=== PATIENT | female | born 1955 | race Caucasian/White ===

== ENCOUNTER 2017-03-10 13:57 | Inpatient (IN) ==
[~2017-03-10 13:57] MED LIST: *HR* Atropine Sulfate 1 MG/10 ML SYRINGE IV ONE; *HR* Dextrose 50 % in Water (Syg) 50 ML SYRINGE IVC ONE
--- NOTE | 2017-03-10 14:38 | Emergency Department Note ---
Disposition Clinical Impression: Hyperkalemia, JOSE ROBERTO (acute kidney injury), Bradycardia, Nausea and vomiting, Anemia, Metabolic acidosis Disposition: Admitted As Inpatient Condition: Undetermined General Adult HPI - General Chief complaint: ED Nausea/Vomiting/Diarrhea Stated complaint: n/v x 1 week Time Seen by Provider: 03/10/17 14:35 Source: patient, family Limitations: no limitations - History of Present Illness Pain Scale: 5 - Related Data Home Medications Medication Instructions Recorded Confirmed Aspirin [Adult Low Dose Aspirin EC] 81 mg PO DAILY 08/18/15 03/10/17 Gabapentin [Neurontin] 300 mg PO HS 08/18/15 03/10/17 Insulin LISPRO [Humalog] 14 unit SQ BID 08/18/15 03/10/17 Pravastatin Sodium [Pravachol] 40 mg PO HS 08/18/15 03/10/17 Buspirone HCl [Buspar] 5 mg PO BID 11/16/15 03/10/17 Linagliptin/Metformin HCl 1 tab PO BID 05/03/16 03/10/17 [Jentadueto Xr 2.5 mg-1,000 mg] Furosemide [Lasix] 20 mg PO QPM 09/26/16 03/10/17 Furosemide [Lasix] 40 mg PO QAM 09/26/16 03/10/17 Insulin Glargine,Hum.rec.anlog 14 units SQ QAM 03/10/17 03/10/17 [Toujeo Solostar] OxyCODONE/APAP 5/325 [Percocet 1 tab PO BID PRN 03/10/17 03/10/17 5/325 MG] Previous Rx's Medication Instructions Recorded Carvedilol [Coreg] 6.25 mg PO BIDWM #60 tablet 05/11/16 amLODIPine [Norvasc] 5 mg PO DAILY #30 tablet 05/11/16 Allergies Allergy/AdvReac Type Severity Reaction Status Date / Time No Known Allergies Allergy Verified 08/18/15 08:38 Past Medical History - Past Medical History Medical history: Reports: arthritis, CVA, diabetes, glaucoma, hyperlipidemia, hypertension, renal disease Surgical history: Reports: cataract, other Psychiatric history: Reports: no psych history - Social History Smoking Status: Unknown if ever smoked Smokeless Tobacco Status: No Alcohol use: Reports: none Drug use: Reports: none Physical Exam - General Limitations: no limitations General appearance: alert Course Vital Signs Temperature 97.8 F 03/10/17 14:15 Pulse Rate 62 03/10/17 14:15 Respiratory Rate 18 03/10/17 14:15 Blood Pressure 94/46 03/10/17 14:15 O2 Sat by Pulse Oximetry 98 03/10/17 14:15 Temperature 96.7 F L 03/10/17 20:48 Pulse Rate 69 03/10/17 20:48 Respiratory Rate 10 03/10/17 20:48 Blood Pressure 102/39 03/10/17 20:48 O2 Sat by Pulse Oximetry 97 03/10/17 20:48 Oxygen Delivery Oxygen Delivery Nasal Cannula Medical Decision Making - Lab Data Result diagrams: 03/10/17 15:48 03/10/17 20:19 Lab Results 03/10/17 03/10/17 03/10/17 Range/Units 15:48 15:48 16:56 WBC 15.1 H D (4.3-11.1) K/mcL RBC 3.48 L (3.82-4.97) M/mcL Hgb 8.2 L (11.5-15.4) g/dL Hct 29.1 L (35.3-44.9) % MCV 83.6 (83.0-100.0) fL MCH 23.6 L (28.0-33.3) pg MCHC 28.2 L (31.6-35.5) g/dL RDW 15.6 H (11.5-14.5) % Plt Count 315 (140-400) K/mcL MPV 8.6 L (9.4-12.4) fL Immature Gran % 0.7 (0-4) % Seg Neutrophils % 90.6 % Lymphocytes % 5.7 % Monocytes % 2.8 % Eosinophils % 0.1 % Basophils % 0.1 % Neutrophils # 13.7 H (1.6-8.9) K/mcL Lymphocytes # 0.9 (0.6-4.6) K/mcL Monocytes # 0.4 (0.0-1.3) K/mcL Eosinophils # 0.0 (0.0-0.6) K/mcL Basophils # 0.0 (0.0-0.2) K/mcL Platelet Estimate Normal (Normal) Hypochromasia Present A (Not Present) Sodium 133 L (136-145) mEq/L Potassium 8.5 H* 7.3 H* D (3.5-4.5) mEq/L Chloride 96 L (98-109) mEq/L Carbon Dioxide 10 L* (19-29) mEq/L BUN 106 H (7-20) mg/dL Creatinine 7.35 H (0.57-1.11) mg/dL Est GFR ( Amer) 7 L (> 60) Est GFR (Non-Af Amer) 6 L (> 60) BUN/Creatinine Ratio 14 (6-26) Glucose 120 H (70-99) mg/dL Calculated Osmolality 311 H (280-300) Calcium 9.5 (8.6-10.8) mg/dL Total Bilirubin 0.4 (0.2-1.2) mg/dL AST 8 (5-34) Units/L ALT 8 (0-55) Units/L Alkaline Phosphatase 135 H (38-126) Units/L Serum Total Protein 8.8 H (6.0-8.3) g/dL Albumin 2.6 L (3.5-5.0) g/dL Globulin 6.2 H (2.4-3.5) g/dL Albumin/Globulin Ratio 0.4 L (1.1-2.2) Specimen Rejected 03/10/17 03/10/17 Range/Units 18:16 18:53 WBC (4.3-11.1) K/mcL RBC (3.82-4.97) M/mcL Hgb (11.5-15.4) g/dL Hct (35.3-44.9) % MCV (83.0-100.0) fL MCH (28.0-33.3) pg MCHC (31.6-35.5) g/dL RDW (11.5-14.5) % Plt Count (140-400) K/mcL MPV (9.4-12.4) fL Immature Gran % (0-4) % Seg Neutrophils % % Lymphocytes % % Monocytes % % Eosinophils % % Basophils % % Neutrophils # (1.6-8.9) K/mcL Lymphocytes # (0.6-4.6) K/mcL Monocytes # (0.0-1.3) K/mcL Eosinophils # (0.0-0.6) K/mcL Basophils # (0.0-0.2) K/mcL Platelet Estimate (Normal) Hypochromasia (Not Present) Sodium (136-145) mEq/L Potassium 7.9 H* (3.5-4.5) mEq/L Chloride (98-109) mEq/L Carbon Dioxide (19-29) mEq/L BUN (7-20) mg/dL Creatinine (0.57-1.11) mg/dL Est GFR ( Amer) (> 60) Est GFR (Non-Af Amer) (> 60) BUN/Creatinine Ratio (6-26) Glucose (70-99) mg/dL Calculated Osmolality (280-300) Calcium (8.6-10.8) mg/dL Total Bilirubin (0.2-1.2) mg/dL AST (5-34) Units/L ALT (0-55) Units/L Alkaline Phosphatase (38-126) Units/L Serum Total Protein (6.0-8.3) g/dL Albumin (3.5-5.0) g/dL Globulin (2.4-3.5) g/dL Albumin/Globulin Ratio (1.1-2.2) Specimen Rejected Hemolyzed Critical Care Time Critical Care Time: Yes Total Critical Care Time: 75 Attestation: Severe hyperkalemia requiring IV calcium chloride, sodium bicarbonate, insulin. Attestation Statement - Attestation Attestation: I examined this patient and my medical decision-making was reviewed with the Resident Physician. I agree with the documented findings, disposition and treatment plan as described except to the extent set forth below. Status post time provided in conjunction with the resident physician Dr. Ventura Patient has experienced illness for the past one week. Worse over the past several days. Nausea and vomiting with the inability to tolerate oral intake. Upper abdominal pain. Increasing weakness. She required staff assistance to transfer from the wheelchair to the examination bed. 16:15: i Was made aware by the nurse that the patient became bradycardic. She was reassessed at bedside. She is alert and normotensive. Long pauses identified on rhythm strip. Repeat ECG showed bradycardic rhythm. At this point we received information from the lab that she was severely hyperkalemic. I did place a right-sided external jugular line. Patient was given albuterol, calcium chloride, insulin, glucose, sodium bicarbonate. Labs reviewed by me indicating acute kidney injury and hyperkalemia. 19:21: Continued assessment indicates persistently elevated potassium levels. We have had several telephone discussions with the on-call forging roll operator. Patient was given additional rounds of medical management.
[2017-03-10] MEDS ORDERED: 0.9 % Sodium Chloride 500 ML IVC ONE (14:51)
[2017-03-10] MEDS ORDERED: Ondansetron 4 MG/2 ML VIAL IVP ONE (14:51)
--- NOTE | 2017-03-10 15:05 | Emergency Department Note ---
Disposition Clinical Impression: Hyperkalemia, JOSE ROBERTO (acute kidney injury), Bradycardia, Metabolic acidosis Nausea and vomiting Qualifiers: Vomiting type: unspecified Vomiting Intractability: non-intractable Qualified Code(s): R11.2 - Nausea with vomiting, unspecified Anemia Qualifiers: Anemia type: unspecified type Qualified Code(s): D64.9 - Anemia, unspecified Disposition: Admitted As Inpatient Condition: Undetermined Referrals: Elza Jesus MD [Primary Care Provider] - Forms: ED Satisfaction Letter Time of Disposition: 19:36 Nausea/Vomiting/Diarrhea HPI - General Chief complaint: ED Nausea/Vomiting/Diarrhea Stated complaint: n/v x 1 week Time Seen by Provider: 03/10/17 14:35 Source: patient, family Mode of arrival: wheelchair Limitations: no limitations Nursing Notes Reviewed: Yes Vital Signs Reviewed: Yes - History of Present Illness HPI Narrative: 61-year-old female with history of diabetes, hypertension, and tubal ligation arrives [facility] emergency department complaining of one week of nausea and vomiting as well as decreased urine output and abdominal pain. The patient is unable to pinpoint exactly where the abdominal pain is located but states it is generalized. The patient states the vomiting and abdominal pain started roughly the same time. The patient denies any fevers or chills. The patient does admit to chronic constipation but states that she had a bowel movement yesterday that was normal. Patient denies any other complaints. She is resting comfortably in the room with the exception of retching due to vomiting. Pt Subjective Complaint: nausea, vomiting, abdominal pain Onset (ago): week(s) (1) Description of emesis: watery Associated Abdominal Pain: Yes If pain, Location of pain: diffuse Severity: moderate Severity scale (1-10): 5 Quality: cramping Consistency: constant Improves with: nothing Worsens with: nonthing Associated symptoms: Reports: nausea/vomiting - Related Data Home Medications Medication Instructions Recorded Confirmed Aspirin [Adult Low Dose Aspirin EC] 81 mg PO DAILY 08/18/15 03/10/17 Gabapentin [Neurontin] 300 mg PO HS 08/18/15 03/10/17 Insulin LISPRO [Humalog] 14 unit SQ BID 08/18/15 03/10/17 Pravastatin Sodium [Pravachol] 40 mg PO HS 08/18/15 03/10/17 Buspirone HCl [Buspar] 5 mg PO BID 11/16/15 03/10/17 Linagliptin/Metformin HCl 1 tab PO BID 05/03/16 03/10/17 [Jentadueto Xr 2.5 mg-1,000 mg] Furosemide [Lasix] 20 mg PO QPM 09/26/16 03/10/17 Furosemide [Lasix] 40 mg PO QAM 09/26/16 03/10/17 Insulin Glargine,Hum.rec.anlog 14 units SQ QAM 03/10/17 03/10/17 [Toujeo Solostar] OxyCODONE/APAP 5/325 [Percocet 1 tab PO BID PRN 03/10/17 03/10/17 5/325 MG] Previous Rx's Medication Instructions Recorded Carvedilol [Coreg] 6.25 mg PO BIDWM #60 tablet 05/11/16 amLODIPine [Norvasc] 5 mg PO DAILY #30 tablet 05/11/16 Allergies Allergy/AdvReac Type Severity Reaction Status Date / Time No Known Allergies Allergy Verified 08/18/15 08:38 All systems ED: reviewed and negative except as stated. Constitutional: Reports: weakness. Denies: fever, chills, weight change Cardiovascular: Denies: chest pain, palpitations, dyspnea on exertion Respiratory: Denies: cough, dyspnea, wheezes Gastrointestinal: Reports: abdominal pain, nausea, vomiting, constipation. Denies: diarrhea Genitourinary: Denies: urgency, dysuria, frequency Musculoskeletal: Denies: back pain, neck pain Neurological: Denies: headache Past Medical History - Past Medical History Attestation: Yes The following information was validated with the patient. Source: patient Medical history: Reports: arthritis, CVA, diabetes, glaucoma, hyperlipidemia, hypertension, renal disease Surgical history: Reports: cataract, other Psychiatric history: Reports: no psych history - Social History Smoking Status: Unknown if ever smoked Smokeless Tobacco Status: No Alcohol use: Reports: none Drug use: Reports: none Physical Exam - General Limitations: no limitations General appearance: alert, in no apparent distress - Head Head exam: atraumatic, normocephalic, normal inspection - Eye Eye exam: Present: normal appearance, PERRL, EOMI - ENT ENT exam: normal exam, normal oropharynx, mucous membranes moist - Neck Neck exam: Present: normal inspection, full ROM, trachea midline - Chest Chest inspection: Present: normal inspection, symmetric chest wall rise - Respiratory Respiratory exam: Present: normal lung sounds bilaterally - Cardiovascular Cardiovascular exam: Present: regular rate, normal rhythm, normal heart sounds - Abdominal Exam Abdominal exam: Present: soft, tenderness (diffuse). Absent: distention, guarding, rebound, rigidity, Queen's sign, Rovsing's sign Abdominal tenderness: Present: diffuse, moderate - Extremities Exam Extremities exam: Present: normal inspection, full ROM, pedal edema (1+). Absent: tenderness Course - Reevaluation(s) Reevaluation #1: Nurse notified myself of the cardia. The patient was evaluated and noted to be bradycardic. She was administered atropine immediately after being placed on pads. The patient was immediately notified that there was a potassium of critically high note at 8.5. The patient had calcium chloride administered. Multiple IVs were started at that time. The patient was started with IV fluids. The patient also received 10 mg of albuterol nebulizer as well as 10 units of insulin and 2 A of D50. The patient's heart rate continued to increase to the mid 50s and 60s. We will recheck the patient's potassium and monitor the patient at this time. Time: 16:31 Reevaluation #2: After speaking with the hospitalist, Dr. Reynolds he expressed concern for indication for dialysis. He recommended conversation with Dr. De La Vega once again. After talking with Dr. De La Vega she feels as though the patient's hyperkalemia will begin to correct rapidly. We will perform a reassessment of the patient's potassium roughly 1 hour after the last straw and reevaluate for further care. Time: 17:37 Reevaluation #3: Repeat potassium revealed a potassium of 7.9. We began the patient on another dose of insulin as well as albuterol. We begin the patient Kayexalate again. We spoke to Dr. De La Vega in nephrology who agreed that the patient would likely need dialysis at this time. She requested stat admission to ICU for further care and dialysis. He spoke to the hospitalist preparation room manager, Dr. Ambrocio who agreed to accept the patient to the ICU. We will admit the patient to the ICU at this time. The patient remains alert and oriented and answering questions appropriately. Her heart rate remains in the 60s to 70s. Time: 19:34 Vital Signs Temperature 97.8 F 03/10/17 14:15 Pulse Rate 62 03/10/17 14:15 Respiratory Rate 18 03/10/17 14:15 Blood Pressure 94/46 03/10/17 14:15 O2 Sat by Pulse Oximetry 98 03/10/17 14:15 Temperature 97.8 F 03/10/17 14:15 Pulse Rate 66 03/10/17 19:32 Respiratory Rate 12 03/10/17 19:32 Blood Pressure 103/69 03/10/17 19:32 O2 Sat by Pulse Oximetry 100 03/10/17 19:32 Oxygen Delivery Oxygen Delivery Room Air Nausea/Vomiting/Diarrhea - Lab Data Result diagrams: 03/10/17 15:48 03/10/17 18:53 Lab Results 03/10/17 03/10/17 03/10/17 Range/Units 15:48 15:48 16:56 WBC 15.1 H D (4.3-11.1) K/mcL RBC 3.48 L (3.82-4.97) M/mcL Hgb 8.2 L (11.5-15.4) g/dL Hct 29.1 L (35.3-44.9) % MCV 83.6 (83.0-100.0) fL MCH 23.6 L (28.0-33.3) pg MCHC 28.2 L (31.6-35.5) g/dL RDW 15.6 H (11.5-14.5) % Plt Count 315 (140-400) K/mcL MPV 8.6 L (9.4-12.4) fL Immature Gran % 0.7 (0-4) % Seg Neutrophils % 90.6 % Lymphocytes % 5.7 % Monocytes % 2.8 % Eosinophils % 0.1 % Basophils % 0.1 % Neutrophils # 13.7 H (1.6-8.9) K/mcL Lymphocytes # 0.9 (0.6-4.6) K/mcL Monocytes # 0.4 (0.0-1.3) K/mcL Eosinophils # 0.0 (0.0-0.6) K/mcL Basophils # 0.0 (0.0-0.2) K/mcL Platelet Estimate Normal (Normal) Hypochromasia Present A (Not Present) Sodium 133 L (136-145) mEq/L Potassium 8.5 H* 7.3 H* D (3.5-4.5) mEq/L Chloride 96 L (98-109) mEq/L Carbon Dioxide 10 L* (19-29) mEq/L BUN 106 H (7-20) mg/dL Creatinine 7.35 H (0.57-1.11) mg/dL Est GFR ( Amer) 7 L (> 60) Est GFR (Non-Af Amer) 6 L (> 60) BUN/Creatinine Ratio 14 (6-26) Glucose 120 H (70-99) mg/dL Calculated Osmolality 311 H (280-300) Calcium 9.5 (8.6-10.8) mg/dL Total Bilirubin 0.4 (0.2-1.2) mg/dL AST 8 (5-34) Units/L ALT 8 (0-55) Units/L Alkaline Phosphatase 135 H (38-126) Units/L Serum Total Protein 8.8 H (6.0-8.3) g/dL Albumin 2.6 L (3.5-5.0) g/dL Globulin 6.2 H (2.4-3.5) g/dL Albumin/Globulin Ratio 0.4 L (1.1-2.2) Specimen Rejected 03/10/17 03/10/17 Range/Units 18:16 18:53 WBC (4.3-11.1) K/mcL RBC (3.82-4.97) M/mcL Hgb (11.5-15.4) g/dL Hct (35.3-44.9) % MCV (83.0-100.0) fL MCH (28.0-33.3) pg MCHC (31.6-35.5) g/dL RDW (11.5-14.5) % Plt Count (140-400) K/mcL MPV (9.4-12.4) fL Immature Gran % (0-4) % Seg Neutrophils % % Lymphocytes % % Monocytes % % Eosinophils % % Basophils % % Neutrophils # (1.6-8.9) K/mcL Lymphocytes # (0.6-4.6) K/mcL Monocytes # (0.0-1.3) K/mcL Eosinophils # (0.0-0.6) K/mcL Basophils # (0.0-0.2) K/mcL Platelet Estimate (Normal) Hypochromasia (Not Present) Sodium (136-145) mEq/L Potassium 7.9 H* (3.5-4.5) mEq/L Chloride (98-109) mEq/L Carbon Dioxide (19-29) mEq/L BUN (7-20) mg/dL Creatinine (0.57-1.11) mg/dL Est GFR ( Amer) (> 60) Est GFR (Non-Af Amer) (> 60) BUN/Creatinine Ratio (6-26) Glucose (70-99) mg/dL Calculated Osmolality (280-300) Calcium (8.6-10.8) mg/dL Total Bilirubin (0.2-1.2) mg/dL AST (5-34) Units/L ALT (0-55) Units/L Alkaline Phosphatase (38-126) Units/L Serum Total Protein (6.0-8.3) g/dL Albumin (3.5-5.0) g/dL Globulin (2.4-3.5) g/dL Albumin/Globulin Ratio (1.1-2.2) Specimen Rejected Hemolyzed
[2017-03-10 16:07] LABS: Basophils % 0.1 %; Eosinophils % 0.1 %; Hematocrit 29.1 % (35.3-44.9); Hemoglobin 8.2 g/dL (11.5-15.4); Immature Granulocytes % 0.7 % (0-4); Lymphocytes # 0.9 K/mcL (0.6-4.6); Lymphocytes % 5.7 %; Mean Corpuscular HGB Conc 28.2 g/dL (31.6-35.5); Mean Corpuscular Hemoglobin 23.6 pg (28.0-33.3); Mean Corpuscular Volume 83.6 fL (83.0-100.0); Mean Platelet Volume 8.6 fL (9.4-12.4); Monocytes # 0.4 K/mcL (0.0-1.3); Monocytes % 2.8 %; Neutrophils # 13.7 K/mcL (1.6-8.9); Platelet Count 315 K/mcL (140-400); Red Blood Count 3.48 M/mcL (3.82-4.97); Red Cell Distribution Width 15.6 % (11.5-14.5); Segmented Neutrophils % 90.6 %
[2017-03-10 16:08] LABS: Albumin 2.6 g/dL (3.5-5.0); Albumin/Globulin Ratio 0.4 (1.1-2.2); Bilirubin,Total 0.4 mg/dL (0.2-1.2); Calcium 9.5 mg/dL (8.6-10.8); Globulin 6.2 g/dL (2.4-3.5); Total Protein 8.8 g/dL (6.0-8.3)
[2017-03-10] MEDS ORDERED: Ipratropium/Albuterol Neb 3 ML IH ONE (16:15)
[2017-03-10] MEDS ORDERED: Calcium Chloride 1,000 MG in 0.9 % Sodium Chloride 100 ML IVPB ONE (16:15)
[2017-03-10] MEDS ORDERED: Insulin Human Regular 10 UNIT in 0.9 % Sodium Chloride 10 ML IV ONE ×2 (16:15→19:17)
[2017-03-10] MEDS ORDERED: *HR* Dextrose 50 % in Water (Syg) 50 ML SYRINGE IVP ONE ×2 (16:15→19:17)
[2017-03-10] MEDS ORDERED: Sodium Bicarbonate 50 MEQ/50 ML VIAL IVP ONE (16:16)
[2017-03-10] MEDS ORDERED: Albuterol 2.5 MG/3 ML NEBULIZER ONE (16:17)
[2017-03-10] MEDS ORDERED: *HR* Dextrose 50 % in Water (Syg) 50 ML SYRINGE ONE (16:17)
[2017-03-10 16:18] LABS: Potassium 8.5 mEq/L (3.5-4.5)
[2017-03-10] MEDS ORDERED: Albuterol 2.5 MG/3 ML NEBULIZER IH ONE ×3 (16:38→19:17)
[2017-03-10] MEDS ORDERED: 0.9 % Sodium Chloride 1,000 ML IVC ONE ×3 (16:39→17:16)
[2017-03-10] MEDS ORDERED: Sodium Bicarbonate 150 MEQ in D5% in Water 1,000 ML IVC SCH ×2 (16:45)
[2017-03-10 16:53] LABS: Hypochromasia Present (Not Present); Platelet Estimate Normal (Normal)
[2017-03-10] MEDS ORDERED: Acetaminophen 325 MG TABLET PO PRN (19:41)
[2017-03-10] MEDS ORDERED: *HR* Morphine 2 MG/ML SYRINGE IVP PRN (19:41)
[2017-03-10] MEDS ORDERED: Naloxone 0.4 MG/ML INJ IVP PRN (19:41)
[2017-03-10] MEDS ORDERED: *HR* HYDROcodone/Acet 5/325 mg TABLET PO PRN (19:41)
[2017-03-10] MEDS ORDERED: 0.9 % Sodium Chloride 1,000 ML IVC SCH ×2 (19:45→21:45)
[2017-03-10 20:36] LABS: Calcium 9.8 mg/dL (8.6-10.8); Magnesium 1.7 mg/dL (1.6-2.6)
[2017-03-10 20:40] LABS: Potassium 7.1 mEq/L (3.5-4.5)
[2017-03-10 20:41] LABS: Potassium 7.1 mEq/L (3.5-4.5)
[2017-03-10] MEDS ORDERED: *HR* Midazolam HCl 5 MG/5 ML VIAL IVP ONE ×2 (21:10→22:02)
--- NOTE | 2017-03-10 21:38 | Internal Med History&Physical ---
Date of Encounter: 03/10/17 Time of Encounter: 21:00 Assessment and Plan (1) Acute renal failure Current visit: No Status: Acute Admit the pt into ICU Her JOSE ROBERTO with CKD-3 seems to be due to dehydration / hypovolemia and medication induced - Metformin / Linagliptin and Li De La Vega already seen her, planning on emergency HD now in ICU at bed side Will cont BiCarb gtt + IV fluids Mcneill + Straict I & O on tele check serial troponin will send for UA..If UA looks abnormal will start her on empirical abx Cefepime since she had Pseudomonas UTI in the past Cont trending on her Cr and Electrolytes Talked to pt and her daughter at bed side and explained to them about current care Pt requested for DNR CC code status only Spent 60 mins on this pt's critical care Qualifiers: Acute renal failure type: unspecified Qualified Code(s): N17.9 - Acute kidney failure, unspecified (2) Hyperkalemia Current visit: No Status: Resolved Acute refractory hyperkalemia Had one episode of bradycardia in the ER..now HR stable in 60's K + started improving slowly Cont Haco3 gtt + NS, Kayexalate also getting HD now (3) Lactic acidosis Current visit: Yes Status: Acute Due to severe renal metabolic acidosis.. also possible due to Metformin too cont IV hydration will trend on her lactic acid (4) Metabolic acidosis Current visit: Yes Status: Acute (5) Acute delirium Current visit: Yes Status: Acute due to metabolic encephalopathy with severe JOSE ROBERTO + Hyperuricemia improving (6) Acute metabolic encephalopathy Current visit: Yes Status: Acute (7) HTN (hypertension) Current visit: No Status: Chronic hold coreg and resume other home med Norvasc hold ACEI too Qualifiers: Hypertension type: essential hypertension Qualified Code(s): I10 - Essential (primary) hypertension (8) CKD (chronic kidney disease) stage 3, GFR 30-59 ml/min Current visit: Yes Status: Acute avoid nephrotoxic meds (9) DM2 (diabetes mellitus, type 2) Current visit: Yes Status: Acute on ISS Q6hr Qualifiers: Chronic kidney disease stage: stage 3 (moderate) Qualified Code(s): E11.22 - Type 2 diabetes mellitus with diabetic chronic kidney disease; N18.3 - Chronic kidney disease, stage 3 (moderate); N18.3 - Chronic kidney disease, stage 3 (moderate) (10) DVT prophylaxis Current visit: Yes Status: Acute on SQ Heparin Internal Medicine - H&P: HPI Chief complaint: JOSE ROBERTO and Hyperkalemia Admitted From: Emergency Dept Plans for Post Hospital Care: Home History of present illness: Ms. Mejia is a 61 year old female with history of diabetes, hypertension, HLD, CKD-3 pt presented to [facility] emergency department complaining of one week of nausea and vomiting as well as decreased urine output and abdominal pain. She had further work up done in the ER her K + 8.5 and Cr: 7.35. Pt was given IV Insulin, NaHCo3, Calcium gluconate, Albuterol neb and Kayexalate. However her K + still remained elevtaed at 7.9. She also happened to have a brief episode of bradycardia which resolved with Atropine x 1 dose. Now her HR in 60's. When I examined her in the ICU around 8.30 PM she is alert, awake and Oriented x 3. Pt denied any CP / SOB. However does c/po generalized weakens and severe lethargic. Past Med Surg Social Fam HX - Past Medical History Medical history: arthritis, CVA, diabetes, glaucoma, hyperlipidemia, hypertension, renal disease Psychiatric history: no psych history - Past Surgical History Surgical History: cataract, other - Social History Smoking Status: Unknown if ever smoked Smokeless Tobacco Status: No Alcohol use: none Drug use: none - Family History Mother Adopted: No Family Member Ethnicity: Unknown Living Status: Still Living Hx Family Cardiac Disorders: No Hx Family Respiratory Disorders: Yes (COPD) Hx Family Cancer: Yes Hx Family GI Disorders: No Hx Family Endocrine Disorder: No Hx Family Neuromuscular Disorders: No Hx Family Neurologic Disorders: No Hx Family HEENT Disorders: No Hx Family Autoimmune Disorders: No Father Family Member Ethnicity: Unknown Living Status: Hx Family Cardiac Disorders: No Hx Family Respiratory Disorders: No Hx Family Cancer: No Hx Family GI Disorders: No Hx Family Endocrine Disorder: No Hx Family Neuromuscular Disorders: No Hx Family Neurologic Disorders: No Hx Family HEENT Disorders: No Hx Family Autoimmune Disorders: No Internal Medicine - H&P: Meds Aspirin [Adult Low Dose Aspirin EC] 81 mg PO DAILY 08/18/15 [History] Gabapentin [Neurontin] 300 mg PO HS 08/18/15 [History] Insulin LISPRO [Humalog] 14 unit SQ BID 08/18/15 [History] Pravastatin Sodium [Pravachol] 40 mg PO HS 08/18/15 [History] Buspirone HCl [Buspar] 5 mg PO BID 11/16/15 [History] Linagliptin/Metformin HCl [Jentadueto Xr 2.5 mg-1,000 mg] 1 tab PO BID 05/03/16 [History] Carvedilol [Coreg] 6.25 mg PO BIDWM #60 tablet 05/11/16 [Rx] amLODIPine [Norvasc] 5 mg PO DAILY #30 tablet 05/11/16 [Rx] Furosemide [Lasix] 20 mg PO QPM 09/26/16 [History] Furosemide [Lasix] 40 mg PO QAM 09/26/16 [History] Insulin Glargine,Hum.rec.anlog [Chayushane Solostar] 14 units SQ QAM 03/10/17 [ History] OxyCODONE/APAP 5/325 [Percocet 5/325 MG] 1 tab PO BID PRN 03/10/17 [History] 3 Allergy/AdvReac Type Severity Reaction Status Date / Time No Known Allergies Allergy Verified 08/18/15 08:38 All Systems PM: A 10-system review of systems was performed and is negative for pertinent findings except as documented above in the HPI. Review of systems: All the systems are reviewed everything is benign except the systems and symptoms I mentioned in the history of present illness - Constitutional Vitals: Temp Pulse Resp BP Pulse Ox 96.7 F L 69 10 102/39 97 03/10/17 20:48 03/10/17 20:48 03/10/17 20:48 03/10/17 20:48 03/10/17 20:48 General appearance: Present: A&O X 3, no acute distress, answers questions appropriately Exam: very lethargic and weak - Head Head exam: Present: atraumatic, normal inspection - Neck Neck exam general surgery: Present: normal inspection, supple. Absent: lymphadenopathy - Respiratory Respiratory exam: Present: decreased breath sounds, wheezes (mild). Absent: rales, respiratory distress, rhonchi - Cardiovascular Cardiovascular exam: Present: RRR, +S1, +S2. Absent: systolic murmur - Extremities Exam Extremities exam: Present: pedal edema (trace). Absent: calf tenderness, tenderness - Back Exam Back exam: Absent: CVA tenderness (L), CVA tenderness (R) - Neurological Exam Neurological exam: Present: alert, oriented X3, no focal deficits - Psychiatric Psychiatric exam: Present: depressed - Skin Skin exam: Present: dry, intact. Absent: rash Internal Med - H&P Results - Labs CBC & Chem 7: 03/10/17 15:48 03/10/17 20:19 Labs: BMP 03/10/17 03/10/17 20:19 20:19 Sodium 133 L Potassium 7.1 H* 7.1 H* Chloride 99 Carbon Dioxide 9 L* BUN 101 H Creatinine 7.01 H Glucose 236 H Calcium 9.8 Cardiac Enzymes 03/10/17 Range/Units 20:19 Troponin I 0.00 (0-0.03) ng/mL
[2017-03-10] MEDS ORDERED: *HR* Dextrose 50 % in Water (Syg) 50 ML SYRINGE IVP PRN (21:58)
[2017-03-10] MEDS ORDERED: D5% in Water 1,000 ML IVC PRN (21:58)
[2017-03-10] MEDS ORDERED: Dextrose Gel 15 GM PO PRN ×2 (21:58)
--- NOTE | 2017-03-10 22:01 | Nephrology Consult Note ---
Date of Encounter: 03/11/17 Time of Encounter: 22:00 Assessment and Plan (1) Hyperkalemia Current Visit: Yes Status: Acute Severe hyperkalemia in the setting of JOSE ROBERTO not amenable to medical treatment with resultant bradycardia potentially life threatening Will initiate HOSPITAL SCIENTIST emergently with patient's consent, CVVH choosen due to hemodynamic instability over intermittent HD for clerance purposes with no UF Serial hourly potassium checks advised Awaiting BMs after a total of 120g of kayexalate given (2) JOSE ROBERTO (acute kidney injury) Current Visit: Yes Status: Acute Elevated SCr in the setting of hypotension with one week of decreased po intake , nausea and vomiting along with diuretics with resultant severe hyperkalemia and metabolic acidosis with bradycardia as well. likley etiology appears to be profound hypovolemia/shock rule out sepsis Agree with obtaining UA and possibly urine sodium, creatinine ane eosinophils when there is enough urine CT abd/pelvis results reviewed with no hydronephrosis noted Will check LDH given lymphadenopathy noted on CT, uric acid level as well as CPK Agree with aggressive volume repletion with NS concurrent with bicarb gtt Will proceed with [facility]OSP[facility] SCIENTIST ([facility]) once HD access established as patient agreeable to this plan Case discussed at length first with the ED team and then with the hospitalist and critical care nurse Prognosis guarded Critical care time spent over 45mins excluding time spent establishing HD catheter access (3) Bradycardia Current Visit: Yes Status: Acute Likely due to severe hyperkalemia in the setting of beta-caprice use (coreg) as well. Should hopefully not be at issue once potassium drops (4) Metabolic acidosis Current Visit: Yes Status: Acute Likely due to JOSE ROBERTO and lactic acidosis due to metformin and presumed sepsis Continue bicarb gtt for now till CVVH adequately established (5) CKD (chronic kidney disease) stage 3, GFR 30-59 ml/min Current Visit: Yes Status: Acute Baseline GFR 20-30s this year so far (6) Anemia Current Visit: No Status: Chronic Likely chronic given history but will likely worsen with volume repletion, will monitor closely for transfusion needs Qualifiers: Qualified Code(s): D50.9 - Iron deficiency anemia, unspecified History of Present Illness - Reason for Consult Consult date: 03/10/17 Acute Kidney Injury, hyperkalemia Requesting physician: Darion Mendenhall - History of Present Illness 61 yo female with PMH of DM, HTN, stage 3 CKD with anemia of chronic disease and chronic leg wounds admitted from the ER to the ICU this evening compalining of generalized fatigue and diffuse abdominal pain after over a weeks worth of nausea and vomiting with decreased po intake and UOP. Her SCr was noted drastically elevated from 1.8, GFR 29 in november to 7.35, GFR 6 with potassium of 8.5 and bicarb of 9. She received 60g kayexalate in the ER along with insulin/ D50 as well as calcium chloride and albuterol as well s 3 liters of NS. Potassium initially improved to 7.3 but went back up to to 7.9. bradycardia also experienced with HR down to 30s improving with atropine. Pt seen and examined in the ICU complaining of fatigue. Daughter present at bedside confirming DNR-CC status but patient also clearly wishes for dialytic intervention as offered by me.No fevers/chills. No NSAIDs use but was on diuretics throughout the week. No potassium supplements. BP readings noted from 80s to 100s systolic. Past Med Surg Social Fam HX - Past Medical History Medical history: arthritis, CVA, diabetes, glaucoma, hyperlipidemia, hypertension, renal disease Psychiatric history: no psych history - Past Surgical History Surgical History: cataract, other - Social History Smoking Status: Unknown if ever smoked Smokeless Tobacco Status: No Alcohol use: none Drug use: none - Family History Mother Adopted: No Family Member Ethnicity: Unknown Living Status: Still Living Hx Family Cardiac Disorders: No Hx Family Respiratory Disorders: Yes (COPD) Hx Family Cancer: Yes Hx Family GI Disorders: No Hx Family Endocrine Disorder: No Hx Family Neuromuscular Disorders: No Hx Family Neurologic Disorders: No Hx Family HEENT Disorders: No Hx Family Autoimmune Disorders: No Father Family Member Ethnicity: Unknown Living Status: Hx Family Cardiac Disorders: No Hx Family Respiratory Disorders: No Hx Family Cancer: No Hx Family GI Disorders: No Hx Family Endocrine Disorder: No Hx Family Neuromuscular Disorders: No Hx Family Neurologic Disorders: No Hx Family HEENT Disorders: No Hx Family Autoimmune Disorders: No Medications and Allergies Aspirin [Adult Low Dose Aspirin EC] 81 mg PO DAILY 08/18/15 [History] Gabapentin [Neurontin] 300 mg PO HS 08/18/15 [History] Insulin LISPRO [Humalog] 14 unit SQ BID 08/18/15 [History] Pravastatin Sodium [Pravachol] 40 mg PO HS 08/18/15 [History] Buspirone HCl [Buspar] 5 mg PO BID 11/16/15 [History] Linagliptin/Metformin HCl [Jentadueto Xr 2.5 mg-1,000 mg] 1 tab PO BID 05/03/16 [History] Carvedilol [Coreg] 6.25 mg PO BIDWM #60 tablet 05/11/16 [Rx] amLODIPine [Norvasc] 5 mg PO DAILY #30 tablet 05/11/16 [Rx] Furosemide [Lasix] 20 mg PO QPM 09/26/16 [History] Furosemide [Lasix] 40 mg PO QAM 09/26/16 [History] Insulin Glargine,Hum.rec.anlog [José Miguel Manuel] 14 units SQ QAM 03/10/17 [ History] OxyCODONE/APAP 5/325 [Percocet 5/325 MG] 1 tab PO BID PRN 03/10/17 [History] 3 Allergy/AdvReac Type Severity Reaction Status Date / Time No Known Allergies Allergy Verified 08/18/15 08:38 Review of Systems All Systems: reviewed and no additional remarkable complaints except as stated ( 10 systems reviewed with pertinent noted on HPI) Exam - Vital Signs Vital signs: Initial Vital Signs Temp Pulse Resp BP Pulse Ox 97.8 F 62 18 94/46 98 03/10/17 14:15 03/10/17 14:15 03/10/17 14:15 03/10/17 14:15 03/10/17 14:15 Vital Signs - Last 8 Hours Temp Pulse Pulse Pulse Pulse Pulse Pulse 03/10/17 21:18 70 66 66 65 64 03/10/17 20:48 96.7 F L 69 03/10/17 20:15 71 03/10/17 19:53 Pulse Pulse Resp Resp Resp Resp Resp 03/10/17 21:18 64 63 14 14 14 14 03/10/17 20:48 10 03/10/17 20:15 03/10/17 19:53 17 Resp Resp Resp BP BP BP BP 03/10/17 21:18 14 14 14 114/46 81/44 95/42 03/10/17 20:48 102/39 03/10/17 20:15 03/10/17 19:53 105/55 BP BP BP BP Pulse Ox 03/10/17 21:18 98/46 92/48 86/46 94/48 03/10/17 20:48 97 03/10/17 20:15 03/10/17 19:53 Intake and Output 03/10/17 03/10/17 03/10/17 07:59 15:59 23:59 Intake Total 0 / 3630.2 Balance 0 / 3630.2 Intake: Oral 0 / 0 - General Appearance General appearance: fatigue EENT: ATNC, mucous membranes dry Neck: no JVD, supple Respiratory: clear (ant bilat) Cardiology: edema (trace to +1 LE bilat with open wounds/scabs noted), normal S1 , normal S2 Gastrointestinal: no tenderness, no guarding, obese Integumentary: warm and dry Neurologic: alert and oriented x3 Musculoskeletal: no deformities Psychiatric: mood/affect appropriate, cooperative Results - Lab Results 03/11/17 03:05 03/11/17 11:55 Most recent lab results Calcium 9.8 mg/dL (8.6-10.8) 03/10/17 20:19 Magnesium 1.7 mg/dL (1.6-2.6) 03/10/17 20:19 Consult Discharge Plan - Plan Referrals: Elza Jesus MD [Primary Care Provider] -
--- NOTE | 2017-03-10 22:02 | Nephrology Procedure Note ---
Date of procedure: 03/10/17 Pre-op diagnosis: JOSE ROBERTO Post-op diagnosis: same Procedure Performed: femoral dialysis catheter Procedure: Pt prepped and draped in sterile fashion. Right femoral vein and artery visualized via US and vein subsequently cannulated without great difficulty with great blood flash and pull. Guidewire introduced with needle removed once in place. Dilated vein with 10 and 12 guage dilators respectively. Femoral catheter inserted over guidewire successfully and sutured in. All ports with great return and flushed successfully. Ready for use. Anesthesia: local Surgeon: Andres Torres Estimated blood loss (cc): 5 IV fluids (cc): 0 Pathology: none sent Condition: critical Disposition: ICU
[2017-03-10] MEDS ORDERED: Calcium Gluconate 1,000 MG in D5% in Water 100 ML IVPB PRN (22:03)
[2017-03-10] MEDS ORDERED: Calcium Gluconate 2,000 MG in D5% in Water 100 ML IVPB PRN (22:03)
[2017-03-10 23:08] LABS: ABG Base Excess -20 mEq/L (-2 to 3); ABG HCO3 8 mEq/L (21-27); ABG Oxygen Saturation 99 % (95-98); ABG PCO2 26 mmHg (35-45); ABG PO2 173 mmHg (85-104); ABG TCO2 9 mEq/L (20-26)
[2017-03-10 23:26] LABS: INR 1.2; Prothrombin Time 13.4 Seconds (9.4-12.1)
[2017-03-10 23:28] LABS: Activated Partial Thrombo Time 24.8 Seconds (26.0-36.0)
[2017-03-10 23:33] LABS: Hemoglobin A1C 6.8 %
[2017-03-10] MEDS: 0.9 % Sodium Chloride 1,000 ML PRIME SCH (23:34)
[2017-03-10] MEDS: PrismaSATE BGK 4/2.5 5,000 ML CRRT SCH ×2 (23:39)
[2017-03-10] MEDS: Calcium Chloride 4,000 MG in 0.9 % Sodium Chloride 1,000 ML CRRT SCH (23:44)
[2017-03-11] MEDS ORDERED: *HR* Heparin 5,000 UNIT/ML VIAL IVP ONE (00:58)
[2017-03-11] MEDS: *HR* Heparin 5,000 UNIT/ML VIAL IV PRN ×2 (00:58→03:36)
[2017-03-11] MEDS ORDERED: *HR* Heparin 5,000 UNIT/ML VIAL IVP PRN ×2 (00:58)
[2017-03-11] MEDS: Heparin 25,000 UNIT/500 ML D5W 25,000 UNIT/500 ML MLS IVC SCH ×2 (01:25→19:47)
[2017-03-11 03:14] LABS: Basophils % 0.1 %; Hematocrit 24.4 % (35.3-44.9); Hemoglobin 6.8 g/dL (11.5-15.4); Immature Granulocytes % 1.2 % (0-4); Lymphocytes # 0.9 K/mcL (0.6-4.6); Mean Corpuscular HGB Conc 27.9 g/dL (31.6-35.5); Mean Corpuscular Hemoglobin 23.9 pg (28.0-33.3); Mean Corpuscular Volume 85.6 fL (83.0-100.0); Mean Platelet Volume 8.5 fL (9.4-12.4); Monocytes % 5.5 %; Neutrophils # 15.7 K/mcL (1.6-8.9); Platelet Count 269 K/mcL (140-400); Red Blood Count 2.85 M/mcL (3.82-4.97); Red Cell Distribution Width 15.9 % (11.5-14.5); Segmented Neutrophils % 88.2 %
[2017-03-11] MEDS: 0.9 % Sodium Chloride 1,000 ML PRIME SCH (03:22)
[2017-03-11 03:30] LABS: Bilirubin,Total 0.4 mg/dL (0.2-1.2); Calcium 9.1 mg/dL (8.6-10.8)
[2017-03-11 03:31] LABS: Albumin 2.1 g/dL (3.5-5.0); Albumin/Globulin Ratio 0.4 (1.1-2.2); Bilirubin,Direct 0.2 mg/dL (0.0-0.5); Bilirubin,Indirect 0.2 mg/dL (0.0-1.2); Globulin 4.8 g/dL (2.4-3.5); Total Protein 6.9 g/dL (6.0-8.3)
[2017-03-11 03:34] LABS: Potassium 7.7 mEq/L (3.5-4.5)
[2017-03-11 03:41] LABS: Hypochromasia Present (Not Present); Platelet Estimate Normal (Normal)
[2017-03-11 03:42] LABS: Magnesium 1.8 mg/dL (1.6-2.6)
[2017-03-11] MEDS: Sodium Bicarbonate 150 MEQ in D5% in Water 1,000 ML IVC SCH ×2 (03:56→14:51)
[2017-03-11 04:13] LABS: ABG Base Excess -20 mEq/L (-2 to 3); ABG HCO3 9 mEq/L (21-27); ABG Oxygen Saturation 84 % (95-98); ABG PCO2 39 mmHg (35-45); ABG PO2 72 mmHg (85-104); ABG TCO2 11 mEq/L (20-26)
[2017-03-11] MEDS ORDERED: Phenylephrine 10 MG in D5% in Water 250 ML IVC SCH (04:15)
[2017-03-11] MEDS: *HR* Alteplase (Cathflo) 2 MG VIAL IVP PRN ×3 (04:22→04:27)
--- NOTE | 2017-03-11 05:22 | Event Note ---
Date of Encounter: 03/11/17 Time of Encounter: 04:30 Dr. De La Vega put a Rt Femoral HD cath last night, apparently it stopped working and she was able to have 10mins of filtration only. Nurse did talk to Dr. De La Vega who started her on Heparin gtt, still we were not able run Rasheeda. I repeated her ABG and BMP, Pt's acidosis seems to be worsening and her K is still elevated at 7.9. I called Dr. De La Vega who recommend to try to get another HD cath access. I called hotel receptionist surgeon, who is coming in t put Subclavian HD cath access now. Her HR still in high 30's and 40's. After giving 2 amps of NaHCo3 push now she is more alert, awake and oriented to placed and person. Rasheeda also started working since 5.00 AM. Her BP is slightly on lower side so started her on Phenyephrine gtt. Unable to get UA sample. COncerned for severe sepsis. So sent for blood cx and started her on broad spec abx Zosyn 2.25gm BID. Talked to the pt's and daughter at bed side, and explained to them about current critical situation and high mortality.
[2017-03-11] MEDS: Piperacillin/Tazobactam 3.375 GM in D5% in Water (Mini-Bag+) 100 ML IVPB SCH ×2 (05:53→17:14)
[2017-03-11] MEDS: Famotidine 20 MG/2 ML VIAL IVP SCH ×2 (05:54→18:22)
[2017-03-11] MEDS ORDERED: *HR* Heparin 5,000 UNIT/ML VIAL SQ SCH (06:00)
--- NOTE | 2017-03-11 06:36 | Cardiology Consult Note ---
Date of Encounter: 03/11/17 Time of Encounter: 06:45 Assessment and Plan (1) Bradycardia Current Visit: Yes Status: Acute 2/2 Hyperkalemia/Acidosis. Switch from phenylephrine to dopamine. Continue dialysis to correct acidosis/hyperkalemia (2) JOSE ROBERTO (acute kidney injury) Current Visit: Yes Status: Acute Nephrology consulted and pt on dialysis (3) Hyperkalemia Current Visit: Yes Status: Acute Improving on dialysis Discussion w patient/family: The assessment and plan as outlined above was discussed with the patient and/or family members who expressed understanding and agreement. All questions were answered. Thank you for involving us in the care of your patient. Please call with any questions. History of Present Illness Consult date: 03/11/17 Chief complaint: Bradycardia/shock History of present illness: Ms. Mejia is a 61 year old female with no previous cardiac history presents with nausea/vomiting/abdominal pain x 1week and found to be severely acidotic/ hyperkalemic with bradycardia. Consulted for bradycardia. She was initially placed on phenylephrine without improvement in her bradycardia and it remained in the 40s overnight. She denies chest/jaw/arm discomfort or syncope. Past Med Surg Social Fam HX - Past Medical History Medical history: arthritis, CVA, diabetes, glaucoma, hyperlipidemia, hypertension, renal disease Psychiatric history: no psych history - Past Surgical History Surgical History: cataract, other - Social History Smoking Status: Unknown if ever smoked Smokeless Tobacco Status: No Alcohol use: none Drug use: none - Family History Mother Adopted: No Family Member Ethnicity: Unknown Living Status: Still Living Hx Family Cardiac Disorders: No Hx Family Respiratory Disorders: Yes (COPD) Hx Family Cancer: Yes Hx Family GI Disorders: No Hx Family Endocrine Disorder: No Hx Family Neuromuscular Disorders: No Hx Family Neurologic Disorders: No Hx Family HEENT Disorders: No Hx Family Autoimmune Disorders: No Father Family Member Ethnicity: Unknown Living Status: Hx Family Cardiac Disorders: No Hx Family Respiratory Disorders: No Hx Family Cancer: No Hx Family GI Disorders: No Hx Family Endocrine Disorder: No Hx Family Neuromuscular Disorders: No Hx Family Neurologic Disorders: No Hx Family HEENT Disorders: No Hx Family Autoimmune Disorders: No Medications and Allergies Aspirin [Adult Low Dose Aspirin EC] 81 mg PO DAILY 08/18/15 [History] Gabapentin [Neurontin] 300 mg PO HS 08/18/15 [History] Insulin LISPRO [Humalog] 14 unit SQ BID 08/18/15 [History] Pravastatin Sodium [Pravachol] 40 mg PO HS 08/18/15 [History] Buspirone HCl [Buspar] 5 mg PO BID 11/16/15 [History] Linagliptin/Metformin HCl [Jentadueto Xr 2.5 mg-1,000 mg] 1 tab PO BID 05/03/16 [History] Carvedilol [Coreg] 6.25 mg PO BIDWM #60 tablet 05/11/16 [Rx] amLODIPine [Norvasc] 5 mg PO DAILY #30 tablet 05/11/16 [Rx] Furosemide [Lasix] 20 mg PO QPM 09/26/16 [History] Furosemide [Lasix] 40 mg PO QAM 09/26/16 [History] Insulin Glargine,Hum.rec.anlog [Toujeo Solostar] 14 units SQ QAM 03/10/17 [ History] OxyCODONE/APAP 5/325 [Percocet 5/325 MG] 1 tab PO BID PRN 03/10/17 [History] 3 Allergy/AdvReac Type Severity Reaction Status Date / Time No Known Allergies Allergy Verified 08/18/15 08:38 All Systems Review: A 10-system review of systems was performed and is negative for pertinent findings except as documented above in the HPI. - Constitutional Constitutional: fatigue, no chills, no fever(s) - EENT Eyes: no loss of vision, no pain Nose, mouth and throat: no bleeding gums, no epistaxis - Cardiovascular Cardiovascular: no chest pain at rest, no chest pain with exertion - Respiratory Respiratory: no hemoptysis, no wheezing - Gastrointestinal Gastrointestinal: no hematemesis, no hematochezia - Genitourinary Genitourinary: no dysuria, no hematuria - Musculoskeletal Musculoskeletal: muscle weakness, no arthralgias - Neurological Neurological: no loss of vision, no syncope - Psychiatric Psychiatric: no anxiety, no depression - Hematological/Lymphatic Hematologic/Lymphatic: no easy bleeding, no easy bruising Physical Examination Vital Signs, Last 4 Hours Pulse Resp BP Pulse Ox 03/11/17 05:00 40 12 109/41 95 03/11/17 03:00 38 14 108/38 94 General: Conversant, Other (chronically ill appearing) HEENT: Atraumatic Neck: No JVD Cardiac: Reg Rate and Rhythm Lungs: Normal Breath Sounds Neuro: No focal deficits noted, Other (lethargic) Abdomen: Soft, Non-Tender Skin: No rashes noted on visualized skin Musculoskeletal: No Chest Wall Tenderness Extremities: Other (edematous BL) Results 03/11/17 03:05 03/11/17 11:55 Lab Results 03/10/17 03/10/17 03/10/17 20:19 20:19 20:19 WBC Hgb Hct Plt Count INR APTT Sodium 133 L Potassium 7.1 H* 7.1 H* Chloride 99 Carbon Dioxide 9 L* BUN 101 H Creatinine 7.01 H Glucose 236 H Calcium 9.8 Magnesium 1.7 Total Bilirubin AST ALT Alkaline Phosphatase Troponin I 0.00 03/10/17 03/11/17 03/11/17 22:50 03:05 03:05 WBC 17.8 H Hgb 6.8 L Hct 24.4 L Plt Count 269 INR 1.2 APTT 24.8 L Sodium Potassium Chloride Carbon Dioxide BUN Creatinine Glucose Calcium Magnesium Total Bilirubin AST ALT Alkaline Phosphatase Troponin I 0.01 03/11/17 03:05 WBC Hgb Hct Plt Count INR APTT Sodium 137 Potassium 7.7 H* Chloride 101 Carbon Dioxide 9 L* BUN 105 H Creatinine 7.00 H Glucose 211 H Calcium 9.1 Magnesium 1.8 Total Bilirubin 0.4 AST 7 ALT 8 Alkaline Phosphatase 116 Troponin I - EKG Interpretation EKG results cardiology: personally reviewed (sinus bradycardia) Consult Discharge Plan - Plan Referrals: Elza Jesus MD [Primary Care Provider] -
[2017-03-11 06:55] LABS: Calcium 8.4 mg/dL (8.6-10.8); Magnesium 1.6 mg/dL (1.6-2.6)
[2017-03-11 06:59] LABS: Potassium 7.3 mEq/L (3.5-4.5)
--- NOTE | 2017-03-11 07:21 | Pulmonology Consult Note ---
<Pritesh De Oliveira - Last Filed: 03/11/17 09:23> Date of Encounter: 03/11/17 Time of Encounter: 07:17 Assessment and Plan (1) Acute worsening of stage 4 chronic kidney disease Current Visit: Yes Status: Acute Likely secondary to lactic acidosis possibly due to medication side effects - Metformin Cannot rule out viral gastroenteritis causing profoundly dehydrated/pre-renal etiology Nephrology consulted, appreciate management of Rasheeda Continuing with Bicarb drip; Heparin ggt per nephrology as previous HD catheter was clotted off Trend Cr, closely monitor electrolytes, I/O's, avoiding nephrotoxic agents (2) Hyperkalemia Current Visit: Yes Status: Acute Latest potassium checked this morning after initiating Rasheeda was 7.3, down from 7.7 3 hours prior Continue Rasheeda and Bicarb drip per nephrology recommendations Rechecking potassium every hour and then BMP every 6 hours after potassium < 7 (3) Severe sepsis Current Visit: Yes Status: Acute Unclear source, but likely intra-abdominal in setting of recent nausea/vomiting Blood and urine cultures pending; CT and CXR were unremarkable for acute process She was started on Zosyn, which we will continue; Dopamine ggt to support BP Given her history of MRSA, will give one day of Vancomycin and may continue depending on culture results (4) High anion gap metabolic acidosis Current Visit: Yes Status: Acute Secondary to lactic acidosis from dehydration/medication side effect Currently on bicarb drip and Rasheeda as above; consider stopping bicarb if pH > 7.2 Will closely monitor kidney function, electrolytes Trending ABGs today (5) Lactic acidosis Current Visit: Yes Status: Acute Possibly secondary to medications vs. dehydration Continue to check lactic acid levels today and continue supportive measures as above with fluids and Rasheeda (6) Bradycardia Current Visit: Yes Status: Acute Was bradycardic last night and received Phenylephrine, which has been changed to Dopamine HR currently in 80s; will continue Dopamine drip for now (7) Anemia Current Visit: No Status: Chronic She likely has anemia of chronic disease which her Hb is worsened by hemodilution this morning Will order type and screen and order 2 units of pRBCs as Hb 6.8 Rechecking Hb and PT/INR later today Qualifiers: Anemia type: iron deficiency Iron deficiency anemia type: unspecified iron deficiency Qualified Code(s): D50.9 - Iron deficiency anemia, unspecified (8) Insulin dependent diabetes mellitus Current Visit: Yes Status: Chronic Continue mediums dose SSI q6hr A1c checked yesterday was 6.8% (9) HTN (hypertension) Current Visit: No Status: Chronic Holding home hypertensives in setting of borderline hypotension Closely monitoring vitals while in intensive care Qualifiers: Hypertension type: essential hypertension Qualified Code(s): I10 - Essential (primary) hypertension (10) DVT prophylaxis Current Visit: Yes Status: Acute Heparin ggt per nephrology in setting of clotting issues during HD History of Present Illness Consult date: 03/11/17 Requesting physician: Frida Perales Reason for consult: other (acute on chronic kidney failure, hyperkalemia) Chief complaint: nausea, vomiting History of present illness: Patient is a 61 F who presented to the ED with 1 week history of nausea, vomiting, and decreased urine output. Daughter Danika is at bedside and is able to assist with history. She has never had anything like this happen before and states that her diet and medications have not recently changed. Her labs in the ED were remarkable for potassium of 8.5, creatinine of 7.35, and lactic acid of 13.3. She was also bradycardic and borderline hypotensive so she was started on Rasheeda and Dopamine drip and in the ICU. Patient's daughter states that her mother's health has steadily declined over the past year as she is immobile after a stroke. She still lives alone and has a nurse come by twice a week. Patient currently is not complaining of any pain, shortness of breath, fevers, but does feel chills and generalized weakness. Past Med Surg Social Fam HX - Past Medical History Medical history: arthritis, CVA, diabetes, glaucoma, hyperlipidemia, hypertension, renal disease Psychiatric history: no psych history - Past Surgical History Surgical History: cataract, other - Social History Smoking Status: Unknown if ever smoked Smokeless Tobacco Status: No Alcohol use: none Drug use: none - Family History Mother Adopted: No Family Member Ethnicity: Unknown Living Status: Still Living Hx Family Cardiac Disorders: No Hx Family Respiratory Disorders: Yes (COPD) Hx Family Cancer: Yes Hx Family GI Disorders: No Hx Family Endocrine Disorder: No Hx Family Neuromuscular Disorders: No Hx Family Neurologic Disorders: No Hx Family HEENT Disorders: No Hx Family Autoimmune Disorders: No Father Family Member Ethnicity: Unknown Living Status: Hx Family Cardiac Disorders: No Hx Family Respiratory Disorders: No Hx Family Cancer: No Hx Family GI Disorders: No Hx Family Endocrine Disorder: No Hx Family Neuromuscular Disorders: No Hx Family Neurologic Disorders: No Hx Family HEENT Disorders: No Hx Family Autoimmune Disorders: No Medications and Allergies Aspirin [Adult Low Dose Aspirin EC] 81 mg PO DAILY 08/18/15 [History] Gabapentin [Neurontin] 300 mg PO HS 08/18/15 [History] Insulin LISPRO [Humalog] 14 unit SQ BID 08/18/15 [History] Pravastatin Sodium [Pravachol] 40 mg PO HS 08/18/15 [History] Buspirone HCl [Buspar] 5 mg PO BID 11/16/15 [History] Linagliptin/Metformin HCl [Jentadueto Xr 2.5 mg-1,000 mg] 1 tab PO BID 05/03/16 [History] Carvedilol [Coreg] 6.25 mg PO BIDWM #60 tablet 05/11/16 [Rx] amLODIPine [Norvasc] 5 mg PO DAILY #30 tablet 05/11/16 [Rx] Furosemide [Lasix] 20 mg PO QPM 09/26/16 [History] Furosemide [Lasix] 40 mg PO QAM 09/26/16 [History] Insulin Glargine,Hum.rec.anlog [Toujeo Solostar] 14 units SQ QAM 03/10/17 [ History] OxyCODONE/APAP 5/325 [Percocet 5/325 MG] 1 tab PO BID PRN 03/10/17 [History] 3 Allergy/AdvReac Type Severity Reaction Status Date / Time No Known Allergies Allergy Verified 08/18/15 08:38 All Systems: A 10-system review of systems was performed and is negative for pertinent findings except as documented above in the HPI. - Constitutional Constitutional: chills, weakness, no fever(s), no headache(s) - Cardiovascular Cardiovascular: edema, leg edema, slow heart rate, no chest pain, no diaphoresis , no dyspnea, no lightheadedness - Respiratory Respiratory: no cough, no dyspnea, no pain with cough - Gastrointestinal Gastrointestinal: abdominal pain, nausea, vomiting, no diarrhea, no hematemesis , no hematochezia - Genitourinary Genitourinary: difficulty urinating - Neurological Neurological: abnormal gait, confusion, no focal weakness Physical Examination Vital Signs: Vital Signs, Last 4 Hours Pulse Resp BP Pulse Ox 03/11/17 05:00 40 12 109/41 95 General appearance: no acute distress, alert (oriented x3) Eyes: nonicteric ENT: oropharynx moist Neck: supple Effort: normal Inspection: normal Auscultation: bilateral: clear Percussion: bilateral: not dull Tactile fremitus: bilateral: normal Cardiovascular: regular rate and rhythm, murmur noted (3/6 systolic) Gastrointestinal: normoactive bowel sounds, non-distended Integumentary: normal Extremities: no cyanosis, no clubbing, edema (3+ bilaterally below knees) Musculoskeletal: no deformities, ROM normal normal mental status, non-focal exam mood appropriate, affect normal Results - Laboratory Findings CBC and BMP: 03/11/17 03:05 03/11/17 06:30 ABG ABG pH 7.00 pH Units (7.32-7.45) L* 03/11/17 04:03 ABG pCO2 39 mmHg (35-45) 03/11/17 04:03 ABG pO2 72 mmHg (85-104) L D 03/11/17 04:03 ABG O2 Saturation 84 % (95-98) L 03/11/17 04:03 PT/INR, D-dimer PT 13.4 Seconds (9.4-12.1) H 03/10/17 22:50 Abnormal lab findings: Abnormal lab results WBC 17.8 K/mcL (4.3-11.1) H 03/11/17 03:05 RBC 2.85 M/mcL (3.82-4.97) L 03/11/17 03:05 Hgb 6.8 g/dL (11.5-15.4) L 03/11/17 03:05 Hct 24.4 % (35.3-44.9) L 03/11/17 03:05 MCH 23.9 pg (28.0-33.3) L 03/11/17 03:05 MCHC 27.9 g/dL (31.6-35.5) L 03/11/17 03:05 RDW 15.9 % (11.5-14.5) H 03/11/17 03:05 MPV 8.5 fL (9.4-12.4) L 03/11/17 03:05 Neutrophils # 15.7 K/mcL (1.6-8.9) H 03/11/17 03:05 Hypochromasia Present (Not Present) A 03/11/17 03:05 PT 13.4 Seconds (9.4-12.1) H 03/10/17 22:50 APTT 24.8 Seconds (26.0-36.0) L 03/10/17 22:50 ABG pH 7.00 pH Units (7.32-7.45) L* 03/11/17 04:03 ABG pO2 72 mmHg (85-104) L D 03/11/17 04:03 ABG HCO3 9 mEq/L (21-27) L 03/11/17 04:03 ABG Total CO2 11 mEq/L (20-26) L 03/11/17 04:03 ABG O2 Saturation 84 % (95-98) L 03/11/17 04:03 ABG Base Excess -20 mEq/L (-2 to 3) L 03/11/17 04:03 Potassium 7.3 mEq/L (3.5-4.5) H* 03/11/17 06:30 Carbon Dioxide 13 mEq/L (19-29) L 03/11/17 06:30 BUN 95 mg/dL (7-20) H 03/11/17 06:30 Creatinine 6.19 mg/dL (0.57-1.11) H 03/11/17 06:30 Est GFR ( Amer) 8 (> 60) L 03/11/17 06:30 Est GFR (Non-Af Amer) 7 (> 60) L 03/11/17 06:30 Glucose 232 mg/dL (70-99) H 03/11/17 06:30 POC Glucose 218 (58-89) H 03/10/17 20:24 Hemoglobin A1c 6.8 % (-5.6) H 03/10/17 15:48 Calculated Osmolality 323 (280-300) H 03/11/17 06:30 Lactic Acid 12.9 mmol/L (0.5-2.2) H* 03/11/17 03:05 Uric Acid 14.0 mg/dL (2.6-6.0) H 03/10/17 20:19 Calcium 8.4 mg/dL (8.6-10.8) L 03/11/17 06:30 Phosphorus 10.0 mg/dL (2.3-4.7) H 03/11/17 03:05 Albumin 2.1 g/dL (3.5-5.0) L 03/11/17 03:05 Globulin 4.8 g/dL (2.4-3.5) H 03/11/17 03:05 Albumin/Globulin Ratio 0.4 (1.1-2.2) L 03/11/17 03:05 - Clinical Findings Intake & Output: Intake & Output 03/10/17 03/10/17 03/11/17 15:59 23:59 07:59 Intake Total 150 / 3780.2 1329 / 1329 Output Total 0 / 0 Balance 150 / 3780.2 1329 / 1329 Weight 118 kg Consult Discharge Plan - Plan Referrals: Elza Jesus MD [Primary Care Provider] - <Panda Preciado W - Last Filed: 03/11/17 09:50> Date of Encounter: 03/11/17 All Systems: A 10-system review of systems was performed and is negative for pertinent findings except as documented above in the HPI. Physical Examination Vital Signs: Vital Signs, Last 4 Hours Pulse Resp BP Pulse Ox 03/11/17 09:00 65 14 101/52 99 03/11/17 08:26 100 03/11/17 08:23 78 03/11/17 08:00 78 16 120/44 100 03/11/17 07:00 84 14 115/80 99 03/11/17 06:00 38 12 115/48 95 Results - Laboratory Findings CBC and BMP: 03/11/17 03:05 03/11/17 08:55 ABG ABG pH 7.00 pH Units (7.32-7.45) L* 03/11/17 04:03 ABG pCO2 39 mmHg (35-45) 03/11/17 04:03 ABG pO2 72 mmHg (85-104) L D 03/11/17 04:03 ABG O2 Saturation 84 % (95-98) L 03/11/17 04:03 PT/INR, D-dimer PT 13.4 Seconds (9.4-12.1) H 03/10/17 22:50 Abnormal lab findings: Abnormal lab results WBC 17.8 K/mcL (4.3-11.1) H 03/11/17 03:05 RBC 2.85 M/mcL (3.82-4.97) L 03/11/17 03:05 Hgb 6.8 g/dL (11.5-15.4) L 03/11/17 03:05 Hct 24.4 % (35.3-44.9) L 03/11/17 03:05 MCH 23.9 pg (28.0-33.3) L 03/11/17 03:05 MCHC 27.9 g/dL (31.6-35.5) L 03/11/17 03:05 RDW 15.9 % (11.5-14.5) H 03/11/17 03:05 MPV 8.5 fL (9.4-12.4) L 03/11/17 03:05 Neutrophils # 15.7 K/mcL (1.6-8.9) H 03/11/17 03:05 Hypochromasia Present (Not Present) A 03/11/17 03:05 PT 13.4 Seconds (9.4-12.1) H 03/10/17 22:50 APTT > 360.0 Seconds (26.0-36.0) H* D 03/11/17 08:05 Heparin Anti-Xa, Unfract 2.08 IU/mL (0.30-0.70) H* 03/11/17 08:05 ABG pH 7.00 pH Units (7.32-7.45) L* 03/11/17 04:03 ABG pO2 72 mmHg (85-104) L D 03/11/17 04:03 ABG HCO3 9 mEq/L (21-27) L 03/11/17 04:03 ABG Total CO2 11 mEq/L (20-26) L 03/11/17 04:03 ABG O2 Saturation 84 % (95-98) L 03/11/17 04:03 ABG Base Excess -20 mEq/L (-2 to 3) L 03/11/17 04:03 Potassium 7.0 mEq/L (3.5-4.5) H* 03/11/17 08:55 Carbon Dioxide 13 mEq/L (19-29) L 03/11/17 06:30 BUN 95 mg/dL (7-20) H 03/11/17 06:30 Creatinine 6.19 mg/dL (0.57-1.11) H 03/11/17 06:30 Est GFR ( Amer) 8 (> 60) L 03/11/17 06:30 Est GFR (Non-Af Amer) 7 (> 60) L 03/11/17 06:30 Glucose 232 mg/dL (70-99) H 03/11/17 06:30 POC Glucose 218 (58-89) H 03/10/17 20:24 Hemoglobin A1c 6.8 % (-5.6) H 03/10/17 15:48 Calculated Osmolality 323 (280-300) H 03/11/17 06:30 Lactic Acid 14.0 mmol/L (0.5-2.2) H* 03/11/17 08:55 Uric Acid 14.0 mg/dL (2.6-6.0) H 03/10/17 20:19 Calcium 8.4 mg/dL (8.6-10.8) L 03/11/17 06:30 Ionized Calcium 1.06 mmol/L (1.15-1.35) L 03/11/17 08:05 Phosphorus 10.0 mg/dL (2.3-4.7) H 03/11/17 03:05 Albumin 2.1 g/dL (3.5-5.0) L 03/11/17 03:05 Globulin 4.8 g/dL (2.4-3.5) H 03/11/17 03:05 Albumin/Globulin Ratio 0.4 (1.1-2.2) L 03/11/17 03:05 Urine Clarity Cloudy (Clear) A 03/11/17 08:55 Urine Protein >=300 mg/dL (Neg-Trace) H 03/11/17 08:55 Urine Glucose (UA) 100 mg/dL (Normal) H 03/11/17 08:55 Urine Ketones Trace mg/dL (Negative) H 03/11/17 08:55 Urine Blood Large (Negative) H 03/11/17 08:55 Ur Leukocyte Esterase Moderate (Negative) H 03/11/17 08:55 Urine Microscopic RBC TNTC per hpf (0-3) H 03/11/17 08:55 Urine Microscopic WBC TNTC per hpf (0-3) H 03/11/17 08:55 Ur Squamous Epith Cells Many per lpf (None-Few) H 03/11/17 08:55 Urine Bacteria Many per hpf (None-Few) H 03/11/17 08:55 Ur Culture Indicated? YES (NO) A 03/11/17 08:55 - Clinical Findings Intake & Output: Intake & Output 03/10/17 03/11/17 03/11/17 23:59 07:59 15:59 Intake Total 150 / 3780.2 1461 / 1461 404 / 404 Output Total 85 / 85 313 / 313 Balance 150 / 3780.2 1376 / 1376 91 / 91 Weight 118 kg - Attending Attestation I examined this patient and my medical decision-making was reviewed with the Resident Physician. I agree with the documented findings, disposition and treatment plan as described except to the extent set forth below. We independently had [id number] contact with the patient I spent 35min of Critical Care time with this patient. It involved decision making of high complexity to assess, manipulate, and support vital organ system failure and/or to prevent further life threatening deterioration of the patient' s condition. The time involved in the performance of separately reportable procedures was not counted toward critical care time. Patient seen and examined at bedside Labs, radiology, chart personally reviewed. Management was reviewed during multidisciplinary critical care rounds. Neuropsych: Awake and alert somnolent at times but no focal neurological deficit continue to monitor Pulm: Acceptable oxygenation on nasal cannula evidence of pneumonia on chest x- ray continue to monitor Cards: Bradycardia which is a manifestation of acidosis and hyperkalemia which is responding to dopamine infusion. MAP >60 a this time. Cardiology has been consulted. Troponin within normal limits ECG without evidence of STEMI. FEN-GI: Nothing by mouth for now. Excessive nausea and vomiting possibly related to gastroenteritis or as a manifestation of medication toxicity ( metformin) CT abdomen and pelvis without acute process check lipase. Continue antiemetic as needed Renal: Anuric Acute on chronic kidney failure which is secondary to hypovolemia and possible sepsis. This is been complicated by profound metabolic acidosis which is a combination of renal failure and lactic acidosis secondary to metformin toxicity and possible sepsis. Severe life-threatening hyperkalemia which has failed volume reason expansion and conservative measures requiring continuous renal replacement. We are monitoring her potassium every hour we have given Kayexalate and calcium was also been given intravenously. She is maintained on a bicarbonate infusion which we will continue to try to titrate based upon pH with goal greater than 7.2 for discontinuation. Nephrology is following closely with his case and we will continue to coordinate care. ID: Severe sepsis possible intra-abdominal source although CT imaging without clear etiology this may also be a reflection of a urinary tract infection regardless we have not obtained brought cultures for microbiological data including blood and urine. She has been given broad-spectrum antibiotics with planned to de-escalate over the next 48 hours based upon cultures we have also covered her for at least 24 hours for the possibility of MRSA infection although this is deemed less likely but she has been infected with this historically. Heme/Onc: Chronic anemia with acute drop overnight I suspect this is more reflection of hemodilution as opposed to acute anemia as the patient has no overt signs of bleeding. Given that hemoglobin has dropped under 7.0 plan for transfusion at this time. No evidence of coagulopathy platelet stable fibrinogen within normal limits. We will continue to monitor this very closely as she is requiring heparin infusion because of frequent clotting of the dialysis circuit currently risk of bleeding is deemed lower than benefit of correction of hyperkalemia and acidosis by a renal replacement Endo: Glucose Monitored Integ/MSK: Skin Care per routine ICU Nursing Protocol to prevent ulcers. Lines: All lines examined without evidence of infection Dispo: Patient will require ICU level monitoring for high probability of further clinical deterioration and/or fatal arrhythmias CODE: I discussed with the patient and her family at bedside is clear that her CODE STATUS is DNR A/DNI that want to pursue aggressive measures open to the point of need for mechanical ventilation or cardiac arrest.
[2017-03-11] MEDS ORDERED: Insulin LISPRO 300 UNITS/3 ML VIAL SQ SCH (07:30)
[2017-03-11] MEDS ORDERED: Magnesium Sulfate 2 GM in D5% in Water 100 ML IVPB ONE (07:55)
[2017-03-11] MEDS ORDERED: Vancomycin 1,750 MG in D5% in Water 250 ML IVPB SCH (08:00)
[2017-03-11 08:54] LABS: Activated Partial Thrombo Time > 360.0 Seconds (26.0-36.0)
[2017-03-11] MEDS ORDERED: amLODIPine 5 MG TABLET PO SCH (09:00)
[2017-03-11] MEDS ORDERED: Vancomycin 1,750 MG in D5% in Water 500 ML IVPB ONE (09:00)
[2017-03-11] MEDS ORDERED: Vancomycin 1 EACH in EMPTY BAG 1 EACH IVPB SCH (09:00)
[2017-03-11 09:06] LABS: Heparin anti-factor XA UFH 2.08 IU/mL (0.30-0.70)
[2017-03-11 09:19] LABS: Bilirubin,Urine Negative (Negative); Blood,Urine Large (Negative); Clarity,Urine Cloudy (Clear); Glucose,Urine (UA) 100 mg/dL (Normal); Ketones,Urine Trace mg/dL (Negative); Leukocyte Esterase,Urine Moderate (Negative); Nitrite,Urine Negative (Negative); PH,Urine 5.5 pH Units (5.0-8.0); Protein,Urine >=300 mg/dL (Neg-Trace); Specific Gravity,Urine 1.022 (1.010-1.025); Urobilinogen,Urine Normal (Normal)
[2017-03-11 09:22] LABS: Squamous Epithelial Cell,Urine Many per lpf (None-Few); WBC,Urine TNTC per hpf (0-3)
[2017-03-11 09:24] LABS: Color,Urine Brown (Yellow)
[2017-03-11 09:26] LABS: Bacteria,Urine Many per hpf (None-Few); Hyaline Casts,Urine Few per lpf (None-Few); RBC,Urine TNTC per hpf (0-3)
[2017-03-11] MEDS ORDERED: 0.9 % Sodium Chloride 1,000 ML IVC SCH (09:30)
[2017-03-11] MEDS ORDERED: 0.9 % Sodium Chloride 500 ML IVC ONE (09:30)
[2017-03-11] MEDS: Aspirin Enteric Coated 81 MG Tablet PO SCH (10:55)
[2017-03-11] MEDS: PrismaSATE BGK 4/2.5 5,000 ML CRRT SCH ×3 (11:00→23:32)
--- NOTE | 2017-03-11 11:36 | Nephrology Progress Note ---
Date of Encounter: 03/11/17 Time of Encounter: 11:30 - Assessment and Plan (1) Hyperkalemia Current Visit: Yes Status: Acute Severe hyperkalemia in the setting of JOSE ROBERTO, slowly improving now with CVVH, will continue Will also continue bicarb gtt for now. s/p kayexalate total of 120mg with 3 BMs Continue serial potassium checks (2) JOSE ROBERTO (acute kidney injury) Current Visit: Yes Status: Acute Scr slightly improved on CVVH, will continue at an increased blood flow rate of 400cc/hr if BP tolerated. BP readings around 90s with MAP of 60s acceptable UOP remains anuric with only 15cc documented overnight. s/p bolus 500cc NS this am in addition to continued bicarb gtt at 100cc/hr with additional 50cc/hr NS resumed. Will hold NS when pRBCs transfused Await UA results CPK and LDH WNL but elevated uric acid level consistent with profound volume depletion Avoid nephrotoxins if possible, vanco by levels Critical care time spent >35 mins Case discussed with critical care team (3) Bradycardia Current Visit: Yes Status: Acute Per cardio but suspects due to hyperkalemia which hopefully should improve with improvement Continue dopamine gtt (4) CKD (chronic kidney disease) stage 3, GFR 30-59 ml/min Current Visit: Yes Status: Acute Baseline GFR typically 20s-30s this year (5) Metabolic acidosis Current Visit: Yes Status: Acute Metabolic aciodsis due to JOSE ROBERTO and lactic acidosis from shock +/- metformin Continue bicarn gtt for now as we progress with CVVH Subjective Interval history: pt seen and examined reportsing fatigue after lengthy overnight issues. She has had 3 watery small BMs per nurse since yesterday. Lots of issues with running yuri overnight due to catheter positioning now resolved with yuri successfully running for the past 3 hours. Critical care and cardio recs noted and appreciated. Now on dopamine gtt and is scheduled for transfusion pRBCs. Objective - Vital Signs Vital signs: Vital Signs Temp Pulse Pulse Pulse Pulse Pulse Pulse 03/11/17 10:00 64 03/11/17 09:00 65 03/11/17 08:26 03/11/17 08:23 78 03/11/17 08:00 78 03/11/17 07:00 84 03/11/17 06:00 38 03/11/17 05:00 40 03/11/17 03:00 38 03/11/17 02:00 41 03/11/17 01:00 34 03/11/17 00:15 37 03/11/17 00:00 38 03/10/17 23:00 33 03/10/17 22:00 62 03/10/17 21:18 70 66 66 65 64 03/10/17 20:48 96.7 F L 69 03/10/17 20:15 71 03/10/17 19:53 Pulse Pulse Resp Resp Resp Resp Resp 03/11/17 10:00 16 03/11/17 09:00 14 03/11/17 08:26 03/11/17 08:23 03/11/17 08:00 16 03/11/17 07:00 14 03/11/17 06:00 12 03/11/17 05:00 12 03/11/17 03:00 14 03/11/17 02:00 14 03/11/17 01:00 14 03/11/17 00:15 03/11/17 00:00 16 03/10/17 23:00 12 03/10/17 22:00 14 03/10/17 21:18 64 63 14 14 14 14 03/10/17 20:48 12 03/10/17 20:15 03/10/17 19:53 17 Resp Resp Resp BP BP BP BP 03/11/17 10:00 114/48 03/11/17 09:00 101/52 03/11/17 08:26 03/11/17 08:23 03/11/17 08:00 120/44 03/11/17 07:00 115/80 03/11/17 06:00 115/48 03/11/17 05:00 109/41 03/11/17 03:00 108/38 03/11/17 02:00 92/34 03/11/17 01:00 95/42 03/11/17 00:15 03/11/17 00:00 82/35 03/10/17 23:00 90/39 03/10/17 22:00 90/45 03/10/17 21:18 14 14 14 114/46 81/44 95/42 03/10/17 20:48 102/39 03/10/17 20:15 03/10/17 19:53 105/55 BP BP BP BP Pulse Ox 03/11/17 10:00 99 03/11/17 09:00 99 03/11/17 08:26 100 03/11/17 08:23 03/11/17 08:00 100 03/11/17 07:00 99 03/11/17 06:00 95 03/11/17 05:00 95 03/11/17 03:00 94 03/11/17 02:00 96 03/11/17 01:00 94 03/11/17 00:15 03/11/17 00:00 95 03/10/17 23:00 94 03/10/17 22:00 100 03/10/17 21:18 98/46 92/48 86/46 94/48 03/10/17 20:48 97 03/10/17 20:15 03/10/17 19:53 Intake and Output 03/10/17 03/11/17 03/11/17 23:59 07:59 15:59 Intake Total 150 / 3780.2 1461 / 1461 1161 / 1161 Output Total 85 / 85 499 / 499 Balance 150 / 3780.2 1376 / 1376 662 / 662 Intake: IV Fluids 150 / 150 1461 / 1461 1161 / 1161 Calcium Chloride 4,000 MG In 0. 157 / 157 9 % Sodium Chloride 1,000 ML @ 40 mls/hr CRRT CONT [facility] Rx#: [id number] 0.9 % Sodium Chloride 1,000 ML 827 / 827 @ 100 mls/hr IVC .Q10H [facility] Rx#: [id number] 0.9 % Sodium Chloride 500 ML @ 500 / 500 1875 mls/hr IVC .Q16M ONE Rx#: [id number] DOPamine Premix 400mg/250mL 400 12 / 12 102 / 102 mg In 250 ml @ 10 MCG/KG/MIN 44.25 mls/hr IVC .Q5H39M [facility] Rx #:[id number] Heparin 25,000 UNIT/500 ML D5W 142 / 142 62 / 62 25,000 unit In 500 ml @ 14 UNIT /KG/HR 33.04 mls/hr IVC .Q15H8M [facility] Rx#:[id number] Phenylephrine 10 MG In Dextrose 0 / 0 5% 250 ML @ As Directed IVC CONT [facility] Rx#:[id number] Sodium Bicarbonate 150 MEQ In 150 / 150 309 / 309 294 / 294 Dextrose 5% 1,000 ML @ 75 mls/ hr IVC .[id number] [facility] Rx#: [id number] Magnesium Sulfate 2 GM In 104 / 104 Dextrose 5% 100 ML @ 100 mls/hr IVPB ONCE ONE Rx#:[id number] Zosyn 3.375 GM In Dextrose 5% ( 86 / 86 Minibag+) 100 ML 100 ML @ 25 mls/hr IVPB Q12H [facility] Rx#: [id number] Vancocin 1,750 MG In Dextrose 5 13 / 13 % 500 ML @ 333.333 mls/hr IVPB ONCE ONE Rx#:[id number] Oral 0 / 0 0 / 0 0 / 0 Free Water 0 / 0 Output: Yuri 85 / 85 484 / 484 Straight Cath 0 / 0 Catheter 0 / 0 15 Other: Stool Size Small Moderate Stool Consistency loose soft liquid Stool Color Brown Brown Yellow # Bowel Movements 1 Weight 118 kg Patient Weight 03/11/17 23:59 Weight 118 kg - General Appearance General appearance: Present: fatigue (critically ill) EENT: Present: ATNC, mucous membranes dry Neck: Present: no JVD, supple Additional Comments: good areation ant bilat Cardiology: Present: edema (trace to +1 LE edema bilat with several open wounds noted), normal S1, normal S2 Dialysis Vascular Access: Venous Catheter (femoral) Gastrointestinal: Present: no tenderness, no guarding, obese Integumentary: Present: warm and dry Neurologic: Present: no focal deficit Musculoskeletal: Present: no deformities Psychiatric: Present: mood/affect appropriate, cooperative - Lab 03/11/17 03:05 03/11/17 08:55 Most recent lab results ABG pH 7.00 pH Units (7.32-7.45) L* 03/11/17 04:03 ABG pCO2 39 mmHg (35-45) 03/11/17 04:03 ABG pO2 72 mmHg (85-104) L D 03/11/17 04:03 ABG HCO3 9 mEq/L (21-27) L 03/11/17 04:03 ABG O2 Saturation 84 % (95-98) L 03/11/17 04:03 Calcium 8.4 mg/dL (8.6-10.8) L 03/11/17 06:30 Phosphorus 10.0 mg/dL (2.3-4.7) H 03/11/17 03:05 Magnesium 1.6 mg/dL (1.6-2.6) 03/11/17 06:30 Consult Discharge Plan - Plan Referrals: Elza Jesus MD [Primary Care Provider] -
[2017-03-11 12:01] LABS: ABG Base Excess -17 mEq/L (-2 to 3); ABG HCO3 11 mEq/L (21-27); ABG Oxygen Saturation 85 % (95-98); ABG PCO2 30 mmHg (35-45); ABG PH 7.16 pH Units (7.32-7.45); ABG PO2 62 mmHg (85-104); ABG TCO2 12 mEq/L (20-26)
[2017-03-11 12:08] LABS: INR 1.3; Prothrombin Time 14.5 Seconds (9.4-12.1)
[2017-03-11 12:18] LABS: Calcium 8.7 mg/dL (8.6-10.8)
[2017-03-11 12:20] LABS: Potassium 6.5 mEq/L (3.5-4.5)
[2017-03-11] MEDS: Insulin LISPRO 300 UNITS/3 ML VIAL SQ SCH ×2 (13:19→18:28)
[2017-03-11 13:43] LABS: Activated Partial Thrombo Time 184.6 Seconds (26.0-36.0)
[2017-03-11 13:47] LABS: Heparin anti-factor XA UFH 0.82 IU/mL (0.30-0.70)
[2017-03-11 16:40] LABS: ABG Base Excess -13 mEq/L (-2 to 3); ABG HCO3 14 mEq/L (21-27); ABG Oxygen Saturation 96 % (95-98); ABG PCO2 33 mmHg (35-45); ABG PH 7.23 pH Units (7.32-7.45); ABG PO2 95 mmHg (85-104); ABG TCO2 15 mEq/L (20-26)
[2017-03-11] MEDS: 0.9 % Sodium Chloride 1,000 ML IV SCH ×2 (17:09→21:25)
[2017-03-11] MEDS ORDERED: 0.9 % Sodium Chloride 250 ML ONE (17:27)
[2017-03-11 18:17] LABS: Calcium 8.3 mg/dL (8.6-10.8); Potassium 5.6 mEq/L (3.5-4.5)
[2017-03-11] MEDS: Calcium Chloride 4,000 MG in 0.9 % Sodium Chloride 1,000 ML CRRT SCH (23:11)
[2017-03-11 23:25] LABS: Hematocrit 27.7 % (35.3-44.9)
[2017-03-11 23:26] LABS: Hemoglobin 8.6 g/dL (11.5-15.4)
[2017-03-11 23:39] LABS: Potassium 5.1 mEq/L (3.5-4.5)
[2017-03-12] MEDS: Heparin 25,000 UNIT/500 ML D5W 25,000 UNIT/500 ML MLS IVC SCH (02:06)
[2017-03-12] MEDS: 0.9 % Sodium Chloride 1,000 ML IV SCH (04:17)
[2017-03-12] MEDS: Piperacillin/Tazobactam 3.375 GM in D5% in Water (Mini-Bag+) 100 ML IVPB SCH ×2 (04:17→17:26)
[2017-03-12] MEDS: Famotidine 20 MG/2 ML VIAL IVP SCH ×2 (04:18→17:26)
[2017-03-12 04:33] LABS: ABG Base Excess -4 mEq/L (-2 to 3); ABG HCO3 22 mEq/L (21-27); ABG Oxygen Saturation 94 % (95-98); ABG PCO2 39 mmHg (35-45); ABG PH 7.35 pH Units (7.32-7.45); ABG PO2 76 mmHg (85-104); ABG TCO2 23 mEq/L (20-26)
[2017-03-12 04:34] LABS: Basophils % 0.1 %; Eosinophils % 0.1 %; Hematocrit 26.2 % (35.3-44.9); Hemoglobin 8.2 g/dL (11.5-15.4); Immature Granulocytes % 0.4 % (0-4); Lymphocytes # 0.3 K/mcL (0.6-4.6); Lymphocytes % 2.4 %; Mean Corpuscular HGB Conc 31.3 g/dL (31.6-35.5); Mean Corpuscular Hemoglobin 24.8 pg (28.0-33.3); Mean Platelet Volume 7.8 fL (9.4-12.4); Monocytes # 0.5 K/mcL (0.0-1.3); Monocytes % 4.2 %; Neutrophils # 11.2 K/mcL (1.6-8.9); Platelet Count 209 K/mcL (140-400); Red Blood Count 3.31 M/mcL (3.82-4.97); Red Cell Distribution Width 15.8 % (11.5-14.5); Segmented Neutrophils % 92.8 %
[2017-03-12 04:51] LABS: Calcium 7.6 mg/dL (8.6-10.8); Magnesium 1.7 mg/dL (1.6-2.6); Potassium 4.3 mEq/L (3.5-4.5)
[2017-03-12 04:52] LABS: Phosphorous 4.6 mg/dL (2.3-4.7)
[2017-03-12 05:00] LABS: Mean Corpuscular Volume 79.2 fL (83.0-100.0)
[2017-03-12 05:14] LABS: Ionized Calcium 0.99 mmol/L (1.15-1.35)
[2017-03-12] MEDS: Insulin LISPRO 300 UNITS/3 ML VIAL SQ SCH ×4 (05:24→17:40)
[2017-03-12] MEDS: PrismaSATE BGK 4/2.5 5,000 ML CRRT SCH ×3 (05:50→05:53)
[2017-03-12 05:55] LABS: Activated Partial Thrombo Time 111.4 Seconds (26.0-36.0)
[2017-03-12 06:31] LABS: Heparin anti-factor XA UFH 0.32 IU/mL (0.30-0.70)
--- NOTE | 2017-03-12 07:26 | Pulmonology Progress Note ---
<Jose Ibanez - Last Filed: 03/12/17 07:54> Date of Encounter: 03/12/17 Time of Encounter: 07:17 Assessment and Plan (1) Acute worsening of stage 4 chronic kidney disease Current Visit: Yes Status: Acute Likely secondary to lactic acidosis possibly due to medication side effects - Metformin Cannot rule out viral gastroenteritis causing profoundly dehydrated/pre-renal etiology Nephrology consulted, appreciate management of Radha Trend Cr, closely monitor electrolytes, I/O's, avoiding nephrotoxic agents Renal funciton improving, UOP improved today, lactic acid improved. Mg 1.7. continue RADHA 400cc/hour if BP tolerating per nephrology (2) Hyperkalemia Current Visit: Yes Status: Acute Resolved. Latest potassium checked this morning is 4.3 Continue Radha per nephrology (3) Severe sepsis Current Visit: Yes Status: Acute Unclear source, but likely intra-abdominal in setting of recent nausea/vomiting Blood and urine cultures pending; CT and CXR were unremarkable for acute process She was started on Zosyn, which we will continue;Dopamine stopped this morning at 1:00 Given her history of MRSA, will give one day of Vancomycin and may continue depending on culture results (4) High anion gap metabolic acidosis Current Visit: Yes Status: Acute Secondary to lactic acidosis from dehydration/medication side effect Currently Radha as above Will closely monitor kidney function, electrolytes ABG today pH 7.35. (5) Lactic acidosis Current Visit: Yes Status: Acute (6) Bradycardia Current Visit: Yes Status: Acute Resolved. HR currently in 70's. No pressors. (7) Anemia Current Visit: No Status: Chronic She likely has anemia of chronic disease which her Hb is worsened by hemodilution this morning Will order type and screen and order 2 units of pRBCs as Hb 6.8 Rechecking Hb and PT/INR later today Qualifiers: Anemia type: iron deficiency Iron deficiency anemia type: unspecified iron deficiency Qualified Code(s): D50.9 - Iron deficiency anemia, unspecified (8) Insulin dependent diabetes mellitus Current Visit: Yes Status: Chronic Continue mediums dose SSI q6hr A1c checked yesterday was 6.8% (9) HTN (hypertension) Current Visit: No Status: Chronic Holding home hypertensives in setting of borderline hypotension Closely monitoring vitals while in intensive care Qualifiers: Hypertension type: essential hypertension Qualified Code(s): I10 - Essential (primary) hypertension (10) DVT prophylaxis Current Visit: Yes Status: Acute Heparin ggt per nephrology in setting of clotting issues during HD Subjective Principal diagnosis: Acute worsening or chronic kidney disease Interval history: 61F MHx of HTN, DM, and stroke that has left her immobile with residual left- sided weakness presented from the ED yesterday with 1 week of N/V, and decreased UOP. Patient was found to be bradycardic and borderline hypotensive and started on RADHA and dopamine drip in the ICU. Patient K+ was 8.5, Cr 7.35. and LA 13.3. Patient pressors were stopped this morning at 1:00. The family has requested that she no longer receive pressors. Patient BP is stable at 117/61 and HR 77. Patient UOP has also improved, yesterday UOP was 296, today it is 495mL. Objective PUL Vital signs: Last Vital Signs Temp 97.4 F L 03/12/17 03:00 Pulse 77 03/12/17 06:00 Resp 16 03/12/17 06:00 BP 100/56 03/12/17 06:00 Pulse Ox 91 03/12/17 06:00 General appearance: no acute distress, alert Eyes: nonicteric ENT: oropharynx moist Neck: supple, no lymphadenopathy Effort: normal Auscultation: bilateral: clear Cardiovascular: regular rate and rhythm Gastrointestinal: normoactive bowel sounds Integumentary: normal Extremities: no cyanosis, edema (3+ bilateral pitting edema) normal mental status mood appropriate, affect normal Results - Laboratory Findings CBC and BMP: 03/12/17 04:25 03/12/17 04:25 ABG ABG pH 7.35 pH Units (7.32-7.45) 03/12/17 04:30 ABG pCO2 39 mmHg (35-45) 03/12/17 04:30 ABG pO2 76 mmHg (85-104) L 03/12/17 04:30 ABG O2 Saturation 94 % (95-98) L 03/12/17 04:30 PT/INR, D-dimer PT 14.5 Seconds (9.4-12.1) H 03/11/17 11:55 Abnormal lab findings: Abnormal lab results WBC 12.1 K/mcL (4.3-11.1) H 03/12/17 04:25 RBC 3.31 M/mcL (3.82-4.97) L 03/12/17 04:25 Hgb 8.2 g/dL (11.5-15.4) L 03/12/17 04:25 Hct 26.2 % (35.3-44.9) L 03/12/17 04:25 MCV 79.2 fL (83.0-100.0) L D 03/12/17 04:25 MCH 24.8 pg (28.0-33.3) L 03/12/17 04:25 MCHC 31.3 g/dL (31.6-35.5) L 03/12/17 04:25 RDW 15.8 % (11.5-14.5) H 03/12/17 04:25 MPV 7.8 fL (9.4-12.4) L 03/12/17 04:25 Neutrophils # 11.2 K/mcL (1.6-8.9) H 03/12/17 04:25 Lymphocytes # 0.3 K/mcL (0.6-4.6) L 03/12/17 04:25 Hypochromasia Present (Not Present) A 03/11/17 03:05 PT 14.5 Seconds (9.4-12.1) H 03/11/17 11:55 APTT 111.4 Seconds (26.0-36.0) H* 03/12/17 05:30 ABG pO2 76 mmHg (85-104) L 03/12/17 04:30 ABG O2 Saturation 94 % (95-98) L 03/12/17 04:30 ABG Base Excess -4 mEq/L (-2 to 3) L 03/12/17 04:30 BUN 67 mg/dL (7-20) H 03/12/17 04:25 Creatinine 3.97 mg/dL (0.57-1.11) H 03/12/17 04:25 Est GFR ( Amer) 14 (> 60) L 03/12/17 04:25 Est GFR (Non-Af Amer) 12 (> 60) L 03/12/17 04:25 Glucose 108 mg/dL (70-99) H 03/12/17 04:25 POC Glucose 127 (58-89) H 03/11/17 18:27 Hemoglobin A1c 6.8 % (-5.6) H 03/10/17 15:48 Calculated Osmolality 306 (280-300) H 03/12/17 04:25 Lactic Acid 4.1 mmol/L (0.5-2.2) H* 03/12/17 05:30 Uric Acid 14.0 mg/dL (2.6-6.0) H 03/10/17 20:19 Calcium 7.6 mg/dL (8.6-10.8) L 03/12/17 04:25 Ionized Calcium 0.99 mmol/L (1.15-1.35) L 03/12/17 04:25 Albumin 2.1 g/dL (3.5-5.0) L 03/11/17 03:05 Globulin 4.8 g/dL (2.4-3.5) H 03/11/17 03:05 Albumin/Globulin Ratio 0.4 (1.1-2.2) L 03/11/17 03:05 Urine Clarity Cloudy (Clear) A 03/11/17 08:55 Urine Protein >=300 mg/dL (Neg-Trace) H 03/11/17 08:55 Urine Glucose (UA) 100 mg/dL (Normal) H 03/11/17 08:55 Urine Ketones Trace mg/dL (Negative) H 03/11/17 08:55 Urine Blood Large (Negative) H 03/11/17 08:55 Ur Leukocyte Esterase Moderate (Negative) H 03/11/17 08:55 Urine Microscopic RBC TNTC per hpf (0-3) H 03/11/17 08:55 Urine Microscopic WBC TNTC per hpf (0-3) H 03/11/17 08:55 Ur Squamous Epith Cells Many per lpf (None-Few) H 03/11/17 08:55 Urine Bacteria Many per hpf (None-Few) H 03/11/17 08:55 Ur Culture Indicated? YES (NO) A 03/11/17 08:55 - Clinical Findings Intake & Output: Intake & Output 03/11/17 03/11/17 03/12/17 15:59 23:59 07:59 Intake Total 2517 / 2517 2541 / 2541 1091 / 1091 Output Total 1241 / 1241 1880 / 1880 1090 / 1090 Balance 1276 / 1276 661 / 661 Weight 116 kg Consult Discharge Plan - Plan Referrals: Elza Jesus MD [Primary Care Provider] - <MyrnanelyPanda zhao W - Last Filed: 03/12/17 09:47> Date of Encounter: 03/12/17 Objective PUL Vital signs: Last Vital Signs Temp 98.1 F 03/12/17 08:00 Pulse 78 03/12/17 08:00 Resp 16 03/12/17 08:00 BP 124/52 03/12/17 08:00 Pulse Ox 93 03/12/17 08:00 Results - Laboratory Findings CBC and BMP: 03/12/17 04:25 03/12/17 04:25 ABG ABG pH 7.35 pH Units (7.32-7.45) 03/12/17 04:30 ABG pCO2 39 mmHg (35-45) 03/12/17 04:30 ABG pO2 76 mmHg (85-104) L 03/12/17 04:30 ABG O2 Saturation 94 % (95-98) L 03/12/17 04:30 PT/INR, D-dimer PT 14.5 Seconds (9.4-12.1) H 03/11/17 11:55 Abnormal lab findings: Abnormal lab results WBC 12.1 K/mcL (4.3-11.1) H 03/12/17 04:25 RBC 3.31 M/mcL (3.82-4.97) L 03/12/17 04:25 Hgb 8.2 g/dL (11.5-15.4) L 03/12/17 04:25 Hct 26.2 % (35.3-44.9) L 03/12/17 04:25 MCV 79.2 fL (83.0-100.0) L D 03/12/17 04:25 MCH 24.8 pg (28.0-33.3) L 03/12/17 04:25 MCHC 31.3 g/dL (31.6-35.5) L 03/12/17 04:25 RDW 15.8 % (11.5-14.5) H 03/12/17 04:25 MPV 7.8 fL (9.4-12.4) L 03/12/17 04:25 Neutrophils # 11.2 K/mcL (1.6-8.9) H 03/12/17 04:25 Lymphocytes # 0.3 K/mcL (0.6-4.6) L 03/12/17 04:25 Hypochromasia Present (Not Present) A 03/11/17 03:05 PT 14.5 Seconds (9.4-12.1) H 03/11/17 11:55 APTT 111.4 Seconds (26.0-36.0) H* 03/12/17 05:30 ABG pO2 76 mmHg (85-104) L 03/12/17 04:30 ABG O2 Saturation 94 % (95-98) L 03/12/17 04:30 ABG Base Excess -4 mEq/L (-2 to 3) L 03/12/17 04:30 BUN 67 mg/dL (7-20) H 03/12/17 04:25 Creatinine 3.97 mg/dL (0.57-1.11) H 03/12/17 04:25 Est GFR ( Amer) 14 (> 60) L 03/12/17 04:25 Est GFR (Non-Af Amer) 12 (> 60) L 03/12/17 04:25 Glucose 108 mg/dL (70-99) H 03/12/17 04:25 POC Glucose 127 (58-89) H 03/11/17 18:27 Hemoglobin A1c 6.8 % (-5.6) H 03/10/17 15:48 Calculated Osmolality 306 (280-300) H 03/12/17 04:25 Lactic Acid 4.1 mmol/L (0.5-2.2) H* 03/12/17 05:30 Uric Acid 14.0 mg/dL (2.6-6.0) H 03/10/17 20:19 Calcium 7.6 mg/dL (8.6-10.8) L 03/12/17 04:25 Ionized Calcium 0.99 mmol/L (1.15-1.35) L 03/12/17 04:25 Albumin 2.1 g/dL (3.5-5.0) L 03/11/17 03:05 Globulin 4.8 g/dL (2.4-3.5) H 03/11/17 03:05 Albumin/Globulin Ratio 0.4 (1.1-2.2) L 03/11/17 03:05 Urine Clarity Cloudy (Clear) A 03/11/17 08:55 Urine Protein >=300 mg/dL (Neg-Trace) H 03/11/17 08:55 Urine Glucose (UA) 100 mg/dL (Normal) H 03/11/17 08:55 Urine Ketones Trace mg/dL (Negative) H 03/11/17 08:55 Urine Blood Large (Negative) H 03/11/17 08:55 Ur Leukocyte Esterase Moderate (Negative) H 03/11/17 08:55 Urine Microscopic RBC TNTC per hpf (0-3) H 03/11/17 08:55 Urine Microscopic WBC TNTC per hpf (0-3) H 03/11/17 08:55 Ur Squamous Epith Cells Many per lpf (None-Few) H 03/11/17 08:55 Urine Bacteria Many per hpf (None-Few) H 03/11/17 08:55 Ur Culture Indicated? YES (NO) A 03/11/17 08:55 - Clinical Findings Intake & Output: Intake & Output 03/11/17 03/12/17 03/12/17 23:59 07:59 15:59 Intake Total 2541 / 2541 1091 / 1091 113 / 113 Output Total 1880 / 1880 1090 / 1090 43 / 43 Balance 661 / 661 70 / 70 Weight 116 kg - Attending Attestation I examined this patient and my medical decision-making was reviewed with the Resident Physician. I agree with the documented findings, disposition and treatment plan as described except to the extent set forth below. We independently had [id number] contact with the patient Patient seen and examined at bedside Labs, radiology, chart personally reviewed. Management was reviewed during multidisciplinary critical care rounds. Neuropsych: More awake and alert today no focal neurologic deficit Pulm: Except for oxygenation on a couple of liters of nasal cannula Cards: Bradycardia has resolved she is off vasopressor with MAP consistently greater than 60 FEN-GI: Possible viral gastroenteritis much less nausea today advance diet to clears as tolerated Renal: Acute on chronic kidney failure likely secondary to hypovolemia precipitating severe metabolic acidosis including lactic acidosis possibly from metformin ingestion requiring emergent renal replacement she remains on Radha potassium is now within the normal range her metabolic acidosis has resolved and lactate is near normal levels. Okay to stop continuous renal replacement today as UOP continues to improve (>75cc/hour). Nephrology following ID: Concern for severe sepsis hawk cultures pending she is on antimicrobials with planned to de-escalate next 24 hours Heme/Onc: Acute on chronic anemia status post 2 units packed red blood cell transfusion yesterday stop heparin drip which was present for renal replacement no evidence of overt bleeding Endo: Glucose Monitored Integ/MSK: Skin Care per routine ICU Nursing Protocol to prevent ulcers. Lines: All lines examined without evidence of infection Dispo: CODE: DNAR/DNI patient and family have also requested that if patient were to need additional vasopressors that they would not be added in the future. Overall steady clinical decline over the last 6 months and overall prognosis is poor although it appears that she will survive this event we are going to consult palliative care for ongoing goals of care discussion.
[2017-03-12] MEDS ORDERED: Aminoglycoside Consult 1 EACH MC ONE (07:44)
[2017-03-12] MEDS ORDERED: *HR* Heparin 5,000 UNIT/ML VIAL ONE (10:31)
[2017-03-12] MEDS: Aspirin Enteric Coated 81 MG Tablet PO SCH (10:42)
--- NOTE | 2017-03-12 11:25 | Nephrology Progress Note ---
Date of Encounter: 03/12/17 Time of Encounter: 11:30 - Assessment and Plan (1) Hyperkalemia Current Visit: Yes Status: Acute Potassium now normalized at 4.3 after over 24hrs of yuri Renal diet advised (2) JOSE ROBERTO (acute kidney injury) Current Visit: Yes Status: Acute SCr improved with CVVH now discontinued and likely should continue to improve off CVVH. Will reassess need for intermittent HD in the am. UOP improving. Encouraged po fluid now that IVF has been discontinued Avoid nephrotoxins if possible, vanco by levels Critical care time spent >35 mins Case discussed with critical care team (3) Bradycardia Current Visit: Yes Status: Acute Resolved (4) Metabolic acidosis Current Visit: Yes Status: Acute Resolved (5) CKD (chronic kidney disease) stage 3, GFR 30-59 ml/min Current Visit: Yes Status: Acute Baseline GFR typically 20s-30s this year (6) Anemia Current Visit: No Status: Chronic Hgb stable in the 8.0s after transfusion pRBCs yesterday, will monitor Qualifiers: Anemia type: iron deficiency Iron deficiency anemia type: unspecified iron deficiency Qualified Code(s): D50.9 - Iron deficiency anemia, unspecified Subjective Principal diagnosis: Acute worsening or chronic kidney disease Interval history: Pt seen and examined with family at bedside with complaint of fatigue. No appetite. Heparin gtt stopped earleir after discussions with critical care team. Yuri now discontinued after set clotted off. She is also off dopamine gtt and IVF at this time. Now making UOP approx. 75cc/hr per nurse. Objective - Vital Signs Vital signs: Vital Signs Temp Pulse Resp BP Pulse Ox 03/12/17 11:11 74 03/12/17 11:00 74 18 114/54 95 03/12/17 10:00 75 18 103/50 95 03/12/17 09:00 79 16 106/60 94 03/12/17 08:00 98.1 F 78 16 124/52 93 03/12/17 07:46 79 03/12/17 07:00 79 16 117/61 95 03/12/17 06:00 77 16 100/56 91 03/12/17 05:00 79 16 113/49 92 03/12/17 04:00 80 16 109/78 91 03/12/17 03:00 97.4 F L 77 18 90/54 92 03/12/17 02:00 81 18 96/52 93 03/12/17 01:00 82 16 119/48 94 03/12/17 00:00 97.8 F 81 16 129/59 95 03/11/17 23:00 81 16 94/60 93 03/11/17 22:00 80 16 79/45 96 03/11/17 21:10 98.0 F 80 16 119/46 96 03/11/17 21:00 78 16 104/50 95 03/11/17 20:00 78 16 104/44 95 03/11/17 19:36 97.4 F L 80 18 112/68 95 03/11/17 19:30 80 03/11/17 17:00 74 20 118/55 98 03/11/17 16:00 72 18 104/45 98 03/11/17 15:00 97.9 F 70 20 102/66 98 03/11/17 14:58 66 03/11/17 14:00 70 18 99/47 98 03/11/17 13:00 67 18 104/42 99 03/11/17 12:00 97.8 F 66 16 104/54 98 03/11/17 11:31 66 Intake and Output 03/11/17 03/12/17 03/12/17 23:59 07:59 15:59 Intake Total 2541 / 2541 1091 / 1091 332 / 332 Output Total 1880 / 1880 1090 / 1090 301 / 301 Balance 661 / 661 Intake: IV Fluids 1891 / 1891 1091 / 1091 282 / 282 PrismaSATE BGK 4/2.5 5,000 ML @ 0 / 0 2 / 2 1000 mls/hr CRRT CONT [facility] Rx#: [id number] 0.9 % Sodium Chloride 1,000 ML 1237 / 1237 813 / 813 225 / 225 @ 150 mls/hr IV .Q6H40M [facility]OCK[facility] Rx# :[id number] 0.9 % Sodium Chloride 1,000 ML 58 / 58 @ 50 mls/hr IVC .Q20H [facility]OCK[facility] Rx#: [id number] DOPamine Premix 400mg/250mL 400 160 / 160 25 / 25 mg In 250 ml @ 10 MCG/KG/MIN 44.25 mls/hr IVC .Q5H39M [facility]OCK[facility] Rx #:[id number] Heparin 25,000 UNIT/500 ML D5W 218 / 218 188 / 188 20 / 20 25,000 unit In 500 ml @ 14 UNIT /KG/HR 33.04 mls/hr IVC .Q15H8M [facility]OCK[facility] Rx#:[id number] Sodium Bicarbonate 150 MEQ In 118 / 118 Dextrose 5% 1,000 ML @ 75 mls/ hr IVC .[id number] [facility]OCK[facility] Rx#: [id number] Zosyn 3.375 GM In Dextrose 5% ( 100 / 100 63 / 63 37 / 37 Minibag+) 100 ML 100 ML @ 25 mls/hr IVPB Q12H [facility]OCK[facility] Rx#: [id number] Oral 0 / 0 0 / 0 50 / 50 Blood Product 650 / 650 Rbcs Leuko Poor As-1 Unit 300 / 300 [id number] Rbcs Leuko Poor As-1 Unit 350 / 350 [id number] Output: Yuri 1634 / 1634 565 / 565 131 / 131 Rectal Tube 0 / 0 Catheter 246 / 246 525 / 525 170 / 170 Other: Stool Size Moderate Stool Consistency liquid soft Stool Color Brown # Bowel Movements 0 0 Weight 116 kg Patient Weight 03/12/17 23:59 Weight 116 kg - General Appearance General appearance: Present: fatigue (NAD) EENT: Present: ATNC, mucous membranes dry Neck: Present: no JVD, supple Respiratory: Present: clear (ant bilat) Cardiology: Present: edema (+1 LE bilat), normal S1, normal S2 Dialysis Vascular Access: Venous Catheter (femoral temp HD catheter) Gastrointestinal: Present: tenderness (mild diffuse), no guarding Integumentary: Present: warm and dry Neurologic: Present: no focal deficit Musculoskeletal: Present: no deformities Psychiatric: Present: depressed, cooperative - Lab 03/12/17 04:25 03/12/17 04:25 Most recent lab results ABG pH 7.35 pH Units (7.32-7.45) 03/12/17 04:30 ABG pCO2 39 mmHg (35-45) 03/12/17 04:30 ABG pO2 76 mmHg (85-104) L 03/12/17 04:30 ABG HCO3 22 mEq/L (21-27) 03/12/17 04:30 ABG O2 Saturation 94 % (95-98) L 03/12/17 04:30 Calcium 7.6 mg/dL (8.6-10.8) L 03/12/17 04:25 Phosphorus 4.6 mg/dL (2.3-4.7) D 03/12/17 04:25 Magnesium 1.7 mg/dL (1.6-2.6) 03/12/17 04:25 Consult Discharge Plan - Plan Referrals: Elza Jesus MD [Primary Care Provider] -
[2017-03-12] MEDS: *HR* Heparin 5,000 UNIT/ML VIAL IV PRN (11:38)
[2017-03-13] MEDS: Insulin LISPRO 300 UNITS/3 ML VIAL SQ SCH ×4 (00:52→17:38)
[2017-03-13] MEDS: Famotidine 20 MG/2 ML VIAL IVP SCH ×2 (05:24→17:19)
[2017-03-13] MEDS: Piperacillin/Tazobactam 3.375 GM in D5% in Water (Mini-Bag+) 100 ML IVPB SCH ×2 (05:24→17:17)
--- NOTE | 2017-03-13 08:00 | Pulmonology Progress Note ---
<AlvinoPritesh - Last Filed: 03/13/17 10:51> Date of Encounter: 03/13/17 Time of Encounter: 07:59 Assessment and Plan (1) Acute worsening of stage 4 chronic kidney disease Current Visit: Yes Status: Acute Cr continues to improve while off Rasheeda and she has better UOP Nephrology consulted, appreciate recommendations Continue to avoid nephrotoxic agents and monitor I/O's Plan to transfer her to step down unit later today She does not want emt intermediate dialysis; Palliative consulted to assist with goals of care Transfer to any tele bed today, Dr. Alvarez admitting hospitalist was given sign out (2) Severe sepsis Current Visit: Yes Status: Acute Blood pressures stable since off Dopamine drip Urine cultures did grow GBS, final sensitivities pending Blood cultures remain negative Continue on Zosyn, day 3/7 (3) UTI (urinary tract infection) Current Visit: No Status: Acute Urine cultures positive for GBS; possibly contaminant Continue on 7 day course of Zosyn as above Qualifiers: Urinary tract infection type: site unspecified Hematuria presence: with hematuria Qualified Code(s): N39.0 - Urinary tract infection, site not specified; R31.9 - Hematuria, unspecified (4) Hyperkalemia Current Visit: Yes Status: Resolved Potassium last checked yesterday WNL Will continue to trend and treat as necessary (5) Anemia Current Visit: No Status: Chronic Suspect secondary to chronic diseases; no signs of active bleeding She did receive 2 units pRBCs on 03/11 and Hb has been stable since transfusion Qualifiers: Anemia type: iron deficiency Iron deficiency anemia type: unspecified iron deficiency Qualified Code(s): D50.9 - Iron deficiency anemia, unspecified (6) Failure to thrive Current Visit: Yes Status: Chronic She has been having poor appetite and has steadily declined since CVA over past year according to her daughter Will obtain swallow evaluation by speech prior to starting her diet Consult to PT/OT/SS Qualifiers: Qualified Code(s): R62.7 - Adult failure to thrive (7) Insulin dependent diabetes mellitus Current Visit: Yes Status: Chronic Sugars have been controlled < 200 while on medium dose SSI q6hr (8) HTN (hypertension) Current Visit: No Status: Chronic Blood pressures well controlled since off Dopamine drip Will continue to hold her home Norvasc and Coreg for now Qualifiers: Hypertension type: essential hypertension Qualified Code(s): I10 - Essential (primary) hypertension (9) DVT prophylaxis Current Visit: Yes Status: Acute Subjective Principal diagnosis: Acute worsening or chronic kidney disease Interval history: Pt seen and examined this morning. Was asleep upon entering room but easily woke up with voice. She is confused this morning and does not answer questions fully, but does not complain of any shortness of breath or pain anywhere. Objective PUL Vital signs: Last Vital Signs Temp 98.0 F 03/13/17 07:21 Pulse 88 03/13/17 06:00 Resp 18 03/13/17 06:00 BP 133/52 03/13/17 06:00 Pulse Ox 92 03/12/17 18:00 General appearance: no acute distress, other (a/o x 0) Eyes: nonicteric ENT: oropharynx moist Neck: supple Effort: normal Auscultation: bilateral: diminished breath sounds Percussion: bilateral: not dull Tactile fremitus: bilateral: normal Cardiovascular: regular rate and rhythm, murmur noted Gastrointestinal: normoactive bowel sounds, non-distended Integumentary: cellulitis (chronic right leg wound) Extremities: no cyanosis, no clubbing, edema (2+) Musculoskeletal: no deformities, ROM normal non-focal exam, other (confused) mood appropriate, affect normal Results - Laboratory Findings CBC and BMP: 03/13/17 09:20 03/13/17 09:20 ABG ABG pH 7.35 pH Units (7.32-7.45) 03/12/17 04:30 ABG pCO2 39 mmHg (35-45) 03/12/17 04:30 ABG pO2 76 mmHg (85-104) L 03/12/17 04:30 ABG O2 Saturation 94 % (95-98) L 03/12/17 04:30 PT/INR, D-dimer PT 14.5 Seconds (9.4-12.1) H 03/11/17 11:55 Abnormal lab findings: Abnormal lab results WBC 12.1 K/mcL (4.3-11.1) H 03/12/17 04:25 RBC 3.31 M/mcL (3.82-4.97) L 03/12/17 04:25 Hgb 8.2 g/dL (11.5-15.4) L 03/12/17 04:25 Hct 26.2 % (35.3-44.9) L 03/12/17 04:25 MCV 79.2 fL (83.0-100.0) L D 03/12/17 04:25 MCH 24.8 pg (28.0-33.3) L 03/12/17 04:25 MCHC 31.3 g/dL (31.6-35.5) L 03/12/17 04:25 RDW 15.8 % (11.5-14.5) H 03/12/17 04:25 MPV 7.8 fL (9.4-12.4) L 03/12/17 04:25 Neutrophils # 11.2 K/mcL (1.6-8.9) H 03/12/17 04:25 Lymphocytes # 0.3 K/mcL (0.6-4.6) L 03/12/17 04:25 Hypochromasia Present (Not Present) A 03/11/17 03:05 PT 14.5 Seconds (9.4-12.1) H 03/11/17 11:55 APTT 111.4 Seconds (26.0-36.0) H* 03/12/17 05:30 ABG pO2 76 mmHg (85-104) L 03/12/17 04:30 ABG O2 Saturation 94 % (95-98) L 03/12/17 04:30 ABG Base Excess -4 mEq/L (-2 to 3) L 03/12/17 04:30 BUN 67 mg/dL (7-20) H 03/12/17 04:25 Creatinine 3.97 mg/dL (0.57-1.11) H 03/12/17 04:25 Est GFR ( Amer) 14 (> 60) L 03/12/17 04:25 Est GFR (Non-Af Amer) 12 (> 60) L 03/12/17 04:25 Glucose 108 mg/dL (70-99) H 03/12/17 04:25 POC Glucose 160 (58-89) H 03/12/17 23:45 Hemoglobin A1c 6.8 % (-5.6) H 03/10/17 15:48 Calculated Osmolality 306 (280-300) H 03/12/17 04:25 Lactic Acid 4.1 mmol/L (0.5-2.2) H* 03/12/17 05:30 Uric Acid 14.0 mg/dL (2.6-6.0) H 03/10/17 20:19 Calcium 7.6 mg/dL (8.6-10.8) L 03/12/17 04:25 Ionized Calcium 0.99 mmol/L (1.15-1.35) L 03/12/17 04:25 Albumin 2.1 g/dL (3.5-5.0) L 03/11/17 03:05 Globulin 4.8 g/dL (2.4-3.5) H 03/11/17 03:05 Albumin/Globulin Ratio 0.4 (1.1-2.2) L 03/11/17 03:05 Urine Clarity Cloudy (Clear) A 03/11/17 08:55 Urine Protein >=300 mg/dL (Neg-Trace) H 03/11/17 08:55 Urine Glucose (UA) 100 mg/dL (Normal) H 03/11/17 08:55 Urine Ketones Trace mg/dL (Negative) H 03/11/17 08:55 Urine Blood Large (Negative) H 03/11/17 08:55 Ur Leukocyte Esterase Moderate (Negative) H 03/11/17 08:55 Urine Microscopic RBC TNTC per hpf (0-3) H 03/11/17 08:55 Urine Microscopic WBC TNTC per hpf (0-3) H 03/11/17 08:55 Ur Squamous Epith Cells Many per lpf (None-Few) H 03/11/17 08:55 Urine Bacteria Many per hpf (None-Few) H 03/11/17 08:55 Ur Culture Indicated? YES (NO) A 03/11/17 08:55 - Microbiology Findings Microbiology Findings: Microbiology, Last 48 Hours 03/11/17 08:55 Urine Culture - Final Urine,Clean Catch Strep agalactiae - (Group B) 03/11/17 09:57 Blood Culture - Preliminary Peripheral Venipuncture No growth. 03/11/17 09:40 Blood Culture - Preliminary Peripheral Venipuncture No growth. - Clinical Findings Intake & Output: Intake & Output 03/12/17 03/12/17 03/13/17 15:59 23:59 07:59 Intake Total 332 / 332 100 / 100 Output Total 526 / 526 200 / 200 700 / 700 Balance -194 / -194 -100 / -100 -700 / -700 Weight 118.3 kg Consult Discharge Plan - Plan Referrals: Elza Jesus MD [Primary Care Provider] - <Rojas Lorenzo - Last Filed: 03/13/17 21:58> Date of Encounter: 03/13/17 Objective PUL Vital signs: Last Vital Signs Temp 97.0 F L 03/13/17 15:57 Pulse 88 03/13/17 12:00 Resp 18 03/13/17 12:00 BP 100/76 03/13/17 12:00 Pulse Ox 95 03/13/17 12:00 Results - Laboratory Findings CBC and BMP: 03/13/17 09:20 03/13/17 09:20 ABG ABG pH 7.35 pH Units (7.32-7.45) 03/12/17 04:30 ABG pCO2 39 mmHg (35-45) 03/12/17 04:30 ABG pO2 76 mmHg (85-104) L 03/12/17 04:30 ABG O2 Saturation 94 % (95-98) L 03/12/17 04:30 PT/INR, D-dimer PT 14.5 Seconds (9.4-12.1) H 03/11/17 11:55 Abnormal lab findings: Abnormal lab results RBC 3.19 M/mcL (3.82-4.97) L 03/13/17 09:20 Hgb 7.9 g/dL (11.5-15.4) L 03/13/17 09:20 Hct 25.2 % (35.3-44.9) L 03/13/17 09:20 MCV 79.0 fL (83.0-100.0) L 03/13/17 09:20 MCH 24.8 pg (28.0-33.3) L 03/13/17 09:20 MCHC 31.3 g/dL (31.6-35.5) L 03/13/17 09:20 RDW 16.0 % (11.5-14.5) H 03/13/17 09:20 MPV 8.0 fL (9.4-12.4) L 03/13/17 09:20 Neutrophils # 9.3 K/mcL (1.6-8.9) H 03/13/17 09:20 Lymphocytes # 0.5 K/mcL (0.6-4.6) L 03/13/17 09:20 Hypochromasia Present (Not Present) A 03/11/17 03:05 PT 14.5 Seconds (9.4-12.1) H 03/11/17 11:55 ABG pO2 76 mmHg (85-104) L 03/12/17 04:30 ABG O2 Saturation 94 % (95-98) L 03/12/17 04:30 ABG Base Excess -4 mEq/L (-2 to 3) L 03/12/17 04:30 Potassium 3.2 mEq/L (3.5-4.5) L D 03/13/17 09:20 BUN 62 mg/dL (7-20) H 03/13/17 09:20 Creatinine 3.77 mg/dL (0.57-1.11) H 03/13/17 09:20 Est GFR ( Amer) 15 (> 60) L 03/13/17 09:20 Est GFR (Non-Af Amer) 12 (> 60) L 03/13/17 09:20 Glucose 142 mg/dL (70-99) H 03/13/17 09:20 POC Glucose 160 (58-89) H 03/12/17 23:45 Hemoglobin A1c 6.8 % (-5.6) H 03/10/17 15:48 Calculated Osmolality 310 (280-300) H 03/13/17 09:20 Lactic Acid 4.1 mmol/L (0.5-2.2) H* 03/12/17 05:30 Uric Acid 14.0 mg/dL (2.6-6.0) H 03/10/17 20:19 Calcium 7.9 mg/dL (8.6-10.8) L 03/13/17 09:20 Ionized Calcium 1.06 mmol/L (1.15-1.35) L 03/13/17 09:33 Albumin 2.1 g/dL (3.5-5.0) L 03/11/17 03:05 Globulin 4.8 g/dL (2.4-3.5) H 03/11/17 03:05 Albumin/Globulin Ratio 0.4 (1.1-2.2) L 03/11/17 03:05 Urine Clarity Cloudy (Clear) A 03/11/17 08:55 Urine Protein >=300 mg/dL (Neg-Trace) H 03/11/17 08:55 Urine Glucose (UA) 100 mg/dL (Normal) H 03/11/17 08:55 Urine Ketones Trace mg/dL (Negative) H 03/11/17 08:55 Urine Blood Large (Negative) H 03/11/17 08:55 Ur Leukocyte Esterase Moderate (Negative) H 03/11/17 08:55 Urine Microscopic RBC TNTC per hpf (0-3) H 03/11/17 08:55 Urine Microscopic WBC TNTC per hpf (0-3) H 03/11/17 08:55 Ur Squamous Epith Cells Many per lpf (None-Few) H 03/11/17 08:55 Urine Bacteria Many per hpf (None-Few) H 03/11/17 08:55 Ur Culture Indicated? YES (NO) A 03/11/17 08:55 - Microbiology Findings Microbiology Findings: Microbiology, Last 48 Hours 03/11/17 08:55 Urine Culture - Final Urine,Clean Catch Strep agalactiae - (Group B) 03/11/17 09:57 Blood Culture - Preliminary Peripheral Venipuncture No growth. 03/11/17 09:40 Blood Culture - Preliminary Peripheral Venipuncture No growth. - Clinical Findings Intake & Output: Intake & Output 03/13/17 03/13/17 03/13/17 07:59 15:59 23:59 Intake Total 300 / 300 Output Total 700 / 700 700 / 700 Balance -700 / -700 -400 / -400 Weight 118.3 kg - Attending Attestation I examined this patient and my medical decision-making was reviewed with the Resident Physician. I agree with the documented findings, disposition and treatment plan as described except to the extent set forth below. Patient seen and examined. Labs, radiology, chart personally reviewed. 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 Patient CODE STATUS changed to a DNI and at this time she is maintaining acceptable oxygenation. Cardiovascular: stable GI: Nutrition per dietary and GI prophylaxis per routine.: Speech service have seen patients. Heme: DVT prophylaxis per routine ID: Continue antibiotics and plan to de-escalation Renal; urine out put and renal funtion reviewed Endorcine: blood glucose is monitored Lines: all lines checked and no evidence of infections. dialysis catheter will be deferred to nephrology when to be removed. Skin: skin care to prevent pressure ulcers per nursing routine care overall prognosis is poor
[2017-03-13] MEDS ORDERED: Magnesium Sulfate 1 GM in D5% in Water 100 ML IVPB ONE ×2 (08:25→10:53)
[2017-03-13] MEDS ORDERED: Aspirin 81 MG TAB.CHEW PO SCH (09:30)
[2017-03-13 09:35] LABS: Basophils % 0.1 %; Eosinophils # 0.1 K/mcL (0.0-0.6); Eosinophils % 0.7 %; Hematocrit 25.2 % (35.3-44.9); Hemoglobin 7.9 g/dL (11.5-15.4); Immature Granulocytes % 0.5 % (0-4); Lymphocytes # 0.5 K/mcL (0.6-4.6); Lymphocytes % 4.6 %; Mean Corpuscular HGB Conc 31.3 g/dL (31.6-35.5); Mean Corpuscular Hemoglobin 24.8 pg (28.0-33.3); Monocytes # 0.6 K/mcL (0.0-1.3); Monocytes % 5.6 %; Neutrophils # 9.3 K/mcL (1.6-8.9); Platelet Count 179 K/mcL (140-400); Red Blood Count 3.19 M/mcL (3.82-4.97); Segmented Neutrophils % 88.5 %
[2017-03-13 09:48] LABS: Calcium 7.9 mg/dL (8.6-10.8); Magnesium 1.8 mg/dL (1.6-2.6); Phosphorous 3.5 mg/dL (2.3-4.7)
[2017-03-13 09:49] LABS: Potassium 3.2 mEq/L (3.5-4.5)
[2017-03-13] MEDS ORDERED: Potassium Chloride Elixir 20 MEQ/15 ML UDC PO ONE (09:59)
--- NOTE | 2017-03-13 10:23 | Nephrology Progress Note ---
Date of Encounter: 03/13/17 Time of Encounter: 10:15 - Assessment and Plan (1) JOSE ROBERTO (acute kidney injury) Current Visit: Yes Status: Acute Urine output increasing. CVVHD stopped yesterday. Monitor for improvement. Patient may need dialysis tomorrow. (2) CKD (chronic kidney disease) stage 3, GFR 30-59 ml/min Current Visit: Yes Status: Acute Baseline Stage 3b/Stage 4. (3) DM2 (diabetes mellitus, type 2) Current Visit: Yes Status: Acute Per primary team. Qualifiers: Chronic kidney disease stage: stage 3 (moderate) Qualified Code(s): E11.22 - Type 2 diabetes mellitus with diabetic chronic kidney disease; N18.3 - Chronic kidney disease, stage 3 (moderate); N18.3 - Chronic kidney disease, stage 3 (moderate); Z79.4 - long term care social worker (current) use of insulin; Z79.4 - FPC (current) use of insulin; Z79.4 - FPC (current) use of insulin; Z79.4 - FPC (current) use of insulin (4) Metabolic acidosis Current Visit: Yes Status: Acute Resolved. Monitor. (5) Anemia Current Visit: Yes Status: Chronic Per primary team. Hemoglobin stable. Qualifiers: Anemia type: unspecified type Qualified Code(s): D64.9 - Anemia, unspecified Subjective Principal diagnosis: Acute worsening or chronic kidney disease Interval history: Patient seen. She has no complaint. She denies pain. Objective - Vital Signs Vital signs: Vital Signs Temp Pulse Resp BP Pulse Ox 03/13/17 09:00 86 20 128/59 03/13/17 08:00 85 20 133/58 03/13/17 07:21 98.0 F 03/13/17 06:00 88 18 133/52 03/13/17 05:00 82 18 129/56 03/13/17 04:49 98.9 F 03/13/17 03:00 87 16 139/54 03/13/17 02:00 86 16 124/61 03/13/17 01:00 85 16 120/63 03/13/17 00:12 98.8 F 03/12/17 23:00 82 16 128/56 03/12/17 22:00 83 16 131/56 03/12/17 21:00 79 16 124/56 03/12/17 20:00 81 16 126/52 03/12/17 19:44 98.3 F 03/12/17 19:00 81 16 122/68 03/12/17 18:00 80 16 115/58 92 03/12/17 17:00 79 16 111/70 94 03/12/17 16:00 75 16 110/53 96 03/12/17 15:26 71 03/12/17 15:00 74 16 112/58 94 03/12/17 14:00 77 16 109/51 94 03/12/17 13:00 74 16 95/52 95 03/12/17 12:00 71 16 105/58 94 03/12/17 11:11 74 03/12/17 11:00 74 18 114/54 95 Intake and Output 03/12/17 03/13/17 03/13/17 23:59 07:59 15:59 Intake Total 100 / 100 Output Total 200 / 200 700 / 700 Balance -100 / -100 -700 / -700 Intake: IV Fluids 100 / 100 0.9 % Sodium Chloride 1,000 ML 0 / 0 @ 150 mls/hr IV .Q6H40M ROCKY Rx# :[id number] Heparin 25,000 UNIT/500 ML D5W 0 / 0 25,000 unit In 500 ml @ 14 UNIT /KG/HR 33.04 mls/hr IVC .Q15H8M ROCKY Rx#:[id number] Zosyn 3.375 GM In Dextrose 5% ( 100 / 100 Minibag+) 100 ML 100 ML @ 25 mls/hr IVPB Q12H ROCKY Rx#: [id number] Output: Catheter 200 / 200 700 / 700 Other: Weight 118.3 kg Blood Glucose* 106 Patient Weight 03/13/17 23:59 Weight 118.3 kg - General Appearance General appearance: Present: well-developed, well-nourished, chronically ill EENT: Present: ATNC Neck: Present: supple Respiratory: Present: course breath sounds Cardiology: Present: edema, regular rate, regular rhythm Dialysis Vascular Access: Venous Catheter Gastrointestinal: Present: no tenderness Integumentary: Present: warm and dry Additional Comments: Alert Psychiatric: Present: mood/affect appropriate - Lab 03/13/17 09:20 03/13/17 09:20 Most recent lab results ABG pH 7.35 pH Units (7.32-7.45) 03/12/17 04:30 ABG pCO2 39 mmHg (35-45) 03/12/17 04:30 ABG pO2 76 mmHg (85-104) L 03/12/17 04:30 ABG HCO3 22 mEq/L (21-27) 03/12/17 04:30 ABG O2 Saturation 94 % (95-98) L 03/12/17 04:30 Calcium 7.9 mg/dL (8.6-10.8) L 03/13/17 09:20 Phosphorus 3.5 mg/dL (2.3-4.7) 03/13/17 09:20 Magnesium 1.8 mg/dL (1.6-2.6) 03/13/17 09:20 - VTE Documentation of Mechanical Device: Intermittent pneumatic compression device Consult Discharge Plan - Plan Referrals: Elza Jesus MD [Primary Care Provider] -
[2017-03-13] MEDS ORDERED: Calcium Gluconate 1,000 MG in D5% in Water 100 ML IVPB ONE ×2 (10:34→10:53)
[2017-03-13] MEDS ORDERED: Dextrose Gel 15 GM PO PRN ×2 (10:53)
[2017-03-13] MEDS ORDERED: Acetaminophen 325 MG TABLET PO PRN (10:53)
[2017-03-13] MEDS ORDERED: *HR* Alteplase (Cathflo) 2 MG VIAL IVP PRN (10:53)
[2017-03-13] MEDS ORDERED: Naloxone 0.4 MG/ML INJ IVP PRN (10:53)
[2017-03-13] MEDS ORDERED: *HR* Dextrose 50 % in Water (Syg) 50 ML SYRINGE IVP PRN (10:53)
[2017-03-13] MEDS ORDERED: *HR* Morphine 2 MG/ML SYRINGE IVP PRN (10:53)
[2017-03-13] MEDS ORDERED: D5% in Water 1,000 ML IVC PRN (10:53)
--- NOTE | 2017-03-13 11:07 | Palliative - Consult Note ---
Date of Encounter: 03/13/17 Time of Encounter: 08:30 - Assessment and Plan (1) Nausea and vomiting Current Visit: Yes Status: Acute Assessment and plan: This has resolved, patient is starting to eat. Qualifiers: Vomiting type: unspecified Vomiting Intractability: non-intractable Qualified Code(s): R11.2 - Nausea with vomiting, unspecified (2) Goals of care, counseling/discussion Current Visit: Yes Status: Acute Assessment and plan: Family and patient wish to have some treatment, however they do not wish to have aggressive beyond comfort. Therefore CODE STATUS is appropriate DNR CCA DNI. They do wish to have some treatment. Patient is okay with short term dialysis but is not okay with long-term dialysis. Allergies following this we will continue to follow the overall goal is to return home where his family to stay with her. (3) Metabolic acidosis Current Visit: Yes Status: Acute Assessment and plan: This has resolved (4) CKD (chronic kidney disease) stage 3, GFR 30-59 ml/min Current Visit: Yes Status: Acute Assessment and plan: Nephrology is following, patient is okay with short-term dialysis but not okay with long-term dialysis. He will continue to follow. (5) Acute metabolic encephalopathy Current Visit: Yes Status: Acute Assessment and plan: Overall this is waxing and waning, however does appear to be slowly improving. The patient is being treated currently for urinary tract infection as well as the metabolic anomaly that this is self around the renal failure. J to follow. Palliative-CN HPI - Data of Consult Patient: new to practice Requesting Physician: Frida Perales MD Primary Care Provider: Elza Jesus, - Consult Narrative Palliative Care/Comfort Measures: Palliative care History of present illness: Ms. Mejia is a 61 year old female No family is available therefore all history is obtained from the medical record. Patient is able to give only limited information. She has a history of diabetes, hypertension and kidney disease presenting with 1 week's worth of nausea and vomiting as well as decreased urine output and abdominal pain. Was found to be in renal failure with hyperkalemia also lactic acidosis and acute delirium. Instead time the patient has improving renal umbers, cardia has resolved acid has come down and actually now is low enough that she is going to need this small amount of replacement. Lanes about some achy chest discomfort she describes as an ache says it is worse when she takes a deep breath or tries to move around better with meds. She has no other complaints of at this time. Patient is not oriented. Palliative care is consul regarding goals of care. CODE STATUS is or even established be DNR a DNI. Please see the assessment and plan. CC: Frida Perales MD n/v renal failure Past Med Surg Social Fam HX - Past Medical History Medical history: arthritis, CVA, diabetes, glaucoma, hyperlipidemia, hypertension, renal disease Psychiatric history: no psych history - Past Surgical History Surgical History: cataract, other - Social History Smoking Status: Unknown if ever smoked Smokeless Tobacco Status: No Alcohol use: none Drug use: none - Family History Mother Adopted: No Family Member Ethnicity: Unknown Living Status: Still Living Hx Family Cardiac Disorders: No Hx Family Respiratory Disorders: Yes (COPD) Hx Family Cancer: Yes Hx Family GI Disorders: No Hx Family Endocrine Disorder: No Hx Family Neuromuscular Disorders: No Hx Family Neurologic Disorders: No Hx Family HEENT Disorders: No Hx Family Autoimmune Disorders: No Father Family Member Ethnicity: Unknown Living Status: Hx Family Cardiac Disorders: No Hx Family Respiratory Disorders: No Hx Family Cancer: No Hx Family GI Disorders: No Hx Family Endocrine Disorder: No Hx Family Neuromuscular Disorders: No Hx Family Neurologic Disorders: No Hx Family HEENT Disorders: No Hx Family Autoimmune Disorders: No Medications and Allergies Aspirin [Adult Low Dose Aspirin EC] 81 mg PO DAILY 08/18/15 [History] Gabapentin [Neurontin] 300 mg PO HS 08/18/15 [History] Insulin LISPRO [Humalog] 14 unit SQ BID 08/18/15 [History] Pravastatin Sodium [Pravachol] 40 mg PO HS 08/18/15 [History] Buspirone HCl [Buspar] 5 mg PO BID 11/16/15 [History] Linagliptin/Metformin HCl [Jentadueto Xr 2.5 mg-1,000 mg] 1 tab PO BID 05/03/16 [History] Carvedilol [Coreg] 6.25 mg PO BIDWM #60 tablet 05/11/16 [Rx] amLODIPine [Norvasc] 5 mg PO DAILY #30 tablet 05/11/16 [Rx] Furosemide [Lasix] 20 mg PO QPM 09/26/16 [History] Furosemide [Lasix] 40 mg PO QAM 09/26/16 [History] Insulin Glargine,Hum.rec.anlog [[place] Solostar] 14 units SQ QAM 03/10/17 [ History] OxyCODONE/APAP 5/325 [Percocet 5/325 MG] 1 tab PO BID PRN 03/10/17 [History] 3 Allergy/AdvReac Type Severity Reaction Status Date / Time No Known Allergies Allergy Verified 08/18/15 08:38 ROS unobtainable: due to mental status Palliative Care-Exam - Constitutional Vitals: Temp Pulse Resp BP Pulse Ox 98.0 F 86 20 128/59 92 03/13/17 07:21 03/13/17 09:00 03/13/17 09:00 03/13/17 09:00 03/12/17 18:00 General appearance: Present: no acute distress - Head Head Exam: Present: atraumatic, normal inspection - Eye Eye exam: Present: EOMI, normal appearance - ENT ENT exam: Present: mucous membranes moist - Respiratory Respiratory exam: Present: decreased breath sounds - Cardiovascular Cardiovascular exam: Present: RRR - GI/Abdominal Exam GI/Abdominal exam: Present: normal bowel sounds, soft. Absent: tenderness - Catheter Type: Urethral (Mcneill) - Extremities Exam Extremities exam: Present: pedal edema. Absent: normal inspection (Multiple healing ulcers), tenderness - Neurological Exam Neurological exam: Present: altered (Awakens easily, but is not oriented). Absent: alert, oriented X3 - Psychiatric Psychiatric exam: Absent: agitated, anxious - Skin Skin exam: Present: dry, warm Internal Medicine - CN: Reslt - Labs CBC & Chem 7: 03/13/17 09:20 03/13/17 09:20 Labs: Short CBC 03/13/17 Range/Units 09:20 WBC 10.4 (4.3-11.1) K/mcL Hgb 7.9 L (11.5-15.4) g/dL Hct 25.2 L (35.3-44.9) % Plt Count 179 (140-400) K/mcL Neutrophils # 9.3 H (1.6-8.9) K/mcL BMP 03/13/17 09:20 Sodium 140 Potassium 3.2 L D Chloride 102 Carbon Dioxide 26 BUN 62 H Creatinine 3.77 H Glucose 142 H Calcium 7.9 L - ABG Interpretation ABG results: ABG ABG pH 7.35 pH Units (7.32-7.45) 03/12/17 04:30 ABG pCO2 39 mmHg (35-45) 03/12/17 04:30 ABG pO2 76 mmHg (85-104) L 03/12/17 04:30 ABG O2 Saturation 94 % (95-98) L 03/12/17 04:30 PT/INR, D-dimer PT 14.5 Seconds (9.4-12.1) H 03/11/17 11:55 Consult Discharge Plan - Plan Referrals: Elza Jesus MD [Primary Care Provider] - Palliative Quality Palliative Quality: Screen for Code Status: Yes, Screen for Goals of Care: Yes, Screen for Pain: Yes, If Pain Regimen Started, Initiate Bowel Regimen: Yes, Screen for Nausea/Vomitting: Yes Code Status: 03/10/17 19:41 Resuscitation Status: Active [RES] Routine Comment: Resuscitation Status: Full Code 03/10/17 21:32 CODE [Resuscitation Status: Active] [RES] Routine Comment: Resuscitation Status: DNR-Comfort Care CODE [Resuscitation Status: Active] [RES] Routine Comment: Resuscitation Status: [id number]
[2017-03-13] MEDS: *HR* Heparin 5,000 UNIT/ML VIAL SQ SCH (17:19)
[2017-03-13] MEDS ORDERED: *HR* Heparin 5,000 UNIT/ML VIAL SQ SCH (18:00)
[2017-03-14] MEDS: Insulin LISPRO 300 UNITS/3 ML VIAL SQ SCH ×5 (00:29→21:22)
[2017-03-14 04:29] LABS: Calcium 8.5 mg/dL (8.6-10.8); Potassium 3.3 mEq/L (3.5-4.5)
[2017-03-14] MEDS: Piperacillin/Tazobactam 3.375 GM in D5% in Water (Mini-Bag+) 100 ML IVPB SCH (05:44)
[2017-03-14] MEDS: *HR* Heparin 5,000 UNIT/ML VIAL SQ SCH ×2 (05:44→16:46)
[2017-03-14] MEDS: Famotidine 20 MG/2 ML VIAL IVP SCH (05:44)
[2017-03-14 05:53] LABS: Basophils % 0.2 %; Eosinophils # 0.1 K/mcL (0.0-0.6); Eosinophils % 0.8 %; Hemoglobin 7.7 g/dL (11.5-15.4); Immature Granulocytes % 0.9 % (0-4); Lymphocytes # 0.5 K/mcL (0.6-4.6); Lymphocytes % 4.6 %; Mean Corpuscular HGB Conc 32.1 g/dL (31.6-35.5); Mean Corpuscular Hemoglobin 25.7 pg (28.0-33.3); Mean Platelet Volume 8.2 fL (9.4-12.4); Monocytes # 0.5 K/mcL (0.0-1.3); Monocytes % 4.6 %; Neutrophils # 8.9 K/mcL (1.6-8.9); Platelet Count 165 K/mcL (140-400); Red Cell Distribution Width 16.1 % (11.5-14.5); Segmented Neutrophils % 88.9 %
[2017-03-14] MEDS: Aspirin 81 MG TAB.CHEW PO SCH (09:00)
[2017-03-14] MEDS: *HR* HYDROcodone/Acet 5/325 mg TABLET PO PRN (09:49)
--- NOTE | 2017-03-14 10:09 | Nephrology Progress Note ---
Date of Encounter: 03/14/17 Time of Encounter: 10:07 - Assessment and Plan (1) JOSE ROBERTO (acute kidney injury) Current Visit: Yes Status: Acute Kidney function improving. Scr 3.21 and GFR 15 Continue renal diet No need for HD today; at this point do not anticipate needing further dialysis at this time. To help manage edema consider starting diuretics Good UPO 1400ml yesterday; 1100ml in huerta bag already today (2) CKD (chronic kidney disease) stage 3, GFR 30-59 ml/min Current Visit: Yes Status: Acute Baseline stage 3b/4 Avoid nephrotoxins if possible (3) DM2 (diabetes mellitus, type 2) Current Visit: Yes Status: Acute per primary team Qualifiers: Diabetes mellitus complication status: with kidney complications Diabetes mellitus complication detail: with chronic kidney disease Chronic kidney disease stage: stage 3 (moderate) Qualified Code(s): E11.22 - Type 2 diabetes mellitus with diabetic chronic kidney disease; N18.3 - Chronic kidney disease, stage 3 (moderate); N18.3 - Chronic kidney disease, stage 3 (moderate) (4) Anemia Current Visit: Yes Status: Chronic Hgb down to 7.7 Goal 10-11 Transfusion per parameters per primary team Qualifiers: Anemia type: unspecified type Qualified Code(s): D64.9 - Anemia, unspecified Subjective Principal diagnosis: Acute worsening or chronic kidney disease Interval history: Patient seen and examined. Doesn't respond to my questions just repeats 'Hello' . Objective - Vital Signs Vital signs: Vital Signs Temp Pulse Resp BP Pulse Ox 03/14/17 07:03 98.0 F 82 18 136/70 97 03/14/17 03:24 98.5 F 86 19 143/79 98 03/14/17 00:18 98.3 F 90 19 154/80 99 03/13/17 20:29 98.4 F 86 20 144/74 93 03/13/17 16:00 91 18 150/98 98 03/13/17 15:57 97.0 F L 03/13/17 12:00 97.1 F L 88 18 100/76 95 03/13/17 11:24 97.1 F L Intake and Output 03/13/17 03/14/17 03/14/17 23:59 07:59 15:59 Intake Total 100 / 100 0 / 0 Output Total 1650 / 1650 Balance 100 / 100 -1650 / -1650 0 / 0 Intake: IV Fluids 100 / 100 Zosyn 3.375 GM In Dextrose 5% ( 100 / 100 Minibag+) 100 ML 100 ML @ 25 mls/hr IVPB Q12H [facility] Rx#: [id number] Oral 0 / 0 Output: Catheter 1649 Other: Meal Breakfast Percent of Meal Consumed 0% Weight 117.934 kg Blood Glucose* 215 183 - General Appearance General appearance: Present: well-developed, well-nourished, obese EENT: Present: ATNC, mucous membranes moist, hearing intact, vision intact Neck: Present: supple Respiratory: Present: clear Cardiology: Present: edema, normal S1 Dialysis Vascular Access: Venous Catheter Gastrointestinal: Present: no tenderness, no guarding, obese Integumentary: Present: warm and dry Neurologic: Present: confused (Not sure what her mental status is baseline) Psychiatric: Present: mood/affect appropriate, cooperative - Lab 03/14/17 05:40 03/14/17 04:01 Most recent lab results ABG pH 7.35 pH Units (7.32-7.45) 03/12/17 04:30 ABG pCO2 39 mmHg (35-45) 03/12/17 04:30 ABG pO2 76 mmHg (85-104) L 03/12/17 04:30 ABG HCO3 22 mEq/L (21-27) 03/12/17 04:30 ABG O2 Saturation 94 % (95-98) L 03/12/17 04:30 Calcium 8.5 mg/dL (8.6-10.8) L 03/14/17 04:01 Phosphorus 3.5 mg/dL (2.3-4.7) 03/13/17 09:20 Magnesium 1.8 mg/dL (1.6-2.6) 03/13/17 09:20 - VTE Documentation of Mechanical Device: Intermittent pneumatic compression device Consult Discharge Plan - Plan Referrals: Elza Jesus MD [Primary Care Provider] - 03/22/17 2:00 pm (web request 03/21/2017)
--- NOTE | 2017-03-14 11:10 | Palliative Progress Note ---
Date of Encounter: 03/14/17 Time of Encounter: 11:00 - Assessment and plan (1) Goals of care, counseling/discussion Current Visit: Yes Status: Acute Assessment and plan: Patient still with encephalopathy, she is alert but still with difficulty expanding on details. Patient is currently to who is not actively engaged in seeing her regularly. Goals is to draft POA papers once patient can clearly articulate who she would like to appoint. Patient is DNRCC - A, DNI. (2) Hyperkalemia Current Visit: No Status: Acute Assessment and plan: Resolved with dialysis. Nephrology recommends diuretics be started and dialysis on hold today. (3) Acute metabolic encephalopathy Current Visit: Yes Status: Acute Assessment and plan: Improving. Patient alert, still unable to clearly articulate desires. Will monitor. (4) Acute worsening of stage 4 chronic kidney disease Current Visit: Yes Status: Acute - Time Spent With Patient Total time spent is greater than 50% in coordination of care (as documented) at patient's floor/unit and/or counseling patient: 25 - 35 minutes - Subjective Interval history: Patient in bed, pleasant, answers yes and no questions but doesn't expand on her answers. Denies complaints and participated in swallow evaluation without issue this AM. Chart reviewed. - Constitutional Vitals: Abnormal lab results RBC 3.00 M/mcL (3.82-4.97) L 03/14/17 05:40 Hgb 7.7 g/dL (11.5-15.4) L 03/14/17 05:40 Hct 24.0 % (35.3-44.9) L 03/14/17 05:40 MCV 80.0 fL (83.0-100.0) L 03/14/17 05:40 MCH 25.7 pg (28.0-33.3) L 03/14/17 05:40 RDW 16.1 % (11.5-14.5) H 03/14/17 05:40 MPV 8.2 fL (9.4-12.4) L 03/14/17 05:40 Lymphocytes # 0.5 K/mcL (0.6-4.6) L 03/14/17 05:40 Hypochromasia Present (Not Present) A 03/11/17 03:05 PT 14.5 Seconds (9.4-12.1) H 03/11/17 11:55 ABG pO2 76 mmHg (85-104) L 03/12/17 04:30 ABG O2 Saturation 94 % (95-98) L 03/12/17 04:30 ABG Base Excess -4 mEq/L (-2 to 3) L 03/12/17 04:30 Potassium 3.3 mEq/L (3.5-4.5) L 03/14/17 04:01 BUN 52 mg/dL (7-20) H 03/14/17 04:01 Creatinine 3.21 mg/dL (0.57-1.11) H 03/14/17 04:01 Est GFR ( Amer) 18 (> 60) L 03/14/17 04:01 Est GFR (Non-Af Amer) 15 (> 60) L 03/14/17 04:01 Glucose 165 mg/dL (70-99) H 03/14/17 04:01 POC Glucose 216 (58-89) H 03/14/17 00:23 Hemoglobin A1c 6.8 % (-5.6) H 03/10/17 15:48 Calculated Osmolality 308 (280-300) H 03/14/17 04:01 Uric Acid 14.0 mg/dL (2.6-6.0) H 03/10/17 20:19 Calcium 8.5 mg/dL (8.6-10.8) L 03/14/17 04:01 Ionized Calcium 1.06 mmol/L (1.15-1.35) L 03/13/17 09:33 Albumin 2.1 g/dL (3.5-5.0) L 03/11/17 03:05 Globulin 4.8 g/dL (2.4-3.5) H 03/11/17 03:05 Albumin/Globulin Ratio 0.4 (1.1-2.2) L 03/11/17 03:05 Urine Clarity Cloudy (Clear) A 03/11/17 08:55 Urine Protein >=300 mg/dL (Neg-Trace) H 03/11/17 08:55 Urine Glucose (UA) 100 mg/dL (Normal) H 03/11/17 08:55 Urine Ketones Trace mg/dL (Negative) H 03/11/17 08:55 Urine Blood Large (Negative) H 03/11/17 08:55 Ur Leukocyte Esterase Moderate (Negative) H 03/11/17 08:55 Urine Microscopic RBC TNTC per hpf (0-3) H 03/11/17 08:55 Urine Microscopic WBC TNTC per hpf (0-3) H 03/11/17 08:55 Ur Squamous Epith Cells Many per lpf (None-Few) H 03/11/17 08:55 Urine Bacteria Many per hpf (None-Few) H 03/11/17 08:55 Ur Culture Indicated? YES (NO) A 03/11/17 08:55 - Head Head exam: Present: atraumatic, normal inspection, normocephalic - Eye Eye exam: Present: PERRL Pupils: Present: PERRL - ENT ENT exam: Present: mucous membranes moist - Neck Neck exam: Present: normal inspection - Respiratory Respiratory exam: Present: CTAB - Cardiovascular Cardiovascular exam: Present: RRR, +S1, +S2 - GI/Abdominal GI/Abdominal exam: Present: normal bowel sounds, soft - Extremities Exam Extremities exam: Present: pedal edema - Neurological Exam Neurological exam: Present: alert, altered (unable to expand on open ended questions.) - Psychiatric Psychiatric exam: Present: normal affect, normal mood - Skin Skin exam: Present: pallor, warm Palliative Quality Palliative Quality: Screen for Code Status: Yes, Screen for Goals of Care: Yes, Screen for Pain: Yes, If Pain Regimen Started, Initiate Bowel Regimen: Yes, Screen for Nausea/Vomitting: Yes Code Status: 03/10/17 19:41 Resuscitation Status: Active [RES] Routine Comment: Resuscitation Status: Full Code 03/10/17 21:32 CODE [Resuscitation Status: Active] [RES] Routine Comment: Resuscitation Status: DNR-Comfort Care CODE [Resuscitation Status: Active] [RES] Routine Comment: Resuscitation Status: [id number] - Labs CBC & Chem 7: 03/14/17 05:40 03/14/17 04:01 Labs: Laboratory Results - last 24 hr 03/13/17 03/13/17 03/13/17 05:25 11:03 17:31 WBC RBC Hgb Hct MCV MCH MCHC RDW Plt Count MPV Immature Gran % Seg Neutrophils % Lymphocytes % Monocytes % Eosinophils % Basophils % Neutrophils # Lymphocytes # Monocytes # Eosinophils # Basophils # Sodium Potassium Chloride Carbon Dioxide BUN Creatinine Est GFR ( Amer) Est GFR (Non-Af Amer) BUN/Creatinine Ratio Glucose POC Glucose 106 H 166 H 215 H Calculated Osmolality Lactic Acid Calcium 03/14/17 03/14/17 03/14/17 00:23 04:01 05:40 WBC 10.1 RBC 3.00 L Hgb 7.7 L Hct 24.0 L MCV 80.0 L MCH 25.7 L MCHC 32.1 RDW 16.1 H Plt Count 165 MPV 8.2 L Immature Gran % 0.9 Seg Neutrophils % 88.9 Lymphocytes % 4.6 Monocytes % 4.6 Eosinophils % 0.8 Basophils % 0.2 Neutrophils # 8.9 Lymphocytes # 0.5 L Monocytes # 0.5 Eosinophils # 0.1 Basophils # 0.0 Sodium 140 Potassium 3.3 L Chloride 104 Carbon Dioxide 23 BUN 52 H Creatinine 3.21 H Est GFR ( Amer) 18 L Est GFR (Non-Af Amer) 15 L BUN/Creatinine Ratio 16 Glucose 165 H POC Glucose 216 H Calculated Osmolality 308 H Lactic Acid Calcium 8.5 L 03/14/17 05:40 WBC RBC Hgb Hct MCV MCH MCHC RDW Plt Count MPV Immature Gran % Seg Neutrophils % Lymphocytes % Monocytes % Eosinophils % Basophils % Neutrophils # Lymphocytes # Monocytes # Eosinophils # Basophils # Sodium Potassium Chloride Carbon Dioxide BUN Creatinine Est GFR ( Amer) Est GFR (Non-Af Amer) BUN/Creatinine Ratio Glucose POC Glucose Calculated Osmolality Lactic Acid 0.6 Calcium - ABG Interpretation ABG results: ABG ABG pH 7.35 pH Units (7.32-7.45) 03/12/17 04:30 ABG pCO2 39 mmHg (35-45) 03/12/17 04:30 ABG pO2 76 mmHg (85-104) L 03/12/17 04:30 ABG O2 Saturation 94 % (95-98) L 03/12/17 04:30 PT/INR, D-dimer PT 14.5 Seconds (9.4-12.1) H 03/11/17 11:55 Consult Discharge Plan - Plan Referrals: Elza Jesus MD [Primary Care Provider] - 03/22/17 2:00 pm (web request 03/21/2017)
[2017-03-14] MEDS: Penicillin G Potassium 2,000,000 UNIT in D5% in Water 100 ML IVPB SCH ×2 (16:15→21:22)
[2017-03-14] MEDS: Famotidine 20 MG TABLET PO SCH (16:15)
--- NOTE | 2017-03-14 16:29 | Electrocardiograph Report ---
[address] [place], [place] [address] Test Date: 2017-03-10 Pat Name: Valorie Mejia Department: 103 Room: 2A37 Gender: F Nib Finisher: : 1955 Requested By: Nic Lechuga Order Number: [id number] Reading MD: Marixa Pena Measurements Intervals [place] Rate: 22 P: DE: 0 QRS: -6 QRSD: 102 T: 15 QT: 538 QTc: 305 Interpretive Statements ATRIAL FIBRILLATION WITH SLOW VENTRICULAR RESPONSE Electronically Signed On 03-14-2017 16:27:45 EDT by Marixa Pena
--- NOTE | 2017-03-14 16:32 | Electrocardiograph Report ---
[address] [place], [place] [address] Test Date: 2017-03-10 Pat Name: Valorie Mejia Department: 109 Room: 2A Gender: F Operations Analyst: UDAY : 1955 Requested By: Nic Lechuga Order Number: [id number] Reading MD: Marixa Pena Measurements Intervals [place] Rate: 32 P: [place]: 0 QRS: 2 QRSD: 116 T: 19 QT: 533 QTc: 410 Interpretive Statements Junctional escape rhythm LOW QRS VOLTAGE IN PRECORDIAL LEADS MODERATE INTRAVENTRICULAR CONDUCTION DELAY Electronically Signed On 03-14-2017 16:30:47 EDT by Marixa Pena
--- NOTE | 2017-03-14 18:48 | Internal Med Progress Note ---
Date of Encounter: 03/14/17 Time of Encounter: 14:45 - Assessment and plan (1) Encephalopathy Current Visit: Yes Status: Acute Assessment and plan: Much improved with treatment of renal failure and metabolic acidosis. However, daughter notes she is still very confused. Nursing reported that this morning patient was oriented to time. On my exam she is not. Patient is waxing and waning, suggestive this is continuation of acute delirium. Patient may have had an underlying dementia. May need Neurology consult if symptoms not resolved. No focal neuro defecits on my exam. (2) Hyperkalemia Current Visit: No Status: Acute Assessment and plan: Mangement per Nephrology. (3) Bradycardia Current Visit: Yes Status: Acute Assessment and plan: Resolved. (4) Metabolic acidosis Current Visit: Yes Status: Acute (5) DM2 (diabetes mellitus, type 2) Current Visit: Yes Status: Acute Qualifiers: Diabetes mellitus complication status: with kidney complications Diabetes mellitus complication detail: with chronic kidney disease Chronic kidney disease stage: stage 3 (moderate) Qualified Code(s): E11.22 - Type 2 diabetes mellitus with diabetic chronic kidney disease; N18.3 - Chronic kidney disease, stage 3 (moderate); N18.3 - Chronic kidney disease, stage 3 (moderate) (6) Acute delirium Current Visit: Yes Status: Acute (7) Anemia Current Visit: No Status: Chronic Assessment and plan: Goal 10-11 as she due to renal disease. Currently Hgb 7.7. Recheck H&H in AM. May need transfused. Qualifiers: Anemia type: iron deficiency Iron deficiency anemia type: unspecified iron deficiency Qualified Code(s): D50.9 - Iron deficiency anemia, unspecified (8) HTN (hypertension) Current Visit: No Status: Chronic Assessment and plan: Has remained normotensive. Qualifiers: Hypertension type: essential hypertension Qualified Code(s): I10 - Essential (primary) hypertension (9) UTI (urinary tract infection) Current Visit: No Status: Acute Assessment and plan: Continue Zosyn. Should complete course on Mar 17. Qualifiers: Urinary tract infection type: site unspecified Hematuria presence: with hematuria Qualified Code(s): N39.0 - Urinary tract infection, site not specified; R31.9 - Hematuria, unspecified (10) Diastolic heart failure Current Visit: No Status: Suspected Qualifiers: Heart failure chronicity: acute on chronic Qualified Code(s): I50.33 - Acute on chronic diastolic (congestive) heart failure - Subjective Interval history: Patient has no complaints. No acute events overnight and in AM were reported. Daughter present at bedside, states her mother is still not at her baseline. - Constitutional Vitals: Temp Pulse Resp BP Pulse Ox 98.2 F 80 17 148/79 92 03/14/17 15:55 03/14/17 15:55 03/14/17 15:55 03/14/17 15:55 03/14/17 15:55 General appearance: Present: A&O X 2, no acute distress, answers questions appropriately Exam: Oriented to person and place. - Respiratory Respiratory exam: Present: CTAB. Absent: accessory muscle use, rales, rhonchi, wheezes - Cardiovascular Cardiovascular exam: Present: RRR, +S1, +S2. Absent: diastolic murmur, gallop, rubs, systolic murmur - Extremities Exam Extremities exam: Present: warm, radial pulses palpable and symmetrical. Absent : calf tenderness, cyanotic, pedal edema Internal Medicine: Result - Labs CBC & Chem 7: 03/14/17 05:40 03/14/17 04:01 Labs: Short CBC 03/14/17 Range/Units 05:40 WBC 10.1 (4.3-11.1) K/mcL Hgb 7.7 L (11.5-15.4) g/dL Hct 24.0 L (35.3-44.9) % Plt Count 165 (140-400) K/mcL Neutrophils # 8.9 (1.6-8.9) K/mcL BMP 03/14/17 04:01 Sodium 140 Potassium 3.3 L Chloride 104 Carbon Dioxide 23 BUN 52 H Creatinine 3.21 H Glucose 165 H Calcium 8.5 L - ABG Interpretation ABG results: ABG ABG pH 7.35 pH Units (7.32-7.45) 03/12/17 04:30 ABG pCO2 39 mmHg (35-45) 03/12/17 04:30 ABG pO2 76 mmHg (85-104) L 03/12/17 04:30 ABG O2 Saturation 94 % (95-98) L 03/12/17 04:30 PT/INR, D-dimer PT 14.5 Seconds (9.4-12.1) H 03/11/17 11:55 - VTE Documentation of Mechanical Device: Intermittent pneumatic compression device Consult Discharge Plan - Plan Referrals: Elza Jesus MD [Primary Care Provider] - 03/22/17 2:00 pm (web request 03/21/2017)
[2017-03-15] MEDS: Insulin LISPRO 300 UNITS/3 ML VIAL SQ SCH ×5 (01:09→21:14)
[2017-03-15 06:03] LABS: Basophils % 0.2 %; Eosinophils # 0.1 K/mcL (0.0-0.6); Eosinophils % 1.4 %; Hematocrit 24.7 % (35.3-44.9); Hemoglobin 7.9 g/dL (11.5-15.4); Immature Granulocytes % 3.9 % (0-4); Lymphocytes # 0.6 K/mcL (0.6-4.6); Lymphocytes % 6.8 %; Mean Corpuscular Hemoglobin 25.8 pg (28.0-33.3); Mean Corpuscular Volume 80.7 fL (83.0-100.0); Mean Platelet Volume 8.7 fL (9.4-12.4); Monocytes # 0.7 K/mcL (0.0-1.3); Monocytes % 7.1 %; Neutrophils # 7.3 K/mcL (1.6-8.9); Red Blood Count 3.06 M/mcL (3.82-4.97); Segmented Neutrophils % 80.6 %
[2017-03-15 06:13] LABS: Calcium 8.4 mg/dL (8.6-10.8); Potassium 2.9 mEq/L (3.5-4.5)
[2017-03-15 06:42] LABS: Platelet Count 199 K/mcL (140-400)
[2017-03-15] MEDS: Penicillin G Potassium 2,000,000 UNIT in D5% in Water 100 ML IVPB SCH ×6 (06:44→21:14)
[2017-03-15] MEDS: Famotidine 20 MG TABLET PO SCH ×2 (06:46→14:55)
[2017-03-15] MEDS: *HR* Heparin 5,000 UNIT/ML VIAL SQ SCH ×2 (06:46→17:06)
[2017-03-15] MEDS: Aspirin 81 MG TAB.CHEW PO SCH (08:17)
[2017-03-15] MEDS: *HR* HYDROcodone/Acet 5/325 mg TABLET PO PRN ×2 (08:19→21:26)
--- NOTE | 2017-03-15 09:04 | Palliative Progress Note ---
Date of Encounter: 03/15/17 Time of Encounter: 07:20 - Assessment and plan (1) Nausea and vomiting Current Visit: Yes Status: Acute Assessment and plan: Appears to have resolved Qualifiers: Vomiting type: unspecified Vomiting Intractability: non-intractable Qualified Code(s): R11.2 - Nausea with vomiting, unspecified (2) Goals of care, counseling/discussion Current Visit: Yes Status: Acute Assessment and plan: CODE STATUS already established a DNR CCA DNI. Goals of care patient would like to return home where she does have family to take care of her. Be an ongoing discussion. She also wishes to have her daughter Danika Nielson can be contacted at [phone] (this is a different phone number that is in the medical record, the number in the medical record is wrong") as her medical spokesperson and we will see about getting her medical power of bush and vine farmer fruit crops done today. (3) Metabolic acidosis Current Visit: Yes Status: Acute Assessment and plan: This has resolved (4) CKD (chronic kidney disease) stage 3, GFR 30-59 ml/min Current Visit: Yes Status: Acute Assessment and plan: Kidney functions improving urine output is improving. Being followed by nephrology. (5) Acute metabolic encephalopathy Current Visit: Yes Status: Acute Assessment and plan: This seems to be clearing rapidly. Today I believe that the patient is awake and lucid has been waxing and waning to some degree. I believe that this time she would be able to fill out a medical power of bush and vine farmer fruit crops and I have discussed this with social work. We will try to get that done today. (6) Constipation by delayed colonic transit Current Visit: Yes Status: Acute Assessment and plan: The patient feels like she needs to have a bowel movement at least a little bit will go ahead and add in a bowel regimen. She is getting some opioid for back pain continue to watch. - Time Spent With Patient Total time spent is greater than 50% in coordination of care (as documented) at patient's floor/unit and/or counseling patient: - Subjective Interval history: Overall, feeling better this morning. Is complaining about some back pain. Patient has just asked for some pain medication be given she also noted that her left IV seem to be leaking a little bit. He did make it clear to me that she wishes for her daughter Danika Naga her spokesperson. This is despite the fact that she is still legally . CV assessment and plan. - Constitutional Vitals: Abnormal lab results RBC 3.06 M/mcL (3.82-4.97) L 03/15/17 05:16 Hgb 7.9 g/dL (11.5-15.4) L 03/15/17 05:16 Hct 24.7 % (35.3-44.9) L 03/15/17 05:16 MCV 80.7 fL (83.0-100.0) L 03/15/17 05:16 MCH 25.8 pg (28.0-33.3) L 03/15/17 05:16 RDW 16.0 % (11.5-14.5) H 03/15/17 05:16 MPV 8.7 fL (9.4-12.4) L 03/15/17 05:16 Hypochromasia Present (Not Present) A 03/11/17 03:05 PT 14.5 Seconds (9.4-12.1) H 03/11/17 11:55 ABG pO2 76 mmHg (85-104) L 03/12/17 04:30 ABG O2 Saturation 94 % (95-98) L 03/12/17 04:30 ABG Base Excess -4 mEq/L (-2 to 3) L 03/12/17 04:30 Potassium 2.9 mEq/L (3.5-4.5) L 03/15/17 05:16 BUN 38 mg/dL (7-20) H D 03/15/17 05:16 Creatinine 2.24 mg/dL (0.57-1.11) H 03/15/17 05:16 Est GFR ( Amer) 27 (> 60) L 03/15/17 05:16 Est GFR (Non-Af Amer) 22 (> 60) L 03/15/17 05:16 Glucose 256 mg/dL (70-99) H 03/15/17 05:16 POC Glucose 183 (58-89) H 03/14/17 06:57 Hemoglobin A1c 6.8 % (-5.6) H 03/10/17 15:48 Calculated Osmolality 302 (280-300) H 03/15/17 05:16 Uric Acid 14.0 mg/dL (2.6-6.0) H 03/10/17 20:19 Calcium 8.4 mg/dL (8.6-10.8) L 03/15/17 05:16 Ionized Calcium 1.06 mmol/L (1.15-1.35) L 03/13/17 09:33 Albumin 2.1 g/dL (3.5-5.0) L 03/11/17 03:05 Globulin 4.8 g/dL (2.4-3.5) H 03/11/17 03:05 Albumin/Globulin Ratio 0.4 (1.1-2.2) L 03/11/17 03:05 Urine Clarity Cloudy (Clear) A 03/11/17 08:55 Urine Protein >=300 mg/dL (Neg-Trace) H 03/11/17 08:55 Urine Glucose (UA) 100 mg/dL (Normal) H 03/11/17 08:55 Urine Ketones Trace mg/dL (Negative) H 03/11/17 08:55 Urine Blood Large (Negative) H 03/11/17 08:55 Ur Leukocyte Esterase Moderate (Negative) H 03/11/17 08:55 Urine Microscopic RBC TNTC per hpf (0-3) H 03/11/17 08:55 Urine Microscopic WBC TNTC per hpf (0-3) H 03/11/17 08:55 Ur Squamous Epith Cells Many per lpf (None-Few) H 03/11/17 08:55 Urine Bacteria Many per hpf (None-Few) H 03/11/17 08:55 Ur Culture Indicated? YES (NO) A 03/11/17 08:55 General appearance: Present: no acute distress - Head Head exam: Present: atraumatic, normal inspection - Eye Eye exam: Present: normal appearance - ENT ENT exam: Present: mucous membranes moist - Respiratory Respiratory exam: Present: decreased breath sounds - Cardiovascular Cardiovascular exam: Present: RRR - GI/Abdominal GI/Abdominal exam: Present: normal bowel sounds, soft. Absent: tenderness - Extremities Exam Extremities exam: Present: pedal edema (Small amount). Absent: tenderness - Neurological Exam Neurological exam: Present: alert, oriented X3 (Initially not oriented to time, however was easily redirected for this, retainer to the at least the end of the examination. I believe her to be alert and oriented and able to make decisions. ) - Psychiatric Psychiatric exam: Present: normal affect, normal mood. Absent: agitated, anxious - Skin Skin exam: Present: dry, warm Palliative Quality Palliative Quality: Screen for Code Status: Yes, Screen for Goals of Care: Yes, Screen for Pain: Yes, If Pain Regimen Started, Initiate Bowel Regimen: Yes, Screen for Nausea/Vomitting: Yes Code Status: 03/10/17 19:41 Resuscitation Status: Active [RES] Routine Comment: Resuscitation Status: Full Code 03/10/17 21:32 CODE [Resuscitation Status: Active] [RES] Routine Comment: Resuscitation Status: DNR-Comfort Care CODE [Resuscitation Status: Active] [RES] Routine Comment: Resuscitation Status: [id number] - Labs CBC & Chem 7: 03/15/17 05:16 03/15/17 05:16 Labs: Laboratory Results - last 24 hr 03/14/17 03/15/17 03/15/17 06:57 05:16 05:16 WBC 9.1 RBC 3.06 L Hgb 7.9 L Hct 24.7 L MCV 80.7 L MCH 25.8 L MCHC 32.0 RDW 16.0 H Plt Count 199 MPV 8.7 L Immature Gran % 3.9 Seg Neutrophils % 80.6 Lymphocytes % 6.8 Monocytes % 7.1 Eosinophils % 1.4 Basophils % 0.2 Neutrophils # 7.3 Lymphocytes # 0.6 Monocytes # 0.7 Eosinophils # 0.1 Basophils # 0.0 Sodium 137 Potassium 2.9 L Chloride 100 Carbon Dioxide 28 BUN 38 H D Creatinine 2.24 H Est GFR ( Amer) 27 L Est GFR (Non-Af Amer) 22 L BUN/Creatinine Ratio 17 Glucose 256 H POC Glucose 183 H Calculated Osmolality 302 H Calcium 8.4 L - ABG Interpretation ABG results: ABG ABG pH 7.35 pH Units (7.32-7.45) 03/12/17 04:30 ABG pCO2 39 mmHg (35-45) 03/12/17 04:30 ABG pO2 76 mmHg (85-104) L 03/12/17 04:30 ABG O2 Saturation 94 % (95-98) L 03/12/17 04:30 PT/INR, D-dimer PT 14.5 Seconds (9.4-12.1) H 03/11/17 11:55 Consult Discharge Plan - Plan Referrals: Elza Jesus MD [Primary Care Provider] - 03/22/17 2:00 pm (web request 03/21/2017)
[2017-03-15] MEDS: Sennosides/Docusate Sodium TABLET PO SCH ×2 (09:50→21:14)
--- NOTE | 2017-03-15 11:14 | Nephrology Progress Note ---
Date of Encounter: 03/15/17 Time of Encounter: 11:10 - Assessment and Plan (1) JOSE ROBERTO (acute kidney injury) Current Visit: Yes Status: Acute Non oliguric JOSE ROBERTO that is improving. With her edema she may benefit from gentle diuresis. Will start her home dose of furosemide. (2) CKD (chronic kidney disease) stage 3, GFR 30-59 ml/min Current Visit: Yes Status: Acute Baseline Stage 3b/Stage 4. (3) DM2 (diabetes mellitus, type 2) Current Visit: Yes Status: Acute Per primary team. Qualifiers: Diabetes mellitus complication status: with kidney complications Diabetes mellitus complication detail: with chronic kidney disease Chronic kidney disease stage: stage 3 (moderate) Qualified Code(s): E11.22 - Type 2 diabetes mellitus with diabetic chronic kidney disease; N18.3 - Chronic kidney disease, stage 3 (moderate); N18.3 - Chronic kidney disease, stage 3 (moderate) (4) Metabolic acidosis Current Visit: Yes Status: Acute Resolved. Monitor. (5) Anemia Current Visit: Yes Status: Chronic Per primary team. Hemoglobin stable. Qualifiers: Anemia type: unspecified type Qualified Code(s): D64.9 - Anemia, unspecified Subjective Principal diagnosis: Acute worsening or chronic kidney disease Interval history: Patient seen. She has no complaint. She denies pain. Objective - Vital Signs Vital signs: Vital Signs Temp Pulse Resp BP Pulse Ox 03/15/17 07:25 97.6 F 72 18 156/75 96 03/15/17 04:19 97.5 F L 73 18 145/75 94 03/15/17 00:19 97.5 F L 78 18 149/75 92 03/14/17 21:07 98 F 79 17 144/77 94 03/14/17 15:55 98.2 F 80 17 148/79 92 03/14/17 11:16 98.5 F 85 18 146/75 95 Intake and Output 03/14/17 03/15/17 03/15/17 23:59 07:59 15:59 Intake Total 200 / 200 220 / 220 Output Total 900 / 900 850 / 850 Balance -700 / -700 -850 / -850 220 / 220 Intake: IV Fluids 200 / 200 Pfizerpen 2,000,000 UNIT In 200 / 200 Dextrose 5% 100 ML @ 100 mls/hr IVPB Q4HR [facility] Rx#:[id number] Oral 220 / 220 Output: Urine 900 / 900 400 / 400 Catheter 450 / 450 Other: Meal Breakfast Percent of Meal Consumed 50% Weight 118.3 kg Blood Glucose* 286 Patient Weight 03/15/17 23:59 Weight 118.3 kg - General Appearance General appearance: Present: well-developed, well-nourished EENT: Present: ATNC Neck: Present: supple Additional Comments: Respirations are unlabored. Cardiology: Present: edema (improving. ) Psychiatric: Present: mood/affect appropriate - Lab 03/15/17 05:16 03/15/17 05:16 Most recent lab results ABG pH 7.35 pH Units (7.32-7.45) 03/12/17 04:30 ABG pCO2 39 mmHg (35-45) 03/12/17 04:30 ABG pO2 76 mmHg (85-104) L 03/12/17 04:30 ABG HCO3 22 mEq/L (21-27) 03/12/17 04:30 ABG O2 Saturation 94 % (95-98) L 03/12/17 04:30 Calcium 8.4 mg/dL (8.6-10.8) L 03/15/17 05:16 Phosphorus 3.5 mg/dL (2.3-4.7) 03/13/17 09:20 Magnesium 1.8 mg/dL (1.6-2.6) 03/13/17 09:20 - VTE Documentation of Mechanical Device: Intermittent pneumatic compression device Consult Discharge Plan - Plan Referrals: Elza Jesus MD [Primary Care Provider] - 03/22/17 2:00 pm (web request 03/21/2017)
[2017-03-15] MEDS: Furosemide 40 MG TABLET PO SCH (11:56)
--- NOTE | 2017-03-15 18:04 | Internal Med Progress Note ---
Date of Encounter: 03/15/17 Time of Encounter: 14:00 - Assessment and plan (1) Encephalopathy Current Visit: Yes Status: Resolved Assessment and plan: Resolved. Possible dicharge to [facility] tomorrow. (2) Hyperkalemia Current Visit: No Status: Resolved (3) Bradycardia Current Visit: Yes Status: Resolved (4) Metabolic acidosis Current Visit: Yes Status: Resolved (5) DM2 (diabetes mellitus, type 2) Current Visit: Yes Status: Chronic Qualifiers: Diabetes mellitus complication status: with kidney complications Diabetes mellitus complication detail: with chronic kidney disease Diabetes mellitus half-way insulin use: unspecified half-way insulin use status Chronic kidney disease stage: stage 3 (moderate) Qualified Code(s): E11.22 - Type 2 diabetes mellitus with diabetic chronic kidney disease; N18.3 - Chronic kidney disease, stage 3 (moderate); N18.3 - Chronic kidney disease, stage 3 (moderate) (6) Acute delirium Current Visit: Yes Status: Resolved Assessment and plan: Resolved. (7) Anemia Current Visit: No Status: Chronic Assessment and plan: Goal 10-11 as she due to renal disease. Qualifiers: Anemia type: iron deficiency Iron deficiency anemia type: unspecified iron deficiency Qualified Code(s): D50.9 - Iron deficiency anemia, unspecified (8) HTN (hypertension) Current Visit: No Status: Chronic Qualifiers: Hypertension type: essential hypertension Qualified Code(s): I10 - Essential (primary) hypertension (9) UTI (urinary tract infection) Current Visit: No Status: Acute Qualifiers: Urinary tract infection type: site unspecified Hematuria presence: with hematuria Qualified Code(s): N39.0 - Urinary tract infection, site not specified; R31.9 - Hematuria, unspecified (10) Diastolic heart failure Current Visit: No Status: Suspected Qualifiers: Heart failure chronicity: acute on chronic Qualified Code(s): I50.33 - Acute on chronic diastolic (congestive) heart failure (11) Non-healing ulcer of lower extremity Current Visit: No Status: Chronic Assessment and plan: stage 2 pressure ulcers to right great toe and left heel, present on admission . Qualifiers: Laterality: right Non-pressure ulcer stage: with fat layer exposed Qualified Code(s): L97.912 - Non-pressure chronic ulcer of unspecified part of right lower leg with fat layer exposed - Subjective Interval history: Patient has no complaints. No acute events overnight and in AM were reported. She is able to recall of all events since yesterday afternoon. She is answering questions appropriately. Denies fevers/chills, N/V, diarrhea. Admits to constipation. - Constitutional Vitals: Temp Pulse Resp BP Pulse Ox 98.5 F 71 17 157/74 93 03/15/17 16:21 03/15/17 16:21 03/15/17 16:21 03/15/17 16:21 03/15/17 16:21 General appearance: Present: A&O X 2, no acute distress, answers questions appropriately - Respiratory Respiratory exam: Present: CTAB. Absent: accessory muscle use, rales, rhonchi, wheezes - Cardiovascular Cardiovascular exam: Present: RRR, +S1, +S2. Absent: diastolic murmur, gallop, rubs, systolic murmur - Neurological Exam Neurological exam: Present: CN II-XII intact, oriented X3, no focal deficits. Absent: pronater drift, facial droop, speech deficit - Skin Skin exam: Present: dry, intact Internal Medicine: Result - Labs CBC & Chem 7: 03/15/17 05:16 03/15/17 05:16 Labs: Short CBC 03/15/17 Range/Units 05:16 WBC 9.1 (4.3-11.1) K/mcL Hgb 7.9 L (11.5-15.4) g/dL Hct 24.7 L (35.3-44.9) % Plt Count 199 (140-400) K/mcL Neutrophils # 7.3 (1.6-8.9) K/mcL BMP 03/15/17 05:16 Sodium 137 Potassium 2.9 L Chloride 100 Carbon Dioxide 28 BUN 38 H D Creatinine 2.24 H Glucose 256 H Calcium 8.4 L - ABG Interpretation ABG results: ABG ABG pH 7.35 pH Units (7.32-7.45) 03/12/17 04:30 ABG pCO2 39 mmHg (35-45) 03/12/17 04:30 ABG pO2 76 mmHg (85-104) L 03/12/17 04:30 ABG O2 Saturation 94 % (95-98) L 03/12/17 04:30 PT/INR, D-dimer PT 14.5 Seconds (9.4-12.1) H 03/11/17 11:55 - VTE Documentation of Mechanical Device: Intermittent pneumatic compression device Consult Discharge Plan - Plan Referrals: Elza Jesus MD [Primary Care Provider] - 03/22/17 2:00 pm (web request 03/21/2017)
[2017-03-16] MEDS: Penicillin G Potassium 2,000,000 UNIT in D5% in Water 100 ML IVPB SCH ×6 (00:35→21:12)
[2017-03-16] MEDS: *HR* HYDROcodone/Acet 5/325 mg TABLET PO PRN ×2 (04:14→15:49)
[2017-03-16 06:55] LABS: Hematocrit 26.7 % (35.3-44.9); Hemoglobin 8.2 g/dL (11.5-15.4); Mean Corpuscular HGB Conc 30.7 g/dL (31.6-35.5); Mean Corpuscular Hemoglobin 24.8 pg (28.0-33.3); Mean Corpuscular Volume 80.9 fL (83.0-100.0); Mean Platelet Volume 8.6 fL (9.4-12.4); Platelet Count 191 K/mcL (140-400); Red Cell Distribution Width 15.9 % (11.5-14.5)
--- NOTE | 2017-03-16 07:01 | Event Note ---
Date of Encounter: 03/16/17 Time of Encounter: 07:00 pt may be d/c'd today mpoa is done code status is established. Palliative will follow at a distance
[2017-03-16] MEDS: *HR* Heparin 5,000 UNIT/ML VIAL SQ SCH ×2 (07:06→17:07)
[2017-03-16] MEDS: Famotidine 20 MG TABLET PO SCH ×2 (07:06→15:47)
[2017-03-16 07:08] LABS: Calcium 8.3 mg/dL (8.6-10.8); Potassium 3.6 mEq/L (3.5-4.5)
[2017-03-16] MEDS: Aspirin 81 MG TAB.CHEW PO SCH (08:23)
[2017-03-16] MEDS: Furosemide 40 MG TABLET PO SCH (08:23)
[2017-03-16] MEDS: Insulin LISPRO 300 UNITS/3 ML VIAL SQ SCH ×4 (08:23→21:17)
[2017-03-16] MEDS: Sennosides/Docusate Sodium TABLET PO SCH ×3 (08:23→22:58)
[2017-03-16] MEDS ORDERED: Ondansetron ODT 4 MG TAB.RAPDIS SL PRN (08:38)
[2017-03-16] MEDS ORDERED: Insulin DETEMIR 100 UNIT/ML X5UNITS SQ SCH (09:00)
--- NOTE | 2017-03-16 09:46 | Nephrology Progress Note ---
Date of Encounter: 03/16/17 Time of Encounter: 09:05 - Assessment and Plan (1) JOSE ROBERTO (acute kidney injury) Current Visit: Yes Status: Acute Kidney function improving very well. Scr 1.62 and GFR 32-back at baseline Continue Lasix 40mg p.o. 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: unspecified intermediate school teacher insulin use status Chronic kidney disease stage: stage 3 (moderate) Qualified Code(s): E11.22 - Type 2 diabetes mellitus with diabetic chronic kidney disease; N18.3 - Chronic kidney disease, stage 3 (moderate); N18.3 - Chronic kidney disease, stage 3 (moderate) (4) Anemia Current Visit: Yes Status: Chronic Hgb stable 8.2 Goal 10-11 Transfusion per parameters per primary team Qualifiers: Anemia type: unspecified type Qualified Code(s): D64.9 - Anemia, unspecified Subjective Principal diagnosis: Acute worsening or chronic kidney disease Interval history: Patient seen and examined. Patient sleeping soundly. Objective - Vital Signs Vital signs: Vital Signs Temp Pulse Resp BP Pulse Ox 03/16/17 08:00 98.2 F 70 17 175/73 95 03/16/17 03:38 97.3 F L 76 21 153/64 93 03/15/17 23:22 97.6 F 73 16 173/78 94 03/15/17 19:08 98.8 F 84 19 169/86 93 03/15/17 16:21 98.5 F 71 17 157/74 93 03/15/17 11:32 97.2 F L 74 18 148/70 97 Intake and Output 03/15/17 03/16/17 03/16/17 23:59 07:59 15:59 Intake Total 200 / 200 200 / 200 Output Total 3000 / 3000 350 / 350 Balance -2800 / -2800 -150 / -150 Intake: IV Fluids 200 / 200 200 / 200 Pfizerpen 2,000,000 UNIT In 200 / 200 200 / 200 Dextrose 5% 100 ML @ 100 mls/hr IVPB Q4HR [facility] Rx#:[id number] Output: Urine 1800 / 1800 Catheter 1200 / 1200 350 / 350 Other: Weight 116 kg Blood Glucose* 256 256 Patient Weight 03/16/17 23:59 Weight 116 kg - General Appearance General appearance: Present: chronically ill, frail EENT: Present: ATNC Neck: Present: supple Cardiology: Present: edema, regular rate, regular rhythm Gastrointestinal: Present: no guarding Integumentary: Present: warm and dry - Lab 03/16/17 06:13 03/16/17 06:13 Most recent lab results ABG pH 7.35 pH Units (7.32-7.45) 03/12/17 04:30 ABG pCO2 39 mmHg (35-45) 03/12/17 04:30 ABG pO2 76 mmHg (85-104) L 03/12/17 04:30 ABG HCO3 22 mEq/L (21-27) 03/12/17 04:30 ABG O2 Saturation 94 % (95-98) L 03/12/17 04:30 Calcium 8.3 mg/dL (8.6-10.8) L 03/16/17 06:13 Phosphorus 3.5 mg/dL (2.3-4.7) 03/13/17 09:20 Magnesium 1.8 mg/dL (1.6-2.6) 03/13/17 09:20 - VTE Documentation of Mechanical Device: Intermittent pneumatic compression device Consult Discharge Plan - Plan Referrals: Elza Jesus MD [Primary Care Provider] - 03/22/17 2:00 pm (web request 03/21/2017)
[2017-03-16 09:58] LABS: Eosinophils # 0.3 K/mcL (0.0-0.6); Lymphocytes # 0.8 K/mcL (0.6-4.6); Monocytes # 0.2 K/mcL (0.0-1.3); Neutrophils # 6.9 K/mcL (1.6-8.9); Platelet Estimate Normal (Normal)
[2017-03-16 09:59] LABS: Large Platelets Present (Not Present)
--- NOTE | 2017-03-16 18:36 | Internal Med Progress Note ---
Date of Encounter: 03/16/17 Time of Encounter: 10:00 - Assessment and plan (1) Decreased appetite Current Visit: Yes Status: Acute Assessment and plan: Anticipate if nausea improves without issue, she could be discharged in AM. (2) Nausea and vomiting Current Visit: Yes Status: Acute Qualifiers: Vomiting type: unspecified Vomiting Intractability: non-intractable Qualified Code(s): R11.2 - Nausea with vomiting, unspecified (3) Encephalopathy Current Visit: Yes Status: Resolved (4) Hyperkalemia Current Visit: No Status: Resolved (5) Bradycardia Current Visit: Yes Status: Resolved (6) Metabolic acidosis Current Visit: Yes Status: Resolved (7) DM2 (diabetes mellitus, type 2) Current Visit: Yes Status: Chronic Qualifiers: Diabetes mellitus complication status: with kidney complications Diabetes mellitus complication detail: with chronic kidney disease Diabetes mellitus oysterman insulin use: unspecified oysterman insulin use status Chronic kidney disease stage: stage 3 (moderate) Qualified Code(s): E11.22 - Type 2 diabetes mellitus with diabetic chronic kidney disease; N18.3 - Chronic kidney disease, stage 3 (moderate); N18.3 - Chronic kidney disease, stage 3 (moderate) (8) Acute delirium Current Visit: Yes Status: Resolved (9) Anemia Current Visit: No Status: Chronic Qualifiers: Anemia type: iron deficiency Iron deficiency anemia type: unspecified iron deficiency Qualified Code(s): D50.9 - Iron deficiency anemia, unspecified (10) HTN (hypertension) Current Visit: No Status: Chronic Qualifiers: Hypertension type: essential hypertension Qualified Code(s): I10 - Essential (primary) hypertension (11) UTI (urinary tract infection) Current Visit: No Status: Acute Qualifiers: Urinary tract infection type: site unspecified Hematuria presence: with hematuria Qualified Code(s): N39.0 - Urinary tract infection, site not specified; R31.9 - Hematuria, unspecified (12) Diastolic heart failure Current Visit: No Status: Suspected Qualifiers: Heart failure chronicity: acute on chronic Qualified Code(s): I50.33 - Acute on chronic diastolic (congestive) heart failure (13) Non-healing ulcer of lower extremity Current Visit: No Status: Chronic Qualifiers: Laterality: right Non-pressure ulcer stage: with fat layer exposed Qualified Code(s): L97.912 - Non-pressure chronic ulcer of unspecified part of right lower leg with fat layer exposed - Subjective Interval history: Patient woke up with nausea. She was unable to tolerate breakfast this AM. She was given Zofran which helped symptoms somewhat. She denies fevers/chills, vomiting, though she did have an emesis bag nearby in hand. She does not complain of any abdominal pain, constipation/diarrhea. - Constitutional Vitals: Temp Pulse Resp BP Pulse Ox 97.9 F 65 17 159/78 100 03/16/17 15:54 03/16/17 15:54 03/16/17 15:54 03/16/17 15:54 03/16/17 15:54 General appearance: Present: A&O X 2, no acute distress, answers questions appropriately Exam: Gen: mildly distressed from nausea CVS: RRR Lungs: CTAB Abd: Soft, NT/ND, +BS all quadrants Ext: no edema left great toe with chronic ulcer. Internal Medicine: Result - Labs CBC & Chem 7: 03/16/17 06:13 03/16/17 06:13 Labs: Short CBC 03/16/17 Range/Units 06:13 WBC 8.2 (4.3-11.1) K/mcL Hgb 8.2 L (11.5-15.4) g/dL Hct 26.7 L (35.3-44.9) % Plt Count 191 (140-400) K/mcL Neutrophils # 6.9 (1.6-8.9) K/mcL BMP 03/16/17 06:13 Sodium 137 Potassium 3.6 Chloride 99 Carbon Dioxide 29 BUN 28 H D Creatinine 1.62 H Glucose 269 H Calcium 8.3 L - ABG Interpretation ABG results: ABG ABG pH 7.35 pH Units (7.32-7.45) 03/12/17 04:30 ABG pCO2 39 mmHg (35-45) 03/12/17 04:30 ABG pO2 76 mmHg (85-104) L 03/12/17 04:30 ABG O2 Saturation 94 % (95-98) L 03/12/17 04:30 PT/INR, D-dimer PT 14.5 Seconds (9.4-12.1) H 03/11/17 11:55 - VTE Documentation of Mechanical Device: Intermittent pneumatic compression device Consult Discharge Plan - Plan Referrals: Elza Jesus MD [Primary Care Provider] - 03/22/17 2:00 pm (web request 03/21/2017)
[2017-03-17] MEDS: Penicillin G Potassium 2,000,000 UNIT in D5% in Water 100 ML IVPB SCH ×3 (00:52→10:24)
[2017-03-17] MEDS: *HR* HYDROcodone/Acet 5/325 mg TABLET PO PRN ×3 (04:06→17:08)
[2017-03-17 04:46] LABS: Basophils # 0.1 K/mcL (0.0-0.2); Basophils % 0.7 %; Eosinophils # 0.3 K/mcL (0.0-0.6); Eosinophils % 3.3 %; Hematocrit 27.6 % (35.3-44.9); Hemoglobin 8.6 g/dL (11.5-15.4); Lymphocytes # 0.9 K/mcL (0.6-4.6); Lymphocytes % 10.6 %; Mean Corpuscular HGB Conc 31.2 g/dL (31.6-35.5); Mean Corpuscular Hemoglobin 25.6 pg (28.0-33.3); Mean Corpuscular Volume 82.1 fL (83.0-100.0); Mean Platelet Volume 8.3 fL (9.4-12.4); Monocytes # 0.7 K/mcL (0.0-1.3); Monocytes % 7.9 %; Neutrophils # 6.1 K/mcL (1.6-8.9); Platelet Count 185 K/mcL (140-400); Red Blood Count 3.36 M/mcL (3.82-4.97); Red Cell Distribution Width 15.8 % (11.5-14.5); Segmented Neutrophils % 70.5 %
[2017-03-17 05:04] LABS: Calcium 8.2 mg/dL (8.6-10.8)
[2017-03-17 05:33] LABS: Platelet Estimate Normal (Normal); Toxic Granulation Present (Not Present)
[2017-03-17] MEDS: *HR* Heparin 5,000 UNIT/ML VIAL SQ SCH ×2 (06:16→17:08)
[2017-03-17] MEDS ORDERED: amLODIPine 5 MG TABLET PO SCH (09:00)
[2017-03-17] MEDS ORDERED: Insulin DETEMIR 100 UNIT/ML X5UNITS SQ SCH (09:00)
[2017-03-17] MEDS: Sennosides/Docusate Sodium TABLET PO SCH (09:09)
[2017-03-17] MEDS: Furosemide 40 MG TABLET PO SCH (09:09)
[2017-03-17] MEDS: Insulin LISPRO 300 UNITS/3 ML VIAL SQ SCH ×3 (09:09→17:07)
[2017-03-17] MEDS: Aspirin 81 MG TAB.CHEW PO SCH (09:09)
[2017-03-17] MEDS: Famotidine 20 MG TABLET PO SCH ×2 (09:09→17:07)
--- NOTE | 2017-03-17 11:56 | Nephrology Progress Note ---
Date of Encounter: 03/17/17 Time of Encounter: 11:51 - Assessment and Plan (1) JOSE ROBERTO (acute kidney injury) Current Visit: Yes Status: Acute Non oliguric JOSE ROBERTO that is improving. Discontinued nontunneled dialysis line 03/16/2017. Avoid nephrotoxins (2) CKD (chronic kidney disease) stage 3, GFR 30-59 ml/min Current Visit: Yes Status: Acute Baseline Stage 3b/Stage 4. (3) DM2 (diabetes mellitus, type 2) Current Visit: Yes Status: Chronic Per primary team. 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 Monitor. (5) Anemia Current Visit: Yes Status: Chronic Per primary team. Transfuse as needed. Qualifiers: Anemia type: unspecified type Qualified Code(s): D64.9 - Anemia, unspecified Subjective Principal diagnosis: Acute worsening or chronic kidney disease Interval history: Patient seen. She has no complaint. She denies pain. She is working with PT. Objective - Vital Signs Vital signs: Vital Signs Temp Pulse Resp BP Pulse Ox 03/17/17 11:29 97.4 F L 78 18 153/81 95 03/17/17 07:06 98.2 F 76 18 158/71 91 03/17/17 04:15 98.4 F 73 16 156/82 93 03/16/17 23:21 98.6 F 71 16 174/83 95 03/16/17 19:41 98.1 F 70 16 156/81 94 03/16/17 15:54 97.9 F 65 17 159/78 100 03/16/17 12:09 97.6 F 67 17 159/71 96 Intake and Output 03/16/17 03/17/17 03/17/17 23:59 07:59 15:59 Intake Total 200 / 200 300 / 300 240 / 240 Output Total 1900 / 1900 450 / 450 Balance -1700 / -1700 -150 / -150 240 / 240 Intake: IV Fluids 200 / 200 100 / 100 Pfizerpen 2,000,000 UNIT In 200 / 200 100 / 100 Dextrose 5% 100 ML @ 100 mls/hr IVPB Q4HR [facility] Rx#:[id number] Oral 200 / 200 240 / 240 Output: Catheter 1900 / 1900 450 / 450 Other: Meal Breakfast Percent of Meal Consumed 50% Weight 115.2 kg Blood Glucose* 163 214 314 Patient Weight 03/17/17 23:59 Weight 115.2 kg - General Appearance General appearance: Present: well-developed, well-nourished EENT: Present: ATNC Additional Comments: Respirations are unlabored. Cardiology: Present: regular rate Gastrointestinal: Present: obese Additional Comments: Alert. - Lab 03/17/17 04:27 03/17/17 04:27 Most recent lab results ABG pH 7.35 pH Units (7.32-7.45) 03/12/17 04:30 ABG pCO2 39 mmHg (35-45) 03/12/17 04:30 ABG pO2 76 mmHg (85-104) L 03/12/17 04:30 ABG HCO3 22 mEq/L (21-27) 03/12/17 04:30 ABG O2 Saturation 94 % (95-98) L 03/12/17 04:30 Calcium 8.2 mg/dL (8.6-10.8) L 03/17/17 04:27 Phosphorus 3.5 mg/dL (2.3-4.7) 03/13/17 09:20 Magnesium 1.8 mg/dL (1.6-2.6) 03/13/17 09:20 - VTE Documentation of Mechanical Device: Intermittent pneumatic compression device Consult Discharge Plan - Plan Referrals: Elza Jesus MD [Primary Care Provider] - 03/22/17 2:00 pm (web request 03/21/2017)
[2017-03-17] MEDS ORDERED: Leptospermum Honey Paste 44 ML TUBE TP SCH (12:45)
--- NOTE | 2017-03-17 14:29 | Discharge Summary ---
Date of Encounter: 03/17/17 Time of Encounter: 14:27 - Discharge Diagnosis (1) Encephalopathy Priority: Primary Status: Resolved (2) Decreased appetite Priority: Secondary Status: Resolved (3) Nausea and vomiting Priority: Secondary Status: Resolved Qualifiers: Vomiting type: unspecified Vomiting Intractability: non-intractable Qualified Code(s): R11.2 - Nausea with vomiting, unspecified (4) Hyperkalemia Priority: Secondary Status: Resolved (5) Bradycardia Priority: Secondary Status: Resolved (6) Metabolic acidosis Priority: Secondary Status: Resolved (7) DM2 (diabetes mellitus, type 2) Priority: Secondary Status: Chronic Qualifiers: Diabetes mellitus complication status: with kidney complications Diabetes mellitus complication detail: with chronic kidney disease Diabetes mellitus care home insulin use: unspecified machine long goods helper insulin use status Chronic kidney disease stage: stage 3 (moderate) Qualified Code(s): E11.22 - Type 2 diabetes mellitus with diabetic chronic kidney disease; N18.3 - Chronic kidney disease, stage 3 (moderate); N18.3 - Chronic kidney disease, stage 3 (moderate) (8) Acute delirium Priority: Secondary Status: Resolved (9) Anemia Priority: Secondary Status: Chronic Qualifiers: Anemia type: iron deficiency Iron deficiency anemia type: unspecified iron deficiency Qualified Code(s): D50.9 - Iron deficiency anemia, unspecified (10) HTN (hypertension) Priority: Secondary Status: Chronic Qualifiers: Hypertension type: essential hypertension Qualified Code(s): I10 - Essential (primary) hypertension (11) UTI (urinary tract infection) Priority: Secondary Status: Acute Qualifiers: Urinary tract infection type: site unspecified Hematuria presence: with hematuria Qualified Code(s): N39.0 - Urinary tract infection, site not specified; R31.9 - Hematuria, unspecified (12) Diastolic heart failure Priority: Secondary Status: Suspected Qualifiers: Heart failure chronicity: acute on chronic Qualified Code(s): I50.33 - Acute on chronic diastolic (congestive) heart failure (13) Non-healing ulcer of lower extremity Priority: Secondary Status: Chronic Qualifiers: Laterality: right Non-pressure ulcer stage: with fat layer exposed Qualified Code(s): L97.912 - Non-pressure chronic ulcer of unspecified part of right lower leg with fat layer exposed - Discharge Medications Prescriptions: Penicillin VK 500 mg PO QID #28 tablet Home Medications: Aspirin [Adult Low Dose Aspirin EC] 81 mg PO DAILY 08/18/15 [History] Gabapentin [Neurontin] 300 mg PO HS 08/18/15 [History] Insulin LISPRO [Humalog] 14 unit SQ BID 08/18/15 [History] Pravastatin Sodium [Pravachol] 40 mg PO HS 08/18/15 [History] Buspirone HCl [Buspar] 5 mg PO BID 11/16/15 [History] Linagliptin/Metformin HCl [Jentadueto Xr 2.5 mg-1,000 mg] 1 tab PO BID 05/03/16 [History] Carvedilol [Coreg] 6.25 mg PO BIDWM #60 tablet 05/11/16 [Rx] amLODIPine [Norvasc] 5 mg PO DAILY #30 tablet 05/11/16 [Rx] Insulin Glargine,Hum.rec.anlog [Toujeo Solostar] 14 units SQ QAM 03/10/17 [ History] OxyCODONE/APAP 5/325 [Percocet 5/325 MG] 1 tab PO BID PRN 03/10/17 [History] Furosemide [Lasix] 40 mg PO DAILY tablet 03/17/17 [Rx] Penicillin VK 500 mg PO QID #28 tablet 03/17/17 [Rx] Allergies/Adverse Reactions: 3 Allergy/AdvReac Type Severity Reaction Status Date / Time No Known Allergies Allergy Verified 08/18/15 08:38 Date of admission: 03/10/17 19:35 Primary care physician: Elza Jesus, Consults: 03/11/17 06:30 Consult to Cardiology [CONS] Routine Comment: Consulting Provider: Cardiology Dulce Reason for Consult: Severe bradycardia Call Completed: Yes 03/11/17 06:33 Consult to Critical Care [CONS] Stat Consulting Provider: [facility] [place] Reason for Consult: JOSE ROBERTO, Severe Hyperkalemia, Sepsis, Severe metabolic acidosis Call Completed: Yes 03/12/17 10:29 Consult to Palliative Care [CONS] Routine Comment: Consulting Provider: Palliative Care Dulce Reason for Consult: Discuss goals of care Call Completed: No 03/13/17 07:03 Consult to Speech Therapy [CONS] Routine Comment: Evaluate, develop and implement POC Reason for Consult: needs swallow evaluation Call Completed: No 03/13/17 07:57 Consult to Occupational Therapy [CONS] Routine Comment: Evaluate, develop and implement POC Reason for Consult: progressive weakness, s/p CVA, may need home health/rehab Consult to Physical Therapy [CONS] Routine Comment: Evaluate, develop and implement POC Reason for Consult: progressive weakness, s/p CVA, may need home health/rehab Consult to Clerical Warehouseman [CONS] Routine Reason for SW Consult: progressive weakness, s/p CVA, may need home health/ rehab 03/16/17 18:34 Consult to Wound Care [CONS] Routine Reason for Consult: Chronic wounds, patient known to Call Completed: No Discharging clinician: Sadie Lechuga - Patient Status Disposition: Home Health Service Condition: Fair Functional capacity at discharge: uses cane/walker Overall status at discharge: patient is progressing back to baseline - Discharge Instructions Instructions: Diabetes Mellitus Type 2 in Adults (DC) Follow Up With: Elza Jesus MD [Primary Care Provider] - 03/22/17 2:00 pm (web request 03/21/2017) - Diet and Activity Activity: increase activity as tolerated Diet: diabetic diet Interval History: Ms. Mejia is a 61 year old female with history of diabetes, hypertension, HLD, CKD-3 pt presented to [facility] emergency department complaining of one week of nausea and vomiting as well as decreased urine output and abdominal pain. Patient's daughter states that her mother's health has steadily declined over the past year as she is immobile after a stroke. She still lives alone and has a nurse come by twice a week.She had further work up done in the ER her K + 8.5 and Cr: 7.35, with a metabolic acidosis with lactic acid of 13. Pt was given IV Insulin, NaHCo3, Calcium gluconate, Albuterol neb and Kayexalate. However her K + still remained elevtaed at 7.9. She also had persistent bradycardia despite atropine. She was transferred to the ICU and was alert, awake and Oriented x 3, but she still complained of weakness and lethargy. 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 Kayexalate given but patient did have delay before having a bowel movement. She still had episodes of hypotension despite IV fluid hydration. There was concern for sepsis and she had blood cultures obtained followed by emperic antibiotic therapy with Zosyn. Peristently bradycardic as well despite being on phenylephrine drip. Cardiology was consulted and switched to a dopamine drip. She was also started on Rasheeda. Blood cultures returned negative but urine cultures were positive for Group B Streptococcus. She was continued on Zosyn while she was admitted. Patient no longer needed dialysis and her renal function returned to baseline. Her mental status returned to baseline as well. PT evaluated patient qualified for ECF. Upon discharge she completed UTI therapy with Pen VK for 7 days. The patient and her family were agreeable to be discharged to ECF. - Time Spent with Patient Total time spent providing and/or coordinating discharge services: - Constitutional Vitals: Temp Pulse Resp BP Pulse Ox 97.4 F L 78 18 153/81 95 03/17/17 11:29 03/17/17 11:29 03/17/17 11:29 03/17/17 11:29 03/17/17 11:29 General appearance: Present: A&O X 2, no acute distress, answers questions appropriately Exam: Gen: mildly distressed from nausea CVS: RRR Lungs: CTAB Abd: Soft, NT/ND, +BS all quadrants Ext: no edema left great toe with chronic ulcer. - VTE Documentation of Mechanical Device: Intermittent pneumatic compression device
--- NOTE | 2017-03-17 15:10 | Physician Discharge Referral ---
Home Health/Hosp Referral Info Transfer to: Home Health Provider in Charge Post Discharge: PCP - Diagnosis (1) Encephalopathy Priority: Primary Status: Resolved (2) Decreased appetite Priority: Secondary Status: Resolved (3) Nausea and vomiting Priority: Secondary Status: Resolved (4) Hyperkalemia Status: Resolved (5) Bradycardia Priority: Secondary Status: Resolved (6) Metabolic acidosis Priority: Secondary Status: Resolved (7) DM2 (diabetes mellitus, type 2) Priority: Secondary Status: Chronic (8) Acute delirium Priority: Secondary Status: Resolved (9) Anemia Priority: Secondary Status: Chronic (10) HTN (hypertension) Priority: Secondary Status: Chronic (11) UTI (urinary tract infection) Priority: Secondary Status: Acute (12) Diastolic heart failure Priority: Secondary Status: Suspected (13) Non-healing ulcer of lower extremity Priority: Secondary Status: Chronic - Respiratory Orders Oxygen / L per min (2) Smoking Cessation: Smoking cessation has been advised. For more information, call the [employer] Quit Line at 5-887-KQRV-NOW. - Diet/Nutrition Diet/Nutrition Orders: No Concentrated Sweets Diet/Nutrition: List: diabetic - Activity Activity Orders: Chair - Services Needed Following services are medically necessary services: Nursing, Physical Therapy - Transfer Medications Prescriptions: Penicillin VK 500 mg PO QID #28 tablet Home Medications: Aspirin [Adult Low Dose Aspirin EC] 81 mg PO DAILY 08/18/15 [History] Gabapentin [Neurontin] 300 mg PO HS 08/18/15 [History] Insulin LISPRO [Humalog] 14 unit SQ BID 08/18/15 [History] Pravastatin Sodium [Pravachol] 40 mg PO HS 08/18/15 [History] Buspirone HCl [Buspar] 5 mg PO BID 11/16/15 [History] Linagliptin/Metformin HCl [Jentadueto Xr 2.5 mg-1,000 mg] 1 tab PO BID 05/03/16 [History] Carvedilol [Coreg] 6.25 mg PO BIDWM #60 tablet 05/11/16 [Rx] amLODIPine [Norvasc] 5 mg PO DAILY #30 tablet 05/11/16 [Rx] Insulin Glargine,Hum.rec.anlog [José Miguel Manuel] 14 units SQ QAM 03/10/17 [ History] OxyCODONE/APAP 5/325 [Percocet 5/325 MG] 1 tab PO BID PRN 03/10/17 [History] Furosemide [Lasix] 40 mg PO DAILY tablet 03/17/17 [Rx] Penicillin VK 500 mg PO QID #28 tablet 03/17/17 [Rx] Allergies/Adverse Reactions: 3 Allergy/AdvReac Type Severity Reaction Status Date / Time No Known Allergies Allergy Verified 08/18/15 08:38 Certification: Further, I certify that my clinical findings support that this patient is homebound (i.e. absences from home require considerable and taxing effort and are for medical reasons or taoist services or infrequently or short duration when for other reasons) because: Homebound Reason: Patient requires assistance of a person or device to safely leave home, Leaving home requires considerable and taxing effort due to condition Attestation: My signature below is to certify that this patient is under my care and that I, or nurse practitioner, or a physician's podiatric assistant working with me, has a face-to -face encounter with this patient.
[2017-03-17 15:33] VITALS: BP 150/80
== END 2017-03-17 20:26 | disposition home health service (06) | DRG 720 ==
LOC: EMEROO 13:57 → SUATTDRO 19:35 → ICNU 19:35 → 2ANU 03-13 19:50
PROVIDERS: ADMIT Hospitalist; ATTEND Student in an Organized Health Care Education/Training Program

== ENCOUNTER 2017-03-29 13:12 | Inpatient (IN) ==
--- NOTE | 2017-03-29 13:25 | Emergency Department Note ---
Disposition Clinical Impression: Osteomyelitis Qualifiers: Osteomyelitis type: unspecified type Osteomyelitis location: foot Laterality: left Qualified Code(s): M86.9 - Osteomyelitis, unspecified Disposition: Admitted As Inpatient Condition: Fair Forms: ED Satisfaction Letter Time of Disposition: 14:38 Recheck wound or abnormal lab - General Chief Complaint: ED Recheck/Abnormal Lab/Rx Stated Complaint: Abnormal labs Time Seen by Provider: 03/29/17 13:14 Source: patient, EMS Mode of arrival: ambulatory Limitations: no limitations Nursing Notes Reviewed: Yes Vital Signs Reviewed: Yes - History of Present Illness HPI Narrative: 61-year-old female who comes in with a ulcer on her left foot heel was seen yesterday [facility] had lab work done was called and told to come in due to abnormal lab work. When I look at her lab work she is anemic with a hemoglobin of 8.8 but that is actually the best she's had in the last month. She does have some renal insufficiency that appears to be improved. The only thing I see that she doesn't have a number of repeat labs on is a sedimentation rate greater than 130 Pt Subjective Complaint: abnormal lab(s) Initial Visit (ago): day(s) Initial Visit For: other (L ulcer) Symptoms Since Prior Visit: no new symptoms Context: called for abnormal lab result Associated symptoms: none - Related Data Home Medications Medication Instructions Recorded Confirmed Aspirin [Adult Low Dose Aspirin EC] 81 mg PO DAILY 08/18/15 03/10/17 Gabapentin [Neurontin] 300 mg PO HS 08/18/15 03/10/17 Insulin LISPRO [Humalog] 14 unit SQ BID 08/18/15 03/10/17 Pravastatin Sodium [Pravachol] 40 mg PO HS 08/18/15 03/10/17 Buspirone HCl [Buspar] 5 mg PO BID 11/16/15 03/10/17 Linagliptin/Metformin HCl 1 tab PO BID 05/03/16 03/10/17 [Jentadueto Xr 2.5 mg-1,000 mg] Insulin Glargine,Hum.rec.anlog 14 units SQ QAM 03/10/17 03/10/17 [Toujeo Solostar] OxyCODONE/APAP 5/325 [Percocet 1 tab PO BID PRN 03/10/17 03/10/17 5/325 MG] Previous Rx's Medication Instructions Recorded Carvedilol [Coreg] 6.25 mg PO BIDWM #60 tablet 05/11/16 amLODIPine [Norvasc] 5 mg PO DAILY #30 tablet 05/11/16 Furosemide [Lasix] 40 mg PO DAILY tablet 03/17/17 Penicillin VK 500 mg PO QID #28 tablet 03/17/17 Allergies Allergy/AdvReac Type Severity Reaction Status Date / Time No Known Allergies Allergy Verified 08/18/15 08:38 All systems ED: reviewed and negative except as stated. Constitutional: Denies: fever, chills, weakness, weight change Eyes: Denies: eye pain, eye discharge, vision change ENT ED: Denies: ear pain, throat pain, dental pain, hearing loss, epistaxis, congestion, dysphagia Cardiovascular: Denies: chest pain, palpitations, dyspnea on exertion, edema, syncope Respiratory: Denies: cough, dyspnea, wheezes, hemoptysis, stridor Gastrointestinal: Denies: abdominal pain, nausea, vomiting, diarrhea, constipation, hematemesis, melena, hematochezia Genitourinary: Denies: dysuria, frequency, hematuria, discharge Musculoskeletal: Reports: arthralgia. Denies: back pain, neck pain, myalgia Integumentary: Denies: rash, abrasion, lesions Neurological: Denies: headache, weakness, numbness, paresthesias, confusion, abnormal gait, vertigo Psychiatric: Denies: anxiety, depression, suicidal thoughts, homicidal thoughts , auditory hallucinations, visual hallucinations Endocrine: Denies: fatigue Hematological/Lymphatic: Denies: easy bleeding, easy bruising Allergic/Immunologic: Denies: facial swelling, urticaria Past Medical History - Past Medical History Medical history: Reports: arthritis, CVA, diabetes, glaucoma, hyperlipidemia, hypertension, renal disease Surgical history: Reports: cataract, other Psychiatric history: Reports: no psych history - Social History Smoking Status: Never smoker Smokeless Tobacco Status: No Alcohol use: Reports: none Drug use: Reports: none Physical Exam - General Limitations: no limitations General appearance: alert, in no apparent distress - Head Head exam: atraumatic, normocephalic, normal inspection - Eye Eye exam: Present: normal appearance, PERRL, EOMI - ENT ENT exam: normal exam, normal oropharynx, mucous membranes moist - Neck Neck exam: Present: normal inspection, full ROM, trachea midline - Chest Chest inspection: Present: normal inspection, symmetric chest wall rise - Respiratory Respiratory exam: Present: normal lung sounds bilaterally - Cardiovascular Cardiovascular exam: Present: regular rate, normal rhythm, normal heart sounds - Expanded Lower Extremity Exam Foot/toe exam: Present: other (Ulceration left heel) - Back Exam Back exam: Present: normal inspection, full ROM. Absent: tenderness - Neurological Exam Neurological exam: Present: alert, oriented X3 - Psychiatric Psychiatric exam: Present: normal affect, normal mood - Skin Skin exam: Present: warm, dry, intact, normal color Course - Reevaluation(s) Reevaluation #1: 61-year-old with an ulceration on her left heel has gotten progressively worse all podiatry they did an x-ray and lab work which was suspicious for osteomyelitis. The patient for IV antibiotics and further evaluation. Time: 14:37 - Consultations Consultation #1: Discussed with nurse practitioner Anibal who states that she saw the patient yesterday x-ray shows some todd-ostitis with an elevated sedimentation rate of 1:30 concern for osteomyelitis. Time: 13:29 Consultation #2: Discussed with , admit. Time: 14:37 Vital Signs Temperature 98.2 F 03/29/17 13:15 Pulse Rate 84 03/29/17 13:15 Respiratory Rate 18 03/29/17 13:15 Blood Pressure 130/53 03/29/17 13:15 O2 Sat by Pulse Oximetry 95 03/29/17 13:15 Temperature 98.2 F 03/29/17 13:15 Pulse Rate 82 03/29/17 13:57 Respiratory Rate 20 03/29/17 13:57 Blood Pressure 124/61 03/29/17 13:57 O2 Sat by Pulse Oximetry 98 03/29/17 13:57 Oxygen Delivery Oxygen Delivery Room Air
[2017-03-29] MEDS ORDERED: Vancomycin 1,000 MG in D5% in Water 250 ML IVPB ONE (13:32)
--- NOTE | 2017-03-29 17:53 | Internal Med History&Physical ---
Date of Encounter: 03/29/17 Time of Encounter: 17:00 Assessment and Plan (1) Decubitus ulcer of left heel, stage 3 Current visit: No Status: Chronic Patient with decubitus ulcer of left heel will continue IV vancomycin and Zosyn for potential pseudomonas/MRSA coverage will consult podiatry (2) Diastolic heart failure Current visit: No Status: Suspected Stable; continue home Lasix Qualifiers: Heart failure chronicity: chronic Qualified Code(s): I50.32 - Chronic diastolic (congestive) heart failure (3) DM2 (diabetes mellitus, type 2) Current visit: No Status: Chronic We will continue home medication Qualifiers: Diabetes mellitus complication status: with kidney complications Diabetes mellitus complication detail: with chronic kidney disease Diabetes mellitus assisted insulin use: unspecified assisted insulin use status Chronic kidney disease stage: stage 3 (moderate) Qualified Code(s): E11.22 - Type 2 diabetes mellitus with diabetic chronic kidney disease; N18.3 - Chronic kidney disease, stage 3 (moderate); N18.3 - Chronic kidney disease, stage 3 (moderate) (4) CKD (chronic kidney disease) stage 3, GFR 30-59 ml/min Current visit: No Status: Chronic Will order labs to assess renal function (5) HTN (hypertension) Current visit: No Status: Chronic Continue home medications Qualifiers: Hypertension type: essential hypertension Qualified Code(s): I10 - Essential (primary) hypertension (6) Hyperlipidemia Current visit: No Status: Chronic Continue home medication Qualifiers: Hyperlipidemia type: unspecified Qualified Code(s): E78.5 - Hyperlipidemia , unspecified (7) DVT prophylaxis Current visit: Yes Status: Acute Subcutaneous heparin Internal Medicine - H&P: HPI Chief complaint: Left heel pain Admitted From: Home Plans for Post Hospital Care: Transfer [facility] Facility History of present illness: Patient is a 61-year-old female with past medical history significant for CHF, hypertension, diabetes and hyperlipidemia who presents to the ER on 03/29/17 with left foot pain. She reports of having a chronic left heel ulcer for approximately 2 years after becoming immobile from a CVA on 07/2015 which has left her bedbound. Patients left heel ulcer has been managed by wound care team. Patient was recently referred to a fabric coating supervisor who evaluated the patient on 03/28/17. X-rays of left heel were taken and there were concerns for osteomyelitis so patient was instructed today to go to the hospital for admission. Past Med Surg Social Fam HX - Past Medical History Medical history: arthritis, CVA, diabetes, glaucoma, hyperlipidemia, hypertension, renal disease Psychiatric history: no psych history - Past Surgical History Surgical History: cataract, other - Social History Smoking Status: Never smoker Smokeless Tobacco Status: No Alcohol use: none Drug use: none - Family History Mother Adopted: No Family Member Ethnicity: Unknown Living Status: Still Living Hx Family Cardiac Disorders: No Hx Family Respiratory Disorders: Yes (COPD) Hx Family Cancer: Yes Hx Family GI Disorders: No Hx Family Endocrine Disorder: No Hx Family Neuromuscular Disorders: No Hx Family Neurologic Disorders: No Hx Family HEENT Disorders: No Hx Family Autoimmune Disorders: No Father Age: 60 Family Member Ethnicity: Non- Living Status: Hx Family Cardiac Disorders: Yes (Maternal grandmother - heart failure) Hx Family Respiratory Disorders: Yes (Mother - COPD) Hx Family Cancer: Yes (Aunt & mother) Hx Family GI Disorders: Yes (Diverticulitis) Hx Family Genitourinary Disorders: No Hx Family Endocrine Disorder: Yes Hx Family Musculoskeletal Disorders: No Hx Family Neuromuscular Disorders: No Hx Family Neurologic Disorders: Yes (father - aneurysm) Hx Family HEENT Disorders: No Hx Family Autoimmune Disorders: No Hx Family Reproductive Disorders: No Hx Family Psychosocial Disorders: No Internal Medicine - H&P: Meds Aspirin [Adult Low Dose Aspirin EC] 81 mg PO DAILY 08/18/15 [History] Gabapentin [Neurontin] 300 mg PO HS 08/18/15 [History] Insulin LISPRO [Humalog] 14 unit SQ BID 08/18/15 [History] Pravastatin Sodium [Pravachol] 40 mg PO HS 08/18/15 [History] Buspirone HCl [Buspar] 5 mg PO BID 11/16/15 [History] Linagliptin/Metformin HCl [Jentadueto Xr 2.5 mg-1,000 mg] 1 tab PO BID 05/03/16 [History] Carvedilol [Coreg] 6.25 mg PO BIDWM #60 tablet 05/11/16 [Rx] amLODIPine [Norvasc] 5 mg PO DAILY #30 tablet 05/11/16 [Rx] Insulin Glargine,Hum.rec.anlog [José Miguel Manuel] 14 units SQ QAM 03/10/17 [ History] OxyCODONE/APAP 5/325 [Percocet 5/325 MG] 1 tab PO BID PRN 03/10/17 [History] Furosemide [Lasix] 40 mg PO DAILY tablet 03/17/17 [Rx] Penicillin VK 500 mg PO QID #28 tablet 03/17/17 [Rx] 3 Allergy/AdvReac Type Severity Reaction Status Date / Time No Known Allergies Allergy Verified 08/18/15 08:38 All Systems PM: A 10-system review of systems was performed and is negative for pertinent findings except as documented above in the HPI. - Constitutional Vitals: Temp Pulse Resp BP Pulse Ox 98.4 F 83 17 125/57 96 03/29/17 15:57 03/29/17 15:57 03/29/17 15:57 03/29/17 15:57 03/29/17 15:57 General appearance: Present: A&O X 3 - Respiratory Respiratory exam: Present: CTAB. Absent: accessory muscle use, rales, rhonchi, wheezes - Cardiovascular Cardiovascular exam: Present: RRR, +S1, +S2. Absent: diastolic murmur, gallop, rubs, systolic murmur - GI/Abdominal GI/Abdominal exam: Present: normal bowel sounds, soft, no peritoneal signs. Absent: distended, tenderness - Extremities Exam Extremities exam: Present: warm - Neurological Exam Neurological exam: Present: CN II-XII intact, oriented X3, no focal deficits. Absent: pronater drift, facial droop, speech deficit - Psychiatric Psychiatric exam: Present: normal mood - Skin Skin exam: Present: erythema (Patient with multiple erosions on gluteal and inner thigh region which are painful to touch patient also with left heel ulcer)
[2017-03-29] MEDS ORDERED: Vancomycin 1,750 MG in D5% in Water 250 ML IVPB SCH (19:00)
[2017-03-29] MEDS ORDERED: Vancomycin 750 MG in D5% in Water 250 ML IVPB ONE (19:15)
[2017-03-29] MEDS: *HR* OxyCODONE/APAP 5/325 TABLET PO PRN (21:00)
[2017-03-29 22:07] LABS: Calcium 8.1 mg/dL (8.6-10.8); Potassium 4.3 mEq/L (3.5-4.5)
[2017-03-29 22:32] LABS: Basophils % 0.4 %; Eosinophils # 0.2 K/mcL (0.0-0.6); Eosinophils % 2.8 %; Hematocrit 26.1 % (35.3-44.9); Hemoglobin 8.1 g/dL (11.5-15.4); Immature Granulocytes % 0.6 % (0-4); Lymphocytes # 0.9 K/mcL (0.6-4.6); Lymphocytes % 10.8 %; Mean Corpuscular Hemoglobin 24.8 pg (28.0-33.3); Mean Corpuscular Volume 80.1 fL (83.0-100.0); Mean Platelet Volume 8.7 fL (9.4-12.4); Monocytes # 0.6 K/mcL (0.0-1.3); Monocytes % 7.8 %; Neutrophils # 6.4 K/mcL (1.6-8.9); Platelet Count 240 K/mcL (140-400); Red Blood Count 3.26 M/mcL (3.82-4.97); Red Cell Distribution Width 15.9 % (11.5-14.5); Segmented Neutrophils % 77.6 %
[2017-03-30] MEDS: Piperacillin/Tazobactam 3.375 GM in D5% in Water (Mini-Bag+) 100 ML IVPB SCH ×3 (00:50→17:53)
[2017-03-30] MEDS: *HR* OxyCODONE/APAP 5/325 TABLET PO PRN ×2 (08:40→17:53)
[2017-03-30 10:36] LABS: Basophils % 0.7 %; Eosinophils # 0.2 K/mcL (0.0-0.6); Eosinophils % 3.7 %; Hematocrit 26.6 % (35.3-44.9); Hemoglobin 7.9 g/dL (11.5-15.4); Lymphocytes # 0.5 K/mcL (0.6-4.6); Lymphocytes % 8.3 %; Mean Corpuscular HGB Conc 29.7 g/dL (31.6-35.5); Mean Corpuscular Hemoglobin 24.5 pg (28.0-33.3); Mean Corpuscular Volume 82.4 fL (83.0-100.0); Mean Platelet Volume 8.4 fL (9.4-12.4); Monocytes # 0.5 K/mcL (0.0-1.3); Monocytes % 7.8 %; Neutrophils # 4.8 K/mcL (1.6-8.9); Platelet Count 250 K/mcL (140-400); Red Blood Count 3.23 M/mcL (3.82-4.97); Red Cell Distribution Width 15.9 % (11.5-14.5); Segmented Neutrophils % 78.5 %
[2017-03-30 10:50] LABS: Potassium 4.5 mEq/L (3.5-4.5)
[2017-03-30] MEDS ORDERED: Dextrose Gel 15 GM PO PRN ×2 (13:14)
[2017-03-30] MEDS ORDERED: *HR* Dextrose 50 % in Water (Syg) 50 ML SYRINGE IVP PRN (13:14)
[2017-03-30] MEDS ORDERED: D5% in Water 1,000 ML IVC PRN (13:14)
[2017-03-30] MEDS ORDERED: Vancomycin 1,750 MG in D5% in Water 500 ML IVPB SCH (15:00)
--- NOTE | 2017-03-30 15:25 | General Surgery Consult Note ---
<Marixa Gonzales - Last Filed: 03/30/17 15:41> Date of Encounter: 03/30/17 Time of Encounter: 15:15 Assessment and Plan (1) Decubitus ulcer of left heel, stage 3 Current Visit: No Status: Chronic MRI of LLE to evaluate further for osteomyelitis- ordered per hospitalist Wound care daily- cleanse wound with soap and water and pat dry, apply calcium alginate to wound bed, apply 4 x 4 gauze, wrapped with Kerlex and tape to secure daily Supportive care Pressure relief measures to LLE- currently with miller boot in place Empiric antibiotic therapy- Vancomycin and Zosyn per the hospitalist service Glucose control Surgery will continue to follow and make recommendations (2) CKD (chronic kidney disease) stage 3, GFR 30-59 ml/min Current Visit: No Status: Chronic Stable Management per medicine service Recommend avoiding nephrotoxic medications (3) HTN (hypertension) Current Visit: No Status: Chronic Currently normotensive Management per medicine service Qualifiers: Hypertension type: essential hypertension Qualified Code(s): I10 - Essential (primary) hypertension (4) Hyperlipidemia Current Visit: No Status: Chronic Qualifiers: Hyperlipidemia type: unspecified Qualified Code(s): E78.5 - Hyperlipidemia , unspecified (5) Insulin dependent diabetes mellitus Current Visit: No Status: Chronic Currently hyperglycemic Continue sliding scale insulin Management per medicine service (6) Morbid obesity with BMI of 40.0-44.9, adult Current Visit: Yes Status: Chronic History of Present Illness Consult date: 03/30/17 Reason for consult: wound care Requesting physician: Panfilo Bloom History of present illness: Post is a 61-year-old female who has been seen and followed in the wound care clinic for a left heel ulcer. Dr. Olivarez has taken care of her in wound care. She was discharged from wound care in December 2016 when her wound was completely healed. The wound was healed with the use of a total contact cast. She has had recurrence of her left heel wound and was recently seen by podiatry on March 282016. X-rays were complete and were concerning for osteomyelitis. The patient presented to the hospital for further workup and management for her left heel ulcer and left heel pain. She has had difficulty with pressure ulcers after experiencing a CVA in July 2015 which has left her bedridden. We have been asked to see and evaluate the patient for recommendations. Past Med Surg Social Fam HX - Past Medical History Source: old records reviewed Medical history: arthritis (osteoarthritis), COPD, CVA (07/2015), diabetes (Type 2), glaucoma, hyperlipidemia, hypertension, pulmonary embolus, renal disease, other (chronic venous insufficiency, Hx of MRSA) Psychiatric history: anxiety - Past Surgical History Surgical History: cataract, other (Tonsillectomy, tubal ligation) - Social History Smoking Status: Never smoker Smokeless Tobacco Status: No Alcohol use: none Drug use: none Activity Level: Bed bound - Family History Mother Adopted: No Family Member Ethnicity: Unknown Living Status: Still Living Hx Family Cardiac Disorders: No Hx Family Respiratory Disorders: Yes (COPD) Hx Family Cancer: Yes Hx Family GI Disorders: No Hx Family Endocrine Disorder: No Hx Family Neuromuscular Disorders: No Hx Family Neurologic Disorders: No Hx Family HEENT Disorders: No Hx Family Autoimmune Disorders: No Father Age: 60 Family Member Ethnicity: Non- Living Status: Hx Family Cardiac Disorders: Yes (Maternal grandmother - heart failure) Hx Family Respiratory Disorders: Yes (Mother - COPD) Hx Family Cancer: Yes (Aunt & mother) Hx Family GI Disorders: Yes (Diverticulitis) Hx Family Genitourinary Disorders: No Hx Family Endocrine Disorder: Yes Hx Family Musculoskeletal Disorders: No Hx Family Neuromuscular Disorders: No Hx Family Neurologic Disorders: Yes (father - aneurysm) Hx Family HEENT Disorders: No Hx Family Autoimmune Disorders: No Hx Family Reproductive Disorders: No Hx Family Psychosocial Disorders: No Medications and Allergies Aspirin [Adult Low Dose Aspirin EC] 81 mg PO DAILY 08/18/15 [History] Gabapentin [Neurontin] 300 mg PO HS 08/18/15 [History] Insulin LISPRO [Humalog] 14 unit SQ BID 08/18/15 [History] Pravastatin Sodium [Pravachol] 40 mg PO HS 08/18/15 [History] Buspirone HCl [Buspar] 5 mg PO BID 11/16/15 [History] Linagliptin/Metformin HCl [Jentadueto Xr 2.5 mg-1,000 mg] 1 tab PO BID 05/03/16 [History] Carvedilol [Coreg] 6.25 mg PO BIDWM #60 tablet 05/11/16 [Rx] amLODIPine [Norvasc] 5 mg PO DAILY #30 tablet 12/07/16 [Rx] Insulin Glargine,Hum.rec.anlog [José Miguel Manuel] 14 units SQ QAM 03/10/17 [ History] OxyCODONE/APAP 5/325 [Percocet 5/325 MG] 1 tab PO BID PRN 03/10/17 [History] Collagenase Oint [Santyl] 1 appl TP DAILY 03/29/17 [History] Furosemide [Lasix] 20 mg PO QPM 03/29/17 [History] Furosemide [Lasix] 40 mg PO QAM 03/29/17 [History] Sulfamethoxazole/Trimeth DS [Bactrim DS] 1 each PO DAILY 03/29/17 [History] 3 Allergy/AdvReac Type Severity Reaction Status Date / Time No Known Allergies Allergy Verified 08/18/15 08:38 Review of Systems All systems PM: reviewed and no additional remarkable complaints except as stated (in the HPI) All systems PM: A 10-system review of systems was performed and is negative for pertinent findings except as documented above in the HPI. General Surgery Exam Initial Vital Signs Temp Pulse Resp BP Pulse Ox 98.2 F 84 18 130/53 95 03/29/17 13:15 03/29/17 13:15 03/29/17 13:15 03/29/17 13:15 03/29/17 13:15 - General physical appearance well developed, well nourished, no distress, no pain, chronically ill, obese - Eyes normal ocular movement - ENT normal mucosa, atraumatic, normocephalic - Neck trachea midline - Respiratory normal respiratory effort, clear to auscultation - Cardiovascular Cardiovascular exam: Present: RRR - Abdomen Abdomen general surgery: Present: bowel sounds present, soft, non tender - Integumentary Integumentary general surgery: Present: warm and dry, other (left heel with Stage 3 pressure ulcer, no surrounding erythema or induration, moderate amount of serousang. drainage noted, 50% of the wound covered by eschar) - Musculoskeletal Present: other (limited ROM due to previous CVA; patient bed bound) - Psychiatric Psychiatric general surgery: Present: A&Ox3 Exam Initial Vital Signs Temp Pulse Resp BP Pulse Ox 98.2 F 84 18 130/53 95 03/29/17 13:15 03/29/17 13:15 03/29/17 13:15 03/29/17 13:15 03/29/17 13:15 Results - Labs 03/30/17 10:15 03/30/17 10:15 Abnormal lab results RBC 3.23 M/mcL (3.82-4.97) L 03/30/17 10:15 Hgb 7.9 g/dL (11.5-15.4) L 03/30/17 10:15 Hct 26.6 % (35.3-44.9) L 03/30/17 10:15 MCV 82.4 fL (83.0-100.0) L 03/30/17 10:15 MCH 24.5 pg (28.0-33.3) L 03/30/17 10:15 MCHC 29.7 g/dL (31.6-35.5) L 03/30/17 10:15 RDW 15.9 % (11.5-14.5) H 03/30/17 10:15 MPV 8.4 fL (9.4-12.4) L 03/30/17 10:15 Lymphocytes # 0.5 K/mcL (0.6-4.6) L 03/30/17 10:15 Sodium 131 mEq/L (136-145) L 03/30/17 10:15 Chloride 94 mEq/L (98-109) L 03/30/17 10:15 BUN 27 mg/dL (7-20) H 03/30/17 10:15 Creatinine 1.51 mg/dL (0.57-1.11) H 03/30/17 10:15 Est GFR ( Amer) 43 (> 60) L 03/30/17 10:15 Est GFR (Non-Af Amer) 35 (> 60) L 03/30/17 10:15 Glucose 208 mg/dL (70-99) H 03/30/17 10:15 POC Glucose 233 (58-89) H 03/30/17 11:27 Calcium 8.0 mg/dL (8.6-10.8) L 03/30/17 10:15 All other labs normal. - Imaging Additional studies: XR/XR calcaneus 2V LT IMPRESSION: 1. Focal thinning along the posterior aspect of the calcaneus likely reflecting known ulcer. Although there are no discrete underlying erosive changes, there is associated periostitis which could reflect acute or chronic infectious process. If there remains high clinical suspicion for acute osteomyelitis consider further evaluation with MRI. 2. Diffuse osteopenia with no other acute osseous abnormality. Consult Discharge Plan - Plan Referrals: Elza Jesus MD [Primary Care Provider] - - Attending Attestation For this encounter, I have reviewed the [employer]AND [employer] or PA documentation, treatment plan, and medical decision making; and I have had face to face time with this patient. <Clemente Olivarez T - Last Filed: 04/01/17 11:35> Date of Encounter: 04/01/17 Review of Systems All systems PM: A 10-system review of systems was performed and is negative for pertinent findings except as documented above in the HPI. General Surgery Exam Initial Vital Signs Temp Pulse Resp BP Pulse Ox 98.2 F 84 18 130/53 95 03/29/17 13:15 03/29/17 13:15 03/29/17 13:15 03/29/17 13:15 03/29/17 13:15 Exam Initial Vital Signs Temp Pulse Resp BP Pulse Ox 98.2 F 84 18 130/53 95 03/29/17 13:15 03/29/17 13:15 03/29/17 13:15 03/29/17 13:15 03/29/17 13:15 Results - Labs 04/01/17 10:12 04/01/17 10:12 Abnormal lab results RBC 3.62 M/mcL (3.82-4.97) L 04/01/17 10:12 Hgb 8.9 g/dL (11.5-15.4) L 04/01/17 10:12 Hct 30.0 % (35.3-44.9) L 04/01/17 10:12 MCV 82.9 fL (83.0-100.0) L 04/01/17 10:12 MCH 24.6 pg (28.0-33.3) L 04/01/17 10:12 MCHC 29.7 g/dL (31.6-35.5) L 04/01/17 10:12 RDW 16.2 % (11.5-14.5) H 04/01/17 10:12 MPV 8.3 fL (9.4-12.4) L 04/01/17 10:12 Sodium 133 mEq/L (136-145) L 04/01/17 10:12 Potassium 5.0 mEq/L (3.5-4.5) H 04/01/17 10:12 Chloride 95 mEq/L (98-109) L 04/01/17 10:12 BUN 21 mg/dL (7-20) H 04/01/17 10:12 Creatinine 1.49 mg/dL (0.57-1.11) H 04/01/17 10:12 Est GFR ( Amer) 43 (> 60) L 04/01/17 10:12 Est GFR (Non-Af Amer) 36 (> 60) L 04/01/17 10:12 Glucose 383 mg/dL (70-99) H 04/01/17 10:12 POC Glucose 185 (58-89) H 03/31/17 20:33 Vancomycin Trough 32.4 mcg/mL (10-20) H* 03/31/17 14:26 Diabetes panel 04/01/17 Range/Units 10:12 Sodium 133 L (136-145) mEq/L Potassium 5.0 H (3.5-4.5) mEq/L Chloride 95 L (98-109) mEq/L Carbon Dioxide 29 (19-29) mEq/L BUN 21 H (7-20) mg/dL Creatinine 1.49 H (0.57-1.11) mg/dL Glucose 383 H (70-99) mg/dL Calcium 8.8 (8.6-10.8) mg/dL Calcium panel 04/01/17 Range/Units 10:12 Calcium 8.8 (8.6-10.8) mg/dL Pituitary panel 04/01/17 Range/Units 10:12 Sodium 133 L (136-145) mEq/L Potassium 5.0 H (3.5-4.5) mEq/L Chloride 95 L (98-109) mEq/L Carbon Dioxide 29 (19-29) mEq/L BUN 21 H (7-20) mg/dL Creatinine 1.49 H (0.57-1.11) mg/dL Glucose 383 H (70-99) mg/dL Calcium 8.8 (8.6-10.8) mg/dL Adrenal panel 04/01/17 Range/Units 10:12 Sodium 133 L (136-145) mEq/L Potassium 5.0 H (3.5-4.5) mEq/L Chloride 95 L (98-109) mEq/L Carbon Dioxide 29 (19-29) mEq/L BUN 21 H (7-20) mg/dL Creatinine 1.49 H (0.57-1.11) mg/dL Glucose 383 H (70-99) mg/dL Calcium 8.8 (8.6-10.8) mg/dL All other labs normal. - Attending Attestation The patient is seen and evaluated on morning rounds. The findings were discussed with the clinic nurse practitioner. I think that the patient would benefit from antibiotic therapy and outpatient wound management. Certainly if the osteomyelitis progresses amputation may be warranted. Clemente Olivarez MD FACS
--- NOTE | 2017-03-30 17:44 | Internal Med Progress Note ---
Date of Encounter: 03/30/17 Time of Encounter: 11:00 - Assessment and plan (1) Decubitus ulcer of left heel, stage 3 Current Visit: No Status: Chronic Assessment and plan: -MRI ordered to rule out osteomyelitis. -We will continue IV antibiotics with vancomycin/Zosyn. -Gen. surgery following an appreciate any additional recommendations. (2) DM2 (diabetes mellitus, type 2) Current Visit: No Status: Chronic Assessment and plan: -Continue to control blood glucose with sliding scale insulin. Qualifiers: Diabetes mellitus complication status: with kidney complications Diabetes mellitus complication detail: with chronic kidney disease Diabetes mellitus long term care phlebotomist insulin use: unspecified care home insulin use status Chronic kidney disease stage: stage 3 (moderate) Qualified Code(s): E11.22 - Type 2 diabetes mellitus with diabetic chronic kidney disease; N18.3 - Chronic kidney disease, stage 3 (moderate); N18.3 - Chronic kidney disease, stage 3 (moderate) (3) Diastolic heart failure Current Visit: No Status: Suspected Assessment and plan: -Stable as patient is euvolemic. Qualifiers: Heart failure chronicity: chronic Qualified Code(s): I50.32 - Chronic diastolic (congestive) heart failure (4) CKD (chronic kidney disease) stage 3, GFR 30-59 ml/min Current Visit: No Status: Chronic Assessment and plan: -Stable; continue to monitor creatinine (5) HTN (hypertension) Current Visit: No Status: Chronic Assessment and plan: -Controlled; continue home medications. Qualifiers: Hypertension type: essential hypertension Qualified Code(s): I10 - Essential (primary) hypertension (6) Hyperlipidemia Current Visit: No Status: Chronic Assessment and plan: -Continue statin. Qualifiers: Hyperlipidemia type: unspecified Qualified Code(s): E78.5 - Hyperlipidemia , unspecified (7) DVT prophylaxis Current Visit: Yes Status: Acute Assessment and plan: Heparin subcutaneous - Subjective Interval history: No acute events overnight and patient's left heel pain is controlled - Constitutional Vitals: Temp Pulse Resp BP Pulse Ox 98.8 F 81 16 126/75 97 03/30/17 16:50 03/30/17 16:50 03/30/17 16:50 03/30/17 16:50 03/30/17 16:50 General appearance: Present: A&O X 3 - Respiratory Respiratory exam: Present: CTAB. Absent: accessory muscle use, rales, rhonchi, wheezes - Cardiovascular Cardiovascular exam: Present: RRR, +S1, +S2. Absent: diastolic murmur, gallop, rubs, systolic murmur Internal Medicine: Result - Labs CBC & Chem 7: 03/30/17 10:15 03/30/17 10:15 - Impressions Impressions Foot MRI 03/30/17 14:03 IMPRESSION: 1. Large deep posterior heel soft tissue ulceration. Adjacent subcutaneous edema compatible with cellulitis. No drainable fluid collection or sinus tract. 2. Mild posterior calcaneal bone marrow edema with reticular decreased T1 signal and indistinctness of the overlying cortex compatible with erosive change. Findings are compatible with early osteomyelitis. 3. Partial-thickness tear of the far distal posterior Achilles tendon insertion. No tendon retraction. 4. Moderate diffuse fatty infiltration, atrophy, and edema of the plantar intrinsic musculature of the foot compatible with diabetic myopathy versus denervation versus less likely myositis. D/ / Omar Galvez MD / Omar Galvez MD Interpreting Provider: Omar Galvez MD Consult Discharge Plan - Plan Referrals: Elza Jesus MD [Primary Care Provider] -
[2017-03-30] MEDS: Insulin LISPRO 300 UNITS/3 ML VIAL SQ SCH ×2 (17:52→21:21)
[2017-03-30] MEDS: *HR* Heparin 5,000 UNIT/ML VIAL SQ SCH (18:04)
[2017-03-30] MEDS: Miconazole w/zinc oxide&karaya 92 APPL/92 GM TUBE TP SCH (22:06)
[2017-03-30] MEDS: Nystatin POWDER 30 GM BOTTLE TP SCH (22:06)
[2017-03-31] MEDS: *HR* OxyCODONE/APAP 5/325 TABLET PO PRN ×3 (00:25→12:56)
[2017-03-31] MEDS: Piperacillin/Tazobactam 3.375 GM in D5% in Water (Mini-Bag+) 100 ML IVPB SCH ×3 (00:26→17:15)
[2017-03-31] MEDS: *HR* Heparin 5,000 UNIT/ML VIAL SQ SCH ×2 (07:05→17:15)
[2017-03-31] MEDS: Nystatin POWDER 30 GM BOTTLE TP SCH ×2 (08:38→20:57)
[2017-03-31] MEDS: Miconazole w/zinc oxide&karaya 92 APPL/92 GM TUBE TP SCH ×2 (08:38→20:56)
[2017-03-31] MEDS: Insulin LISPRO 300 UNITS/3 ML VIAL SQ SCH ×4 (08:38→20:42)
[2017-03-31 10:30] LABS: Basophils % 0.7 %; Eosinophils # 0.3 K/mcL (0.0-0.6); Eosinophils % 5.2 %; Hematocrit 26.6 % (35.3-44.9); Hemoglobin 7.9 g/dL (11.5-15.4); Immature Granulocytes % 0.9 % (0-4); Lymphocytes # 0.6 K/mcL (0.6-4.6); Lymphocytes % 11.2 %; Mean Corpuscular HGB Conc 29.7 g/dL (31.6-35.5); Mean Corpuscular Hemoglobin 24.3 pg (28.0-33.3); Mean Corpuscular Volume 81.8 fL (83.0-100.0); Mean Platelet Volume 8.1 fL (9.4-12.4); Monocytes # 0.4 K/mcL (0.0-1.3); Monocytes % 8.2 %; Neutrophils # 3.9 K/mcL (1.6-8.9); Platelet Count 277 K/mcL (140-400); Red Blood Count 3.25 M/mcL (3.82-4.97); Red Cell Distribution Width 15.9 % (11.5-14.5); Segmented Neutrophils % 73.8 %
[2017-03-31 10:36] LABS: Calcium 8.4 mg/dL (8.6-10.8); Potassium 4.2 mEq/L (3.5-4.5)
--- NOTE | 2017-03-31 11:45 | General Surgery Progress Note ---
<Marixa Gonzales - Last Filed: 03/31/17 11:43> Date of Encounter: 03/31/17 Time of Encounter: 11:30 - Assessment and Plan (1) Decubitus ulcer of left heel, stage 3 Current Visit: No Status: Chronic MRI of LLE- Mild posterior calcaneal bone marrow edema with reticular decreased T1 signal and indistinctness of the overlying cortex compatible with erosive change. Findings are compatible with early osteomyelitis. Wound care daily- cleanse wound with soap and water and pat dry, apply calcium alginate to wound bed, apply 4 x 4 gauze, wrapped with Kerlex and tape to secure daily Cultures from 03/28- pseudomonas aeruginosa, staphylococcus aureus Supportive care Pressure relief measures to LLE- currently with miller boot in place IV antibiotic therapy- Vancomycin and Zosyn per the hospitalist service Glucose control Surgery will continue to follow along (2) CKD (chronic kidney disease) stage 3, GFR 30-59 ml/min Current Visit: No Status: Chronic Stable Cr 1.51>1.39 Management per medicine service Recommend avoiding nephrotoxic medications (3) HTN (hypertension) Current Visit: No Status: Chronic Currently normotensive Management per medicine service Qualifiers: Hypertension type: essential hypertension Qualified Code(s): I10 - Essential (primary) hypertension (4) Hyperlipidemia Current Visit: No Status: Chronic Qualifiers: Hyperlipidemia type: unspecified Qualified Code(s): E78.5 - Hyperlipidemia , unspecified (5) Insulin dependent diabetes mellitus Current Visit: No Status: Chronic Improved today Continue sliding scale insulin Management per medicine service (6) Morbid obesity with BMI of 40.0-44.9, adult Current Visit: Yes Status: Chronic Subjective Patient reports: no new complaints, still having pain, afebrile Objective Vital Signs - Last 8 Hours Temp Pulse Resp BP Pulse Ox 03/31/17 11:20 98.5 F 77 15 110/69 94 03/31/17 07:48 98.0 F 82 14 113/76 96 03/31/17 05:00 98.1 F 85 18 114/64 96 Intake and Output 03/30/17 03/31/17 03/31/17 23:59 07:59 15:59 Intake Total 720 / 720 100 / 100 0 / 0 Output Total 200 / 200 700 / 700 200 / 200 Balance 520 / 520 -600 / -600 -200 / -200 Intake: IV Fluids 600 / 600 100 / 100 Zosyn 3.375 GM In Dextrose 5% ( 100 / 100 100 / 100 Minibag+) 100 ML 100 ML @ 25 mls/hr IVPB Q8HR [facility] Rx#: [id number] Vancocin 1,750 MG In Dextrose 5 500 / 500 % 500 ML @ 333.34 mls/hr IVPB Q24H [facility] Rx#:[id number] Oral 120 / 120 0 / 0 0 / 0 Output: Catheter 200 / 200 700 / 700 200 / 200 Other: Meal Dinner Percent of Meal Consumed 0% Weight 111 kg Blood Glucose* 178 193 177 Patient Weight 03/31/17 23:59 Weight 111 kg - General physical appearance well developed, well nourished, chronically ill, obese - Eyes normal ocular movement - ENT normal mucosa, atraumatic, normocephalic - Neck Neck exam: trachea midline - Respiratory normal respiratory effort - Cardiovascular Cardiovascular exam: Present: RRR - Abdomen Abdomen: Present: soft, non tender - Genitourinary other (Mcneill catheter to straight drain with clear, yelow urine) - Integumentary other (Left heel wound with 50% granulation tissue, 50% eschar; small amount of serousang. drainage noted; no tunnelling or undermining noted) - Musculoskeletal other (bedbound) - Psychiatric oriented to time, oriented to person, oriented to place, speech is normal, memory intact - Labs 03/31/17 10:13 03/31/17 10:13 Diabetes panel 03/31/17 Range/Units 10:13 Sodium 134 L (136-145) mEq/L Potassium 4.2 (3.5-4.5) mEq/L Chloride 95 L (98-109) mEq/L Carbon Dioxide 30 H (19-29) mEq/L BUN 25 H (7-20) mg/dL Creatinine 1.39 H (0.57-1.11) mg/dL Glucose 151 H (70-99) mg/dL Calcium 8.4 L (8.6-10.8) mg/dL Calcium panel 03/31/17 Range/Units 10:13 Calcium 8.4 L (8.6-10.8) mg/dL Pituitary panel 03/31/17 Range/Units 10:13 Sodium 134 L (136-145) mEq/L Potassium 4.2 (3.5-4.5) mEq/L Chloride 95 L (98-109) mEq/L Carbon Dioxide 30 H (19-29) mEq/L BUN 25 H (7-20) mg/dL Creatinine 1.39 H (0.57-1.11) mg/dL Glucose 151 H (70-99) mg/dL Calcium 8.4 L (8.6-10.8) mg/dL Adrenal panel 03/31/17 Range/Units 10:13 Sodium 134 L (136-145) mEq/L Potassium 4.2 (3.5-4.5) mEq/L Chloride 95 L (98-109) mEq/L Carbon Dioxide 30 H (19-29) mEq/L BUN 25 H (7-20) mg/dL Creatinine 1.39 H (0.57-1.11) mg/dL Glucose 151 H (70-99) mg/dL Calcium 8.4 L (8.6-10.8) mg/dL - Imaging Additional Studies: Foot MRI 03/30/17 14:03 IMPRESSION: 1. Large deep posterior heel soft tissue ulceration. Adjacent subcutaneous edema compatible with cellulitis. No drainable fluid collection or sinus tract. 2. Mild posterior calcaneal bone marrow edema with reticular decreased T1 signal and indistinctness of the overlying cortex compatible with erosive change. Findings are compatible with early osteomyelitis. 3. Partial-thickness tear of the far distal posterior Achilles tendon insertion. No tendon retraction. 4. Moderate diffuse fatty infiltration, atrophy, and edema of the plantar intrinsic musculature of the foot compatible with diabetic myopathy versus denervation versus less likely myositis. D/ / Omar Galvez MD / Omar Galvez MD Interpreting Provider: Omar Galvez MD Consult Discharge Plan - Plan Referrals: Elza Jesus MD [Primary Care Provider] - - Attending Attestation For this encounter, I have reviewed the [employer] or PA documentation, treatment plan, and medical decision making; and I have had face to face time with this patient. <Clemente Olivarez - Last Filed: 04/01/17 11:37> Date of Encounter: 03/31/17 Objective Vital Signs - Last 8 Hours Temp Pulse Resp BP Pulse Ox 04/01/17 10:18 99.1 F 107 16 133/81 96 04/01/17 07:12 98.8 F 79 16 136/78 92 04/01/17 04:16 97.9 F 85 14 127/72 92 Intake and Output 03/31/17 04/01/17 04/01/17 23:59 07:59 15:59 Intake Total 240 / 240 200 / 200 360 / 360 Output Total 450 / 450 1300 / 1300 0 / 0 Balance -210 / -210 -1100 / -1100 360 / 360 Intake: IV Fluids 200 / 200 Zosyn 3.375 GM In Dextrose 5% ( 200 / 200 Minibag+) 100 ML 100 ML @ 25 mls/hr IVPB Q8HR [facility] Rx#: [id number] Oral 240 / 240 0 / 0 360 / 360 Output: Urine 950 / 950 Catheter 450 / 450 350 / 350 0 / 0 Other: Meal Dinner Breakfast Percent of Meal Consumed 20% 100% # Bowel Movements 0 0 Weight 111.3 kg Blood Glucose* 185 198 Patient Weight 04/01/17 23:59 Weight 111.3 kg - Labs 04/01/17 10:12 04/01/17 10:12 Diabetes panel 04/01/17 Range/Units 10:12 Sodium 133 L (136-145) mEq/L Potassium 5.0 H (3.5-4.5) mEq/L Chloride 95 L (98-109) mEq/L Carbon Dioxide 29 (19-29) mEq/L BUN 21 H (7-20) mg/dL Creatinine 1.49 H (0.57-1.11) mg/dL Glucose 383 H (70-99) mg/dL Calcium 8.8 (8.6-10.8) mg/dL Calcium panel 04/01/17 Range/Units 10:12 Calcium 8.8 (8.6-10.8) mg/dL Pituitary panel 04/01/17 Range/Units 10:12 Sodium 133 L (136-145) mEq/L Potassium 5.0 H (3.5-4.5) mEq/L Chloride 95 L (98-109) mEq/L Carbon Dioxide 29 (19-29) mEq/L BUN 21 H (7-20) mg/dL Creatinine 1.49 H (0.57-1.11) mg/dL Glucose 383 H (70-99) mg/dL Calcium 8.8 (8.6-10.8) mg/dL Adrenal panel 04/01/17 Range/Units 10:12 Sodium 133 L (136-145) mEq/L Potassium 5.0 H (3.5-4.5) mEq/L Chloride 95 L (98-109) mEq/L Carbon Dioxide 29 (19-29) mEq/L BUN 21 H (7-20) mg/dL Creatinine 1.49 H (0.57-1.11) mg/dL Glucose 383 H (70-99) mg/dL Calcium 8.8 (8.6-10.8) mg/dL - Attending Attestation The patient is seen and evaluated in the morning rounds. I agree with antibiotic therapy and outpatient wound management. If the osteomyelitis progresses amputation may be necessary. Clemente Olivarez MD FACS
--- NOTE | 2017-03-31 17:23 | Internal Med Progress Note ---
Date of Encounter: 03/31/17 Time of Encounter: 11:00 - Assessment and plan (1) Decubitus ulcer of left heel, stage 3 Current Visit: No Status: Chronic Assessment and plan: -MRI of left foot showed a large deep posterior heel soft tissue ulceration with adjacent subcutaneous edema compatible with cellulitis but no drainable fluid collection or sinus tract. Also noted was a mild posterior calcaneal bone marrow edema with particular decreased T1 signal of the overlying cortex compatible with erosive changes which is concerning for early osteomyelitis. -Cultures from 03/28- pseudomonas aeruginosa, staphylococcus aureus. -Will continue current management with IV echo mycin and IV Zosyn until sensitivities are known. -Gen. surgery following recommendations for daily wound care and to continue the above current medical management. (2) DM2 (diabetes mellitus, type 2) Current Visit: No Status: Chronic Assessment and plan: -Blood glucose levels controlled; will continue t sliding scale insulin. Qualifiers: Diabetes mellitus complication status: with kidney complications Diabetes mellitus complication detail: with chronic kidney disease Diabetes mellitus supervisor intermediates insulin use: unspecified supervisor intermediates insulin use status Chronic kidney disease stage: stage 3 (moderate) Qualified Code(s): E11.22 - Type 2 diabetes mellitus with diabetic chronic kidney disease; N18.3 - Chronic kidney disease, stage 3 (moderate); N18.3 - Chronic kidney disease, stage 3 (moderate) (3) Diastolic heart failure Current Visit: No Status: Suspected Assessment and plan: -Stable as patient is euvolemic. Qualifiers: Heart failure chronicity: chronic Qualified Code(s): I50.32 - Chronic diastolic (congestive) heart failure (4) CKD (chronic kidney disease) stage 3, GFR 30-59 ml/min Current Visit: No Status: Chronic Assessment and plan: -Stable; continue to monitor creatinine (5) HTN (hypertension) Current Visit: No Status: Chronic Assessment and plan: -Controlled; continue home medications. Qualifiers: Hypertension type: essential hypertension Qualified Code(s): I10 - Essential (primary) hypertension (6) Hyperlipidemia Current Visit: No Status: Chronic Assessment and plan: -Continue statin. Qualifiers: Hyperlipidemia type: unspecified Qualified Code(s): E78.5 - Hyperlipidemia , unspecified (7) DVT prophylaxis Current Visit: Yes Status: Acute Assessment and plan: Heparin subcutaneous - Subjective Interval history: No acute events overnight and patient's left heel pain is controlled - Constitutional Vitals: Temp Pulse Resp BP Pulse Ox 98.1 F 75 14 148/83 96 03/31/17 16:00 03/31/17 16:00 03/31/17 16:00 03/31/17 16:00 03/31/17 16:00 General appearance: Present: A&O X 3 - Respiratory Respiratory exam: Present: CTAB. Absent: accessory muscle use, rales, rhonchi, wheezes - Cardiovascular Cardiovascular exam: Present: RRR, +S1, +S2. Absent: diastolic murmur, gallop, rubs, systolic murmur Internal Medicine: Result - Labs CBC & Chem 7: 03/31/17 10:13 03/31/17 10:13 Labs: Short CBC 03/31/17 Range/Units 10:13 WBC 5.3 (4.3-11.1) K/mcL Hgb 7.9 L (11.5-15.4) g/dL Hct 26.6 L (35.3-44.9) % Plt Count 277 (140-400) K/mcL Neutrophils # 3.9 (1.6-8.9) K/mcL BMP 03/31/17 10:13 Sodium 134 L Potassium 4.2 Chloride 95 L Carbon Dioxide 30 H BUN 25 H Creatinine 1.39 H Glucose 151 H Calcium 8.4 L - Impressions Impressions Foot MRI 03/30/17 14:03 IMPRESSION: 1. Large deep posterior heel soft tissue ulceration. Adjacent subcutaneous edema compatible with cellulitis. No drainable fluid collection or sinus tract. 2. Mild posterior calcaneal bone marrow edema with reticular decreased T1 signal and indistinctness of the overlying cortex compatible with erosive change. Findings are compatible with early osteomyelitis. 3. Partial-thickness tear of the far distal posterior Achilles tendon insertion. No tendon retraction. 4. Moderate diffuse fatty infiltration, atrophy, and edema of the plantar intrinsic musculature of the foot compatible with diabetic myopathy versus denervation versus less likely myositis. D/ / Omar Galvez MD / Omar Galvez MD Interpreting Provider: Omar Galvez MD Consult Discharge Plan - Plan Referrals: Elza Jesus MD [Primary Care Provider] -
[2017-04-01] MEDS: Piperacillin/Tazobactam 3.375 GM in D5% in Water (Mini-Bag+) 100 ML IVPB SCH ×4 (01:23→23:49)
[2017-04-01] MEDS: *HR* Heparin 5,000 UNIT/ML VIAL SQ SCH ×2 (05:35→17:55)
[2017-04-01] MEDS: Nystatin POWDER 30 GM BOTTLE TP SCH ×2 (09:46→20:53)
[2017-04-01] MEDS: Miconazole w/zinc oxide&karaya 92 APPL/92 GM TUBE TP SCH ×2 (09:47→20:53)
[2017-04-01] MEDS: Insulin LISPRO 300 UNITS/3 ML VIAL SQ SCH ×4 (09:48→20:58)
[2017-04-01 10:24] LABS: Basophils # 0.1 K/mcL (0.0-0.2); Basophils % 0.7 %; Eosinophils # 0.3 K/mcL (0.0-0.6); Eosinophils % 4.4 %; Hemoglobin 8.9 g/dL (11.5-15.4); Immature Granulocytes % 1.4 % (0-4); Lymphocytes # 0.9 K/mcL (0.6-4.6); Lymphocytes % 11.9 %; Mean Corpuscular HGB Conc 29.7 g/dL (31.6-35.5); Mean Corpuscular Hemoglobin 24.6 pg (28.0-33.3); Mean Corpuscular Volume 82.9 fL (83.0-100.0); Mean Platelet Volume 8.3 fL (9.4-12.4); Monocytes # 0.5 K/mcL (0.0-1.3); Neutrophils # 5.5 K/mcL (1.6-8.9); Platelet Count 309 K/mcL (140-400); Red Blood Count 3.62 M/mcL (3.82-4.97); Red Cell Distribution Width 16.2 % (11.5-14.5); Segmented Neutrophils % 74.6 %
[2017-04-01 10:44] LABS: Calcium 8.8 mg/dL (8.6-10.8)
--- NOTE | 2017-04-01 12:47 | General Surgery Progress Note ---
<Tobi Plasencia - Last Filed: 04/01/17 13:13> Date of Encounter: 04/01/17 Time of Encounter: 09:50 - Assessment and Plan (1) Decubitus ulcer of left heel, stage 3 Current Visit: No Status: Chronic MRI of left foot showed a large deep posterior heel soft tissue ulceration with adjacent subcutaneous edema. These findings compatible with cellulitis, but no drainable fluid collection/sinus tract. Mild posterior calcaneal bone marrow edema with particular decreased T1 signal of overlying cortex; compatible with erosive changes, possible concern for early osteomyelitis. Could also be the result of nonweightbearing. -Daily wound care colon cleanse wound with soap and water and pat dry, apply calcium alginate to wound bed, apply 4 x 4 gauze, and wrapped with Kerlix and tape to secure. -Cultures from 03/28/17: Pseudomonas, staph aureus. -IV antibiotic therapy: Vancomycin 1750 daily and Zosyn 3.375 every 8 hours per hospitalist service. -Glucose control. -Surgery will continue to follow along. (2) CKD (chronic kidney disease) stage 3, GFR 30-59 ml/min Current Visit: No Status: Chronic Patient's creatinine is currently stable. -Creatinine this morning was 1.49. Management per medicine service. -Avoid nephrotoxic medications. (3) Insulin dependent diabetes mellitus Current Visit: No Status: Chronic Continue sliding scale insulin. -Patient's glucose this morning was 383. (4) Morbid obesity with BMI of 40.0-44.9, adult Current Visit: Yes Status: Chronic (5) DVT prophylaxis Current Visit: Yes Status: Acute Heparin 5000 subcutaneous every 12. Subjective Patient reports: no new complaints Narrative: Patient was seen and examined at bedside this morning. No new complaints, states that her pain is well controlled. No new changes in the appearance of her legs. No new discharge, redness, erythema, swelling present. Objective Vital Signs - Last 8 Hours Temp Pulse Resp BP Pulse Ox 04/01/17 10:18 99.1 F 107 16 133/81 96 04/01/17 07:12 98.8 F 79 16 136/78 92 Intake and Output 03/31/17 04/01/17 04/01/17 23:59 07:59 15:59 Intake Total 240 / 240 200 / 200 360 / 360 Output Total 450 / 450 1300 / 1300 0 / 0 Balance -210 / -210 -1100 / -1100 360 / 360 Intake: IV Fluids 200 / 200 Zosyn 3.375 GM In Dextrose 5% ( 200 / 200 Minibag+) 100 ML 100 ML @ 25 mls/hr IVPB Q8HR [facility] Rx#: [id number] Oral 240 / 240 0 / 0 360 / 360 Output: Urine 950 / 950 Catheter 450 / 450 350 / 350 0 / 0 Other: Meal Dinner Breakfast Percent of Meal Consumed 20% 100% # Bowel Movements 0 0 Weight 111.3 kg Blood Glucose* 185 198 319 Patient Weight 04/01/17 23:59 Weight 111.3 kg - Labs 04/01/17 10:12 04/01/17 10:12 Diabetes panel 04/01/17 Range/Units 10:12 Sodium 133 L (136-145) mEq/L Potassium 5.0 H (3.5-4.5) mEq/L Chloride 95 L (98-109) mEq/L Carbon Dioxide 29 (19-29) mEq/L BUN 21 H (7-20) mg/dL Creatinine 1.49 H (0.57-1.11) mg/dL Glucose 383 H (70-99) mg/dL Calcium 8.8 (8.6-10.8) mg/dL Calcium panel 04/01/17 Range/Units 10:12 Calcium 8.8 (8.6-10.8) mg/dL Pituitary panel 04/01/17 Range/Units 10:12 Sodium 133 L (136-145) mEq/L Potassium 5.0 H (3.5-4.5) mEq/L Chloride 95 L (98-109) mEq/L Carbon Dioxide 29 (19-29) mEq/L BUN 21 H (7-20) mg/dL Creatinine 1.49 H (0.57-1.11) mg/dL Glucose 383 H (70-99) mg/dL Calcium 8.8 (8.6-10.8) mg/dL Adrenal panel 04/01/17 Range/Units 10:12 Sodium 133 L (136-145) mEq/L Potassium 5.0 H (3.5-4.5) mEq/L Chloride 95 L (98-109) mEq/L Carbon Dioxide 29 (19-29) mEq/L BUN 21 H (7-20) mg/dL Creatinine 1.49 H (0.57-1.11) mg/dL Glucose 383 H (70-99) mg/dL Calcium 8.8 (8.6-10.8) mg/dL Consult Discharge Plan - Plan Referrals: Elza Jesus MD [Primary Care Provider] - <Clemente Olivarez - Last Filed: 04/02/17 10:10> Date of Encounter: 04/01/17 Objective Vital Signs - Last 8 Hours Temp Pulse Resp BP Pulse Ox 04/02/17 07:56 98.6 F 87 14 127/69 95 04/02/17 04:44 98.4 F 94 16 109/66 94 Intake and Output 04/01/17 04/02/17 04/02/17 23:59 07:59 15:59 Intake Total 460 / 460 460 / 460 Output Total 150 / 150 250 / 250 Balance 310 / 310 -250 / -250 460 / 460 Intake: IV Fluids 100 / 100 100 / 100 Zosyn 3.375 GM In Dextrose 5% ( 100 / 100 100 / 100 Minibag+) 100 ML 100 ML @ 25 mls/hr IVPB Q8HR [facility] Rx#: [id number] Oral 360 / 360 360 / 360 Output: Urine 0 / 0 Catheter 150 / 150 250 / 250 Other: Meal Lunch Breakfast Percent of Meal Consumed 100% 100% # Bowel Movements 0 Weight 106.169 kg Blood Glucose* 219 255 Patient Weight 04/02/17 23:59 Weight 106.169 kg - Labs 04/02/17 07:47 04/02/17 07:47 Diabetes panel 04/01/17 04/02/17 Range/Units 10:12 07:47 Sodium 133 L 134 L (136-145) mEq/L Potassium 5.0 H 4.5 (3.5-4.5) mEq/L Chloride 95 L 99 (98-109) mEq/L Carbon Dioxide 29 27 (19-29) mEq/L BUN 21 H 26 H (7-20) mg/dL Creatinine 1.49 H 1.51 H (0.57-1.11) mg/dL Glucose 383 H 263 H (70-99) mg/dL Calcium 8.8 8.5 L (8.6-10.8) mg/dL Calcium panel 04/01/17 04/02/17 Range/Units 10:12 07:47 Calcium 8.8 8.5 L (8.6-10.8) mg/dL Pituitary panel 04/01/17 04/02/17 Range/Units 10:12 07:47 Sodium 133 L 134 L (136-145) mEq/L Potassium 5.0 H 4.5 (3.5-4.5) mEq/L Chloride 95 L 99 (98-109) mEq/L Carbon Dioxide 29 27 (19-29) mEq/L BUN 21 H 26 H (7-20) mg/dL Creatinine 1.49 H 1.51 H (0.57-1.11) mg/dL Glucose 383 H 263 H (70-99) mg/dL Calcium 8.8 8.5 L (8.6-10.8) mg/dL Adrenal panel 04/01/17 04/02/17 Range/Units 10:12 07:47 Sodium 133 L 134 L (136-145) mEq/L Potassium 5.0 H 4.5 (3.5-4.5) mEq/L Chloride 95 L 99 (98-109) mEq/L Carbon Dioxide 29 27 (19-29) mEq/L BUN 21 H 26 H (7-20) mg/dL Creatinine 1.49 H 1.51 H (0.57-1.11) mg/dL Glucose 383 H 263 H (70-99) mg/dL Calcium 8.8 8.5 L (8.6-10.8) mg/dL - Attending Attestation I examined this patient and my medical decision-making was reviewed with the Resident Physician. I agree with the documented findings, disposition and treatment plan as described except to the extent set forth below. The patient is seen and evaluated with rest and on morning rounds. Overall, her condition is stable. I agree with broad-spectrum antibiotics directed at diabetic foot infection and possible osteomyelitis in conjunction with dressing changes. I will be glad to follow her as an outpatient in the wound clinic. Clemente Olivarez MD FACS
[2017-04-01] MEDS: *HR* OxyCODONE/APAP 5/325 TABLET PO PRN ×2 (16:05→20:52)
--- NOTE | 2017-04-01 19:25 | Internal Med Progress Note ---
Date of Encounter: 04/01/17 Time of Encounter: 11:00 - Assessment and plan (1) Decubitus ulcer of left heel, stage 3 Current Visit: No Status: Chronic Assessment and plan: -MRI of left foot showed a large deep posterior heel soft tissue ulceration with adjacent subcutaneous edema compatible with cellulitis but no drainable fluid collection or sinus tract. Also noted was a mild posterior calcaneal bone marrow edema with particular decreased T1 signal of the overlying cortex compatible with erosive changes which is concerning for early osteomyelitis. -Cultures from 03/28- pseudomonas aeruginosa, staphylococcus aureus. -Will continue current management with IV echo mycin and IV Zosyn until sensitivities are known. -Gen. surgery following recommendations for daily wound care and to continue the above current medical management. (2) DM2 (diabetes mellitus, type 2) Current Visit: No Status: Chronic Assessment and plan: -Blood glucose levels controlled; will continue sliding scale insulin. Qualifiers: Diabetes mellitus complication status: with kidney complications Diabetes mellitus complication detail: with chronic kidney disease Diabetes mellitus buttermaker insulin use: unspecified buttermaker insulin use status Chronic kidney disease stage: stage 3 (moderate) Qualified Code(s): E11.22 - Type 2 diabetes mellitus with diabetic chronic kidney disease; N18.3 - Chronic kidney disease, stage 3 (moderate); N18.3 - Chronic kidney disease, stage 3 (moderate) (3) Diastolic heart failure Current Visit: No Status: Suspected Assessment and plan: -Stable as patient is euvolemic. Qualifiers: Heart failure chronicity: chronic Qualified Code(s): I50.32 - Chronic diastolic (congestive) heart failure (4) CKD (chronic kidney disease) stage 3, GFR 30-59 ml/min Current Visit: No Status: Chronic Assessment and plan: -Stable; continue to monitor creatinine (5) HTN (hypertension) Current Visit: No Status: Chronic Assessment and plan: -Controlled; continue home medications. Qualifiers: Hypertension type: essential hypertension Qualified Code(s): I10 - Essential (primary) hypertension (6) Hyperlipidemia Current Visit: No Status: Chronic Assessment and plan: -Continue statin. Qualifiers: Hyperlipidemia type: unspecified Qualified Code(s): E78.5 - Hyperlipidemia , unspecified (7) DVT prophylaxis Current Visit: Yes Status: Acute Assessment and plan: Heparin subcutaneous - Subjective Interval history: No acute events overnight and patient's left heel pain is controlled - Constitutional Vitals: Temp Pulse Resp BP Pulse Ox 98.9 F 84 16 106/62 95 04/01/17 15:43 04/01/17 15:43 04/01/17 15:43 04/01/17 15:43 04/01/17 15:43 General appearance: Present: A&O X 3 - Respiratory Respiratory exam: Present: CTAB. Absent: accessory muscle use, rales, rhonchi, wheezes - Cardiovascular Cardiovascular exam: Present: RRR, +S1, +S2. Absent: diastolic murmur, gallop, rubs, systolic murmur Internal Medicine: Result - Labs CBC & Chem 7: 04/01/17 10:12 04/01/17 10:12 Labs: Short CBC 04/01/17 Range/Units 10:12 WBC 7.3 (4.3-11.1) K/mcL Hgb 8.9 L (11.5-15.4) g/dL Hct 30.0 L (35.3-44.9) % Plt Count 309 (140-400) K/mcL Neutrophils # 5.5 (1.6-8.9) K/mcL BMP 04/01/17 10:12 Sodium 133 L Potassium 5.0 H Chloride 95 L Carbon Dioxide 29 BUN 21 H Creatinine 1.49 H Glucose 383 H Calcium 8.8 Consult Discharge Plan - Plan Referrals: Elza Jesus MD [Primary Care Provider] -
[2017-04-02] MEDS: *HR* Heparin 5,000 UNIT/ML VIAL SQ SCH ×2 (06:04→18:29)
[2017-04-02 08:13] LABS: Hematocrit 24.8 % (35.3-44.9); Immature Platelets 0.8 % (1.1-6.1); Mean Corpuscular HGB Conc 29.8 g/dL (31.6-35.5); Mean Corpuscular Hemoglobin 24.9 pg (28.0-33.3); Mean Corpuscular Volume 83.5 fL (83.0-100.0); Mean Platelet Volume 7.9 fL (9.4-12.4); Red Blood Count 2.97 M/mcL (3.82-4.97); Red Cell Distribution Width 16.5 % (11.5-14.5)
[2017-04-02 08:21] LABS: Hemoglobin 7.4 g/dL (11.5-15.4)
[2017-04-02 08:42] LABS: Calcium 8.5 mg/dL (8.6-10.8); Potassium 4.5 mEq/L (3.5-4.5)
[2017-04-02] MEDS: Insulin LISPRO 300 UNITS/3 ML VIAL SQ SCH ×4 (09:19→21:23)
[2017-04-02] MEDS: Piperacillin/Tazobactam 3.375 GM in D5% in Water (Mini-Bag+) 100 ML IVPB SCH ×3 (09:21→23:55)
[2017-04-02] MEDS: Miconazole w/zinc oxide&karaya 92 APPL/92 GM TUBE TP SCH ×2 (09:27→23:54)
[2017-04-02] MEDS: Nystatin POWDER 30 GM BOTTLE TP SCH ×2 (09:27→23:54)
--- NOTE | 2017-04-02 10:22 | General Surgery Progress Note ---
<Tobi Plasencia - Last Filed: 04/02/17 10:42> Date of Encounter: 04/02/17 Time of Encounter: 09:30 - Assessment and Plan (1) Decubitus ulcer of left heel, stage 3 Current Visit: No Status: Chronic MRI of left foot showed a large deep posterior heel soft tissue ulceration with adjacent subcutaneous edema. These findings compatible with cellulitis, but no drainable fluid collection/sinus tract. Mild posterior calcaneal bone marrow edema with particular decreased T1 signal of overlying cortex; compatible with erosive changes, possible concern for early osteomyelitis. Could also be the result of nonweightbearing. -Daily wound care colon cleanse wound with soap and water and pat dry, apply calcium alginate to wound bed, apply 4 x 4 gauze, and wrapped with Kerlix and tape to secure. -Dressing changes. -Cultures from 03/28/17: Pseudomonas, staph aureus. -IV antibiotic therapy: Vancomycin 1750 daily and Zosyn 3.375 every 8 hours per hospitalist service. -Glucose control. -Surgery will continue to follow along. -Patient should follow up with wound care in the outpatient setting after discharge. (2) CKD (chronic kidney disease) stage 3, GFR 30-59 ml/min Current Visit: No Status: Chronic Patient's creatinine is currently stable. -Creatinine this morning was 1.51. Management per medicine service. -Avoid nephrotoxic medications. (3) Insulin dependent diabetes mellitus Current Visit: No Status: Chronic Continue sliding scale insulin. -Patient's glucose this morning was 263. (4) Morbid obesity with BMI of 40.0-44.9, adult Current Visit: Yes Status: Chronic (5) DVT prophylaxis Current Visit: Yes Status: Acute Heparin 5000 SQ every 12hr. Subjective Patient reports: no new complaints, still having pain, pain is less Narrative: Ms. Mejia was seen and examined at bedside this morning. SHe reports some tenderness in her leg, but states that her pain is well controlled and relatively unchanged from yesterday. Denies fever, chills, nausea, vomiting, or numbness/tingling. Objective Vital Signs - Last 8 Hours Temp Pulse Resp BP Pulse Ox 04/02/17 10:14 99.3 F 80 14 106/67 95 04/02/17 07:56 98.6 F 87 14 127/69 95 04/02/17 04:44 98.4 F 94 16 109/66 94 Intake and Output 04/01/17 04/02/17 04/02/17 23:59 07:59 15:59 Intake Total 460 / 460 460 / 460 Output Total 150 / 150 250 / 250 100 / 100 Balance 310 / 310 -250 / -250 360 / 360 Intake: IV Fluids 100 / 100 100 / 100 Zosyn 3.375 GM In Dextrose 5% ( 100 / 100 100 / 100 Minibag+) 100 ML 100 ML @ 25 mls/hr IVPB Q8HR [facility] Rx#: [id number] Oral 360 / 360 360 / 360 Output: Urine 0 / 0 Catheter 150 / 150 250 / 250 100 / 100 Other: Meal Lunch Breakfast Percent of Meal Consumed 100% 100% # Bowel Movements 0 0 Weight 106.169 kg Blood Glucose* 219 255 Patient Weight 04/02/17 23:59 Weight 106.169 kg - General physical appearance well developed, well nourished, no distress - Neck Neck exam: trachea midline, no lymphadectomy - Respiratory normal expansion, normal respiratory effort, clear to auscultation - Cardiovascular Cardiovascular exam: Present: RRR, no murmurs/rubs/gallops - Abdomen Abdomen: Present: soft, non tender - Psychiatric oriented to time, oriented to person, oriented to place, speech is normal - Labs 04/02/17 07:47 04/02/17 07:47 Diabetes panel 04/01/17 04/02/17 Range/Units 10:12 07:47 Sodium 133 L 134 L (136-145) mEq/L Potassium 5.0 H 4.5 (3.5-4.5) mEq/L Chloride 95 L 99 (98-109) mEq/L Carbon Dioxide 29 27 (19-29) mEq/L BUN 21 H 26 H (7-20) mg/dL Creatinine 1.49 H 1.51 H (0.57-1.11) mg/dL Glucose 383 H 263 H (70-99) mg/dL Calcium 8.8 8.5 L (8.6-10.8) mg/dL Calcium panel 04/01/17 04/02/17 Range/Units 10:12 07:47 Calcium 8.8 8.5 L (8.6-10.8) mg/dL Pituitary panel 04/01/17 04/02/17 Range/Units 10:12 07:47 Sodium 133 L 134 L (136-145) mEq/L Potassium 5.0 H 4.5 (3.5-4.5) mEq/L Chloride 95 L 99 (98-109) mEq/L Carbon Dioxide 29 27 (19-29) mEq/L BUN 21 H 26 H (7-20) mg/dL Creatinine 1.49 H 1.51 H (0.57-1.11) mg/dL Glucose 383 H 263 H (70-99) mg/dL Calcium 8.8 8.5 L (8.6-10.8) mg/dL Adrenal panel 04/01/17 04/02/17 Range/Units 10:12 07:47 Sodium 133 L 134 L (136-145) mEq/L Potassium 5.0 H 4.5 (3.5-4.5) mEq/L Chloride 95 L 99 (98-109) mEq/L Carbon Dioxide 29 27 (19-29) mEq/L BUN 21 H 26 H (7-20) mg/dL Creatinine 1.49 H 1.51 H (0.57-1.11) mg/dL Glucose 383 H 263 H (70-99) mg/dL Calcium 8.8 8.5 L (8.6-10.8) mg/dL Consult Discharge Plan - Plan Referrals: Elza Jesus MD [Primary Care Provider] - <Clemente Olivarez - Last Filed: 04/02/17 14:21> Date of Encounter: 04/02/17 Objective Vital Signs - Last 8 Hours Temp Pulse Resp BP Pulse Ox 04/02/17 10:14 99.3 F 80 14 106/67 95 04/02/17 07:56 98.6 F 87 14 127/69 95 Intake and Output 04/01/17 04/02/17 04/02/17 23:59 07:59 15:59 Intake Total 460 / 460 460 / 460 Output Total 150 / 150 250 / 250 100 / 100 Balance 310 / 310 -250 / -250 360 / 360 Intake: IV Fluids 100 / 100 100 / 100 Zosyn 3.375 GM In Dextrose 5% ( 100 / 100 100 / 100 Minibag+) 100 ML 100 ML @ 25 mls/hr IVPB Q8HR [facility] Rx#: [id number] Oral 360 / 360 360 / 360 Output: Urine 0 / 0 Catheter 150 / 150 250 / 250 100 / 100 Other: Meal Lunch Breakfast Percent of Meal Consumed 100% 100% # Bowel Movements 0 0 Weight 106.169 kg Blood Glucose* 219 255 263 Patient Weight 04/02/17 23:59 Weight 106.169 kg - Labs 04/02/17 07:47 04/02/17 07:47 Diabetes panel 04/02/17 Range/Units 07:47 Sodium 134 L (136-145) mEq/L Potassium 4.5 (3.5-4.5) mEq/L Chloride 99 (98-109) mEq/L Carbon Dioxide 27 (19-29) mEq/L BUN 26 H (7-20) mg/dL Creatinine 1.51 H (0.57-1.11) mg/dL Glucose 263 H (70-99) mg/dL Calcium 8.5 L (8.6-10.8) mg/dL Calcium panel 04/02/17 Range/Units 07:47 Calcium 8.5 L (8.6-10.8) mg/dL Pituitary panel 04/02/17 Range/Units 07:47 Sodium 134 L (136-145) mEq/L Potassium 4.5 (3.5-4.5) mEq/L Chloride 99 (98-109) mEq/L Carbon Dioxide 27 (19-29) mEq/L BUN 26 H (7-20) mg/dL Creatinine 1.51 H (0.57-1.11) mg/dL Glucose 263 H (70-99) mg/dL Calcium 8.5 L (8.6-10.8) mg/dL Adrenal panel 04/02/17 Range/Units 07:47 Sodium 134 L (136-145) mEq/L Potassium 4.5 (3.5-4.5) mEq/L Chloride 99 (98-109) mEq/L Carbon Dioxide 27 (19-29) mEq/L BUN 26 H (7-20) mg/dL Creatinine 1.51 H (0.57-1.11) mg/dL Glucose 263 H (70-99) mg/dL Calcium 8.5 L (8.6-10.8) mg/dL - Attending Attestation I examined this patient and my medical decision-making was reviewed with the Resident Physician. I agree with the documented findings, disposition and treatment plan as described except to the extent set forth below. The patient is seen and evaluated on morning rounds. There is little change in her clinical presentation. She is receiving broad-spectrum antibiotics and appropriate wound care. She will be followed as an outpatient in the wound clinic. I agree with an outpatient course of antibiotics. Clemente Olivarez MD FACS
[2017-04-02] MEDS ORDERED: Vancomycin 1,750 MG in D5% in Water 500 ML IVPB ONE (14:00)
--- NOTE | 2017-04-02 14:24 | Internal Med Progress Note ---
Date of Encounter: 04/02/17 Time of Encounter: 11:00 - Assessment and plan (1) Decubitus ulcer of left heel, stage 3 Current Visit: Yes Status: Chronic Assessment and plan: -MRI of left foot showed a large deep posterior heel soft tissue ulceration with adjacent subcutaneous edema compatible with cellulitis but no drainable fluid collection or sinus tract. Also noted was a mild posterior calcaneal bone marrow edema with particular decreased T1 signal of the overlying cortex compatible with erosive changes which is concerning for early osteomyelitis. -Cultures from 03/28- pseudomonas aeruginosa, staphylococcus aureus. -Will continue current management with IV vancomycin and Zosyn until sensitivities are known. -Gen. surgery following recommendations for daily wound care and to continue the above current medical management. (2) DM2 (diabetes mellitus, type 2) Current Visit: No Status: Chronic Assessment and plan: -Blood glucose levels controlled; will continue sliding scale insulin. 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 Qualifiers: Heart failure chronicity: chronic Qualified Code(s): I50.32 - Chronic diastolic (congestive) heart failure (4) CKD (chronic kidney disease) stage 3, GFR 30-59 ml/min Current Visit: No Status: Chronic Assessment and plan: -Stable; continue to monitor creatinine (5) HTN (hypertension) Current Visit: No Status: Chronic Assessment and plan: -Controlled; continue home medications. Qualifiers: Hypertension type: essential hypertension Qualified Code(s): I10 - Essential (primary) hypertension (6) Hyperlipidemia Current Visit: No Status: Chronic Assessment and plan: -Continue statin. Qualifiers: Hyperlipidemia type: unspecified Qualified Code(s): E78.5 - Hyperlipidemia , unspecified (7) DVT prophylaxis Current Visit: Yes Status: Acute Assessment and plan: Heparin subcutaneous - Subjective Interval history: No acute events overnight and patient's left heel pain is controlled - Constitutional Vitals: Temp Pulse Resp BP Pulse Ox 99.3 F 80 14 106/67 95 04/02/17 10:14 04/02/17 10:14 04/02/17 10:14 04/02/17 10:14 04/02/17 10:14 General appearance: Present: A&O X 3 - Respiratory Respiratory exam: Present: CTAB. Absent: accessory muscle use, rales, rhonchi, wheezes - Cardiovascular Cardiovascular exam: Present: RRR, +S1, +S2. Absent: diastolic murmur, gallop, rubs, systolic murmur Internal Medicine: Result - Labs CBC & Chem 7: 04/02/17 07:47 04/02/17 07:47 Labs: Short CBC 04/02/17 Range/Units 07:47 WBC 6.2 (4.3-11.1) K/mcL Hgb 7.4 L D (11.5-15.4) g/dL Hct 24.8 L (35.3-44.9) % Plt Count 396 (140-400) K/mcL BMP 04/02/17 07:47 Sodium 134 L Potassium 4.5 Chloride 99 Carbon Dioxide 27 BUN 26 H Creatinine 1.51 H Glucose 263 H Calcium 8.5 L Consult Discharge Plan - Plan Referrals: Elza Jesus MD [Primary Care Provider] -
[2017-04-02 16:53] LABS: Hematocrit 24.3 % (35.3-44.9); Hemoglobin 7.5 g/dL (11.5-15.4); Mean Corpuscular HGB Conc 30.9 g/dL (31.6-35.5); Mean Corpuscular Hemoglobin 25.4 pg (28.0-33.3); Mean Corpuscular Volume 82.4 fL (83.0-100.0); Mean Platelet Volume 8.2 fL (9.4-12.4); Platelet Count 309 K/mcL (140-400); Red Blood Count 2.95 M/mcL (3.82-4.97); Red Cell Distribution Width 16.5 % (11.5-14.5)
[2017-04-02 17:07] LABS: Calcium 8.4 mg/dL (8.6-10.8); Potassium 4.7 mEq/L (3.5-4.5)
[2017-04-02] MEDS: *HR* OxyCODONE/APAP 5/325 TABLET PO PRN (23:55)
[2017-04-03] MEDS: *HR* Heparin 5,000 UNIT/ML VIAL SQ SCH ×2 (05:45→19:38)
[2017-04-03] MEDS: Piperacillin/Tazobactam 3.375 GM in D5% in Water (Mini-Bag+) 100 ML IVPB SCH ×2 (08:57→17:41)
[2017-04-03] MEDS: Insulin LISPRO 300 UNITS/3 ML VIAL SQ SCH ×4 (09:04→20:37)
--- NOTE | 2017-04-03 09:41 | General Surgery Progress Note ---
<Tobi Plasencia - Last Filed: 04/03/17 09:43> Date of Encounter: 04/03/17 Time of Encounter: 09:00 - Assessment and Plan (1) Decubitus ulcer of left heel, stage 3 Current Visit: Yes Status: Chronic MRI of left foot showed a large deep posterior heel soft tissue ulceration with adjacent subcutaneous edema. These findings compatible with cellulitis, but no drainable fluid collection/sinus tract. Mild posterior calcaneal bone marrow edema with particular decreased T1 signal of overlying cortex; compatible with erosive changes, possible concern for early osteomyelitis. Could also be the result of nonweightbearing. -Daily wound care colon cleanse wound with soap and water and pat dry, apply calcium alginate to wound bed, apply 4 x 4 gauze, and wrapped with Kerlix and tape to secure. -Dressing changes. -Cultures from 03/28/17: Pseudomonas, staph aureus. -IV antibiotic therapy: Vancomycin 1750 daily and Zosyn 3.375 every 8 hours per hospitalist service. -Glucose control. -Patient should follow up with wound care in the outpatient setting after discharge. -Patient will be sent home on antibiotics. (2) CKD (chronic kidney disease) stage 3, GFR 30-59 ml/min Current Visit: No Status: Chronic Patient's creatinine is currently stable. -Management per medicine service. -Avoid nephrotoxic medications. (3) Insulin dependent diabetes mellitus Current Visit: No Status: Chronic Continue sliding scale insulin. -Patient's glucose this morning was 213. (4) Morbid obesity with BMI of 40.0-44.9, adult Current Visit: Yes Status: Chronic (5) DVT prophylaxis Current Visit: Yes Status: Acute Heparin 5000 SQ every 12hr. Subjective Patient reports: no new complaints, feels better, pain is less Narrative: Patient was seen and examined at bedside this morning. She reports no new pain in her legs. Denies fever, chills, nausea, vomiting, fatigue. Patient is feeling well and has no complaints at this time. Objective Vital Signs - Last 8 Hours Temp Pulse Resp BP Pulse Ox 04/03/17 06:57 98.5 F 84 18 149/77 94 04/03/17 04:50 98.2 F 89 16 146/78 93 Intake and Output 04/02/17 04/03/17 04/03/17 23:59 07:59 15:59 Intake Total 340 / 340 100 / 100 240 / 240 Output Total 600 / 600 300 / 300 Balance -260 / -260 -200 / -200 240 / 240 Intake: IV Fluids 100 / 100 100 / 100 Zosyn 3.375 GM In Dextrose 5% ( 100 / 100 100 / 100 Minibag+) 100 ML 100 ML @ 25 mls/hr IVPB Q8HR [facility] Rx#: [id number] Oral 240 / 240 240 / 240 Output: Urine 600 / 600 300 / 300 Urethral (Mcneill) 350 / 350 Catheter 0 / 0 Other: Meal Dinner Breakfast Percent of Meal Consumed 80% 10% # Bowel Movements 0 Weight 106.1 kg Blood Glucose* 256 213 Patient Weight 04/03/17 23:59 Weight 106.1 kg - General physical appearance well developed, well nourished, no distress - Neck Neck exam: no masses, trachea midline, no lymphadectomy - Respiratory normal expansion, normal respiratory effort, clear to auscultation - Cardiovascular Cardiovascular exam: Present: RRR, no murmurs/rubs/gallops - Psychiatric oriented to time, oriented to person, oriented to place, speech is normal - Labs 04/02/17 16:33 04/02/17 16:33 Diabetes panel 04/02/17 Range/Units 16:33 Sodium 133 L (136-145) mEq/L Potassium 4.7 H (3.5-4.5) mEq/L Chloride 98 (98-109) mEq/L Carbon Dioxide 26 (19-29) mEq/L BUN 24 H (7-20) mg/dL Creatinine 1.55 H (0.57-1.11) mg/dL Glucose 239 H (70-99) mg/dL Calcium 8.4 L (8.6-10.8) mg/dL Calcium panel 04/02/17 Range/Units 16:33 Calcium 8.4 L (8.6-10.8) mg/dL Pituitary panel 04/02/17 Range/Units 16:33 Sodium 133 L (136-145) mEq/L Potassium 4.7 H (3.5-4.5) mEq/L Chloride 98 (98-109) mEq/L Carbon Dioxide 26 (19-29) mEq/L BUN 24 H (7-20) mg/dL Creatinine 1.55 H (0.57-1.11) mg/dL Glucose 239 H (70-99) mg/dL Calcium 8.4 L (8.6-10.8) mg/dL Adrenal panel 04/02/17 Range/Units 16:33 Sodium 133 L (136-145) mEq/L Potassium 4.7 H (3.5-4.5) mEq/L Chloride 98 (98-109) mEq/L Carbon Dioxide 26 (19-29) mEq/L BUN 24 H (7-20) mg/dL Creatinine 1.55 H (0.57-1.11) mg/dL Glucose 239 H (70-99) mg/dL Calcium 8.4 L (8.6-10.8) mg/dL Consult Discharge Plan - Plan Referrals: Elza Jesus MD [Primary Care Provider] - Clemente Olivarez MD [Partnered Physician] - 04/10/17 10:45 am (In [facility]) <Blanca Abad - Last Filed: 04/03/17 14:25> Date of Encounter: 04/03/17 Objective Vital Signs - Last 8 Hours Temp Pulse Resp BP Pulse Ox 04/03/17 11:16 99.4 F 93 18 143/77 95 04/03/17 06:57 98.5 F 84 18 149/77 94 Intake and Output 04/02/17 04/03/17 04/03/17 23:59 07:59 15:59 Intake Total 340 / 340 100 / 100 480 / 480 Output Total 600 / 600 300 / 300 350 / 350 Balance -260 / -260 -200 / -200 130 / 130 Intake: IV Fluids 100 / 100 100 / 100 Zosyn 3.375 GM In Dextrose 5% ( 100 / 100 100 / 100 Minibag+) 100 ML 100 ML @ 25 mls/hr IVPB Q8HR [facility] Rx#: [id number] Oral 240 / 240 480 / 480 Output: Urine 600 / 600 300 / 300 Urethral (Mcneill) 350 / 350 Catheter 0 / 0 350 / 350 Other: Meal Dinner Lunch Percent of Meal Consumed 80% 100% Stool Size Copious Stool Consistency loose soft Stool Color Brown # Bowel Movements 0 1 Weight 106.1 kg Blood Glucose* 256 213 234 Patient Weight 04/03/17 23:59 Weight 106.1 kg - Labs 04/03/17 09:52 04/03/17 09:52 Diabetes panel 04/02/17 04/03/17 Range/Units 16:33 09:52 Sodium 133 L 135 L (136-145) mEq/L Potassium 4.7 H 4.5 (3.5-4.5) mEq/L Chloride 98 100 (98-109) mEq/L Carbon Dioxide 26 27 (19-29) mEq/L BUN 24 H 21 H (7-20) mg/dL Creatinine 1.55 H 1.43 H (0.57-1.11) mg/dL Glucose 239 H 263 H (70-99) mg/dL Calcium 8.4 L 8.5 L (8.6-10.8) mg/dL Calcium panel 04/02/17 04/03/17 Range/Units 16:33 09:52 Calcium 8.4 L 8.5 L (8.6-10.8) mg/dL Pituitary panel 04/02/17 04/03/17 Range/Units 16:33 09:52 Sodium 133 L 135 L (136-145) mEq/L Potassium 4.7 H 4.5 (3.5-4.5) mEq/L Chloride 98 100 (98-109) mEq/L Carbon Dioxide 26 27 (19-29) mEq/L BUN 24 H 21 H (7-20) mg/dL Creatinine 1.55 H 1.43 H (0.57-1.11) mg/dL Glucose 239 H 263 H (70-99) mg/dL Calcium 8.4 L 8.5 L (8.6-10.8) mg/dL Adrenal panel 04/02/17 04/03/17 Range/Units 16:33 09:52 Sodium 133 L 135 L (136-145) mEq/L Potassium 4.7 H 4.5 (3.5-4.5) mEq/L Chloride 98 100 (98-109) mEq/L Carbon Dioxide 26 27 (19-29) mEq/L BUN 24 H 21 H (7-20) mg/dL Creatinine 1.55 H 1.43 H (0.57-1.11) mg/dL Glucose 239 H 263 H (70-99) mg/dL Calcium 8.4 L 8.5 L (8.6-10.8) mg/dL <Clemente Olivarez - Last Filed: 04/04/17 08:19> Date of Encounter: 04/03/17 Objective Vital Signs - Last 8 Hours Temp Pulse Resp BP Pulse Ox 04/04/17 07:35 98.0 F 75 15 168/88 95 04/04/17 03:51 97.9 F 78 16 162/79 94 Intake and Output 04/03/17 04/04/17 04/04/17 23:59 07:59 15:59 Intake Total 100 / 100 500 / 500 Output Total 0 / 0 900 / 900 Balance 100 / 100 -400 / -400 Intake: IV Fluids 100 / 100 100 / 100 Zosyn 3.375 GM In Dextrose 5% ( 100 / 100 100 / 100 Minibag+) 100 ML 100 ML @ 25 mls/hr IVPB Q8HR [facility] Rx#: [id number] Oral 0 / 0 400 / 400 Output: Urine 0 / 0 Catheter 0 / 0 900 / 900 Other: # Bowel Movements 0 Blood Glucose* 294 244 - Labs 04/03/17 09:52 04/03/17 09:52 Diabetes panel 04/03/17 Range/Units 09:52 Sodium 135 L (136-145) mEq/L Potassium 4.5 (3.5-4.5) mEq/L Chloride 100 (98-109) mEq/L Carbon Dioxide 27 (19-29) mEq/L BUN 21 H (7-20) mg/dL Creatinine 1.43 H (0.57-1.11) mg/dL Glucose 263 H (70-99) mg/dL Calcium 8.5 L (8.6-10.8) mg/dL Calcium panel 04/03/17 Range/Units 09:52 Calcium 8.5 L (8.6-10.8) mg/dL Pituitary panel 04/03/17 Range/Units 09:52 Sodium 135 L (136-145) mEq/L Potassium 4.5 (3.5-4.5) mEq/L Chloride 100 (98-109) mEq/L Carbon Dioxide 27 (19-29) mEq/L BUN 21 H (7-20) mg/dL Creatinine 1.43 H (0.57-1.11) mg/dL Glucose 263 H (70-99) mg/dL Calcium 8.5 L (8.6-10.8) mg/dL Adrenal panel 04/03/17 Range/Units 09:52 Sodium 135 L (136-145) mEq/L Potassium 4.5 (3.5-4.5) mEq/L Chloride 100 (98-109) mEq/L Carbon Dioxide 27 (19-29) mEq/L BUN 21 H (7-20) mg/dL Creatinine 1.43 H (0.57-1.11) mg/dL Glucose 263 H (70-99) mg/dL Calcium 8.5 L (8.6-10.8) mg/dL - Attending Attestation I examined this patient and my medical decision-making was reviewed with the Resident Physician. I agree with the documented findings, disposition and treatment plan as described except to the extent set forth below. The patient was seen and evaluated on morning rounds. Her condition is stable. I will be glad to follow her as an outpatient. She should complete antibiotic therapy for suspected osteomyelitis of the left heel. Clemente Olivarez MD FACS
[2017-04-03 10:17] LABS: Basophils % 0.7 %; Eosinophils # 0.3 K/mcL (0.0-0.6); Eosinophils % 4.9 %; Hematocrit 25.1 % (35.3-44.9); Hemoglobin 7.5 g/dL (11.5-15.4); Lymphocytes # 0.8 K/mcL (0.6-4.6); Lymphocytes % 12.8 %; Mean Corpuscular HGB Conc 29.9 g/dL (31.6-35.5); Mean Corpuscular Hemoglobin 24.8 pg (28.0-33.3); Mean Corpuscular Volume 82.8 fL (83.0-100.0); Monocytes # 0.4 K/mcL (0.0-1.3); Monocytes % 7.3 %; Neutrophils # 4.3 K/mcL (1.6-8.9); Platelet Count 303 K/mcL (140-400); Red Blood Count 3.03 M/mcL (3.82-4.97); Red Cell Distribution Width 16.4 % (11.5-14.5); Segmented Neutrophils % 72.3 %
[2017-04-03 10:32] LABS: Calcium 8.5 mg/dL (8.6-10.8); Potassium 4.5 mEq/L (3.5-4.5)
[2017-04-03] MEDS: *HR* OxyCODONE/APAP 5/325 TABLET PO PRN (12:57)
--- NOTE | 2017-04-03 16:50 | Internal Med Progress Note ---
Date of Encounter: 04/03/17 Time of Encounter: 11:00 - Assessment and plan (1) Decubitus ulcer of left heel, stage 3 Current Visit: Yes Status: Chronic Assessment and plan: -MRI of left foot showed a large deep posterior heel soft tissue ulceration with adjacent subcutaneous edema compatible with cellulitis but no drainable fluid collection or sinus tract. Also noted was a mild posterior calcaneal bone marrow edema with particular decreased T1 signal of the overlying cortex compatible with erosive changes which is concerning for early osteomyelitis. -Cultures from 03/28- pseudomonas aeruginosa, staphylococcus aureus. -Will continue current management with IV vancomycin and Zosyn until sensitivities are known. -Gen. surgery following recommendations for daily wound care and to continue the above current medical management. (2) DM2 (diabetes mellitus, type 2) Current Visit: No Status: Chronic Assessment and plan: -Blood glucose levels controlled; will continue sliding scale insulin. 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 Qualifiers: Heart failure chronicity: chronic Qualified Code(s): I50.32 - Chronic diastolic (congestive) heart failure (4) CKD (chronic kidney disease) stage 3, GFR 30-59 ml/min Current Visit: No Status: Chronic Assessment and plan: -Stable; continue to monitor creatinine (5) HTN (hypertension) Current Visit: No Status: Chronic Assessment and plan: -Controlled; continue home medications. Qualifiers: Hypertension type: essential hypertension Qualified Code(s): I10 - Essential (primary) hypertension (6) Hyperlipidemia Current Visit: No Status: Chronic Assessment and plan: -Continue statin. Qualifiers: Hyperlipidemia type: unspecified Qualified Code(s): E78.5 - Hyperlipidemia , unspecified (7) DVT prophylaxis Current Visit: Yes Status: Acute Assessment and plan: Heparin subcutaneous - Subjective Interval history: No acute events overnight and patient's left heel pain is controlled - Constitutional Vitals: Temp Pulse Resp BP Pulse Ox 99.4 F 91 16 125/65 95 04/03/17 15:03 04/03/17 15:03 04/03/17 15:03 04/03/17 15:03 04/03/17 15:03 General appearance: Present: A&O X 3 - Respiratory Respiratory exam: Present: CTAB. Absent: accessory muscle use, rales, rhonchi, wheezes - Cardiovascular Cardiovascular exam: Present: RRR, +S1, +S2. Absent: diastolic murmur, gallop, rubs, systolic murmur Internal Medicine: Result - Labs CBC & Chem 7: 04/03/17 09:52 04/03/17 09:52 Labs: Short CBC 04/02/17 04/03/17 Range/Units 16:33 09:52 WBC 6.2 5.9 (4.3-11.1) K/mcL Hgb 7.5 L 7.5 L (11.5-15.4) g/dL Hct 24.3 L 25.1 L (35.3-44.9) % Plt Count 309 303 (140-400) K/mcL Neutrophils # 4.3 (1.6-8.9) K/mcL BMP 04/02/17 04/03/17 16:33 09:52 Sodium 133 L 135 L Potassium 4.7 H 4.5 Chloride 98 100 Carbon Dioxide 26 27 BUN 24 H 21 H Creatinine 1.55 H 1.43 H Glucose 239 H 263 H Calcium 8.4 L 8.5 L Consult Discharge Plan - Plan Referrals: Clemente Olivarez MD [Partnered Physician] - 04/10/17 10:45 am (In [facility]) Elza Jesus MD [Primary Care Provider] -
[2017-04-03] MEDS: Nystatin POWDER 30 GM BOTTLE TP SCH ×2 (19:37→20:35)
[2017-04-03] MEDS: Miconazole w/zinc oxide&karaya 92 APPL/92 GM TUBE TP SCH ×2 (19:38→20:35)
[2017-04-04] MEDS: Piperacillin/Tazobactam 3.375 GM in D5% in Water (Mini-Bag+) 100 ML IVPB SCH (00:13)
[2017-04-04] MEDS: *HR* OxyCODONE/APAP 5/325 TABLET PO PRN ×3 (04:33→22:53)
[2017-04-04] MEDS: *HR* Heparin 5,000 UNIT/ML VIAL SQ SCH ×2 (05:56→17:38)
[2017-04-04] MEDS ORDERED: Levofloxacin 750 MG/150 ML 750 MG/150 ML BAG IVPB SCH (09:00)
[2017-04-04] MEDS: Insulin LISPRO 300 UNITS/3 ML VIAL SQ SCH ×4 (09:17→19:57)
[2017-04-04] MEDS: Miconazole w/zinc oxide&karaya 92 APPL/92 GM TUBE TP SCH ×2 (09:18→22:39)
[2017-04-04] MEDS: Nystatin POWDER 30 GM BOTTLE TP SCH ×2 (09:52→20:18)
[2017-04-04] MEDS ORDERED: Aminoglycoside Consult 1 EACH MC ONE (13:39)
--- NOTE | 2017-04-04 14:04 | Discharge Summary ---
Date of Encounter: 04/04/17 Time of Encounter: 10:30 - Discharge Diagnosis (1) Osteomyelitis Priority: Primary Status: Acute Qualifiers: Osteomyelitis type: other acute Osteomyelitis location: foot Laterality: left Qualified Code(s): M86.172 - Other acute osteomyelitis, left ankle and foot (2) Decubitus ulcer of left heel, stage 3 Priority: Secondary Status: Chronic (3) CKD (chronic kidney disease) stage 3, GFR 30-59 ml/min Priority: Secondary Status: Chronic (4) Diastolic heart failure Priority: Secondary Status: Chronic Qualifiers: Heart failure chronicity: chronic Qualified Code(s): I50.32 - Chronic diastolic (congestive) heart failure (5) DM2 (diabetes mellitus, type 2) Priority: Secondary Status: Chronic Qualifiers: Diabetes mellitus complication status: with kidney complications Diabetes mellitus complication detail: with chronic kidney disease 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 Chronic kidney disease stage: stage 3 (moderate) Qualified Code(s): E11.22 - Type 2 diabetes mellitus with diabetic chronic kidney disease; N18.3 - Chronic kidney disease, stage 3 (moderate); N18.3 - Chronic kidney disease, stage 3 (moderate) (6) DVT prophylaxis Priority: Secondary Status: Acute (7) HTN (hypertension) Priority: Secondary Status: Chronic Qualifiers: Hypertension type: essential hypertension Qualified Code(s): I10 - Essential (primary) hypertension (8) Hyperlipidemia Priority: Secondary Status: Chronic Qualifiers: Hyperlipidemia type: unspecified Qualified Code(s): E78.5 - Hyperlipidemia , unspecified (9) Anemia Priority: Secondary Status: Chronic Qualifiers: Anemia type: due to chronic kidney disease Chronic kidney disease stage: stage 3 (moderate) Qualified Code(s): N18.3 - Chronic kidney disease, stage 3 (moderate); D63.1 - Anemia in chronic kidney disease; D63.1 - Anemia in chronic kidney disease - Discharge Medications Prescriptions: Lactobacillus [Culturelle] 1 each PO BID #30 cap.sprink Levofloxacin 750 MG/150 ML [Levaquin Premix 750mg/150 mL] 150 ml IVPB Q48H #14 bag Miconazole w/zinc oxide&karaya [Antifungal Extra Thick] 1 appl TP BID #1 tube Nystatin POWDER [Nystop] 1 appl TP BID #1 bottle OxyCODONE/APAP 5/325 [Percocet 5/325 MG] 1 tab PO BID PRN #14 tablet PRN Reason: Pain Vancomycin/0.9 % Sod Chloride [Vanco-0.9% NaCl 750 mg/150 ml] 750 mg IV DAILY # 28 plast..bag Home Medications: Aspirin [Adult Low Dose Aspirin EC] 81 mg PO DAILY 08/18/15 [History] Gabapentin [Neurontin] 300 mg PO HS 08/18/15 [History] Insulin LISPRO [Humalog] 14 unit SQ BID 08/18/15 [History] Pravastatin Sodium [Pravachol] 40 mg PO HS 08/18/15 [History] Buspirone HCl [Buspar] 5 mg PO BID 11/16/15 [History] Linagliptin/Metformin HCl [Jentadueto Xr 2.5 mg-1,000 mg] 1 tab PO BID 05/03/16 [History] Carvedilol [Coreg] 6.25 mg PO BIDWM #60 tablet 05/11/16 [Rx] amLODIPine [Norvasc] 5 mg PO DAILY #30 tablet 05/11/16 [Rx] Insulin Glargine,Hum.rec.anlog [Toujeo Solostar] 14 units SQ QAM 03/10/17 [ History] Collagenase Oint [Santyl] 1 appl TP DAILY 03/29/17 [History] Furosemide [Lasix] 20 mg PO QPM 03/29/17 [History] Furosemide [Lasix] 40 mg PO QAM 03/29/17 [History] Lactobacillus [Culturelle] 1 each PO BID #30 cap.sprink 04/04/17 [Rx] Levofloxacin 750 MG/150 ML [Levaquin Premix 750mg/150 mL] 150 ml IVPB Q48H #14 bag 04/04/17 [Rx] Miconazole w/zinc oxide&karaya [Antifungal Extra Thick] 1 appl TP BID #1 tube [Rx] Nystatin POWDER [Nystop] 1 appl TP BID #1 bottle 04/04/17 [Rx] OxyCODONE/APAP 5/325 [Percocet 5/325 MG] 1 tab PO BID PRN #14 tablet 04/04/17 [ Rx] Vancomycin/0.9 % Sod Chloride [Vanco-0.9% NaCl 750 mg/150 ml] 750 mg IV DAILY # 28 plast..bag 04/04/17 [Rx] Allergies/Adverse Reactions: 3 Allergy/AdvReac Type Severity Reaction Status Date / Time No Known Allergies Allergy Verified 08/18/15 08:38 Date of admission: 03/30/17 11:08 Primary care physician: Elza Jesus, Consults: 03/29/17 14:43 Consult to Invasive Line Access Team [CONS] Routine Reason for Consult: difficult access Line Type: EPIV 03/29/17 16:40 Consult to Supervisor Laundry [CONS] Routine Reason for SW Consult: Pt already uses HH and has DME. Potential for d/c with IV medications. 03/29/17 17:45 Consult to Nutrition [CONS] Routine Comment: Consulting Provider: NUTRITION Reason for Dietary Consult: Diet Education Consult to Occupational Therapy [CONS] Routine Comment: Evaluate, develop and implement POC Reason for Consult: Full assist with all ADLs, gets therapy at home. Consult to Physical Therapy [CONS] Routine Comment: Evaluate, develop and implement POC Reason for Consult: Generalized weakness, gets home PT Consult to Wound Care [CONS] Routine Reason for Consult: Osteomyelitis left foot (will be seen by [facility]); excoriation on buttocks; multiple areas of unknown origin on abdomen. Call Completed: No 03/29/17 18:00 Consult to Podiatry [CONS] Routine Consulting Provider: Podiatry [facility] Reason for Consult: heel ulcer Call Completed: No Discharging clinician: Negro Jon Anticipated date of discharge: 04/05/17 - Patient Status Disposition: Transfer SNF Condition: Fair Functional capacity at discharge: wheelchair bound Overall status at discharge: patient is progressing back to baseline - Discharge Instructions Instructions: Diabetes Mellitus Type 2 in Adults (DC), Anemia (GEN) Follow Up With: Clemente Olivarez MD [Partnered Physician] - 04/10/17 10:45 am (In [facility]) Elza Jesus MD [Primary Care Provider] - (In 1-2 weeks) La Knox CNP [Advanced Practice Nurse] - (in 1-2 weeks for Osteomyelitis) - Diet and Activity Activity: as per physical therapy Diet: diabetic diet, low fat, low cholesterol, low salt diet Hospital course: Ms. Mejia is a 61 year old female patient with history of type 2 diabetes mellitus, chronic kidney disease, hypertension, hyperlipidemia presented to the ER with left foot pain. 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 She follows up with wound clinic and with surgery as outpatient. She underwent MRI of the left foot which showed some features is stable for early osteomyelitis. Surgery was consulted and patient was started on treatment with IV antibiotics. They recommended local wound care with daily cleansing and calcium management along with IV antibiotic therapy. Patient's symptoms have clinically improved with this treatment plan. Patient was evaluated by physical therapy and recommended placement to skilled rehabilitation. Wound cultures from podiatry clinic appointment prior to hospitalization are growing pseudomonas, MRSA and Klebsiella sensitive to Levaquin and vancomycin. Patient will be discharged on IV antibiotics for 4 weeks with vancomycin and Levaquin to skilled rehabilitation whenever she is accepted there. She will also follow up with wound clinic and surgery after discharge for further management. Patient does have chronic anemia related to her chronic kidney disease and her hemoglobin levels have been stable here. - Time Spent with Patient Total time spent providing and/or coordinating discharge services: Greater than 30 minutes (45 min) - Constitutional Vitals: Temp Pulse Resp BP Pulse Ox 98.8 F 87 15 148/75 97 04/04/17 11:14 04/04/17 11:14 04/04/17 11:14 04/04/17 11:14 04/04/17 11:14 General appearance: Present: cooperative, mild distress, A&O X 3, morbidly obese , pleasant, answers questions appropriately - Neck Neck exam general surgery: Present: supple, trachea midline. Absent: lymphadenopathy - Respiratory Respiratory exam: Present: CTAB. Absent: accessory muscle use, rales, rhonchi, wheezes - Cardiovascular Cardiovascular exam: Present: RRR, +S1, +S2. Absent: diastolic murmur, gallop, rubs, systolic murmur - GI/Abdominal GI/Abdominal exam: Present: normal bowel sounds, soft, no peritoneal signs. Absent: distended, tenderness - Extremities Exam Extremities exam: Present: warm, radial pulses palpable and symmetrical. Absent : calf tenderness, cyanotic, pedal edema Additional comments: Lower extremity is bandaged and in pressure relieving boots - Neurological Exam Neurological exam: Present: alert, oriented X3, no focal deficits. Absent: facial droop, speech deficit
--- NOTE | 2017-04-04 14:16 | Physician Discharge Referral ---
ExtendedCare Referral Info Provider in Charge after Transfer: PCP Institutional Level of Care: Skilled - Diagnosis (1) Osteomyelitis Priority: Primary Status: Acute (2) Decubitus ulcer of left heel, stage 3 Priority: Secondary Status: Chronic (3) CKD (chronic kidney disease) stage 3, GFR 30-59 ml/min Priority: Secondary Status: Chronic (4) Diastolic heart failure Priority: Secondary Status: Chronic (5) DM2 (diabetes mellitus, type 2) Priority: Secondary Status: Chronic (6) DVT prophylaxis Priority: Secondary Status: Acute (7) HTN (hypertension) Priority: Secondary Status: Chronic (8) Hyperlipidemia Priority: Secondary Status: Chronic (9) Anemia Priority: Secondary Status: Chronic Prognosis: Fair Aware of Diagnosis: Patient, Family Aware of Prognosis: Patient, Family - Transfer Medications Prescriptions: Lactobacillus [Culturelle] 1 each PO BID #30 cap.sprink Levofloxacin 750 MG/150 ML [Levaquin Premix 750mg/150 mL] 150 ml IVPB Q48H #14 bag Miconazole w/zinc oxide&karaya [Antifungal Extra Thick] 1 appl TP BID #1 tube Nystatin POWDER [Nystop] 1 appl TP BID #1 bottle OxyCODONE/APAP 5/325 [Percocet 5/325 MG] 1 tab PO BID PRN #14 tablet PRN Reason: Pain Vancomycin/0.9 % Sod Chloride [Vanco-0.9% NaCl 750 mg/150 ml] 750 mg IV DAILY # 28 plast..bag Home Medications: Aspirin [Adult Low Dose Aspirin EC] 81 mg PO DAILY 08/18/15 [History] Gabapentin [Neurontin] 300 mg PO HS 08/18/15 [History] Insulin LISPRO [Humalog] 14 unit SQ BID 08/18/15 [History] Pravastatin Sodium [Pravachol] 40 mg PO HS 08/18/15 [History] Buspirone HCl [Buspar] 5 mg PO BID 11/16/15 [History] Linagliptin/Metformin HCl [Jentadueto Xr 2.5 mg-1,000 mg] 1 tab PO BID 05/03/16 [History] Carvedilol [Coreg] 6.25 mg PO BIDWM #60 tablet 05/11/16 [Rx] amLODIPine [Norvasc] 5 mg PO DAILY #30 tablet 05/11/16 [Rx] Insulin Glargine,Hum.rec.anlog [Toujeo Solostar] 14 units SQ QAM 03/10/17 [ History] Collagenase Oint [Santyl] 1 appl TP DAILY 03/29/17 [History] Furosemide [Lasix] 20 mg PO QPM 03/29/17 [History] Furosemide [Lasix] 40 mg PO QAM 03/29/17 [History] Lactobacillus [Culturelle] 1 each PO BID #30 cap.sprink 04/04/17 [Rx] Levofloxacin 750 MG/150 ML [Levaquin Premix 750mg/150 mL] 150 ml IVPB Q48H #14 bag 04/04/17 [Rx] Miconazole w/zinc oxide&karaya [Antifungal Extra Thick] 1 appl TP BID #1 tube [Rx] Nystatin POWDER [Nystop] 1 appl TP BID #1 bottle 04/04/17 [Rx] OxyCODONE/APAP 5/325 [Percocet 5/325 MG] 1 tab PO BID PRN #14 tablet 04/04/17 [ Rx] Vancomycin/0.9 % Sod Chloride [Vanco-0.9% NaCl 750 mg/150 ml] 750 mg IV DAILY # 28 plast..bag 04/04/17 [Rx] Allergies/Adverse Reactions: 3 Allergy/AdvReac Type Severity Reaction Status Date / Time No Known Allergies Allergy Verified 08/18/15 08:38 - Respiratory Orders Smoking Cessation: Smoking cessation has been advised. For more information, call the [place] Tobacco Quit Line at 6-643-PMXI-NOW. - Lab Orders Lab Orders: Other (include drug levels w/frequency) (Please check vancomycin trough level on 04/07/2017; Also check CBC, basic panel, vancomycin trough level , ESR, CRP every Monday while patient is receiving intravenous vancomycin and Levaquin.) - Ancillary Orders May consult with Dentist, Salsa Dance Instructor, Database Modeler PRN - Advance Directives Code Status: Full Code - Mobility Orders Other (per PT?OT) - Rehabiliation Orders Rehab Potential: Fair Rehab Orders: Evaluation for Physical Therapy, Evaluation for Occupational Therapy - Diet Orders No Added Salt (DONNELL), No Concentrated Sweets (And diabetic diet), Cardiac CERTIFICATION: I certify that the transfer of the above named patient to an Extended Care Facility is necessary for the continuing treatment of the diagnosis listed. The above information is true and accurate reflection of patient's current condition. Confidential - Redisclosure prohibited without a patient's written consent.
[2017-04-04] MEDS ORDERED: Furosemide 20 MG TABLET PO SCH (18:00)
[2017-04-04] MEDS ORDERED: Vancomycin 750 MG in D5% in Water 250 ML IVPB ONE (20:00)
[2017-04-04] MEDS: Lactobacillus 1 EACH CAP.SPRINK PO SCH (20:16)
[2017-04-04] MEDS ORDERED: Gabapentin 300 MG CAPSULE PO SCH (21:00)
[2017-04-04] MEDS ORDERED: Insulin DETEMIR 100 UNIT/ML X5UNITS SQ SCH (21:00)
[2017-04-05] MEDS: *HR* Heparin 5,000 UNIT/ML VIAL SQ SCH (06:17)
[2017-04-05] MEDS: Lactobacillus 1 EACH CAP.SPRINK PO SCH (08:02)
[2017-04-05] MEDS: Miconazole w/zinc oxide&karaya 92 APPL/92 GM TUBE TP SCH (08:02)
[2017-04-05] MEDS: Nystatin POWDER 30 GM BOTTLE TP SCH (08:03)
[2017-04-05] MEDS: Insulin LISPRO 300 UNITS/3 ML VIAL SQ SCH ×2 (08:04→12:37)
[2017-04-05] MEDS ORDERED: Furosemide 40 MG TABLET PO SCH (09:00)
[2017-04-05] MEDS ORDERED: amLODIPine 5 MG TABLET PO SCH (09:00)
[2017-04-05] MEDS ORDERED: FLUARIX QUAD 2017-18 36MOS UP/PF 0.5 ML SYRINGE IM ONE (11:18)
[2017-04-05 11:43] VITALS: BP 132/57
== END 2017-04-05 13:40 | DRG 344 ==
LOC: 3ANU 13:12 → EMEROO 13:12 → 3ANU 15:45 → SUATTDRO 03-30 11:08
PROVIDERS: ADMIT Internal Medicine; ATTEND Internal Medicine

== ENCOUNTER 2017-11-12 13:21 | Inpatient (IN) ==
--- NOTE | 2017-11-12 13:39 | Emergency Department Note ---
Disposition Clinical Impression: Lactic acidosis, Acute kidney injury UTI (urinary tract infection) Qualifiers: Urinary tract infection type: acute cystitis Hematuria presence: without hematuria Qualified Code(s): N30.00 - Acute cystitis without hematuria Disposition: Admitted As Inpatient Referrals: Elza Jesus MD [Primary Care Provider] - Forms: ED Satisfaction Letter, Work/School Release Time of Disposition: 15:29 General Adult HPI - General Chief complaint: ED General Medical Time Seen by Provider: 11/12/17 13:33 Source: patient, EMS Limitations: no limitations Nursing Notes Reviewed: Yes Vital Signs Reviewed: Yes - History of Present Illness HPI Narrative: 62-year-old from the alf who has generalized pain. Onset (ago): day(s) Location: other (Generalized) Radiation: non-radiation Pain Severity: moderate Pain Scale: 6 Quality: aching Consistency: constant Improves with: nothing Worsens with: movement Associated symptoms: Reports: cough - Related Data Home Medications Medication Instructions Recorded Confirmed Aspirin [Adult Low Dose Aspirin EC] 81 mg PO DAILY 08/18/15 04/24/17 Gabapentin [Neurontin] 300 mg PO HS 08/18/15 04/24/17 Insulin LISPRO [Humalog] 14 unit SQ TID 08/18/15 04/24/17 Pravastatin Sodium [Pravachol] 20 mg PO HS 08/18/15 08/28/17 Buspirone HCl [Buspar] 5 mg PO BID 11/16/15 04/24/17 Linagliptin/Metformin HCl 1 tab PO BID 05/03/16 04/24/17 [Jentadueto Xr 2.5 mg-1,000 mg] Insulin Glargine,Hum.rec.anlog 14 units SQ QAM 03/10/17 04/24/17 [Toujeo Solostar] Collagenase Oint [Santyl] 1 appl TP DAILY 03/29/17 04/24/17 Furosemide [Lasix] 20 mg PO QAM 03/29/17 04/24/17 Furosemide [Lasix] 40 mg PO QPM 03/29/17 04/24/17 predniSONE [PredniSONE] 40 mg PO DAILY 09/18/17 09/18/17 Previous Rx's Medication Instructions Recorded Carvedilol [Coreg] 6.25 mg PO BIDWM #60 tablet 05/11/16 amLODIPine [Norvasc] 5 mg PO DAILY #30 tablet 05/11/16 Lactobacillus [Culturelle] 1 each PO BID #30 cap.sprink 04/04/17 Levofloxacin 750 MG/150 ML 150 ml IVPB Q48H #14 bag 04/04/17 [Levaquin Premix 750mg/150 mL] Miconazole w/zinc oxide&karaya 1 appl TP BID #1 tube 04/04/17 [Antifungal Extra Thick] Nystatin POWDER [Nystop] 1 appl TP BID #1 bottle 04/04/17 OxyCODONE/APAP 5/325 [Percocet 1 tab PO BID PRN #14 tablet 04/04/17 5/325 MG] Vancomycin/0.9 % Sod Chloride 750 mg IV DAILY #28 plast..bag 04/04/17 [Vanco-0.9% NaCl 750 mg/150 ml] cephALEXin [Keflex] 500 mg PO BID #14 capsule 08/10/17 Allergies Allergy/AdvReac Type Severity Reaction Status Date / Time No Known Allergies Allergy Verified 08/18/15 08:38 All systems ED: reviewed and negative except as stated. Constitutional: Denies: fever, chills, weakness, weight change Eyes: Denies: eye pain, eye discharge, vision change ENT ED: Denies: ear pain, throat pain, dental pain, hearing loss, epistaxis, congestion, dysphagia Cardiovascular: Denies: chest pain, palpitations, dyspnea on exertion, edema, syncope Respiratory: Reports: cough. Denies: dyspnea, wheezes, hemoptysis, stridor Gastrointestinal: Denies: abdominal pain, nausea, vomiting, diarrhea, constipation, hematemesis, melena, hematochezia Genitourinary: Denies: dysuria, frequency, hematuria, discharge Musculoskeletal: Reports: arthralgia. Denies: back pain, neck pain, myalgia Integumentary: Denies: rash, abrasion, lesions Neurological: Denies: headache, weakness, numbness, paresthesias, confusion, abnormal gait, vertigo Psychiatric: Denies: anxiety, depression, suicidal thoughts, homicidal thoughts , auditory hallucinations, visual hallucinations Endocrine: Denies: fatigue Hematological/Lymphatic: Denies: easy bleeding, easy bruising Allergic/Immunologic: Denies: facial swelling, urticaria Past Medical History - Past Medical History Medical history: Reports: arthritis, CHF, COPD, CVA, diabetes, glaucoma, hyperlipidemia, hypertension, pulmonary embolus, renal disease, other Surgical history: Reports: cataract, other Psychiatric history: Reports: anxiety - Social History Smoking Status: Never smoker Smokeless Tobacco Status: No Alcohol use: Reports: none Drug use: Reports: none Physical Exam - General Limitations: no limitations General appearance: alert - Head Head exam: atraumatic, normocephalic, normal inspection - Eye Eye exam: Present: normal appearance, PERRL, EOMI - ENT ENT exam: normal exam, normal oropharynx, mucous membranes moist - Neck Neck exam: Present: normal inspection, full ROM, trachea midline - Chest Chest inspection: Present: normal inspection, symmetric chest wall rise - Respiratory Respiratory exam: Present: normal lung sounds bilaterally - Cardiovascular Cardiovascular exam: Present: regular rate, normal rhythm, normal heart sounds - Abdominal Exam Abdominal exam: Present: soft, Non-Tender. Absent: tenderness, distention, guarding, rebound, rigidity - Extremities Exam Extremities exam: Present: normal inspection, full ROM. Absent: tenderness, pedal edema - Expanded Lower Extremity Exam Neurovascular/Tendon exam: Absent: motor deficit, sensory deficit, tendon deficit Gait: not tested/not observed - Back Exam Back exam: Present: normal inspection, full ROM. Absent: tenderness - Neurological Exam Neurological exam: Present: alert, oriented X3 - Psychiatric Psychiatric exam: Present: normal affect, normal mood - Skin Skin exam: Present: rash (Erythematous lesions on the arm) Course - Reevaluation(s) Reevaluation #1: 62-year-old female with a history of bullous pemphigoid who comes in states not feeling well. Workup here shows a UTI patient will be admitted for IV antibiotics also showed some acute kidney injury we will give fluids. Time: 15:53 - Consultations Consultation #1: Discussed with , admit. Time: 15:52 Vital Signs Temperature 99.0 F 11/12/17 13:25 Pulse Rate 61 11/12/17 13:25 Respiratory Rate 16 11/12/17 13:25 Blood Pressure 109/70 11/12/17 13:25 O2 Sat by Pulse Oximetry 96 11/12/17 13:25 Temperature 99.0 F 11/12/17 13:25 Pulse Rate 61 11/12/17 13:25 Respiratory Rate 16 06/10/18 13:25 Blood Pressure 109/70 11/12/17 13:25 O2 Sat by Pulse Oximetry 96 11/12/17 13:25 Oxygen Delivery Oxygen Delivery Room Air Medical Decision Making - Lab Data Lab results reviewed: Yes I reviewed the patient's lab results. Result diagrams: 11/12/17 13:45 11/12/17 13:45 Lab Results 11/12/17 11/12/17 11/12/17 Range/Units 13:45 13:45 13:45 WBC 6.1 (4.3-11.1) K/mcL RBC 3.27 L (3.82-4.97) M/mcL Hgb 9.1 L (11.5-15.4) g/dL Hct 28.5 L (35.3-44.9) % MCV 87.2 (83.0-100.0) fL MCH 27.8 L (28.0-33.3) pg MCHC 31.9 (31.6-35.5) g/dL RDW 12.8 (11.5-14.5) % Plt Count 135 L (140-400) K/mcL MPV 8.5 L (9.4-12.4) fL Immature Gran % 0.5 (0-4) % Seg Neutrophils % 76.3 % Lymphocytes % 16.9 % Monocytes % 2.8 % Eosinophils % 3.3 % Basophils % 0.2 % Neutrophils # 4.7 (1.6-8.9) K/mcL Lymphocytes # 1.0 (0.6-4.6) K/mcL Monocytes # 0.2 (0.0-1.3) K/mcL Eosinophils # 0.2 (0.0-0.6) K/mcL Basophils # 0.0 (0.0-0.2) K/mcL ESR 88 H (0-15) mm/hr Sodium 140 (136-145) mEq/L Potassium 4.5 (3.5-5.1) mEq/L Chloride 101 (98-107) mEq/L Carbon Dioxide 29 (23-29) mEq/L BUN 47 H (8-23) mg/dL Creatinine 2.26 H (0.60-1.20) mg/dL Est GFR ( Amer) 27 L (> 60) Est GFR (Non-Af Amer) 22 L (> 60) BUN/Creatinine Ratio 21 (6-26) Glucose 94 (70-105) mg/dL Calculated Osmolality 302 H (280-300) Lactic Acid (0.5-2.2) mmol/L Calcium 9.1 (8.6-10.3) mg/dL Troponin I < 0.03 (< 0.04) ng/mL Urine Color (Yellow) Urine Clarity (Clear) Urine pH (5.0-8.0) pH Units Ur Specific [place] (1.010-1.025) Urine Protein (Neg-Trace) mg/dL Urine Glucose (UA) (Normal) mg/dL Urine Ketones (Negative) mg/dL Urine Blood (Negative) Urine Nitrite (Negative) Urine Bilirubin (Negative) Urine Urobilinogen (Normal) mg/dL Ur Leukocyte Esterase (Negative) Urine Microscopic RBC (0-3) per hpf Urine Microscopic WBC (0-3) per hpf Urine Bacteria (None-Few) per hpf Ur Culture Indicated? (NO) 11/12/17 11/12/17 Range/Units 13:45 14:05 WBC (4.3-11.1) K/mcL RBC (3.82-4.97) M/mcL Hgb (11.5-15.4) g/dL Hct (35.3-44.9) % MCV (83.0-100.0) fL MCH (28.0-33.3) pg MCHC (31.6-35.5) g/dL RDW (11.5-14.5) % Plt Count (140-400) K/mcL MPV (9.4-12.4) fL Immature Gran % (0-4) % Seg Neutrophils % % Lymphocytes % % Monocytes % % Eosinophils % % Basophils % % Neutrophils # (1.6-8.9) K/mcL Lymphocytes # (0.6-4.6) K/mcL Monocytes # (0.0-1.3) K/mcL Eosinophils # (0.0-0.6) K/mcL Basophils # (0.0-0.2) K/mcL ESR (0-15) mm/hr Sodium (136-145) mEq/L Potassium (3.5-5.1) mEq/L Chloride (98-107) mEq/L Carbon Dioxide (23-29) mEq/L BUN (8-23) mg/dL Creatinine (0.60-1.20) mg/dL Est GFR ( Amer) (> 60) Est GFR (Non-Af Amer) (> 60) BUN/Creatinine Ratio (6-26) Glucose (70-105) mg/dL Calculated Osmolality (280-300) Lactic Acid 2.5 H (0.5-2.2) mmol/L Calcium (8.6-10.3) mg/dL Troponin I (< 0.04) ng/mL Urine Color Yellow (Yellow) Urine Clarity Clear (Clear) Urine pH 7.0 (5.0-8.0) pH Units Ur Specific [place] 1.015 (1.010-1.025) Urine Protein 100 H (Neg-Trace) mg/dL Urine Glucose (UA) Normal (Normal) mg/dL Urine Ketones Negative (Negative) mg/dL Urine Blood Moderate H (Negative) Urine Nitrite Negative (Negative) Urine Bilirubin Negative (Negative) Urine Urobilinogen Normal (Normal) mg/dL Ur Leukocyte Esterase Trace H (Negative) Urine Microscopic RBC 5-15 H (0-3) per hpf Urine Microscopic WBC 5-15 H (0-3) per hpf Urine Bacteria Many H (None-Few) per hpf Ur Culture Indicated? YES A (NO) - Radiology Data Radiology results reviewed: Yes I reviewed the patient's radiology results. Chest X-Ray 11/12/17 13:33 IMPRESSION: Stable portable study. D/ / Jocelyne Slater Cha, MD / Jocelyne Slater Cha, MD Interpreting Provider: Jocelyne Slater Cha, MD - EKG Data EKG #1 EKG attestation: Yes I reviewed and interpreted this EKG. EKG shows normal: sinus rhythm Rate: normal Rhythm: NSR [place]/QRS: normal Interpretation: no acute changes
[2017-11-12 14:06] LABS: Basophils % 0.2 %; Eosinophils # 0.2 K/mcL (0.0-0.6); Eosinophils % 3.3 %; Hematocrit 28.5 % (35.3-44.9); Hemoglobin 9.1 g/dL (11.5-15.4); Immature Granulocytes % 0.5 % (0-4); Lymphocytes % 16.9 %; Mean Corpuscular HGB Conc 31.9 g/dL (31.6-35.5); Mean Corpuscular Hemoglobin 27.8 pg (28.0-33.3); Mean Corpuscular Volume 87.2 fL (83.0-100.0); Mean Platelet Volume 8.5 fL (9.4-12.4); Monocytes # 0.2 K/mcL (0.0-1.3); Monocytes % 2.8 %; Neutrophils # 4.7 K/mcL (1.6-8.9); Platelet Count 135 K/mcL (140-400); Red Blood Count 3.27 M/mcL (3.82-4.97); Red Cell Distribution Width 12.8 % (11.5-14.5); Segmented Neutrophils % 76.3 %
[2017-11-12 14:14] LABS: Bilirubin,Urine Negative (Negative); Blood,Urine Moderate (Negative); Clarity,Urine Clear (Clear); Color,Urine Yellow (Yellow); Glucose,Urine (UA) Normal (Normal); Ketones,Urine Negative (Negative); Leukocyte Esterase,Urine Trace (Negative); Nitrite,Urine Negative (Negative); Protein,Urine 100 mg/dL (Neg-Trace); Specific Gravity,Urine 1.015 (1.010-1.025); Urobilinogen,Urine Normal (Normal)
[2017-11-12 14:21] LABS: Bacteria,Urine Many per hpf (None-Few)
[2017-11-12 14:25] LABS: BUN/Creatinine Ratio 21 (6-26); Blood Urea Nitrogen 47 mg/dL (8-23); Calcium 9.1 mg/dL (8.6-10.3); Carbon Dioxide 29 mEq/L (23-29); Chloride 101 mEq/L (98-107); Glucose 94 mg/dL (70-105); Osmolality,Calculated 302 (280-300); Potassium 4.5 mEq/L (3.5-5.1); Sodium 140 mEq/L (136-145); eGFR For African Americans 27 (> 60); eGFR For Non-African Americans 22 (> 60)
[2017-11-12 14:26] LABS: Troponin I < 0.03 ng/mL (< 0.04)
[2017-11-12] MEDS ORDERED: 0.9 % Sodium Chloride 500 ML IVC ONE (15:26)
[2017-11-12] MEDS ORDERED: cefTRIAXone 1,000 MG in Water for inj. (sterile) 20 ML 10 ML IVP ONE (15:26)
[2017-11-12] MEDS ORDERED: Naloxone 0.4 MG/ML INJ IVP PRN (15:51)
[2017-11-12] MEDS ORDERED: *HR* Promethazine 25 MG/ML VIAL IVP PRN (15:51)
[2017-11-12] MEDS ORDERED: Ondansetron 4 MG/2 ML VIAL IVP PRN (15:51)
[2017-11-12] MEDS ORDERED: *HR* Dextrose 50 % in Water (Syg) 50 ML SYRINGE IVP PRN (16:01)
[2017-11-12] MEDS ORDERED: D5% in Water 1,000 ML IVC PRN (16:01)
[2017-11-12] MEDS ORDERED: Dextrose Gel 15 GM/37.5 ML TUBE PO PRN ×2 (16:01)
[2017-11-12] MEDS: 0.9 % Sodium Chloride 1,000 ML IVC SCH (16:06)
[2017-11-12] MEDS ORDERED: Chloraseptic Spray 177 ML BOTTLE MM PRN (16:32)
[2017-11-12] MEDS ORDERED: ALPRAZolam 0.25 MG TABLET PO PRN (16:32)
--- NOTE | 2017-11-12 16:51 | Internal Med History&Physical ---
Date of Encounter: 11/12/17 Time of Encounter: 16:00 Internal Medicine - H&P: HPI Chief complaint: eneralized weakness Admitted From: Emergency Dept Plans for Post Hospital Care: Transfer [facility] Facility History of present illness: Ms. Mejia is a 62 year old female with a known past medical history of type II diabetes's, CK D stage III, hypertension, hyperlipidemia, chronic left heel ulcer with possible osteomyelitis diagnosed on 03/2017 was treated with four weeks of IV antibiotic vancomycin and Levaquin, now she is actively following with Dr. Olivarez at the wound care center, she also have bullous phemphigoid rash for which she is following at [facility], who is a long-term resident at [facility] after she became immobile due to CVA, and now she presented emergency room complaining about generalized weakness, lethargic and tiredness. She also worried about her worsening multiple ulcers all over the body. She did mention she lost her appetite and not eating and drinking well lately. In the ER her workup showed she does have acute UTI and acute kidney injury with CKD stage III Past Med Surg Social Fam HX - Past Medical History Medical history: arthritis, CHF, COPD, CVA, diabetes, glaucoma, hyperlipidemia, hypertension, pulmonary embolus, renal disease, other Additional medical history: Anemia Psychiatric history: anxiety - Past Surgical History Surgical History: cataract, other Additional surgical history: tubal ligation - Social History Smoking Status: Never smoker Smokeless Tobacco Status: No Alcohol use: none Drug use: none - Family History Mother Adopted: No Family Member Ethnicity: Unknown Living Status: Still Living Hx Family Cardiac Disorders: No Hx Family Respiratory Disorders: Yes (COPD) Hx Family Cancer: Yes Hx Family GI Disorders: No Hx Family Endocrine Disorder: No Hx Family Neuromuscular Disorders: No Hx Family Neurologic Disorders: No Hx Family HEENT Disorders: No Hx Family Autoimmune Disorders: No Father Family Member Ethnicity: Non- Living Status: Hx Family Cardiac Disorders: Yes (Maternal grandmother - heart failure) Hx Family Respiratory Disorders: Yes (Mother - COPD) Hx Family Cancer: Yes (Aunt & mother) Hx Family GI Disorders: Yes (Diverticulitis) Hx Family Endocrine Disorder: Yes Hx Family Neuromuscular Disorders: No Hx Family Neurologic Disorders: Yes (father - aneurysm) Hx Family HEENT Disorders: No Hx Family Autoimmune Disorders: No Internal Medicine - H&P: Meds Gabapentin [Neurontin] 300 mg PO HS 08/18/15 [History] Insulin LISPRO [Humalog] 14 unit SQ BID 08/18/15 [History] Pravastatin Sodium [Pravachol] 20 mg PO HS 08/18/15 [History] Linagliptin/Metformin HCl [Jentadueto Xr 2.5 mg-1,000 mg] 1 tab PO BID 05/03/16 [History] Carvedilol [Coreg] 6.25 mg PO BIDWM #60 tablet 05/11/16 [Rx] amLODIPine [Norvasc] 5 mg PO DAILY #30 tablet 05/11/16 [Rx] Insulin Glargine,Hum.rec.anlog [Toujeo Solostar] 14 units SQ QAM 03/10/17 [ History] Furosemide [Lasix] 20 mg PO QPM 03/29/17 [History] Furosemide [Lasix] 40 mg PO QAM 03/29/17 [History] Lactobacillus [Culturelle] 1 each PO BID #30 cap.sprink 04/04/17 [Rx] Nystatin POWDER [Nystop] 1 appl TP BID #1 bottle 04/04/17 [Rx] OxyCODONE/APAP 5/325 [Percocet 5/325 MG] 1 tab PO BID PRN #14 tablet 04/04/17 [ Rx] ALPRAZolam [Xanax 0.25 MG Tablet] 0.25 mg PO TID PRN 11/12/17 [History] Benzocaine/Menthol [Chloraseptic Max Lozenge] 1 each MM Q2H PRN 11/12/17 [ History] Ferrous Sulfate [Iron] 325 mg PO DAILY 11/12/17 [History] Folic Acid 1 mg PO DAILY 11/12/17 [History] Loperamide HCl [Imodium A-D] 2 mg PO QID PRN 11/12/17 [History] Methotrexate [Otrexup] 15 mg PO SA 11/12/17 [History] Multivitamin [One Daily Essential] 1 tab PO DAILY 11/12/17 [History] hydrOXYzine HCl [Hydroxyzine HCl] 25 mg PO QID PRN 11/12/17 [History] 3 Allergy/AdvReac Type Severity Reaction Status Date / Time No Known Allergies Allergy Verified 11/12/17 16:06 All Systems PM: A 10-system review of systems was performed and is negative for pertinent findings except as documented above in the HPI. Review of systems: All the systems are reviewed everything is benign except the systems and symptoms I mentioned in the history of present illness - Constitutional Vitals: Temp Pulse Resp BP Pulse Ox 99.0 F 89 15 109/70 95 11/12/17 13:25 11/12/17 16:09 11/12/17 16:09 11/12/17 13:25 11/12/17 16:09 General appearance: Present: cooperative, A&O X 3, answers questions appropriately Exam: Looks weak and lethargic - Head Head exam: Present: atraumatic, normal inspection - Neck Neck exam general surgery: Present: supple - Respiratory Respiratory exam: Present: decreased breath sounds. Absent: rales, respiratory distress, rhonchi, wheezes - Cardiovascular Cardiovascular exam: Present: RRR, +S1, +S2. Absent: tachycardia - GI/Abdominal GI/Abdominal exam: Present: normal bowel sounds, soft. Absent: rebound, rigid, tenderness - Extremities Exam Extremities exam: Present: pedal edema. Absent: calf tenderness, tenderness Additional comments: Chronic healing ulcer over left heel no signs of cellulitis on the left foot as well as surrounding left heel - Back Exam Back exam: Absent: CVA tenderness (L), CVA tenderness (R) - Neurological Exam Neurological exam: Present: alert, oriented X3 - Psychiatric Psychiatric exam: Present: depressed - Skin Skin exam: Present: rash (She does how multiple office all over the body seems to be bullous phemphigoid) Internal Med - H&P Results - Labs CBC & Chem 7: 11/12/17 13:45 11/12/17 13:45 Labs: Short CBC 11/12/17 Range/Units 13:45 WBC 6.1 (4.3-11.1) K/mcL Hgb 9.1 L (11.5-15.4) g/dL Hct 28.5 L (35.3-44.9) % Plt Count 135 L (140-400) K/mcL Neutrophils # 4.7 (1.6-8.9) K/mcL BMP 11/12/17 13:45 Sodium 140 Potassium 4.5 Chloride 101 Carbon Dioxide 29 BUN 47 H Creatinine 2.26 H Glucose 94 Calcium 9.1 Cardiac Enzymes 11/12/17 Range/Units 13:45 Troponin I < 0.03 (< 0.04) ng/mL Urine 11/12/17 Range/Units 14:05 Urine Color Yellow (Yellow) Urine Clarity Clear (Clear) Urine pH 7.0 (5.0-8.0) pH Units Ur Specific [place] 1.015 (1.010-1.025) Urine Protein 100 H (Neg-Trace) mg/dL Urine Glucose (UA) Normal (Normal) mg/dL - Impressions ITS Impressions Chest X-Ray 11/12/17 13:33 IMPRESSION: Stable portable study. D/ / Jocelyne Slater Cha, MD / Jocelyne Slater Cha, MD Interpreting Provider: Jocelyne Slater Cha, MD - Assessment and plan (1) UTI (urinary tract infection) Current Visit: Yes Status: Acute Assessment and plan: Admit the patient into Tele reviewed UA showed many bacteria started on Rocephin will follow-up on urine culture Qualifiers: Urinary tract infection type: acute cystitis Hematuria presence: without hematuria Qualified Code(s): N30.00 - Acute cystitis without hematuria (2) Acute kidney injury superimposed on chronic kidney disease Current Visit: Yes Status: Acute Assessment and plan: Due to dehydration looks prerenal continue IV hydration close monitoring of creatinine avoid nephrotoxic medication Patient does have multiple comorbidities, need close monitoring and higher level of care. She is high risk for arrhythmias too. 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 Olivarez as an out pt does look like infectious continue local wound care will consult Dr. Olivarez in the morning (7) HTN (hypertension) Current Visit: No Status: Chronic Assessment and plan: Resumed home medication Qualifiers: Hypertension type: essential hypertension Qualified Code(s): I10 - Essential (primary) hypertension (8) Insulin dependent diabetes mellitus Current Visit: No Status: Chronic Assessment and plan: On insulin sliding scale and levemir (9) Morbid obesity with BMI of 40.0-44.9, adult Current Visit: No Status: Chronic - Time Spent With Patient Total time spent is greater than 50% in coordination of care (as documented) at patient's floor/unit and/or counseling patient:
[2017-11-12] MEDS: Insulin LISPRO 300 UNITS/3 ML VIAL SQ SCH ×2 (18:44→22:19)
[2017-11-12] MEDS: predniSONE 20 MG TABLET PO SCH (18:49)
[2017-11-12] MEDS: *HR* Heparin 5,000 UNIT/ML VIAL SQ SCH (18:50)
[2017-11-12] MEDS: Acetaminophen 325 MG TABLET PO PRN (20:19)
[2017-11-12] MEDS: Gabapentin 300 MG CAPSULE PO SCH (20:19)
[2017-11-13 03:59] LABS: Basophils % 0.2 %; Hematocrit 25.7 % (35.3-44.9); Hemoglobin 8.4 g/dL (11.5-15.4); Immature Granulocytes % 0.5 % (0-4); Lymphocytes # 0.5 K/mcL (0.6-4.6); Lymphocytes % 9.4 %; Mean Corpuscular HGB Conc 32.7 g/dL (31.6-35.5); Mean Corpuscular Hemoglobin 27.9 pg (28.0-33.3); Mean Corpuscular Volume 85.4 fL (83.0-100.0); Mean Platelet Volume 9.1 fL (9.4-12.4); Monocytes % 0.7 %; Platelet Count 127 K/mcL (140-400); Red Blood Count 3.01 M/mcL (3.82-4.97); Red Cell Distribution Width 12.8 % (11.5-14.5); Segmented Neutrophils % 89.2 %
[2017-11-13 04:37] LABS: Calcium 8.6 mg/dL (8.6-10.3); Chol/HDL Ratio 3.9 (0-4.9); Magnesium 1.8 mg/dL (1.6-2.6); Potassium 5.9 mEq/L (3.5-5.1)
[2017-11-13] MEDS: *HR* Heparin 5,000 UNIT/ML VIAL SQ SCH ×2 (05:10→17:27)
[2017-11-13 07:26] LABS: Estimated Average Glucose 166 mg/dl; Hemoglobin A1C 7.4 %
[2017-11-13] MEDS: Aspirin Enteric Coated 81 MG Tablet PO SCH (08:16)
[2017-11-13] MEDS: predniSONE 20 MG TABLET PO SCH (08:16)
[2017-11-13] MEDS: Folic Acid 1 MG TABLET PO SCH (08:16)
[2017-11-13] MEDS: amLODIPine 5 MG TABLET PO SCH (08:16)
[2017-11-13] MEDS: 0.9 % Sodium Chloride 1,000 ML IVC SCH ×2 (08:17→22:13)
[2017-11-13] MEDS: cefTRIAXone 1,000 MG in Water for inj. (sterile) 20 ML 10 ML IVP SCH (08:17)
[2017-11-13] MEDS: Insulin LISPRO 300 UNITS/3 ML VIAL SQ SCH ×4 (08:17→22:17)
[2017-11-13] MEDS: Insulin DETEMIR 100 UNIT/ML X5UNITS SQ SCH (08:21)
[2017-11-13] MEDS ORDERED: Silvasorb 44.4 ML TUBE TP SCH (12:15)
--- NOTE | 2017-11-13 13:31 | Internal Med Progress Note ---
Addendum entered and electronically signed by Christofer Gamino DO 11/13/17 14:17: correction stage 3 CKD Original Note: <Christofer Gamino - Last Filed: 11/13/17 13:57> Date of Encounter: 11/13/17 Time of Encounter: 09:30 - Assessment and plan (1) UTI (urinary tract infection) Current Visit: Yes Status: Acute Assessment and plan: reviewed UA showed many bacteria Continuing rocephin; preliminary urine culture shows no growth pt denies dysuria Qualifiers: Urinary tract infection type: acute cystitis Hematuria presence: without hematuria Qualified Code(s): N30.00 - Acute cystitis without hematuria (2) Hyperkalemia Current Visit: No Status: Resolved Assessment and plan: 4.5 -> 5.9 Creat at 2.13; CKD stage 4 Not on K-sparing meds, no evidence of cell lysis, continue IV hydration, continue sliding scale insulin Continue cardiac monitoring (3) Acute kidney injury superimposed on chronic kidney disease Current Visit: Yes Status: Acute Assessment and plan: Continuing IV hydration - NS .9 100cc/hr close monitoring of creatinine avoid nephrotoxic medication (4) Dehydration Current Visit: Yes Status: Acute Assessment and plan: On IV fluids (5) CVA (cerebral vascular accident) Current Visit: No Status: Chronic Assessment and plan: Chronic bedbound continue supportive care Qualifiers: CVA mechanism: unspecified Qualified Code(s): I63.9 - Cerebral infarction, unspecified (6) Decubitus ulcer of left heel, stage 3 Current Visit: No Status: Chronic Assessment and plan: Following with Dr. Olivarez as an out pt stage 2-3 [id number] curved lesion on L heel, wears unnaboot/cushioning, has beefy granulation tissue Surgery recommends patient follow-up outpatient, next appt 11/[address] Olivarez/ wound clinic (7) HTN (hypertension) Current Visit: No Status: Chronic Assessment and plan: Resumed home medication Qualifiers: Hypertension type: essential hypertension Qualified Code(s): I10 - Essential (primary) hypertension (8) Insulin dependent diabetes mellitus Current Visit: No Status: Chronic Assessment and plan: On insulin sliding scale and levemir (9) Morbid obesity with BMI of 40.0-44.9, adult Current Visit: No Status: Chronic (10) Bullous pemphigoid Current Visit: Yes Status: Acute Assessment and plan: Sees Dr. Phillips for bullous pemphigoid, on methotrexate, clobetasol ointment .05 % BID, minocycline 100mg BID - Time Spent With Patient Total time spent is greater than 50% in coordination of care (as documented) at patient's floor/unit and/or counseling patient: - Subjective Interval history: No acute events overnight. Ms. Mejia states her next appointment with wound clinic is 11/21 for her heel, it is occasionally sore but today feels better than prior weeks. Her blisters are at baseline, mild tenderness. She denies chest discomfort, shortness of breath, fever, abdominal pain. She sees Dr. Phillips with [facility], she has had biopsy of her lesions in the past, her outpatient regimen involves steroid + MTX for diagnosis of bullous pemphigoid. - Constitutional Vitals: Temp Pulse Resp BP Pulse Ox 98.0 F 91 16 125/59 97 11/13/17 12:20 11/13/17 12:20 11/13/17 12:20 11/13/17 12:20 11/13/17 12:20 General appearance: Present: cooperative, A&O X 3, answers questions appropriately - Head Head exam: Present: atraumatic, normal inspection, normocephalic - Eye Eye exam: Present: EOMI - Neck Neck exam general surgery: Present: full ROM - Respiratory Respiratory exam: Present: CTAB. Absent: accessory muscle use, tachypnea - Cardiovascular Cardiovascular exam: Present: RRR, +S1, +S2. Absent: systolic murmur, tachycardia - Extremities Exam Additional comments: ulcer of the heel approximately 4cm by 3cm curved ulcer, stage 2, serosanguinous drainage, with beefy granulation tissue, no purulent discharge, no crepitus - Neurological Exam Neurological exam: Present: oriented X3 - Psychiatric Psychiatric exam: Absent: agitated, anxious Internal Medicine: Result - Labs CBC & Chem 7: 11/13/17 03:23 11/13/17 03:23 Labs: Short CBC 11/13/17 Range/Units 03:23 WBC 5.6 (4.3-11.1) K/mcL Hgb 8.4 L (11.5-15.4) g/dL Hct 25.7 L (35.3-44.9) % Plt Count 127 L (140-400) K/mcL Neutrophils # 5.0 (1.6-8.9) K/mcL BMP 11/13/17 03:23 Sodium 137 Potassium 5.9 H D Chloride 100 Carbon Dioxide 23 BUN 54 H Creatinine 2.13 H Glucose 281 H Calcium 8.6 Consult Discharge Plan - Plan Referrals: NONE,PCP [Non-Partnered Physician] - (Patient is from [facility]) <Frida Perales - Last Filed: 11/13/17 16:23> Date of Encounter: 11/13/17 - Assessment and plan (1) HTN (hypertension) Current Visit: No Status: Chronic Qualifiers: Hypertension type: essential hypertension Qualified Code(s): I10 - Essential (primary) hypertension (2) CVA (cerebral vascular accident) Current Visit: No Status: Chronic Qualifiers: CVA mechanism: unspecified Qualified Code(s): I63.9 - Cerebral infarction, unspecified (3) Decubitus ulcer of left heel, stage 3 Current Visit: No Status: Chronic (4) UTI (urinary tract infection) Current Visit: Yes Status: Acute Qualifiers: Urinary tract infection type: acute cystitis Hematuria presence: without hematuria Qualified Code(s): N30.00 - Acute cystitis without hematuria (5) Hyperkalemia Current Visit: No Status: Resolved (6) Insulin dependent diabetes mellitus Current Visit: No Status: Chronic (7) Morbid obesity with BMI of 40.0-44.9, adult Current Visit: No Status: Chronic (8) Acute kidney injury superimposed on chronic kidney disease Current Visit: Yes Status: Acute (9) Dehydration Current Visit: Yes Status: Acute (10) Bullous pemphigoid Current Visit: Yes Status: Acute - Time Spent With Patient Total time spent is greater than 50% in coordination of care (as documented) at patient's floor/unit and/or counseling patient: - Constitutional Vitals: Temp Pulse Resp BP Pulse Ox 98.0 F 91 16 125/59 97 11/13/17 12:20 11/13/17 12:20 11/13/17 12:20 11/13/17 12:20 11/13/17 12:20 Internal Medicine: Result - Labs CBC & Chem 7: 11/13/17 03:23 11/13/17 03:23 Labs: Short CBC 06/11/18 Range/Units 03:23 WBC 5.6 (4.3-11.1) K/mcL Hgb 8.4 L (11.5-15.4) g/dL Hct 25.7 L (35.3-44.9) % Plt Count 127 L (140-400) K/mcL Neutrophils # 5.0 (1.6-8.9) K/mcL BMP 11/13/17 03:23 Sodium 137 Potassium 5.9 H D Chloride 100 Carbon Dioxide 23 BUN 54 H Creatinine 2.13 H Glucose 281 H Calcium 8.6 - Attending Attestation I examined this patient and my medical decision-making was reviewed with the Resident Physician Dr. Gamino. I agree with the documented findings, disposition and treatment plan as described except to the extent set forth below. Ms. Mejia is a 62 year old female with a known past medical history of type II diabetes's, CK D stage III, hypertension, hyperlipidemia, chronic left heel ulcer with possible osteomyelitis diagnosed on 03/2017 was treated with four weeks of IV antibiotic vancomycin and Levaquin, now she is actively following with Dr. Olivarez at the wound care center, she also have bullous phemphigoid rash for which she is following at [facility], who is a long-term resident at [facility] after she became immobile due to CVA, and now she presented emergency room complaining about generalized weakness, lethargic and tiredness. She also worried about her worsening multiple ulcers all over the body. She did mention she lost her appetite and not eating and drinking well lately. In the ER her workup showed she does have acute UTI and acute kidney injury with CKD stage III. Pt is more alert, awake and O x 3 today. Denied any CP / SOB Gen: A, A, O x 3 Chest: Diminished BS b/l Ext: Chronic healing ulcer over left heel Heart: S1S2 + a/p 1. Acute UTI on Rocephin 2. JOSE ROBERTO with CKD-3 3. Hyperkalemia cont IV hydration cont close monitoring avoid nephro toxic meds 4. bullous phemphigoid cont home med Methotrexate PO steroids local wound care Pt does have multiple medical comorbidities, need close monitoring and higher level of care. So continue on tele
[2017-11-13] MEDS: *HR* HYDROcodone/Acet 5/325 mg TABLET PO PRN (15:08)
--- NOTE | 2017-11-13 15:33 | Electrocardiograph Report ---
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
[2017-11-13 16:44] LABS: Calcium 8.3 mg/dL (8.6-10.3); Magnesium 1.8 mg/dL (1.6-2.6); Potassium 4.9 mEq/L (3.5-5.1)
[2017-11-13] MEDS: Gabapentin 300 MG CAPSULE PO SCH (22:12)
[2017-11-13] MEDS: Silvasorb 44.4 ML TUBE TP SCH (22:17)
[2017-11-14] MEDS: *HR* HYDROcodone/Acet 5/325 mg TABLET PO PRN (04:44)
[2017-11-14] MEDS: *HR* Heparin 5,000 UNIT/ML VIAL SQ SCH ×2 (04:50→16:52)
[2017-11-14 07:19] LABS: Magnesium 1.7 mg/dL (1.6-2.6); Potassium 4.4 mEq/L (3.5-5.1)
[2017-11-14] MEDS: predniSONE 20 MG TABLET PO SCH (08:50)
[2017-11-14] MEDS: Folic Acid 1 MG TABLET PO SCH (08:50)
[2017-11-14] MEDS: amLODIPine 5 MG TABLET PO SCH (08:51)
[2017-11-14] MEDS: Aspirin Enteric Coated 81 MG Tablet PO SCH (08:51)
[2017-11-14] MEDS: Insulin LISPRO 300 UNITS/3 ML VIAL SQ SCH ×4 (08:52→22:03)
[2017-11-14] MEDS: 0.9 % Sodium Chloride 1,000 ML IVC SCH (08:52)
[2017-11-14] MEDS: Insulin DETEMIR 100 UNIT/ML X5UNITS SQ SCH (08:56)
[2017-11-14] MEDS: Artificial Tears SOLN 15 ML BOTTLE BOTH EYES PRN ×2 (11:27→16:52)
[2017-11-14] MEDS: cefTRIAXone 1,000 MG in Water for inj. (sterile) 20 ML 10 ML IVP SCH (11:27)
--- NOTE | 2017-11-14 14:07 | Internal Med Progress Note ---
<Christofer Gamino - Last Filed: 11/14/17 14:15> Date of Encounter: 11/14/17 Time of Encounter: 09:00 - Assessment and plan (1) UTI (urinary tract infection) Current Visit: Yes Status: Acute Assessment and plan: Reviewed UA showed many bacteria Dc'd IV rocephin; preliminary urine culture shows no growth, will transition to PO Keflex for 3 days Patient currently asymptomatic Qualifiers: Urinary tract infection type: acute cystitis Hematuria presence: without hematuria Qualified Code(s): N30.00 - Acute cystitis without hematuria (2) Acute kidney injury superimposed on chronic kidney disease Current Visit: Yes Status: Acute Assessment and plan: Creatinine improved, hyperkalemia improved Discontinuing IV hydration avoid nephrotoxic medication (3) Dehydration Current Visit: Yes Status: Acute Assessment and plan: Resolved, discontinuing IV fluids (4) CVA (cerebral vascular accident) Current Visit: No Status: Chronic Assessment and plan: Chronic bedbound continue supportive care Qualifiers: CVA mechanism: unspecified Qualified Code(s): I63.9 - Cerebral infarction, unspecified (5) Decubitus ulcer of left heel, stage 3 Current Visit: No Status: Chronic Assessment and plan: Following with Dr. Olivarez as an out pt stage 2-3 [id number] curved lesion on L heel, wears unnaboot/cushioning, has beefy granulation tissue Surgery recommends patient follow-up outpatient, next appt 11/[address] Olivarez/ wound clinic (6) HTN (hypertension) Current Visit: No Status: Chronic Assessment and plan: Resumed home medication Qualifiers: Hypertension type: essential hypertension Qualified Code(s): I10 - Essential (primary) hypertension (7) Insulin dependent diabetes mellitus Current Visit: No Status: Chronic Assessment and plan: On insulin sliding scale and levemir (8) Morbid obesity with BMI of 40.0-44.9, adult Current Visit: No Status: Chronic (9) Bullous pemphigoid Current Visit: Yes Status: Acute Assessment and plan: Sees Dr. Phillips for bullous pemphigoid, starting methotrexate home med today On prednisone, plan for 12 day taper starting inpatient and will continue outpatient (3 days of 40, 3 days of 30 and so on.) - Time Spent With Patient Total time spent is greater than 50% in coordination of care (as documented) at patient's floor/unit and/or counseling patient: - Subjective Interval history: Patient states she feels better than day prior, no urinary symptoms, no trouble breathing. She states her MTX therapy was started by Dr. Phillips only a few weeks ago, pt confirms she was made aware of the side-effect profile. - Constitutional Vitals: Temp Pulse Resp BP Pulse Ox 98 F 75 16 99/65 97 11/14/17 11:20 11/14/17 11:20 11/14/17 11:20 11/14/17 11:20 11/14/17 11:20 General appearance: Present: cooperative, A&O X 3, answers questions appropriately - Head Head exam: Present: atraumatic, normocephalic - Eye Eye exam: Present: EOMI, conjuntiva pink. Absent: scleral icterus - ENT ENT exam: Present: mucous membranes moist - Neck Neck exam general surgery: Present: full ROM. Absent: lymphadenopathy - Respiratory Respiratory exam: Present: CTAB. Absent: accessory muscle use - Cardiovascular Cardiovascular exam: Present: RRR. Absent: clicks, JVD - GI/Abdominal GI/Abdominal exam: Absent: distended, firm, guarding - Extremities Exam Additional comments: multiple numular blisters with erythema of varying ages more concentrated on torso and upper extremities L heel stage 3 ulcer with granulation tissue - Neurological Exam Neurological exam: Present: no focal deficits - Psychiatric Psychiatric exam: Present: normal affect, normal mood - Skin Skin exam: Present: normal color Additional comments: multiple coin-shaped blisters with propensity for torso and upper extremities Internal Medicine: Result - Labs CBC & Chem 7: 11/13/17 03:23 11/14/17 06:37 Labs: BMP 11/13/17 11/14/17 16:09 06:37 Sodium 136 138 Potassium 4.9 4.4 Chloride 101 104 Carbon Dioxide 22 L 23 BUN 56 H 55 H Creatinine 2.01 H 1.78 H Glucose 342 H 244 H Calcium 8.3 L 8.0 L Consult Discharge Plan - Plan Referrals: NONE,PCP [Non-Partnered Physician] - (Patient is from [facility]) <Frida Perales - Last Filed: 11/14/17 18:50> Date of Encounter: 11/14/17 - Assessment and plan (1) HTN (hypertension) Current Visit: No Status: Chronic Qualifiers: Hypertension type: essential hypertension Qualified Code(s): I10 - Essential (primary) hypertension (2) CVA (cerebral vascular accident) Current Visit: No Status: Chronic Qualifiers: CVA mechanism: unspecified Qualified Code(s): I63.9 - Cerebral infarction, unspecified (3) Decubitus ulcer of left heel, stage 3 Current Visit: No Status: Chronic (4) UTI (urinary tract infection) Current Visit: Yes Status: Acute Qualifiers: Urinary tract infection type: acute cystitis Hematuria presence: without hematuria Qualified Code(s): N30.00 - Acute cystitis without hematuria (5) Insulin dependent diabetes mellitus Current Visit: No Status: Chronic (6) Morbid obesity with BMI of 40.0-44.9, adult Current Visit: No Status: Chronic (7) Acute kidney injury superimposed on chronic kidney disease Current Visit: Yes Status: Acute (8) Dehydration Current Visit: Yes Status: Acute (9) Bullous pemphigoid Current Visit: Yes Status: Acute - Time Spent With Patient Total time spent is greater than 50% in coordination of care (as documented) at patient's floor/unit and/or counseling patient: - Constitutional Vitals: Temp Pulse Resp BP Pulse Ox 98 F 84 16 131/76 96 11/14/17 16:36 11/14/17 16:36 11/14/17 16:36 11/14/17 16:36 11/14/17 16:36 Internal Medicine: Result - Labs CBC & Chem 7: 11/13/17 03:23 11/14/17 06:37 Labs: BMP 11/14/17 06:37 Sodium 138 Potassium 4.4 Chloride 104 Carbon Dioxide 23 BUN 55 H Creatinine 1.78 H Glucose 244 H Calcium 8.0 L - Attending Attestation I examined this patient and my medical decision-making was reviewed with the Resident Physician Dr. Gamino. I agree with the documented findings, disposition and treatment plan as described except to the extent set forth below. Ms. Mejia is a 62 year old female with a known past medical history of type II diabetes's, CK D stage III, hypertension, hyperlipidemia, chronic left heel ulcer with possible osteomyelitis diagnosed on 03/2017 was treated with four weeks of IV antibiotic vancomycin and Levaquin, now she is actively following with Dr. Olivarez at the wound care center, she also have bullous phemphigoid rash for which she is following at [facility], who is a long-term resident at [facility] after she became immobile due to CVA, and now she presented emergency room complaining about generalized weakness, lethargic and tiredness. She also worried about her worsening multiple ulcers all over the body. She did mention she lost her appetite and not eating and drinking well lately. In the ER her workup showed she does have acute UTI and acute kidney injury with CKD stage III. Pt is more alert, awake and O x 3 today. Denied any CP / SOB Gen: A, A, O x 3 Chest: Diminished BS b/l Ext: Chronic healing ulcer over left heel Heart: S1S2 + a/p 1. Acute UTI on Rocephin 2. JOSE ROBERTO with CKD-3 3. Hyperkalemia Improving d/c IVF cont close monitoring avoid nephro toxic meds 4. bullous phemphigoid Improving cont home med Methotrexate PO steroids - would get benefit 2 weeks of tapering dose of steroids local wound care Pt does have multiple medical comorbidities, need close monitoring and higher level of care. So continue on tele
[2017-11-14] MEDS: Acetaminophen 325 MG TABLET PO PRN (17:01)
[2017-11-14] MEDS: Gabapentin 300 MG CAPSULE PO SCH (22:04)
[2017-11-15] MEDS: Silvasorb 44.4 ML TUBE TP SCH ×3 (02:00→23:30)
[2017-11-15] MEDS: *HR* HYDROcodone/Acet 5/325 mg TABLET PO PRN ×3 (02:19→16:54)
[2017-11-15] MEDS: Artificial Tears SOLN 15 ML BOTTLE BOTH EYES PRN ×3 (02:22→21:17)
[2017-11-15] MEDS: *HR* Heparin 5,000 UNIT/ML VIAL SQ SCH ×2 (05:39→16:47)
[2017-11-15] MEDS: Insulin LISPRO 300 UNITS/3 ML VIAL SQ SCH ×4 (09:20→21:53)
--- NOTE | 2017-11-15 09:20 | Discharge Summary ---
<EricaJay kincaid - Last Filed: 11/15/17 09:14> - NOTES TO OUTPATIENT PROVIDER Notes to Outpatient Provider: Gave a steroid taper to patient for skin issues Date of Encounter: 11/15/17 Time of Encounter: 09:14 - Discharge Diagnosis (1) HTN (hypertension) Priority: Secondary Status: Chronic Qualifiers: Hypertension type: essential hypertension Qualified Code(s): I10 - Essential (primary) hypertension (2) CVA (cerebral vascular accident) Priority: Secondary Status: Chronic Qualifiers: CVA mechanism: unspecified Qualified Code(s): I63.9 - Cerebral infarction, unspecified (3) Decubitus ulcer of left heel, stage 3 Priority: Secondary Status: Chronic (4) UTI (urinary tract infection) Priority: Primary Status: Acute Qualifiers: Urinary tract infection type: acute cystitis Hematuria presence: without hematuria Qualified Code(s): N30.00 - Acute cystitis without hematuria (5) Insulin dependent diabetes mellitus Priority: Secondary Status: Chronic (6) Morbid obesity with BMI of 40.0-44.9, adult Priority: Secondary Status: Chronic (7) Acute kidney injury superimposed on chronic kidney disease Priority: Secondary Status: Resolved (8) Dehydration Priority: Secondary Status: Acute (9) Bullous pemphigoid Priority: Secondary Status: Chronic Hospital course: Ms. Mejia is a 62 year old female with history of type 2 diabetes, bullous pemphigoid, diastolic heart failure presented with generalized weakness and multiple skin ulcers. Workup revealed that she was dehydrated with urinary tract infection with the decrease in her oral intake. Patient was treated initially with IV Rocephin which is transitioned to by mouth Keflex for a total of 5 days. She received IV fluid hydration. She was started on a steroid taper for her bullous pemphigoid which she follows with dermatology as an outpatient. At the time of discharge patient states that she felt much better. Patient will be discharged back to [facility] in stable condition. 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, nurse - Time Spent with Patient Total time spent providing and/or coordinating discharge services: Less than 30 minutes - Discharge Medications Prescriptions: ALPRAZolam [Xanax 0.25 MG Tablet] 0.25 mg PO TID PRN 10 Days #30 tablet PRN Reason: Anxiety OxyCODONE/APAP 5/325 [Percocet 5/325 MG] 1 tab PO BID PRN 7 Days #14 tablet PRN Reason: Pain Home Medications: Gabapentin [Neurontin] 300 mg PO HS 08/18/15 [History] Insulin LISPRO [Humalog] 14 unit SQ BID 08/18/15 [History] Pravastatin Sodium [Pravachol] 20 mg PO HS 08/18/15 [History] Linagliptin/Metformin HCl [Jentadueto Xr 2.5 mg-1,000 mg] 1 tab PO BID 05/03/16 [History] Carvedilol [Coreg] 6.25 mg PO BIDWM #60 tablet 05/11/16 [Rx] amLODIPine [Norvasc] 5 mg PO DAILY #30 tablet 05/11/16 [Rx] Insulin Glargine,Hum.rec.anlog [Tojojo Solmarcellusar] 14 units SQ QAM 03/10/17 [ History] Furosemide [Lasix] 20 mg PO QPM 03/29/17 [History] Furosemide [Lasix] 40 mg PO QAM 03/29/17 [History] Lactobacillus [Culturelle] 1 each PO BID #30 cap.sprink 04/04/17 [Rx] Nystatin POWDER [Nystop] 1 appl TP BID #1 bottle 04/04/17 [Rx] Benzocaine/Menthol [Chloraseptic Max Lozenge] 1 each MM Q2H PRN 11/12/17 [ History] Ferrous Sulfate [Iron] 325 mg PO DAILY 11/12/17 [History] Folic Acid 1 mg PO DAILY 11/12/17 [History] Loperamide HCl [Imodium A-D] 2 mg PO QID PRN 11/12/17 [History] Methotrexate [Otrexup] 15 mg PO SA 11/12/17 [History] Multivitamin [One Daily Essential] 1 tab PO DAILY 11/12/17 [History] hydrOXYzine HCl [Hydroxyzine HCl] 25 mg PO QID PRN 11/12/17 [History] ALPRAZolam [Xanax 0.25 MG Tablet] 0.25 mg PO TID PRN 10 Days #30 tablet [Rx] Aspirin Enteric Coated [Aspirin EC] 81 mg PO DAILY tablet. 11/15/17 [Rx] Buspirone HCl [Buspar] 5 mg PO BID tablet 11/15/17 [Rx] OxyCODONE/APAP 5/325 [Percocet 5/325 MG] 1 tab PO BID PRN 7 Days #14 tablet [Rx] cephALEXin [Keflex] 250 mg PO BID #6 capsule 11/15/17 [Rx] predniSONE [PredniSONE] 40 mg PO DAILY #0 tablet 11/15/17 [Rx] Allergies/Adverse Reactions: 3 Allergy/AdvReac Type Severity Reaction Status Date / Time No Known Allergies Allergy Verified 11/12/17 16:06 Date of admission: 11/12/17 16:31 Primary care physician: Elza Jesus, Consults: 11/12/17 17:04 Consult to Wound Care [CONS] Routine Reason for Consult: Multiple ulcers Time Notified: 17:05 Call Completed: No 11/13/17 13:38 Consult to Occupational Therapy [CONS] Routine Comment: Evaluate, develop and implement POC Reason for Consult: needs pre-cert to rtn to ecf, does not need to be seen today Does patient have active BEDREST order?: No Is patient medically & hemodynamically stable?: Yes Consult to Physical Therapy [CONS] Routine Comment: Evaluate, develop and implement POC Reason for Consult: needs pre-cert to return to ecf, does not need to be seen today Does patient have active BEDREST order?: No Is patient medically & hemodynamically stable?: Yes Consult to Billet Shearer [CONS] Routine Reason for SW Consult: pt to return to [facility]. Discharging clinician: Jay Dangelo Anticipated date of discharge: 11/15/17 - Constitutional Vitals: Temp Pulse Resp BP Pulse Ox 98.2 F 75 15 164/85 99 11/15/17 07:14 11/15/17 07:14 11/15/17 07:14 11/15/17 07:14 11/15/17 07:14 General appearance: Present: cooperative, A&O X 3, answers questions appropriately - Respiratory Respiratory exam: Present: CTAB. Absent: rales, rhonchi, wheezes - Cardiovascular Cardiovascular exam: Present: RRR. Absent: gallop, rubs, systolic murmur - GI/Abdominal GI/Abdominal exam: Present: normal bowel sounds, soft. Absent: distended, tenderness - Extremities Exam Extremities exam: Present: warm. Absent: pedal edema, tenderness - Neurological Exam Neurological exam: Present: alert, oriented X3, no focal deficits - Patient Status Disposition: Transfer SNF Overall status at discharge: patient is progressing back to baseline - Discharge Instructions Instructions: Urinary Tract Infection in Women (DC) Follow Up With: NONE,PCP [Non-Partnered Physician] - (Patient is from [facility]) Additional Instructions: Please resume your home medications. Please take your antibiotic until completed. Please take your steroid with plans to taper as prescribed. Please follow-up with dermatology. Please return for any new or worsening symptoms. - Diet and Activity Activity: increase activity as tolerated Diet: diabetic diet, low salt diet <Thallapaneni,Rambabu - Last Filed: 11/15/17 14:43> Date of Encounter: 11/15/17 - Discharge Diagnosis (1) HTN (hypertension) Status: Chronic Qualifiers: Hypertension type: essential hypertension Qualified Code(s): I10 - Essential (primary) hypertension (2) CVA (cerebral vascular accident) Status: Chronic Qualifiers: CVA mechanism: unspecified Qualified Code(s): I63.9 - Cerebral infarction, unspecified (3) Decubitus ulcer of left heel, stage 3 Status: Chronic (4) UTI (urinary tract infection) Status: Acute Qualifiers: Urinary tract infection type: acute cystitis Hematuria presence: without hematuria Qualified Code(s): N30.00 - Acute cystitis without hematuria (5) Insulin dependent diabetes mellitus Status: Chronic (6) Morbid obesity with BMI of 40.0-44.9, adult Status: Chronic (7) Acute kidney injury superimposed on chronic kidney disease Status: Resolved (8) Dehydration Status: Acute (9) Bullous pemphigoid Status: Chronic Hospital course: Ms. Mejia is a 62 year old female - Time Spent with Patient Total time spent providing and/or coordinating discharge services: Date of admission: 11/12/17 16:31 Primary care physician: Elza Jesus, Consults: 11/12/17 17:04 Consult to Wound Care [CONS] Routine Reason for Consult: Multiple ulcers Time Notified: 17:05 Call Completed: No 11/13/17 13:38 Consult to Occupational Therapy [CONS] Routine Comment: Evaluate, develop and implement POC Reason for Consult: needs pre-cert to rtn to ecf, does not need to be seen today Does patient have active BEDREST order?: No Is patient medically & hemodynamically stable?: Yes Consult to Physical Therapy [CONS] Routine Comment: Evaluate, develop and implement POC Reason for Consult: needs pre-cert to return to ecf, does not need to be seen today Does patient have active BEDREST order?: No Is patient medically & hemodynamically stable?: Yes Consult to Billet Shearer [CONS] Routine Reason for SW Consult: pt to return to [facility]. - Constitutional Vitals: Temp Pulse Resp BP Pulse Ox 98.0 F 78 15 106/56 100 11/15/17 10:57 11/15/17 10:57 11/15/17 10:57 11/15/17 10:57 11/15/17 10:57 - Attending Attestation I examined this patient and my medical decision-making was reviewed with the Resident Physician Dr. Dangelo. I agree with the documented findings, disposition and treatment plan as described except to the extent set forth below. Ms. Mejia is a 62 year old female with a known past medical history of type II diabetes's, CK D stage III, hypertension, hyperlipidemia, chronic left heel ulcer with possible osteomyelitis diagnosed on 03/2017 was treated with four weeks of IV antibiotic vancomycin and Levaquin, now she is actively following with Dr. Olivarez at the wound care center, she also have bullous phemphigoid rash for which she is following at [facility], who is a long-term resident at [facility] after she became immobile due to CVA, and now she presented emergency room complaining about generalized weakness, lethargic and tiredness. She also worried about her worsening multiple ulcers all over the body. She did mention she lost her appetite and not eating and drinking well lately. In the ER her workup showed she does have acute UTI and acute kidney injury with CKD stage III. Pt is more alert, awake and O x 3 today. Denied any CP / SOB Gen: A, A, O x 3 Chest: Diminished BS b/l Ext: Chronic healing ulcer over left heel Heart: S1S2 + a/p 1. Acute UTI urine cx no growth on Po Keflex 2. JOSE ROBERTO with CKD-3 3. Hyperkalemia Improving cont close monitoring avoid nephro toxic meds 4. bullous phemphigoid Improving cont home med Methotrexate PO steroids - would get benefit 2 weeks of tapering dose of steroids local wound care Medically stable to d/c back to ECF today
[2017-11-15] MEDS: Folic Acid 1 MG TABLET PO SCH (09:21)
[2017-11-15] MEDS: cephALEXin 250 MG CAPSULE PO SCH ×2 (09:21→21:17)
[2017-11-15] MEDS: Aspirin Enteric Coated 81 MG Tablet PO SCH (09:21)
[2017-11-15] MEDS: predniSONE 20 MG TABLET PO SCH (09:21)
[2017-11-15] MEDS: amLODIPine 5 MG TABLET PO SCH (09:21)
[2017-11-15] MEDS: Insulin DETEMIR 100 UNIT/ML X5UNITS SQ SCH (09:21)
--- NOTE | 2017-11-15 09:24 | Physician Discharge Referral ---
<Jay Dangelo - Last Filed: 11/15/17 09:23> ExtendedCare Referral Info Transfer To: [facility] Provider in Charge after Transfer: PCP Institutional Level of Care: Skilled - Diagnosis (1) HTN (hypertension) Priority: Secondary Status: Chronic (2) CVA (cerebral vascular accident) Priority: Secondary Status: Chronic (3) Decubitus ulcer of left heel, stage 3 Priority: Secondary Status: Chronic (4) UTI (urinary tract infection) Priority: Primary Status: Acute (5) Insulin dependent diabetes mellitus Priority: Secondary Status: Chronic (6) Morbid obesity with BMI of 40.0-44.9, adult Priority: Secondary Status: Chronic (7) Acute kidney injury superimposed on chronic kidney disease Priority: Secondary Status: Resolved (8) Dehydration Priority: Primary Status: Acute (9) Bullous pemphigoid Priority: Secondary Status: Chronic Prognosis: Fair Aware of Diagnosis: Patient Aware of Prognosis: Patient - Transfer Medications Prescriptions: ALPRAZolam [Xanax 0.25 MG Tablet] 0.25 mg PO TID PRN 10 Days #30 tablet PRN Reason: Anxiety OxyCODONE/APAP 5/325 [Percocet 5/325 MG] 1 tab PO BID PRN 7 Days #14 tablet PRN Reason: Pain Home Medications: Gabapentin [Neurontin] 300 mg PO HS 08/18/15 [History] Insulin LISPRO [Humalog] 14 unit SQ BID 08/18/15 [History] Pravastatin Sodium [Pravachol] 20 mg PO HS 08/18/15 [History] Linagliptin/Metformin HCl [Jentadueto Xr 2.5 mg-1,000 mg] 1 tab PO BID 05/03/16 [History] Carvedilol [Coreg] 6.25 mg PO BIDWM #60 tablet 05/11/16 [Rx] amLODIPine [Norvasc] 5 mg PO DAILY #30 tablet 05/11/16 [Rx] Insulin Glargine,Hum.rec.anlog [José Miguel Manuel] 14 units SQ QAM 03/10/17 [ History] Furosemide [Lasix] 20 mg PO QPM 03/29/17 [History] Furosemide [Lasix] 40 mg PO QAM 03/29/17 [History] Lactobacillus [Culturelle] 1 each PO BID #30 cap.sprink 10/31/17 [Rx] Nystatin POWDER [Nystop] 1 appl TP BID #1 bottle 04/04/17 [Rx] Benzocaine/Menthol [Chloraseptic Max Lozenge] 1 each MM Q2H PRN 11/12/17 [ History] Ferrous Sulfate [Iron] 325 mg PO DAILY 11/12/17 [History] Folic Acid 1 mg PO DAILY 11/12/17 [History] Loperamide HCl [Imodium A-D] 2 mg PO QID PRN 11/12/17 [History] Methotrexate [Otrexup] 15 mg PO SA 11/12/17 [History] Multivitamin [One Daily Essential] 1 tab PO DAILY 11/12/17 [History] hydrOXYzine HCl [Hydroxyzine HCl] 25 mg PO QID PRN 11/12/17 [History] ALPRAZolam [Xanax 0.25 MG Tablet] 0.25 mg PO TID PRN 10 Days #30 tablet [Rx] Aspirin Enteric Coated [Aspirin EC] 81 mg PO DAILY tablet. 11/15/17 [Rx] Buspirone HCl [Buspar] 5 mg PO BID tablet 11/15/17 [Rx] OxyCODONE/APAP 5/325 [Percocet 5/325 MG] 1 tab PO BID PRN 7 Days #14 tablet [Rx] cephALEXin [Keflex] 250 mg PO BID #6 capsule 11/15/17 [Rx] predniSONE [PredniSONE] 40 mg PO DAILY #0 tablet 11/15/17 [Rx] Allergies/Adverse Reactions: 3 Allergy/AdvReac Type Severity Reaction Status Date / Time No Known Allergies Allergy Verified 11/12/17 16:06 - Respiratory Orders None Smoking Cessation: Smoking cessation has been advised. For more information, call the [place] Tobacco Quit Line at 7-500-EOIV-NOW. - Ancillary Orders May use pressure relief devices daily prn, May consult with Dentist, Pest Control Chemical Technician, Drug Safety Assistant PRN - Advance Directives Code Status: Full Code - Mobility Orders Ambulate (with assist) - Rehabiliation Orders Rehab Potential: Fair Rehab Orders: Evaluation for Physical Therapy, Evaluation for Occupational Therapy, Evaluation for Speech Therapy - Treatments Skin tear care topically daily PRN per policy, May check for fecal impaction rectally daily PRN, Fleet enema rectally every other day PRN cleansing purposes - Diet Orders No Added Salt (DONNELL), No Concentrated Sweets, Cardiac CERTIFICATION: I certify that the transfer of the above named patient to an Extended Care Facility is necessary for the continuing treatment of the diagnosis listed. The above information is true and accurate reflection of patient's current condition. Confidential - Redisclosure prohibited without a patient's written consent. <Frida Perales - Last Filed: 11/15/17 14:41> - Diagnosis (1) HTN (hypertension) Status: Chronic (2) CVA (cerebral vascular accident) Status: Chronic (3) Decubitus ulcer of left heel, stage 3 Status: Chronic (4) UTI (urinary tract infection) Status: Acute (5) Insulin dependent diabetes mellitus Status: Chronic (6) Morbid obesity with BMI of 40.0-44.9, adult Status: Chronic (7) Acute kidney injury superimposed on chronic kidney disease Status: Resolved (8) Dehydration Status: Acute (9) Bullous pemphigoid Status: Chronic - Respiratory Orders Smoking Cessation: Smoking cessation has been advised. For more information, call the [place] Tobacco Quit Line at 3-271-HYBT-NOW. CERTIFICATION: I certify that the transfer of the above named patient to an Extended Care Facility is necessary for the continuing treatment of the diagnosis listed. The above information is true and accurate reflection of patient's current condition. Confidential - Redisclosure prohibited without a patient's written consent.
[2017-11-15] MEDS: Gabapentin 300 MG CAPSULE PO SCH (21:17)
[2017-11-16] MEDS: *HR* Heparin 5,000 UNIT/ML VIAL SQ SCH (05:38)
[2017-11-16] MEDS: Folic Acid 1 MG TABLET PO SCH (07:35)
[2017-11-16] MEDS: amLODIPine 5 MG TABLET PO SCH (07:35)
[2017-11-16] MEDS: Aspirin Enteric Coated 81 MG Tablet PO SCH (07:35)
[2017-11-16] MEDS: predniSONE 20 MG TABLET PO SCH (07:35)
[2017-11-16] MEDS: Insulin LISPRO 300 UNITS/3 ML VIAL SQ SCH ×2 (07:35→12:03)
[2017-11-16] MEDS: Silvasorb 44.4 ML TUBE TP SCH (07:36)
[2017-11-16] MEDS: Artificial Tears SOLN 15 ML BOTTLE BOTH EYES PRN ×2 (07:36→12:04)
[2017-11-16] MEDS: cephALEXin 250 MG CAPSULE PO SCH (07:36)
[2017-11-16] MEDS: Insulin DETEMIR 100 UNIT/ML X5UNITS SQ SCH (07:36)
[2017-11-16 11:38] VITALS: BP 156/78
[2017-11-16] MEDS: Acetaminophen 325 MG TABLET PO PRN (12:03)
--- NOTE | 2017-11-16 13:35 | Internal Med Progress Note ---
<Christofer Gamino - Last Filed: 11/16/17 14:18> Date of Encounter: 11/16/17 Time of Encounter: 10:30 - Assessment and plan (1) UTI (urinary tract infection) Current Visit: Yes Status: Acute Assessment and plan: Reviewed UA showed many bacteria Dc'd IV rocephin; preliminary urine culture shows no growth, transitioned to PO Keflex for 3 days (will d/c 11/17) Patient currently asymptomatic Qualifiers: Urinary tract infection type: acute cystitis Hematuria presence: without hematuria Qualified Code(s): N30.00 - Acute cystitis without hematuria (2) Acute kidney injury superimposed on chronic kidney disease Current Visit: Yes Status: Resolved Assessment and plan: Creatinine improved, hyperkalemia improved; today's creatinine 1.7 @ baseline Discontinuing IV hydration avoid nephrotoxic medication (3) Dehydration Current Visit: Yes Status: Acute Assessment and plan: Resolved, discontinued IV fluids, has po diet, oral intake (4) CVA (cerebral vascular accident) Current Visit: No Status: Chronic Assessment and plan: Chronic bedbound, chronic decreased acuity R lateralization continue supportive care Qualifiers: CVA mechanism: unspecified Qualified Code(s): I63.9 - Cerebral infarction, unspecified (5) Decubitus ulcer of left heel, stage 3 Current Visit: No Status: Chronic Assessment and plan: Following with Dr. Olivarez as an out pt stage 2-3 [id number] curved lesion on L heel, wears unnaboot/cushioning, has beefy granulation tissue Surgery recommends patient follow-up outpatient, next appt 11/[address] Olivarez/ wound clinic (6) HTN (hypertension) Current Visit: No Status: Chronic Assessment and plan: Resumed home medication Qualifiers: Hypertension type: essential hypertension Qualified Code(s): I10 - Essential (primary) hypertension (7) Insulin dependent diabetes mellitus Current Visit: No Status: Chronic Assessment and plan: On insulin sliding scale and levemir (8) Morbid obesity with BMI of 40.0-44.9, adult Current Visit: No Status: Chronic (9) Bullous pemphigoid Current Visit: Yes Status: Chronic Assessment and plan: Sees Dr. Phillips for bullous pemphigoid, starting methotrexate home med (day 2 inpatient) On prednisone, plan for 12 day taper starting inpatient and will continue outpatient (3 days of 40, 3 days of 30 and so on.) Greatly improved ulceration presentation Awaiting precertification for [facility] placement, patient assessed stable for discharge - Time Spent With Patient Total time spent is greater than 50% in coordination of care (as documented) at patient's floor/unit and/or counseling patient: - Subjective Interval history: Patient continues to report improved comfort and less symptoms with her bullous pemphigoid, no urinary symptoms, no trouble breathing. Pre-certification with [facility] pending. - Constitutional Vitals: Temp Pulse Resp BP Pulse Ox 100 F H 79 16 156/78 97 11/16/17 11:37 11/16/17 11:37 11/16/17 11:37 11/16/17 11:37 11/16/17 11:37 General appearance: Present: cooperative, A&O X 3, answers questions appropriately - Head Head exam: Present: atraumatic, normal inspection - Eye Eye exam: Present: EOMI. Absent: conjunctival injection - ENT ENT exam: Present: mucous membranes moist - Neck Neck exam general surgery: Present: full ROM. Absent: lymphadenopathy - Respiratory Respiratory exam: Present: CTAB. Absent: accessory muscle use - Cardiovascular Cardiovascular exam: Present: RRR, +S1, +S2. Absent: JVD - GI/Abdominal GI/Abdominal exam: Absent: distended, firm, guarding - Extremities Exam Extremities exam: Absent: calf tenderness Additional comments: stable heel ulcer L; stage 3, unnaboot, gauze, abd improved upper extremity ulceration/torso ulceration, no newly forming ulcers - Neurological Exam Neurological exam: Present: no focal deficits - Psychiatric Psychiatric exam: Present: normal affect, normal mood - Skin Skin exam: Absent: abrasion, cyanosis Additional comments: ulceration stage 1-2 with scale, no new ulceration Internal Medicine: Result - Labs CBC & Chem 7: 11/13/17 03:23 11/14/17 06:37 Consult Discharge Plan - Plan Instructions: Urinary Tract Infection in Women (DC) Additional Instructions: Please resume your home medications. Please take your antibiotic until completed. Please take your steroid with plans to taper as prescribed. Please follow-up with dermatology. Please return for any new or worsening symptoms. Referrals: NONE,PCP [Non-Partnered Physician] - (Patient is from [facility]) Prescriptions: ALPRAZolam [Xanax 0.25 MG Tablet] 0.25 mg PO TID PRN 10 Days #30 tablet PRN Reason: Anxiety OxyCODONE/APAP 5/325 [Percocet 5/325 MG] 1 tab PO BID PRN 7 Days #14 tablet PRN Reason: Pain <OlimpiaFrida anderson - Last Filed: 11/16/17 14:21> Date of Encounter: 11/16/17 - Assessment and plan (1) HTN (hypertension) Current Visit: No Status: Chronic Qualifiers: Hypertension type: essential hypertension Qualified Code(s): I10 - Essential (primary) hypertension (2) CVA (cerebral vascular accident) Current Visit: No Status: Chronic Qualifiers: CVA mechanism: unspecified Qualified Code(s): I63.9 - Cerebral infarction, unspecified (3) Decubitus ulcer of left heel, stage 3 Current Visit: No Status: Chronic (4) UTI (urinary tract infection) Current Visit: Yes Status: Acute Qualifiers: Urinary tract infection type: acute cystitis Hematuria presence: without hematuria Qualified Code(s): N30.00 - Acute cystitis without hematuria (5) Insulin dependent diabetes mellitus Current Visit: No Status: Chronic (6) Morbid obesity with BMI of 40.0-44.9, adult Current Visit: No Status: Chronic (7) Acute kidney injury superimposed on chronic kidney disease Current Visit: Yes Status: Resolved (8) Dehydration Current Visit: Yes Status: Acute (9) Bullous pemphigoid Current Visit: Yes Status: Chronic - Time Spent With Patient Total time spent is greater than 50% in coordination of care (as documented) at patient's floor/unit and/or counseling patient: - Constitutional Vitals: Temp Pulse Resp BP Pulse Ox 100 F H 79 16 156/78 97 11/16/17 11:37 11/16/17 11:37 11/16/17 11:37 11/16/17 11:37 11/16/17 11:37 Internal Medicine: Result - Labs CBC & Chem 7: 11/13/17 03:23 11/14/17 06:37 - Attending Attestation I examined this patient and my medical decision-making was reviewed with the Resident Physician Dr. Gamino. I agree with the documented findings, disposition and treatment plan as described except to the extent set forth below. Ms. Mejia is a 62 year old female with a known past medical history of type II diabetes's, CK D stage III, hypertension, hyperlipidemia, chronic left heel ulcer with possible osteomyelitis diagnosed on 03/2017 was treated with four weeks of IV antibiotic vancomycin and Levaquin, now she is actively following with Dr. Olivarez at the wound care center, she also have bullous phemphigoid rash for which she is following at [facility], who is a long-term resident at [facility] after she became immobile due to CVA, and now she presented emergency room complaining about generalized weakness, lethargic and tiredness. She also worried about her worsening multiple ulcers all over the body. She did mention she lost her appetite and not eating and drinking well lately. In the ER her workup showed she does have acute UTI and acute kidney injury with CKD stage III. Pt is more alert, awake and O x 3 today. Denied any CP / SOB Gen: A, A, O x 3 Chest: Diminished BS b/l Ext: Chronic healing ulcer over left heel Heart: S1S2 + a/p 1. Acute UTI urine cx no growth on Po Keflex 2. JOSE ROBERTO with CKD-3 3. Hyperkalemia Improved cont close monitoring avoid nephro toxic meds 4. bullous phemphigoid Improving cont home med Methotrexate PO steroids - would get benefit 2 weeks of tapering dose of steroids local wound care Medically stable to d/c back to ECF Waiting on Insurance pre cert
[2017-11-18] MEDS ORDERED: *HR* Methotrexate 2.5 MG TABLET PO SCH (08:01)
== END 2017-11-16 15:39 | DRG 463 ==
LOC: EMEROO 13:21 → 2ANU 13:21
PROVIDERS: ADMIT Family Medicine; ATTEND Family Medicine

== ENCOUNTER 2017-12-12 11:35 | Inpatient (IN) ==
[2017-12-12] MEDS ORDERED: Isovue-370 500 ML INFUS..BTL IV ONE (12:17)
[2017-12-12 12:23] LABS: Basophils % 0.2 %; Eosinophils # 0.1 K/mcL (0.0-0.6); Eosinophils % 1.5 %; Hematocrit 23.8 % (35.3-44.9); Hemoglobin 7.6 g/dL (11.5-15.4); Immature Granulocytes % 2.6 % (0-4); Lymphocytes # 0.5 K/mcL (0.6-4.6); Lymphocytes % 10.2 %; Mean Corpuscular HGB Conc 31.9 g/dL (31.6-35.5); Mean Corpuscular Hemoglobin 27.9 pg (28.0-33.3); Mean Corpuscular Volume 87.5 fL (83.0-100.0); Mean Platelet Volume 8.8 fL (9.4-12.4); Monocytes # 0.5 K/mcL (0.0-1.3); Monocytes % 9.2 %; Neutrophils # 4.1 K/mcL (1.6-8.9); Nucleated Red Blood Cells 0.4 /100 WBC (0); Platelet Count 135 K/mcL (140-400); Red Blood Count 2.72 M/mcL (3.82-4.97); Red Cell Distribution Width 15.8 % (11.5-14.5); Segmented Neutrophils % 76.3 %
[2017-12-12 12:29] LABS: INR 1.2; Prothrombin Time 13.6 Seconds (9.4-12.1)
[2017-12-12 12:32] LABS: Activated Partial Thrombo Time 28.1 Seconds (26.0-36.0)
[2017-12-12 12:48] LABS: Troponin I < 0.03 ng/mL (< 0.04)
[2017-12-12 12:49] LABS: Alanine Aminotransferase 12 Units/L (7-52); Albumin 2.9 g/dL (3.5-5.7); Albumin/Globulin Ratio 1.1 (1.1-2.2); Alkaline Phosphatase 99 Units/L (34-104); Aspartate Amino Transferase 14 Units/L (13-39); BUN/Creatinine Ratio 21 (6-26); Bilirubin,Direct 0.1 mg/dL (0.0-0.2); Bilirubin,Indirect 0.4 mg/dL (0.0-1.2); Bilirubin,Total 0.5 mg/dL (0.3-1.0); Blood Urea Nitrogen 50 mg/dL (8-23); Calcium 8.5 mg/dL (8.6-10.3); Carbon Dioxide 25 mEq/L (23-29); Chloride 96 mEq/L (98-107); Globulin 2.7 g/dL (2.4-3.5); Glucose 153 mg/dL (70-105); Osmolality,Calculated 296 (280-300); Potassium 4.5 mEq/L (3.5-5.1); Sodium 135 mEq/L (136-145); Total Protein 5.6 g/dL (6.4-8.9); eGFR For African Americans 25 (> 60); eGFR For Non-African Americans 21 (> 60)
[2017-12-12] MEDS ORDERED: 0.9 % Sodium Chloride 1,000 ML IVC ONE (12:51)
--- NOTE | 2017-12-12 13:04 | Emergency Department Note ---
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 Patient has a history of bullous pemphigoid and is on methotrexate. History of CHF and diabetes as well as hyperlipidemia, previous cerebral infarction and essential hypertension. DNR CC paperwork is included with her packet. Reported hemoglobin of 6.8. Patient has not had any chest pain or shortness of breath or dizziness. Patient has chronic wounds to the left ankle and is on Levaquin. Patient has had some left lower quadrant abdominal pain. She describes constipation over the last 6 days. Nausea and decreased appetite. Tenderness to palpation but nothing makes it better or worse. Pain Scale: 5 - Related Data Home Medications Medication Instructions Recorded Confirmed Gabapentin [Neurontin] 300 mg PO HS 08/18/15 12/12/17 Insulin LISPRO [Humalog] 14 unit SQ BID 08/18/15 12/12/17 Pravastatin Sodium [Pravachol] 20 mg PO HS 08/18/15 12/12/17 Linagliptin/Metformin HCl 1 tab PO BID 05/03/16 12/12/17 [Jentadueto Xr 2.5 mg-1,000 mg] Insulin Glargine,Hum.rec.anlog 14 units SQ QAM 03/10/17 12/12/17 [[place] Solostar] Furosemide [Lasix] 20 mg PO QPM 03/29/17 12/12/17 Furosemide [Lasix] 40 mg PO QAM 03/29/17 12/12/17 Benzocaine/Menthol [Chloraseptic 1 each MM Q2H PRN 11/12/17 12/12/17 Max Lozenge] Ferrous Sulfate [Iron] 325 mg PO DAILY 11/12/17 12/12/17 Folic Acid 1 mg PO DAILY 11/12/17 12/12/17 Loperamide HCl [Imodium A-D] 2 mg PO QID PRN 11/12/17 12/12/17 Methotrexate [Otrexup] 15 mg PO SA 11/12/17 12/12/17 Multivitamin [One Daily Essential] 1 tab PO DAILY 11/12/17 12/12/17 hydrOXYzine HCl [Hydroxyzine HCl] 25 mg PO QID PRN 11/12/17 12/12/17 Levofloxacin [Levaquin] 750 mg PO DAILY 12/12/17 12/12/17 Ondansetron HCl 8 mg PO Q8H PRN 12/12/17 12/12/17 OxyCODONE/APAP 5/325 [Percocet 1 tab PO Q6H PRN 12/12/17 12/12/17 5/325 MG] Promethazine [Phenergan] 25 mg IV Q8HR 12/12/17 12/12/17 Previous Rx's Medication Instructions Recorded Carvedilol [Coreg] 6.25 mg PO BIDWM #60 tablet 05/11/16 amLODIPine [Norvasc] 5 mg PO DAILY #30 tablet 05/11/16 Lactobacillus [Culturelle] 1 each PO BID #30 cap.sprink 04/04/17 Nystatin POWDER [Nystop] 1 appl TP BID #1 bottle 04/04/17 ALPRAZolam [Xanax 0.25 MG Tablet] 0.25 mg PO TID PRN 10 Days #30 11/15/17 tablet Aspirin Enteric Coated [Aspirin EC] 81 mg PO DAILY tablet. 11/15/17 Buspirone HCl [Buspar] 5 mg PO BID tablet 11/15/17 Allergies Allergy/AdvReac Type Severity Reaction Status Date / Time No Known Allergies Allergy Verified 11/12/17 16:06 Review of Systems: CONSTITUTIONAL: No weight loss, fever, chills, weakness or fatigue. HEENT: Eyes: No visual changes. Ears, Nose, Throat: No hearing loss, difficulty talking or unable to swallow. SKIN: No rash or itching. CARDIOVASCULAR: No chest pain, chest pressure or chest discomfort. No palpitations or edema. RESPIRATORY: No shortness of breath, cough or sputum. GASTROINTESTINAL: Abdominal pain with nausea and constipation GENITOURINARY: No burning on urination or hematuria. NEUROLOGICAL: No headache, dizziness, syncope, paralysis, ataxia, numbness or tingling in the extremities. No change in bowel or bladder control. MUSCULOSKELETAL: No muscle pain, back pain, joint pain or stiffness. Past Medical History - Past Medical History Medical history: Reports: arthritis, CHF, COPD, CVA, diabetes, glaucoma, hyperlipidemia, hypertension, pulmonary embolus, renal disease, other Surgical history: Reports: cataract, other Psychiatric history: Reports: anxiety - Social History Smoking Status: Never smoker Smokeless Tobacco Status: No Alcohol use: Reports: none Drug use: Reports: none Physical Exam General: Well appearing, nontoxic, no acute distress Head: Normocephalic Atraumatic Eyes: PERRL, EOMI ENT: Airway patent, no stridor Neck: supple, no meningismus Chest: Lungs clear to auscultation bilateral Cardiac: Regular rhythm Abdomen: soft, moderate tenderness to palpation over the left abdomen Musculoskeletal: Calves symmetric, nontender, no palpable cord Skin: Patient with multiple blistering sites over her skin consistent with bullous pemphigoid previous diagnosis. Patient has chronic wound to the left lower ankle. Neuro: Alert and Oriented to person, place, and time; No focal deficit, CN 2-12 symmetric and intact - General Limitations: no limitations General appearance: alert, in no apparent distress Course - Reevaluation(s) Reevaluation #1: Patient's hemoglobin is 7.6 on repeat. The patient does have acute kidney injury. Patient will need further admitted for management of this. We will discuss with hospitalist regards to giving a blood transfusion. Patient is currently getting fluids. Continues to deny chest pain or shortness of breath. Reevaluation #2: Transfusion of 1 unit as ordered. Lasix will be ordered and a second unit will be ordered after this. - Consultations Consultation #1: Discussed with Dr. Ramires. The patient can receive transfusion. Patient can receive 2 units with 20 of Lasix. Vital Signs Temperature 98.2 F 12/12/17 11:42 Pulse Rate 83 12/12/17 11:42 Respiratory Rate 16 12/12/17 11:42 Blood Pressure 106/64 12/12/17 11:42 O2 Sat by Pulse Oximetry 94 12/12/17 11:42 Temperature 98.2 F 12/12/17 11:42 Pulse Rate 81 07/10/18 14:53 Respiratory Rate 15 12/12/17 14:53 Blood Pressure 104/55 12/12/17 14:53 O2 Sat by Pulse Oximetry 95 12/12/17 14:53 Oxygen Delivery Oxygen Delivery Room Air Medical Decision Making - Medical Records Medical records reviewed: Yes I reviewed the patient's medical records. - Lab Data Lab results reviewed: Yes I reviewed the patient's lab results. Result diagrams: 12/12/17 12:03 12/12/17 12:03 Lab Results 12/12/17 12/12/17 12/12/17 Range/Units 12:03 12:03 12:03 WBC 5.3 (4.3-11.1) K/mcL RBC 2.72 L (3.82-4.97) M/mcL Hgb 7.6 L (11.5-15.4) g/dL Hct 23.8 L (35.3-44.9) % MCV 87.5 (83.0-100.0) fL MCH 27.9 L (28.0-33.3) pg MCHC 31.9 (31.6-35.5) g/dL RDW 15.8 H (11.5-14.5) % Plt Count 135 L (140-400) K/mcL MPV 8.8 L (9.4-12.4) fL Immature Gran % 2.6 (0-4) % Seg Neutrophils % 76.3 % Lymphocytes % 10.2 % Monocytes % 9.2 % Eosinophils % 1.5 % Basophils % 0.2 % Neutrophils # 4.1 (1.6-8.9) K/mcL Lymphocytes # 0.5 L (0.6-4.6) K/mcL Monocytes # 0.5 (0.0-1.3) K/mcL Eosinophils # 0.1 (0.0-0.6) K/mcL Basophils # 0.0 (0.0-0.2) K/mcL Nucleated RBCs/100 WBC 0.4 H (0) /100 WBC PT 13.6 H (9.4-12.1) Seconds INR 1.2 APTT 28.1 (26.0-36.0) Seconds Sodium 135 L (136-145) mEq/L Potassium 4.5 (3.5-5.1) mEq/L Chloride 96 L (98-107) mEq/L Carbon Dioxide 25 (23-29) mEq/L BUN 50 H (8-23) mg/dL Creatinine 2.38 H (0.60-1.20) mg/dL Est GFR ( Amer) 25 L (> 60) Est GFR (Non-Af Amer) 21 L (> 60) BUN/Creatinine Ratio 21 (6-26) Glucose 153 H (70-105) mg/dL Calculated Osmolality 296 (280-300) Calcium 8.5 L (8.6-10.3) mg/dL Total Bilirubin 0.5 (0.3-1.0) mg/dL Direct Bilirubin 0.1 (0.0-0.2) mg/dL Indirect Bilirubin 0.4 (0.0-1.2) mg/dL AST 14 (13-39) Units/L ALT 12 (7-52) Units/L Alkaline Phosphatase 99 (34-104) Units/L Troponin I < 0.03 (< 0.04) ng/mL Serum Total Protein 5.6 L (6.4-8.9) g/dL Albumin 2.9 L (3.5-5.7) g/dL Globulin 2.7 (2.4-3.5) g/dL Albumin/Globulin Ratio 1.1 (1.1-2.2) Blood Type Antibody Screen MTS Gel Crossmatch 12/12/17 Range/Units 12:03 WBC (4.3-11.1) K/mcL RBC (3.82-4.97) M/mcL Hgb (11.5-15.4) g/dL Hct (35.3-44.9) % MCV (83.0-100.0) fL MCH (28.0-33.3) pg MCHC (31.6-35.5) g/dL RDW (11.5-14.5) % Plt Count (140-400) K/mcL MPV (9.4-12.4) fL Immature Gran % (0-4) % Seg Neutrophils % % Lymphocytes % % Monocytes % % Eosinophils % % Basophils % % Neutrophils # (1.6-8.9) K/mcL Lymphocytes # (0.6-4.6) K/mcL Monocytes # (0.0-1.3) K/mcL Eosinophils # (0.0-0.6) K/mcL Basophils # (0.0-0.2) K/mcL Nucleated RBCs/100 WBC (0) /100 WBC PT (9.4-12.1) Seconds INR APTT (26.0-36.0) Seconds Sodium (136-145) mEq/L Potassium (3.5-5.1) mEq/L Chloride (98-107) mEq/L Carbon Dioxide (23-29) mEq/L BUN (8-23) mg/dL Creatinine (0.60-1.20) mg/dL Est GFR ( Amer) (> 60) Est GFR (Non-Af Amer) (> 60) BUN/Creatinine Ratio (6-26) Glucose (70-105) mg/dL Calculated Osmolality (280-300) Calcium (8.6-10.3) mg/dL Total Bilirubin (0.3-1.0) mg/dL Direct Bilirubin (0.0-0.2) mg/dL Indirect Bilirubin (0.0-1.2) mg/dL AST (13-39) Units/L ALT (7-52) Units/L Alkaline Phosphatase (34-104) Units/L Troponin I (< 0.04) ng/mL Serum Total Protein (6.4-8.9) g/dL Albumin (3.5-5.7) g/dL Globulin (2.4-3.5) g/dL Albumin/Globulin Ratio (1.1-2.2) Blood Type A NEGATIVE Antibody Screen NEGATIVE MTS Gel Crossmatch See Detail - Radiology Data Radiology results reviewed: Yes I reviewed the patient's radiology results. - EKG Data EKG #1 EKG attestation: Yes I reviewed and interpreted this EKG. EKG results narrative: EKG shows sinus rhythm with ventricular rate of 83. MA 166. QRS 73. QTC 390. Patient has no significant ST elevations or depressions. No acute changes from previous of 11/12/17.
[2017-12-12] MEDS ORDERED: 0.9 % Sodium Chloride 500 ML ONE (17:46)
[2017-12-12] MEDS ORDERED: BENZOCAINE/MENTHOL 1 LOZENGE (BAG OF 6) MM PRN (17:57)
[2017-12-12] MEDS ORDERED: hydrOXYzine pamoate 25 MG CAPSULE PO PRN (17:57)
[2017-12-12] MEDS ORDERED: ALPRAZolam 0.25 MG TABLET PO PRN (17:57)
[2017-12-12] MEDS ORDERED: *HR* Dextrose 50 % in Water (Syg) 50 ML SYRINGE IVP PRN (18:01)
[2017-12-12] MEDS ORDERED: Dextrose Gel 15 GM/37.5 ML TUBE PO PRN ×2 (18:01)
[2017-12-12] MEDS ORDERED: D5% in Water 1,000 ML IVC PRN (18:01)
[2017-12-12] MEDS ORDERED: Insulin LISPRO 300 UNITS/3 ML VIAL SQ ONE (18:27)
[2017-12-12] MEDS ORDERED: levoFLOXacin 750 MG TABLET PO SCH (18:45)
[2017-12-12] MEDS: Insulin LISPRO 300 UNITS/3 ML VIAL SQ SCH ×2 (18:48→21:32)
--- NOTE | 2017-12-12 20:18 | Internal Med History&Physical ---
Date of Encounter: 12/12/17 Time of Encounter: 20:15 Internal Medicine - H&P: HPI Chief complaint: Nausea Admitted From: Long-term Nursing Facility Plans for Post Hospital Care: Transfer Inp Rehab Fac History of present illness: Ms. Mejia is a 62 year old female with a past medical history of bullous pemphigoid on methotrexate, diastolic CHF, hypertension, diabetes mellitus type 2, CVA with no residual deficits, and deconditioning who presents from a halfway facility complaining of increased weakness, nonproductive cough , nausea, and intermittent cramping, sharp periumbilical abdominal pain for the past 2 days. Her last bowel movement was 6 days ago. Patient was started on supplemental oxygen 2 days ago but denies prior history of supplemental oxygen use. Patient reports non-weightbearing status secondary to diabetic foot ulcer on left heel. She is on Levaquin. She has been participating in a rehab daily at the nursing facility and denies associated fever, chills, vomiting, diarrhea , melena, leg edema, or recent illnesses. Of note, patient's labs revealed anemia and was started on a blood transfusion in the ED. Patient reports last colonoscopy revealed diverticulosis 2 years ago and her mother from colon cancer. Past Med Surg Social Fam HX - Past Medical History Medical history: arthritis, CHF, COPD, CVA, diabetes, glaucoma, hyperlipidemia, hypertension, pulmonary embolus, renal disease, other Additional medical history: Anemia Psychiatric history: anxiety - Past Surgical History Surgical History: cataract, other Additional surgical history: tubal ligation - Social History Smoking Status: Never smoker Smokeless Tobacco Status: No Alcohol use: none Drug use: none Current living situation: ECF Activity Level: Bed bound - Family History Mother Adopted: No Family Member Ethnicity: Unknown Living Status: Still Living Hx Family Cardiac Disorders: No Hx Family Respiratory Disorders: Yes (COPD) Hx Family Cancer: Yes (Colon) Hx Family GI Disorders: No Hx Family Endocrine Disorder: No Hx Family Neuromuscular Disorders: No Hx Family Neurologic Disorders: No Hx Family HEENT Disorders: No Hx Family Autoimmune Disorders: No Father Family Member Ethnicity: Non- Living Status: Hx Family Cardiac Disorders: Yes (Maternal grandmother - heart failure) Hx Family Respiratory Disorders: Yes (Mother - COPD) Hx Family Cancer: Yes (Aunt & mother) Hx Family GI Disorders: Yes (Diverticulitis) Hx Family Endocrine Disorder: Yes Hx Family Neuromuscular Disorders: No Hx Family Neurologic Disorders: Yes (father - aneurysm) Hx Family HEENT Disorders: No Hx Family Autoimmune Disorders: No Hx Family Medical Disorders: Yes (Liver cirrhosis) Internal Medicine - H&P: Meds Gabapentin [Neurontin] 300 mg PO HS 08/18/15 [History] Insulin LISPRO [Humalog] 14 unit SQ BID 08/18/15 [History] Pravastatin Sodium [Pravachol] 20 mg PO HS 08/18/15 [History] Linagliptin/Metformin HCl [Jentadueto Xr 2.5 mg-1,000 mg] 1 tab PO BID 05/03/16 [History] Carvedilol [Coreg] 6.25 mg PO BIDWM #60 tablet 05/11/16 [Rx] amLODIPine [Norvasc] 5 mg PO DAILY #30 tablet 05/11/16 [Rx] Insulin Glargine,Hum.rec.anlog [[place] Solostar] 14 units SQ QAM 03/10/17 [ History] Furosemide [Lasix] 20 mg PO QPM 03/29/17 [History] Furosemide [Lasix] 40 mg PO QAM 03/29/17 [History] Lactobacillus [Culturelle] 1 each PO BID #30 cap.sprink 04/04/17 [Rx] Nystatin POWDER [Nystop] 1 appl TP BID #1 bottle 04/04/17 [Rx] Benzocaine/Menthol [Chloraseptic Max Lozenge] 1 each MM Q2H PRN 11/12/17 [ History] Ferrous Sulfate [Iron] 325 mg PO DAILY 11/12/17 [History] Folic Acid 1 mg PO DAILY 11/12/17 [History] Loperamide HCl [Imodium A-D] 2 mg PO QID PRN 11/12/17 [History] Methotrexate [Otrexup] 15 mg PO SA 11/12/17 [History] Multivitamin [One Daily Essential] 1 tab PO DAILY 11/12/17 [History] hydrOXYzine HCl [Hydroxyzine HCl] 25 mg PO QID PRN 11/12/17 [History] ALPRAZolam [Xanax 0.25 MG Tablet] 0.25 mg PO TID PRN 10 Days #30 tablet [Rx] Aspirin Enteric Coated [Aspirin EC] 81 mg PO DAILY tablet. 11/15/17 [Rx] Buspirone HCl [Buspar] 5 mg PO BID tablet 11/15/17 [Rx] Levofloxacin [Levaquin] 750 mg PO DAILY 12/12/17 [History] Ondansetron HCl 8 mg PO Q8H PRN 12/12/17 [History] OxyCODONE/APAP 5/325 [Percocet 5/325 MG] 1 tab PO Q6H PRN 12/12/17 [History] Promethazine [Phenergan] 25 mg IV Q8HR 12/12/17 [History] 3 Allergy/AdvReac Type Severity Reaction Status Date / Time No Known Allergies Allergy Verified 11/12/17 16:06 All Systems PM: A 10-system review of systems was performed and is negative for pertinent findings except as documented above in the HPI. - Constitutional Constitutional: anorexia, fatigue, lethargy, weakness, weight loss, no chills, no fever(s), no weight gain - EENT Eyes: no blurry vision, no diplopia Nose, mouth and throat: no sinus pain, no sore throat - Cardiovascular Cardiovascular ROS IM: no chest pain, no dyspnea, no palpitations - Respiratory Respiratory: cough, chest congestion, no hemoptysis, no wheezing - Gastrointestinal Gastrointestinal: abdominal pain, constipation, heartburn, nausea, no diarrhea, no vomiting - Genitourinary Genitourinary: no dysuria, no hematuria, no urinary frequency, no urinary urgency - Musculoskeletal Musculoskeletal ROS IM: atrophy, muscle weakness, numbness, tingling - Integumentary Integumentary IM: non-healing lesions, skin ulcer - Neurological Neurological ROS: tremor(s) (Chronic status post CVA), weakness, no confusion, no dizziness, no numbness - Psychiatric Psychiatric: no anxiety, no depression - Endocrine Endocrine IM: fatigue, no flushing, no polydipsia, no polyphagia, no polyuria - Hematologic/Lymphatic Hematologic/Lymphatic: no easy bleeding, no easy bruising, no lymphadenopathy - Constitutional Vitals: Temp Pulse Resp BP Pulse Ox 98.4 F 84 18 104/70 95 12/12/17 18:15 12/12/17 18:15 12/12/17 18:15 12/12/17 18:15 12/12/17 17:33 General appearance: Present: cooperative, A&O X 3, pleasant, no acute distress, obese, answers questions appropriately - Head Head exam: Present: atraumatic, normocephalic - Eye Eye exam: Present: PERRL, conjuntiva pink, sclera anicteric Pupils: Present: PERRL - ENT ENT exam: Present: mucous membranes dry, normal oropharynx - Neck Neck exam general surgery: Present: supple, trachea midline. Absent: lymphadenopathy - Respiratory Respiratory exam: Present: decreased breath sounds (Wearing 3 L of oxygen via nasal cannula). Absent: accessory muscle use, rales, rhonchi, wheezes - Cardiovascular Cardiovascular exam: Present: RRR, +S1, +S2. Absent: diastolic murmur, gallop, rubs, systolic murmur - GI/Abdominal GI/Abdominal exam: Present: normal bowel sounds, soft, no peritoneal signs. Absent: distended, tenderness - Extremities Exam Extremities exam: Present: warm, radial pulses palpable and symmetrical. Absent : calf tenderness, cyanotic, normal inspection (4 cm erythematous decubitus ulcer on left heel, superfacial skin breakdown), pedal edema - Back Exam Back exam: Present: normal inspection. Absent: paraspinal tenderness, tenderness - Neurological Exam Neurological exam: Present: CN II-XII intact, oriented X3, no focal deficits. Absent: pronater drift, facial droop, speech deficit - Psychiatric Psychiatric exam: Present: normal affect, normal mood - Skin Skin exam: Present: erythema (4 cm erythematous decubitus ulcer on left heel, superfacial skin breakdown), pallor, warm Internal Med - H&P Results - Labs CBC & Chem 7: 12/12/17 12:03 12/12/17 12:03 - Pulse Oximetry Interpretation Digit-Finger O2 Sat by Pulse Oximetry: 95 (On 3 L of O2 via nasal cannula) - EKG Data -: EKG Interpreted by Myself EKG shows normal: sinus rhythm, ST-T waves Rate: normal - EKG Data Prior EKG available for review: yes When compared to previous EKG: there is no significant change Interpretation IM: normal EKG - Impressions ITS Impressions Abdomen/Pelvis CT 12/12/17 12:49 IMPRESSION: Wedge-shaped left medial basilar opacity within the left lower lobe favors atelectasis although is incompletely visualized. Diffuse ground-glass opacities within the bilateral lower lobes and right middle lobe noted. Differential considerations include infectious/ inflammatory processes. Plain film follow up to resolution recommended. No evidence for acute intra-abdominal or intrapelvic pathology. No bowel obstruction or inflammation. No free intraperitoneal air or fluid. Diverticulosis. Cholelithiasis. D/ / Esau Stewart MD / Esau Stewart MD Interpreting Provider: Esau Stewart MD - Assessment and plan (1) JOSE ROBERTO (acute kidney injury) Current Visit: Yes Status: Acute Assessment and plan: Prerenal JOSE ROBERTO in the setting of diuretic use and CKD stage III Continue gentle hydration given history of CHF Monitor renal function Monitor I&O's Consider nephrology consult renal function continues to decline (2) Anemia Current Visit: Yes Status: Acute Assessment and plan: Patient with history of diverticulosis presented with hemoglobin level 6.9 Stool occult blood tests negative. No signs of active bleeding 1 unit PRBCs transfused 12/12/17 Continue iron supplementation Continue monitoring Qualifiers: Anemia type: due to chronic kidney disease Chronic kidney disease stage: stage 3 (moderate) Qualified Code(s): N18.3 - Chronic kidney disease, stage 3 (moderate); D63.1 - Anemia in chronic kidney disease (3) Physical deconditioning Current Visit: Yes Status: Chronic Assessment and plan: Patient reports a non-weightbearing status on left heel She participated in rehabilitation daily at SNF PT/OT consulted (4) Decubitus ulcer of left heel Current Visit: Yes Status: Chronic Assessment and plan: Patient with chronic nonhealing left heel decubitus ulcer Continue Santyl and Levaquin. Continue dressing is twice a day Turned patient every 2 hours PT/OT consulted Qualifiers: Pressure injury stage: stage 2 Qualified Code(s): L89.622 - Pressure ulcer of left heel, stage 2 (5) CKD (chronic kidney disease) stage 3, GFR 30-59 ml/min Current Visit: Yes Status: Chronic Assessment and plan: Avoid nephrotoxins Continue to monitor (6) Diastolic heart failure Current Visit: No Status: Chronic Assessment and plan: Echo 05/11/16 revealed normal LV systolic function, LVEF 60%, out concentric LVH , moderate LV diastolic dysfunction, moderately dilated left atrium, mild mitral stenosis, mild mitral regurgitation Continue home meds Continue gentle hydration in the setting of JOSE ROBERTO Monitor I&Os and daily weights Chest x-ray ordered secondary dry cough Qualifiers: Heart failure chronicity: chronic Qualified Code(s): I50.32 - Chronic diastolic (congestive) heart failure (7) Constipation by delayed colonic transit Current Visit: Yes Status: Chronic Assessment and plan: Last bowel movement 6 days ago, CT abdomen/ pelvis revealed no small bowel obstruction Senna plus ordered Continue monitoring (8) DM2 (diabetes mellitus, type 2) Current Visit: Yes Status: Chronic Assessment and plan: Hemoglobin A1c 7.9 on 12/23/17 Continue basal and SSI ADA diet Monitor Accu-Cheks Qualifiers: Diabetes mellitus detention insulin use: with intermediate project manager use Diabetes mellitus complication status: with kidney complications Diabetes mellitus complication detail: with chronic kidney disease Chronic kidney disease stage : stage 3 (moderate) Qualified Code(s): E11.22 - Type 2 diabetes mellitus with diabetic chronic kidney disease; N18.3 - Chronic kidney disease, stage 3 ( moderate); Z79.4 - longterm (current) use of insulin (9) Bullous pemphigoid Current Visit: No Status: Chronic Assessment and plan: Continue home meds (10) HTN (hypertension) Current Visit: No Status: Chronic Assessment and plan: Continue home meds Qualifiers: Hypertension type: essential hypertension Qualified Code(s): I10 - Essential (primary) hypertension (11) Hyperlipidemia Current Visit: No Status: Chronic Assessment and plan: Continue home meds Qualifiers: Hyperlipidemia type: unspecified Qualified Code(s): E78.5 - Hyperlipidemia , unspecified (12) History of CVA (cerebrovascular accident) without residual deficits Current Visit: No Status: Chronic Assessment and plan: PT/OT consulted (13) Obesity (BMI 30.0-34.9) Current Visit: No Status: Chronic Assessment and plan: BMI 34.7 Lifestyle modification (14) DVT prophylaxis Current Visit: No Status: Acute Assessment and plan: Heparin subcutaneous TID - Time Spent With Patient Total time spent is greater than 50% in coordination of care (as documented) at patient's floor/unit and/or counseling patient:
[2017-12-12] MEDS: Gabapentin 300 MG CAPSULE PO SCH (20:55)
[2017-12-12] MEDS: Lactobacillus 1 EACH CAP.SPRINK PO SCH (20:55)
[2017-12-12] MEDS: Nystatin POWDER 30 GM BOTTLE TP SCH (20:56)
[2017-12-12] MEDS: METFORMIN HCL PO SCH (20:57)
[2017-12-12] MEDS: LINAGLIPTIN PO SCH (20:57)
[2017-12-12] MEDS ORDERED: 0.9 % Sodium Chloride 1,000 ML IVC SCH (21:00)
[2017-12-12] MEDS: Sennosides/Docusate Sodium TABLET PO SCH (21:27)
[2017-12-12] MEDS: Ipratropium/Albuterol Neb 3 ML IH SCH (23:03)
[2017-12-12] MEDS: *HR* Promethazine 25 MG/ML VIAL IV SCH (23:34)
[2017-12-13] MEDS: Ipratropium/Albuterol Neb 3 ML IH SCH ×4 (03:51→22:29)
[2017-12-13 07:11] LABS: Hematocrit 24.2 % (35.3-44.9); Hemoglobin 7.8 g/dL (11.5-15.4); Mean Corpuscular HGB Conc 32.2 g/dL (31.6-35.5); Mean Corpuscular Hemoglobin 28.5 pg (28.0-33.3); Mean Corpuscular Volume 88.3 fL (83.0-100.0); Mean Platelet Volume 8.9 fL (9.4-12.4); Platelet Count 143 K/mcL (140-400); Red Blood Count 2.74 M/mcL (3.82-4.97); Red Cell Distribution Width 15.8 % (11.5-14.5)
[2017-12-13 07:32] LABS: Calcium 7.5 mg/dL (8.6-10.3); Potassium 4.4 mEq/L (3.5-5.1)
[2017-12-13] MEDS: Ondansetron ODT 4 MG TAB.RAPDIS PO PRN ×2 (09:09→18:47)
[2017-12-13] MEDS: amLODIPine 5 MG TABLET PO SCH (10:05)
[2017-12-13] MEDS: Sennosides/Docusate Sodium TABLET PO SCH ×2 (10:06→21:54)
[2017-12-13] MEDS: Lactobacillus 1 EACH CAP.SPRINK PO SCH ×2 (10:06→21:53)
[2017-12-13] MEDS: Aspirin Enteric Coated 81 MG Tablet PO SCH (10:06)
[2017-12-13] MEDS: Multivit/Ca/Min/Fe/FA 1 TAB TABLET PO SCH (10:07)
[2017-12-13] MEDS: Folic Acid 1 MG TABLET PO SCH (10:07)
[2017-12-13] MEDS: METFORMIN HCL PO SCH (10:13)
[2017-12-13] MEDS: LINAGLIPTIN PO SCH (10:13)
[2017-12-13] MEDS: Nystatin POWDER 30 GM BOTTLE TP SCH ×2 (10:27→21:56)
[2017-12-13] MEDS: Insulin LISPRO 300 UNITS/3 ML VIAL SQ SCH ×4 (11:13→22:00)
[2017-12-13] MEDS: *HR* Promethazine 25 MG/ML VIAL IV SCH (11:13)
[2017-12-13] MEDS ORDERED: Naloxone 0.4 MG/ML INJ IVP PRN (11:18)
--- NOTE | 2017-12-13 14:34 | Internal Med Progress Note ---
Date of Encounter: 12/13/17 Time of Encounter: 10:30 - Assessment and plan (1) JOSE ROBERTO (acute kidney injury) Current Visit: Yes Status: Acute Assessment and plan: AoCKD, Cr seems to be fluctuating but it was 1.5 on 12/11 likely due to poor oral intake aggravated by diuretic use CT did not show any obstructive pathology IVF overnight but Cr only marginally improved with unchanged BUN will continue hydration and reassess tomorrow bladder scan urinalysis, urina Na, Cr IF not improving by tomorrow, will consult nephro avoid nephrotoxin (2) CKD (chronic kidney disease) stage 3, GFR 30-59 ml/min Current Visit: Yes Status: Chronic Assessment and plan: as above (3) Anemia Current Visit: Yes Status: Acute Assessment and plan: ?CKD related, baseline around 8-9 stable after 1U pRBC, no evidence of bleeding monitor Qualifiers: Anemia type: due to chronic kidney disease Chronic kidney disease stage: stage 3 (moderate) Qualified Code(s): N18.3 - Chronic kidney disease, stage 3 (moderate); D63.1 - Anemia in chronic kidney disease (4) Constipation by delayed colonic transit Current Visit: Yes Status: Chronic Assessment and plan: aggressive bowel regimen (5) DM2 (diabetes mellitus, type 2) Current Visit: Yes Status: Chronic Assessment and plan: continue levemir and moderate dose sliding scale Qualifiers: 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: with mcfp use Diabetes mellitus complication status: with kidney complications Diabetes mellitus complication detail: with chronic kidney disease Chronic kidney disease stage : stage 3 (moderate) Qualified Code(s): E11.22 - Type 2 diabetes mellitus with diabetic chronic kidney disease; N18.3 - Chronic kidney disease, stage 3 ( moderate); Z79.4 - 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 operator 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 of insulin (6) Decubitus ulcer of left heel Current Visit: Yes Status: Chronic Assessment and plan: continue levaquin follow up appt with wound clinic next week, if she stays over the weekend, will consult Qualifiers: Pressure injury stage: stage 2 Qualified Code(s): L89.622 - Pressure ulcer of left heel, stage 2 (7) HTN (hypertension) Current Visit: No Status: Chronic Assessment and plan: continue home meds Qualifiers: Hypertension type: essential hypertension Qualified Code(s): I10 - Essential (primary) hypertension (8) Hyperlipidemia Current Visit: No Status: Chronic Assessment and plan: continue home meds Qualifiers: Hyperlipidemia type: unspecified Qualified Code(s): E78.5 - Hyperlipidemia , unspecified (9) Bullous pemphigoid Current Visit: No Status: Chronic Assessment and plan: continue home meds (10) DVT prophylaxis Current Visit: No Status: Acute Assessment and plan: sq heparin - Time Spent With Patient Total time spent is greater than 50% in coordination of care (as documented) at patient's floor/unit and/or counseling patient: - Subjective Interval history: states that she feels slightly stronger, denies bleeding per rectum, hematochezia, or melena. Had very small amount of BM yesterday. - Constitutional Vitals: Temp Pulse Resp BP Pulse Ox 98.7 F 94 19 104/68 94 12/13/17 11:21 12/13/17 11:21 12/13/17 11:21 12/13/17 11:21 12/13/17 11:21 General appearance: Present: cooperative, A&O X 3, pleasant, no acute distress, obese, answers questions appropriately Exam: General: Alert and oriented HEENT: dry oral mucosa Cardiovascular:Normal S1 & S2, no murmurs or gallops. No JVD. Pulse regular. Lungs:Normal breath sounds, no wheezes or crackles. Abdomen:Soft, non-tender, no rigidity. Extremities:No deformity, no edema or tenderness, no joint swelling. Internal Medicine: Result - Labs CBC & Chem 7: 12/13/17 06:52 12/13/17 06:52 Labs: Short CBC 12/13/17 Range/Units 06:52 WBC 5.1 (4.3-11.1) K/mcL Hgb 7.8 L (11.5-15.4) g/dL Hct 24.2 L (35.3-44.9) % Plt Count 143 (140-400) K/mcL BMP 12/13/17 06:52 Sodium 134 L Potassium 4.4 Chloride 102 Carbon Dioxide 23 BUN 49 H Creatinine 2.27 H Glucose 135 H Calcium 7.5 L - ABG Interpretation ABG results: PT/INR, D-dimer PT 13.6 Seconds (9.4-12.1) H 12/12/17 12:03 - Impressions Impressions Chest X-Ray 12/12/17 20:48 IMPRESSION: Left lower lobe atelectasis or pneumonia. D/ / Cirilo Tao MD / Cirilo Tao MD Interpreting Provider: Cirilo Tao MD Consult Discharge Plan - Plan Referrals: Elza Jesus MD [Primary Care Provider] -
[2017-12-13 16:37] LABS: Bilirubin,Urine Negative (Negative); Blood,Urine Moderate (Negative); Clarity,Urine Cloudy (Clear); Color,Urine Yellow (Yellow); Glucose,Urine (UA) Normal (Normal); Ketones,Urine Negative (Negative); Leukocyte Esterase,Urine Moderate (Negative); Nitrite,Urine Negative (Negative); Protein,Urine 30 mg/dL (Neg-Trace); Specific Gravity,Urine 1.017 (1.010-1.025); Urobilinogen,Urine Normal (Normal)
[2017-12-13 16:40] LABS: Bacteria,Urine None Seen per hpf (None-Few); Hyaline Casts,Urine None Seen per lpf (None-Few); Squamous Epithelial Cell,Urine Many per lpf (None-Few)
[2017-12-13 16:55] LABS: Sodium, Urine 40.6 mEq/L
[2017-12-13] MEDS: Insulin DETEMIR 100 UNIT/ML X5UNITS SQ SCH (18:09)
[2017-12-13] MEDS: Gentamicin Oint 15 GM TUBE TP SCH (19:29)
[2017-12-13] MEDS: cefTRIAXone 1,000 MG in Water for inj. (sterile) 20 ML 10 ML IVP SCH (20:13)
[2017-12-13] MEDS: Gabapentin 300 MG CAPSULE PO SCH (21:53)
[2017-12-13] MEDS: 0.9 % Sodium Chloride 1,000 ML IVC SCH (21:53)
[2017-12-13] MEDS: *HR* Heparin 5,000 UNIT/ML VIAL SQ SCH (21:54)
[2017-12-14] MEDS: Ipratropium/Albuterol Neb 3 ML IH SCH ×4 (03:31→22:26)
[2017-12-14] MEDS: *HR* Promethazine 25 MG/ML VIAL IV SCH ×3 (05:59→10:06)
[2017-12-14] MEDS: *HR* Heparin 5,000 UNIT/ML VIAL SQ SCH ×3 (05:59→21:29)
[2017-12-14] MEDS: 0.9 % Sodium Chloride 1,000 ML IVC SCH (05:59)
[2017-12-14 06:26] LABS: Basophils % 0.2 %; Eosinophils # 0.3 K/mcL (0.0-0.6); Eosinophils % 4.9 %; Hematocrit 20.7 % (35.3-44.9); Hemoglobin 7.4 g/dL (11.5-15.4); Immature Granulocytes % 4.2 % (0-4); Lymphocytes # 0.7 K/mcL (0.6-4.6); Lymphocytes % 13.8 %; Mean Corpuscular HGB Conc 35.7 g/dL (31.6-35.5); Mean Corpuscular Hemoglobin 33.2 pg (28.0-33.3); Mean Corpuscular Volume 92.8 fL (83.0-100.0); Mean Platelet Volume 8.9 fL (9.4-12.4); Monocytes # 0.7 K/mcL (0.0-1.3); Neutrophils # 3.3 K/mcL (1.6-8.9); Platelet Count 146 K/mcL (140-400); Red Blood Count 2.23 M/mcL (3.82-4.97); Red Cell Distribution Width 17.5 % (11.5-14.5); Segmented Neutrophils % 62.9 %
--- NOTE | 2017-12-14 06:40 | Electrocardiograph Report ---
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
[2017-12-14 06:49] LABS: Calcium 7.6 mg/dL (8.6-10.3); Magnesium 1.6 mg/dL (1.6-2.6)
[2017-12-14] MEDS: Aspirin Enteric Coated 81 MG Tablet PO SCH (09:52)
[2017-12-14] MEDS: Sennosides/Docusate Sodium TABLET PO SCH ×2 (09:52→21:27)
[2017-12-14] MEDS: amLODIPine 5 MG TABLET PO SCH (09:52)
[2017-12-14] MEDS: Folic Acid 1 MG TABLET PO SCH (09:52)
[2017-12-14] MEDS: Multivit/Ca/Min/Fe/FA 1 TAB TABLET PO SCH (09:52)
[2017-12-14] MEDS: Lactobacillus 1 EACH CAP.SPRINK PO SCH ×2 (09:52→21:27)
[2017-12-14] MEDS: Insulin DETEMIR 100 UNIT/ML X5UNITS SQ SCH (09:55)
[2017-12-14] MEDS: Insulin LISPRO 300 UNITS/3 ML VIAL SQ SCH ×4 (09:56→21:30)
[2017-12-14] MEDS: cefTRIAXone 1,000 MG in Water for inj. (sterile) 20 ML 10 ML IVP SCH (09:57)
[2017-12-14] MEDS: Nystatin POWDER 30 GM BOTTLE TP SCH ×2 (09:57→21:29)
[2017-12-14] MEDS ORDERED: *HR* Promethazine 25 MG/ML VIAL IVP PRN (10:37)
[2017-12-14] MEDS: Gentamicin Oint 15 GM TUBE TP SCH (10:57)
--- NOTE | 2017-12-14 12:31 | Internal Med Progress Note ---
Date of Encounter: 12/14/17 Time of Encounter: 10:00 - Assessment and plan (1) Acute respiratory failure with hypoxia Current Visit: Yes Status: Acute Assessment and plan: Patient complaining of worsening chill, unable to wean off O2 Initial CXR was suggestive of ateletasis vs. PNA Limited visualization of the lung on CT did show diffuse GGO on both lower lobes and RML Although she does not endorse much symptoms nor has leukocytosis, given the fact that she is in ECF and on MTX for bullous pemphigoid, will treat for PNA with pseudomonal coverage she was on levaquin at home which should have covered for atypical organisms Monitor, bronchodilators (2) UTI (urinary tract infection) Current Visit: Yes Status: Acute Assessment and plan: UA +ve for mod LE in addition to blood and protein now complaining of chills, hx of UTI will send urine c/s abx as above Qualifiers: Urinary tract infection type: acute cystitis Hematuria presence: without hematuria Qualified Code(s): N30.00 - Acute cystitis without hematuria (3) JOSE ROBERTO (acute kidney injury) Current Visit: Yes Status: Acute Assessment and plan: AoCKD, Cr seems to be fluctuating but it was 1.5 on 12/11 likely due to poor oral intake aggravated by diuretic use CT did not show any obstructive pathology, bladder scan did not show any retention FeNa 1.2% with Shauna 40.6 Cr improved with IVF now with tenuous respiratory status, will hold off on fluid today (4) CKD (chronic kidney disease) stage 3, GFR 30-59 ml/min Current Visit: Yes Status: Chronic Assessment and plan: as above Follow up with nephrology outpatient (5) Anemia Current Visit: Yes Status: Acute Assessment and plan: ?CKD related, baseline around 8-9 stable after 1U pRBC, no evidence of bleeding monitor Qualifiers: Anemia type: due to chronic kidney disease Chronic kidney disease stage: stage 3 (moderate) Qualified Code(s): N18.3 - Chronic kidney disease, stage 3 (moderate); D63.1 - Anemia in chronic kidney disease (6) Constipation by delayed colonic transit Current Visit: Yes Status: Chronic Assessment and plan: aggressive bowel regimen (7) DM2 (diabetes mellitus, type 2) Current Visit: Yes Status: Chronic Assessment and plan: continue levemir and moderate dose sliding scale Qualifiers: Diabetes 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: with intermediate accountant use Diabetes mellitus complication status: with kidney complications Diabetes mellitus complication detail: with chronic kidney disease Chronic kidney disease stage : stage 3 (moderate) Qualified Code(s): E11.22 - Type 2 diabetes mellitus with diabetic chronic kidney disease; N18.3 - Chronic kidney disease, stage 3 ( moderate); Z79.4 - halfway (current) use of insulin (8) Decubitus ulcer of left heel Current Visit: Yes Status: Chronic Assessment and plan: was on levaquin prior to the admission, switch abx for #1 follow up appt with wound clinic next week, if she stays over the weekend, will consult Qualifiers: Pressure injury stage: stage 2 Qualified Code(s): L89.622 - Pressure ulcer of left heel, stage 2 (9) HTN (hypertension) Current Visit: No Status: Chronic Assessment and plan: continue home meds Qualifiers: Hypertension type: essential hypertension Qualified Code(s): I10 - Essential (primary) hypertension (10) Hyperlipidemia Current Visit: No Status: Chronic Assessment and plan: continue home meds Qualifiers: Hyperlipidemia type: unspecified Qualified Code(s): E78.5 - Hyperlipidemia , unspecified (11) Bullous pemphigoid Current Visit: No Status: Chronic Assessment and plan: continue home meds (12) DVT prophylaxis Current Visit: No Status: Acute Assessment and plan: sq heparin - Time Spent With Patient Total time spent is greater than 50% in coordination of care (as documented) at patient's floor/unit and/or counseling patient: - Subjective Interval history: Patient complaining of worsening chills, denies SOB but not able to wean off O2. No chest pain. - Constitutional Vitals: Temp Pulse Resp BP Pulse Ox 98.0 F 82 16 138/85 97 12/14/17 12:25 12/14/17 12:25 12/14/17 12:25 12/14/17 12:25 12/14/17 12:25 General appearance: Present: cooperative, A&O X 3, pleasant, no acute distress, obese, answers questions appropriately Exam: General: Alert and oriented HEENT: dry oral mucosa Cardiovascular:Normal S1 & S2, no murmurs or gallops. No JVD. Pulse regular. Lungs:Normal breath sounds, no wheezes or crackles. Abdomen:Soft, non-tender, no rigidity. Extremities:No deformity, no edema or tenderness, no joint swelling. Internal Medicine: Result - Labs CBC & Chem 7: 12/14/17 05:53 12/14/17 05:53 Labs: Short CBC 12/14/17 Range/Units 05:53 WBC 5.3 (4.3-11.1) K/mcL Hgb 7.4 L (11.5-15.4) g/dL Hct 20.7 L (35.3-44.9) % Plt Count 146 (140-400) K/mcL Neutrophils # 3.3 (1.6-8.9) K/mcL BMP 12/14/17 05:53 Sodium 135 L Potassium 4.0 Chloride 103 Carbon Dioxide 24 BUN 42 H Creatinine 1.70 H Glucose 132 H Calcium 7.6 L Urine 12/13/17 Range/Units 16:15 Urine Color Yellow (Yellow) Urine Clarity Cloudy A (Clear) Urine pH 6.0 (5.0-8.0) pH Units Ur Specific [place] 1.017 (1.010-1.025) Urine Protein 30 H (Neg-Trace) mg/dL Urine Glucose (UA) Normal (Normal) mg/dL - ABG Interpretation ABG results: PT/INR, D-dimer PT 13.6 Seconds (9.4-12.1) H 12/12/17 12:03 Consult Discharge Plan - Plan Referrals: Elza Jesus MD [Primary Care Provider] -
[2017-12-14] MEDS ORDERED: Piperacillin/Tazobactam 3.375 GM in 0.9 % Sodium Chloride Mini Bag 100 ML IVPB SCH (16:00)
[2017-12-14] MEDS: Cefepime HCl 2,000 MG in Water for inj. (sterile) 20 ML 20 ML IVP SCH (17:24)
[2017-12-14] MEDS: Gabapentin 300 MG CAPSULE PO SCH (21:29)
[2017-12-15] MEDS: Ipratropium/Albuterol Neb 3 ML IH SCH ×4 (04:12→23:09)
[2017-12-15] MEDS: *HR* Heparin 5,000 UNIT/ML VIAL SQ SCH ×3 (06:24→20:28)
[2017-12-15] MEDS: Cefepime HCl 2,000 MG in Water for inj. (sterile) 20 ML 20 ML IVP SCH ×2 (06:24→17:01)
[2017-12-15 06:33] LABS: Calcium 7.7 mg/dL (8.6-10.3)
[2017-12-15] MEDS: amLODIPine 5 MG TABLET PO SCH (09:15)
[2017-12-15] MEDS: Sennosides/Docusate Sodium TABLET PO SCH ×2 (09:15→20:28)
[2017-12-15] MEDS: Lactobacillus 1 EACH CAP.SPRINK PO SCH ×2 (09:15→20:50)
[2017-12-15] MEDS: Folic Acid 1 MG TABLET PO SCH (09:15)
[2017-12-15] MEDS: Aspirin Enteric Coated 81 MG Tablet PO SCH (09:15)
[2017-12-15] MEDS: Multivit/Ca/Min/Fe/FA 1 TAB TABLET PO SCH (09:15)
[2017-12-15] MEDS: Insulin LISPRO 300 UNITS/3 ML VIAL SQ SCH ×4 (09:19→21:05)
[2017-12-15] MEDS: Gentamicin Oint 15 GM TUBE TP SCH (09:22)
[2017-12-15] MEDS: Nystatin POWDER 30 GM BOTTLE TP SCH (09:22)
[2017-12-15] MEDS: Insulin DETEMIR 100 UNIT/ML X5UNITS SQ SCH (09:31)
--- NOTE | 2017-12-15 12:12 | Internal Med Progress Note ---
Date of Encounter: 12/15/17 Time of Encounter: 09:00 - Assessment and plan (1) Acute respiratory failure with hypoxia Current Visit: Yes Status: Acute Assessment and plan: Patient complaining of worsening chill, unable to wean off O2 Initial CXR was suggestive of ateletasis vs. PNA Limited visualization of the lung on CT did show diffuse GGO on both lower lobes and RML Was started on IV zosyn yesterday despite lack of significant symptoms or leukocytosis due to the fact that she resides in ECF and on MTX for bullous pemphigoid -> mild improvement noted today titrate down O2 she was on levaquin at home which should have covered for atypical organisms Monitor, bronchodilators (2) UTI (urinary tract infection) Current Visit: Yes Status: Acute Assessment and plan: UA +ve for mod LE in addition to blood and protein now complaining of chills, hx of UTI will send urine c/s, follow up abx as above Qualifiers: Urinary tract infection type: acute cystitis Hematuria presence: without hematuria Qualified Code(s): N30.00 - Acute cystitis without hematuria (3) JOSE ROBERTO (acute kidney injury) Current Visit: Yes Status: Acute Assessment and plan: AoCKD, Cr seems to be fluctuating but it was 1.5 on 12/11 likely due to poor oral intake aggravated by diuretic use CT did not show any obstructive pathology, bladder scan did not show any retention FeNa 1.2% with Shauna 40.6 Cr improved with IVF, back to baseline today Monior (4) CKD (chronic kidney disease) stage 3, GFR 30-59 ml/min Current Visit: Yes Status: Chronic Assessment and plan: as above Follow up with nephrology outpatient (5) Constipation by delayed colonic transit Current Visit: Yes Status: Chronic Assessment and plan: No BM despite 2 days of BID miralax may require enema in the afternoon (6) Anemia Current Visit: Yes Status: Acute Assessment and plan: ?CKD related, baseline around 8-9 stable after 1U pRBC, no evidence of bleeding monitor Qualifiers: Anemia type: due to chronic kidney disease Chronic kidney disease stage: stage 3 (moderate) Qualified Code(s): N18.3 - Chronic kidney disease, stage 3 (moderate); D63.1 - Anemia in chronic kidney disease (7) DM2 (diabetes mellitus, type 2) Current Visit: Yes Status: Chronic Assessment and plan: BG > 200 all 4 readings will increase levemir to 13U HS continue moderate dose sliding scale Qualifiers: Diabetes mellitus 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 insulin 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: with 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 Diabetes mellitus complication status: with kidney complications Diabetes mellitus complication detail: with chronic kidney disease Chronic kidney disease stage : stage 3 (moderate) Qualified Code(s): E11.22 - Type 2 diabetes mellitus with diabetic chronic kidney disease; N18.3 - Chronic kidney disease, stage 3 ( moderate); Z79.4 - long-term (current) use of insulin (8) Decubitus ulcer of left heel Current Visit: Yes Status: Chronic Assessment and plan: was on levaquin prior to the admission, switch abx for #1 follow up appt with wound clinic next week, if she stays over the weekend, will consult Qualifiers: Pressure injury stage: stage 2 Qualified Code(s): L89.622 - Pressure ulcer of left heel, stage 2 (9) HTN (hypertension) Current Visit: No Status: Chronic Assessment and plan: continue home meds Qualifiers: Hypertension type: essential hypertension Qualified Code(s): I10 - Essential (primary) hypertension (10) Bullous pemphigoid Current Visit: No Status: Chronic Assessment and plan: will hold off the dose due for tomorrow (11) DVT prophylaxis Current Visit: No Status: Acute Assessment and plan: sq heparin - Time Spent With Patient Total time spent is greater than 50% in coordination of care (as documented) at patient's floor/unit and/or counseling patient: - Subjective Interval history: Not having any more chills, feels slightly better in terms of her breathing than yesterday. No chest pain. - Constitutional Vitals: Temp Pulse Resp BP Pulse Ox 98.1 F 86 18 131/82 96 12/15/17 08:20 12/15/17 08:20 12/15/17 09:45 12/15/17 08:20 12/15/17 09:45 General appearance: Present: cooperative, A&O X 3, pleasant, no acute distress, obese, answers questions appropriately Exam: General: Alert and oriented Cardiovascular:Normal S1 & S2, no murmurs or gallops. No JVD. Pulse regular. Lungs: Diminished breath sounds in general but unable to appreciate rhonchi/ wheeze Abdomen:Soft, non-tender, no rigidity. Extremities:No deformity, no edema or tenderness, no joint swelling. Internal Medicine: Result - Labs CBC & Chem 7: 12/14/17 05:53 12/15/17 06:04 Labs: BMP 12/15/17 06:04 Sodium 135 L Potassium 4.0 Chloride 105 Carbon Dioxide 25 BUN 37 H Creatinine 1.52 H Glucose 219 H Calcium 7.7 L - ABG Interpretation ABG results: PT/INR, D-dimer PT 13.6 Seconds (9.4-12.1) H 12/12/17 12:03 Consult Discharge Plan - Plan Referrals: Elza Jesus MD [Primary Care Provider] -
[2017-12-15] MEDS: *HR* OxyCODONE/APAP 5/325 TABLET PO PRN (13:22)
[2017-12-15] MEDS: Bisacodyl 10 MG RECTAL SUPPOSITORY RC SCH (17:05)
[2017-12-15] MEDS: Gabapentin 300 MG CAPSULE PO SCH (20:28)
[2017-12-15] MEDS ORDERED: Insulin DETEMIR 100 UNIT/ML X5UNITS SQ SCH (21:00)
[2017-12-16] MEDS: Ipratropium/Albuterol Neb 3 ML IH SCH ×4 (04:59→21:27)
[2017-12-16] MEDS: Cefepime HCl 2,000 MG in Water for inj. (sterile) 20 ML 20 ML IVP SCH ×2 (06:19→17:04)
[2017-12-16] MEDS: *HR* Heparin 5,000 UNIT/ML VIAL SQ SCH ×3 (06:20→20:41)
[2017-12-16] MEDS: Folic Acid 1 MG TABLET PO SCH (08:16)
[2017-12-16] MEDS: amLODIPine 5 MG TABLET PO SCH (08:16)
[2017-12-16] MEDS: Multivit/Ca/Min/Fe/FA 1 TAB TABLET PO SCH (08:17)
[2017-12-16] MEDS: Sennosides/Docusate Sodium TABLET PO SCH ×2 (08:17→20:40)
[2017-12-16] MEDS: Lactobacillus 1 EACH CAP.SPRINK PO SCH ×2 (08:17→20:58)
[2017-12-16] MEDS: Aspirin Enteric Coated 81 MG Tablet PO SCH (08:17)
[2017-12-16] MEDS: Gentamicin Oint 15 GM TUBE TP SCH (08:20)
[2017-12-16] MEDS: Insulin LISPRO 300 UNITS/3 ML VIAL SQ SCH ×5 (08:21→21:04)
[2017-12-16] MEDS: Bisacodyl 10 MG RECTAL SUPPOSITORY RC SCH (08:21)
[2017-12-16] MEDS: Nystatin POWDER 30 GM BOTTLE TP SCH ×2 (08:22)
--- NOTE | 2017-12-16 11:44 | Internal Med Progress Note ---
Date of Encounter: 12/16/17 Time of Encounter: 10:00 - Assessment and plan (1) Acute respiratory failure with hypoxia Current Visit: Yes Status: Acute Assessment and plan: Patient complaining of worsening chill, unable to wean off O2 Initial CXR was suggestive of ateletasis vs. PNA Limited visualization of the lung on CT did show diffuse GGO on both lower lobes and RML As the patient was on levaquin as an outpatient, she was started on IV cefepime on 12/14 due to the fact that she resides in ECF and on MTX for bullous pemphigoid -> continues to improve titrate down O2 she was on levaquin at home which should have covered for atypical organisms Monitor, bronchodilators aim to switch to PO abx on Monday and discharge back to ECF (2) UTI (urinary tract infection) Current Visit: Yes Status: Acute Assessment and plan: UA +ve for mod LE in addition to blood and protein now complaining of chills, hx of UTI will send urine c/s, follow up abx as above Qualifiers: Urinary tract infection type: acute cystitis Hematuria presence: without hematuria Qualified Code(s): N30.00 - Acute cystitis without hematuria (3) JOSE ROBERTO (acute kidney injury) Current Visit: Yes Status: Acute Assessment and plan: AoCKD, Cr seems to be fluctuating but it was 1.5 on 12/11 likely due to poor oral intake aggravated by diuretic use CT did not show any obstructive pathology, bladder scan did not show any retention FeNa 1.2% with Shauna 40.6 Cr improved with IVF, back to baseline Monitor (4) CKD (chronic kidney disease) stage 3, GFR 30-59 ml/min Current Visit: Yes Status: Chronic Assessment and plan: as above Follow up with nephrology outpatient (5) Constipation by delayed colonic transit Current Visit: Yes Status: Chronic Assessment and plan: had large BM after suppository continue miralax (6) Anemia Current Visit: Yes Status: Acute Assessment and plan: ?CKD related, baseline around 8-9 stable after 1U pRBC, no evidence of bleeding monitor Qualifiers: Anemia type: due to chronic kidney disease Chronic kidney disease stage: stage 3 (moderate) Qualified Code(s): N18.3 - Chronic kidney disease, stage 3 (moderate); D63.1 - Anemia in chronic kidney disease (7) DM2 (diabetes mellitus, type 2) Current Visit: Yes Status: Chronic Assessment and plan: increase levemir to 15U HS and continue moderate dose sliding scale Qualifiers: 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 Diabetes mellitus complication status: with kidney complications Diabetes mellitus complication detail: with chronic kidney disease Chronic kidney disease stage : stage 3 (moderate) Qualified Code(s): E11.22 - Type 2 diabetes mellitus with diabetic chronic kidney disease; N18.3 - Chronic kidney disease, stage 3 ( moderate); Z79.4 - prison (current) use of insulin (8) Decubitus ulcer of left heel Current Visit: Yes Status: Chronic Assessment and plan: was on levaquin prior to the admission, switch abx for #1 Qualifiers: Pressure injury stage: stage 2 Qualified Code(s): L89.622 - Pressure ulcer of left heel, stage 2 (9) HTN (hypertension) Current Visit: No Status: Chronic Assessment and plan: continue home meds Qualifiers: Hypertension type: essential hypertension Qualified Code(s): I10 - Essential (primary) hypertension (10) Bullous pemphigoid Current Visit: No Status: Chronic Assessment and plan: will hold off the dose due today (11) DVT prophylaxis Current Visit: No Status: Acute Assessment and plan: sq heparin - Time Spent With Patient Total time spent is greater than 50% in coordination of care (as documented) at patient's floor/unit and/or counseling patient: - Subjective Interval history: Feels stronger today, breathing is not labored. No chest pain. Had large BM yesterday and today. - Constitutional Vitals: Temp Pulse Resp BP Pulse Ox 98.1 F 87 14 131/75 3 12/16/17 07:54 12/16/17 07:54 12/16/17 07:54 12/16/17 07:54 12/16/17 08:30 General appearance: Present: cooperative, A&O X 3, pleasant, no acute distress, obese, answers questions appropriately Exam: General: Alert and oriented Cardiovascular:Normal S1 & S2, no murmurs or gallops. No JVD. Pulse regular. Lungs: Diminished breath sounds in general but unable to appreciate rhonchi/ wheeze Abdomen:Soft, non-tender, no rigidity. Extremities:No deformity, no edema or tenderness, no joint swelling. Internal Medicine: Result - Labs CBC & Chem 7: 12/14/17 05:53 12/15/17 06:04 - ABG Interpretation ABG results: PT/INR, D-dimer PT 13.6 Seconds (9.4-12.1) H 12/12/17 12:03 Consult Discharge Plan - Plan Referrals: Elza Jesus MD [Primary Care Provider] -
[2017-12-16] MEDS ORDERED: *HR* Methotrexate 2.5 MG TABLET PO SCH (17:57)
[2017-12-16] MEDS: Gabapentin 300 MG CAPSULE PO SCH (20:41)
[2017-12-16] MEDS: Insulin DETEMIR 100 UNIT/ML X5UNITS SQ SCH (21:06)
[2017-12-17] MEDS: Ipratropium/Albuterol Neb 3 ML IH SCH ×4 (04:27→21:54)
[2017-12-17] MEDS: Cefepime HCl 2,000 MG in Water for inj. (sterile) 20 ML 20 ML IVP SCH ×2 (06:01→18:30)
[2017-12-17] MEDS: *HR* Heparin 5,000 UNIT/ML VIAL SQ SCH ×3 (06:03→21:13)
[2017-12-17 06:57] LABS: BUN/Creatinine Ratio 29 (6-26); Blood Urea Nitrogen 30 mg/dL (8-23); Calcium 8.6 mg/dL (8.6-10.3); Carbon Dioxide 21 mEq/L (23-29); Chloride 107 mEq/L (98-107); Glucose 88 mg/dL (70-105); Osmolality,Calculated 290 (280-300); Potassium 4.4 mEq/L (3.5-5.1); Sodium 137 mEq/L (136-145); eGFR For African Americans > 60 (> 60); eGFR For Non-African Americans 54 (> 60)
[2017-12-17 08:43] LABS: Nucleated Red Blood Cells 0.3 /100 WBC (0)
[2017-12-17 09:08] LABS: Basophils # 0.1 K/mcL (0.0-0.2); Hematocrit 24.9 % (35.3-44.9); Hemoglobin 7.8 g/dL (11.5-15.4); Immature Platelets 0.9 % (1.1-6.1); Mean Corpuscular Hemoglobin 27.5 pg (28.0-33.3); Mean Platelet Volume 8.5 fL (9.4-12.4); Platelet Count 411 K/mcL (140-400); Red Blood Count 2.84 M/mcL (3.82-4.97); Red Cell Distribution Width 16.2 % (11.5-14.5)
[2017-12-17 09:10] LABS: Mean Corpuscular Volume 87.7 fL (83.0-100.0)
[2017-12-17 09:16] LABS: Mean Corpuscular HGB Conc 31.3 g/dL (31.6-35.5)
[2017-12-17 09:32] LABS: Eosinophils # 0.3 K/mcL (0.0-0.6); Lymphocytes # 1.2 K/mcL (0.6-4.6); Monocytes # 0.4 K/mcL (0.0-1.3)
[2017-12-17] MEDS: Folic Acid 1 MG TABLET PO SCH (10:21)
[2017-12-17] MEDS: Aspirin Enteric Coated 81 MG Tablet PO SCH (10:22)
[2017-12-17] MEDS: amLODIPine 5 MG TABLET PO SCH (10:22)
[2017-12-17] MEDS: Sennosides/Docusate Sodium TABLET PO SCH ×2 (10:22→21:12)
[2017-12-17] MEDS: Lactobacillus 1 EACH CAP.SPRINK PO SCH ×2 (10:22→21:12)
[2017-12-17] MEDS: Multivit/Ca/Min/Fe/FA 1 TAB TABLET PO SCH (10:22)
[2017-12-17] MEDS: Bisacodyl 10 MG RECTAL SUPPOSITORY RC SCH (10:23)
[2017-12-17] MEDS: Nystatin POWDER 30 GM BOTTLE TP SCH ×3 (10:30→21:14)
[2017-12-17] MEDS: *HR* OxyCODONE/APAP 5/325 TABLET PO PRN (10:36)
[2017-12-17] MEDS: Gentamicin Oint 15 GM TUBE TP SCH (12:37)
[2017-12-17] MEDS: Insulin LISPRO 300 UNITS/3 ML VIAL SQ SCH ×2 (12:37→17:37)
--- NOTE | 2017-12-17 12:41 | Internal Med Progress Note ---
Date of Encounter: 12/17/17 Time of Encounter: 11:15 - Assessment and plan (1) Acute respiratory failure with hypoxia Current Visit: Yes Status: Acute Assessment and plan: Initial CXR was suggestive of ateletasis vs. PNA Limited visualization of the lung on CT did show diffuse GGO on both lower lobes and RML patient has been maintained on PO levaquin but started complaining of worsening chill, unable to wean off O2 on 12/14 As the patient was on levaquin as an outpatient, she was started on IV cefepime on 12/14 due to the fact that she resides in [place] and on MTX for bullous pemphigoid -> continues to improve titrate down O2 she was on levaquin at home which should have covered for atypical organisms Monitor, bronchodilators aim to switch to PO abx on Monday and discharge back to [facility] (2) UTI (urinary tract infection) Current Visit: Yes Status: Acute Assessment and plan: UA +ve for mod LE in addition to blood and protein now complaining of chills, hx of UTI urine c/s grossly mixed abx as above Qualifiers: Urinary tract infection type: acute cystitis Hematuria presence: without hematuria Qualified Code(s): N30.00 - Acute cystitis without hematuria (3) JOSE ROBERTO (acute kidney injury) Current Visit: Yes Status: Acute Assessment and plan: AoCKD, Cr seems to be fluctuating but it was 1.5 on 12/11 likely due to poor oral intake aggravated by diuretic use CT did not show any obstructive pathology, bladder scan did not show any retention FeNa 1.2% with Shauna 40.6 Cr improved with IVF, monitor off IVF continue to hold lasix, may need to resume at lower dose (4) CKD (chronic kidney disease) stage 3, GFR 30-59 ml/min Current Visit: Yes Status: Chronic Assessment and plan: as above Follow up with nephrology outpatient (5) Constipation by delayed colonic transit Current Visit: Yes Status: Chronic Assessment and plan: had large BM after suppository continue miralax (6) Anemia Current Visit: Yes Status: Acute Assessment and plan: ?CKD related, baseline around 8-9 stable after 1U pRBC, no evidence of bleeding monitor Qualifiers: Anemia type: due to chronic kidney disease Chronic kidney disease stage: stage 3 (moderate) Qualified Code(s): N18.3 - Chronic kidney disease, stage 3 (moderate); D63.1 - Anemia in chronic kidney disease (7) DM2 (diabetes mellitus, type 2) Current Visit: Yes Status: Chronic Assessment and plan: continue levemir to 15U HS and increase to high dose sliding scale Qualifiers: 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: with 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 Diabetes mellitus complication status: with kidney complications Diabetes mellitus complication detail: with chronic kidney disease Chronic kidney disease stage : stage 3 (moderate) Qualified Code(s): E11.22 - Type 2 diabetes mellitus with diabetic chronic kidney disease; N18.3 - Chronic kidney disease, stage 3 ( moderate); Z79.4 - director long term care (current) use of insulin (8) Decubitus ulcer of left heel Current Visit: Yes Status: Chronic Assessment and plan: was on levaquin prior to the admission, switch abx for #1 Qualifiers: Pressure injury stage: stage 2 Qualified Code(s): L89.622 - Pressure ulcer of left heel, stage 2 (9) HTN (hypertension) Current Visit: No Status: Chronic Assessment and plan: continue home meds Qualifiers: Hypertension type: essential hypertension Qualified Code(s): I10 - Essential (primary) hypertension (10) Bullous pemphigoid Current Visit: No Status: Chronic Assessment and plan: will hold off the dose due today (11) DVT prophylaxis Current Visit: No Status: Acute Assessment and plan: sq heparin - Time Spent With Patient Total time spent is greater than 50% in coordination of care (as documented) at patient's floor/unit and/or counseling patient: - Subjective Interval history: Continues to feel stronger, breathing is not labored. No chest pain, SOB, cough - Constitutional Vitals: Temp Pulse Resp BP Pulse Ox 98.0 F 97 18 123/78 92 12/17/17 10:30 12/17/17 10:30 12/17/17 10:30 12/17/17 12:30 12/17/17 10:30 General appearance: Present: cooperative, A&O X 3, pleasant, no acute distress, obese, answers questions appropriately Exam: General: Alert and oriented Cardiovascular:Normal S1 & S2, no murmurs or gallops. No JVD. Pulse regular. Lungs: Diminished breath sounds in general but unable to appreciate rhonchi/ wheeze Abdomen:Soft, non-tender, no rigidity. Extremities:No deformity, no edema or tenderness, no joint swelling. Internal Medicine: Result - Labs CBC & Chem 7: 12/17/17 08:23 12/17/17 05:03 - ABG Interpretation ABG results: PT/INR, D-dimer PT 13.6 Seconds (9.4-12.1) H 12/12/17 12:03 Consult Discharge Plan - Plan Referrals: Elza Jesus MD [Primary Care Provider] -
[2017-12-17] MEDS: Gabapentin 300 MG CAPSULE PO SCH (21:13)
[2017-12-17] MEDS: Insulin DETEMIR 100 UNIT/ML X5UNITS SQ SCH (21:13)
[2017-12-18] MEDS: Ipratropium/Albuterol Neb 3 ML IH SCH ×3 (03:46→16:10)
[2017-12-18] MEDS: *HR* Heparin 5,000 UNIT/ML VIAL SQ SCH ×2 (05:26→15:10)
[2017-12-18] MEDS: Cefepime HCl 2,000 MG in Water for inj. (sterile) 20 ML 20 ML IVP SCH ×2 (05:27→17:13)
[2017-12-18] MEDS: Insulin LISPRO 300 UNITS/3 ML VIAL SQ SCH ×3 (09:12→17:13)
[2017-12-18] MEDS: Bisacodyl 10 MG RECTAL SUPPOSITORY RC SCH (09:13)
[2017-12-18] MEDS: Multivit/Ca/Min/Fe/FA 1 TAB TABLET PO SCH (09:48)
[2017-12-18] MEDS: Aspirin Enteric Coated 81 MG Tablet PO SCH (09:48)
[2017-12-18] MEDS: Folic Acid 1 MG TABLET PO SCH (09:48)
[2017-12-18] MEDS: Sennosides/Docusate Sodium TABLET PO SCH (09:48)
[2017-12-18] MEDS: amLODIPine 5 MG TABLET PO SCH (09:48)
[2017-12-18] MEDS: Nystatin POWDER 30 GM BOTTLE TP SCH (09:49)
[2017-12-18] MEDS: Gentamicin Oint 15 GM TUBE TP SCH (09:49)
[2017-12-18] MEDS: Lactobacillus 1 EACH CAP.SPRINK PO SCH (09:49)
--- NOTE | 2017-12-18 14:57 | Discharge Summary ---
- NOTES TO OUTPATIENT PROVIDER Notes to Outpatient Provider: treated for HCAP with 5 days of IV cefepime. To complete 7 day course in total. Date of Encounter: 12/18/17 Time of Encounter: 09:25 - Discharge Diagnosis (1) Acute respiratory failure with hypoxia Priority: Primary Status: Acute (2) UTI (urinary tract infection) Priority: Secondary Status: Acute Qualifiers: Urinary tract infection type: acute cystitis Hematuria presence: without hematuria Qualified Code(s): N30.00 - Acute cystitis without hematuria (3) JOSE ROBERTO (acute kidney injury) Priority: Secondary Status: Acute (4) CKD (chronic kidney disease) stage 3, GFR 30-59 ml/min Priority: Secondary Status: Chronic (5) Constipation by delayed colonic transit Priority: Secondary Status: Chronic (6) Anemia Priority: Secondary Status: Acute Qualifiers: Anemia type: due to chronic kidney disease Chronic kidney disease stage: stage 3 (moderate) Qualified Code(s): N18.3 - Chronic kidney disease, stage 3 (moderate); D63.1 - Anemia in chronic kidney disease (7) DM2 (diabetes mellitus, type 2) Priority: Secondary Status: Chronic Qualifiers: Diabetes 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: with senior care use Diabetes mellitus complication status: with kidney complications Diabetes mellitus complication detail: with chronic kidney disease Chronic kidney disease stage : stage 3 (moderate) Qualified Code(s): E11.22 - Type 2 diabetes mellitus with diabetic chronic kidney disease; N18.3 - Chronic kidney disease, stage 3 ( moderate); 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 Mejia is a 62 year old female with PMHx of bullous pemphigoid on MTX, DM, CKD , [facility] resident presented with generalized weakness and hypoxia. Was diagnosed with hypoxic respiratory failure 2/2 HCAP and dehydration. Was initially continued on the same dose of PO levaquin she came in with but was upgraded to IV cefepime in view of her immunocompromised status which resolved hypoxia. AoCKD also improved with IVF. She is discharged in stable condition on 12/18 with 2 more days of cefepime to be given at [facility]. She will need to get a new appointment regarding the left heel ulcer as an outpatient. 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, social work - Time Spent with Patient Total time spent providing and/or coordinating discharge services: Greater than 30 minutes - Discharge Medications Prescriptions: Cefepime HCl/Dextrose, Iso-Osm [Cefepime 2 gm Injection] 2 gm IV BID 2 Days #4 unit Home Medications: Gabapentin [Neurontin] 300 mg PO HS 08/18/15 [History] Insulin LISPRO [Humalog] 14 unit SQ BID 08/18/15 [History] Pravastatin Sodium [Pravachol] 20 mg PO HS 08/18/15 [History] Linagliptin/Metformin HCl [Jentadueto Xr 2.5 mg-1,000 mg] 1 tab PO BID 05/03/16 [History] Carvedilol [Coreg] 6.25 mg PO BIDWM #60 tablet 05/11/16 [Rx] amLODIPine [Norvasc] 5 mg PO DAILY #30 tablet 05/11/16 [Rx] Insulin Glargine,Hum.rec.anlog [Toujeo Solostar] 14 units SQ QAM 03/10/17 [ History] Lactobacillus [Culturelle] 1 each PO BID #30 cap.sprink 04/04/17 [Rx] Nystatin POWDER [Nystop] 1 appl TP BID #1 bottle 04/04/17 [Rx] Benzocaine/Menthol [Chloraseptic Max Lozenge] 1 each MM Q2H PRN 11/12/17 [ History] Ferrous Sulfate [Iron] 325 mg PO DAILY 11/12/17 [History] Folic Acid 1 mg PO DAILY 11/12/17 [History] Methotrexate [Otrexup] 15 mg PO SA 11/12/17 [History] Multivitamin [One Daily Essential] 1 tab PO DAILY 11/12/17 [History] hydrOXYzine HCl [Hydroxyzine HCl] 25 mg PO QID PRN 11/12/17 [History] ALPRAZolam [Xanax 0.25 MG Tablet] 0.25 mg PO TID PRN 10 Days #30 tablet [Rx] Aspirin Enteric Coated [Aspirin EC] 81 mg PO DAILY tablet. 11/15/17 [Rx] Buspirone HCl [Buspar] 5 mg PO BID tablet 11/15/17 [Rx] Ondansetron HCl 8 mg PO Q8H PRN 12/12/17 [History] OxyCODONE/APAP 5/325 [Percocet 5/325 MG] 1 tab PO Q6H PRN 12/12/17 [History] Promethazine [Phenergan] 25 mg IV Q8HR 12/12/17 [History] Cefepime HCl/Dextrose, Iso-Osm [Cefepime 2 gm Injection] 2 gm IV BID 2 Days #4 unit 12/18/17 [Rx] Polyethylene Glycol 3350 [MiraLAX] 17 gm PO BID powd.pack 12/18/17 [Rx] Sennosides/Docusate Sodium [Senna Plus] 2 each PO BID tablet 12/18/17 [Rx] Allergies/Adverse Reactions: 3 Allergy/AdvReac Type Severity Reaction Status Date / Time No Known Allergies Allergy Verified 11/12/17 16:06 Date of admission: 12/17/17 10:13 Primary care physician: Elza Jesus MD - Constitutional Vitals: Temp Pulse Resp BP Pulse Ox 98.4 F 96 15 141/85 98 12/18/17 10:53 12/18/17 10:53 12/18/17 10:53 12/18/17 10:53 12/18/17 10:53 General appearance: Present: cooperative, A&O X 3, pleasant, no acute distress, obese, answers questions appropriately Exam: General: Alert and oriented Cardiovascular:Normal S1 & S2, no murmurs or gallops. No JVD. Pulse regular. Lungs: Diminished breath sounds in general but unable to appreciate rhonchi/ wheeze Abdomen:Soft, non-tender, no rigidity. Extremities: L foot dressing dry and intact - Patient Status Disposition: Transfer SNF Condition: Good Overall status at discharge: patient is progressing back to baseline - Discharge Instructions Instructions: Acute Respiratory Distress Syndrome (DC), Diabetes Mellitus Type 2 in Adults (DC) Follow Up With: Elza Jesus MD [Primary Care Provider] - - Diet and Activity Activity: as per physical therapy Diet: advance to your usual diet
--- NOTE | 2017-12-18 15:09 | Physician Discharge Referral ---
ExtendedCare Referral Info Transfer To: [facility] Level of Care: Skilled - Diagnosis (1) Acute respiratory failure with hypoxia Priority: Primary Status: Acute (2) UTI (urinary tract infection) Priority: Secondary Status: Acute (3) JOSE ROBERTO (acute kidney injury) Priority: Secondary Status: Acute (4) CKD (chronic kidney disease) stage 3, GFR 30-59 ml/min Priority: Secondary Status: Chronic (5) Constipation by delayed colonic transit Priority: Secondary Status: Chronic (6) Anemia Priority: Secondary Status: Acute (7) DM2 (diabetes mellitus, type 2) Priority: Secondary Status: Chronic (8) Decubitus ulcer of left heel Priority: Secondary Status: Chronic (9) HTN (hypertension) Priority: Secondary Status: Chronic (10) Bullous pemphigoid Priority: Secondary Status: Chronic (11) DVT prophylaxis Priority: Secondary Status: Acute - Transfer Medications Prescriptions: Cefepime HCl/Dextrose, Iso-Osm [Cefepime 2 gm Injection] 2 gm IV BID 2 Days #4 unit Home Medications: Gabapentin [Neurontin] 300 mg PO HS 08/18/15 [History] Insulin LISPRO [Humalog] 14 unit SQ BID 08/18/15 [History] Pravastatin Sodium [Pravachol] 20 mg PO HS 08/18/15 [History] Linagliptin/Metformin HCl [Jentadueto Xr 2.5 mg-1,000 mg] 1 tab PO BID 05/03/16 [History] Carvedilol [Coreg] 6.25 mg PO BIDWM #60 tablet 05/11/16 [Rx] amLODIPine [Norvasc] 5 mg PO DAILY #30 tablet 05/11/16 [Rx] Insulin Glargine,Hum.rec.anlog [Touaustino Solostar] 14 units SQ QAM 03/10/17 [ History] Lactobacillus [Culturelle] 1 each PO BID #30 cap.sprink 04/04/17 [Rx] Nystatin POWDER [Nystop] 1 appl TP BID #1 bottle 04/04/17 [Rx] Benzocaine/Menthol [Chloraseptic Max Lozenge] 1 each MM Q2H PRN 11/12/17 [ History] Ferrous Sulfate [Iron] 325 mg PO DAILY 11/12/17 [History] Folic Acid 1 mg PO DAILY 11/12/17 [History] Methotrexate [Otrexup] 15 mg PO SA 11/12/17 [History] Multivitamin [One Daily Essential] 1 tab PO DAILY 11/12/17 [History] hydrOXYzine HCl [Hydroxyzine HCl] 25 mg PO QID PRN 11/12/17 [History] ALPRAZolam [Xanax 0.25 MG Tablet] 0.25 mg PO TID PRN 10 Days #30 tablet [Rx] Aspirin Enteric Coated [Aspirin EC] 81 mg PO DAILY tablet.dr 11/15/17 [Rx] Buspirone HCl [Buspar] 5 mg PO BID tablet 11/15/17 [Rx] Ondansetron HCl 8 mg PO Q8H PRN 12/12/17 [History] OxyCODONE/APAP 5/325 [Percocet 5/325 MG] 1 tab PO Q6H PRN 12/12/17 [History] Promethazine [Phenergan] 25 mg IV Q8HR 12/12/17 [History] Cefepime HCl/Dextrose, Iso-Osm [Cefepime 2 gm Injection] 2 gm IV BID 2 Days #4 unit 12/18/17 [Rx] Polyethylene Glycol 3350 [MiraLAX] 17 gm PO BID powd.pack 12/18/17 [Rx] Sennosides/Docusate Sodium [Senna Plus] 2 each PO BID tablet 12/18/17 [Rx] Allergies/Adverse Reactions: 3 Allergy/AdvReac Type Severity Reaction Status Date / Time No Known Allergies Allergy Verified 11/12/17 16:06 - Respiratory Orders Smoking Cessation: Smoking cessation has been advised. For more information, call the [place] Tobacco Quit Line at 7-914-QKPM-NOW. - Treatments List/Other: Complete 2 more days of IV cefepime for HCAP CERTIFICATION: I certify that the transfer of the above named patient to an Extended Care Facility is necessary for the continuing treatment of the diagnosis listed. The above information is true and accurate reflection of patient's current condition. Confidential - Redisclosure prohibited without a patient's written consent.
[2017-12-18] MEDS: Ondansetron ODT 4 MG TAB.RAPDIS PO PRN (17:17)
[2017-12-18 21:55] VITALS: BP 176/79
== END 2017-12-18 19:19 | DRG 463 ==
LOC: 3ANU 11:35 → EMEROO 11:35 → SUATTDRO 16:32 → 3ANU 16:42
PROVIDERS: ADMIT Internal Medicine Nephrology; ATTEND Internal Medicine

== ENCOUNTER 2018-05-14 15:03 | Inpatient (IN) ==
[2018-05-14 15:42] LABS: Immature Granulocytes % 0.9 % (0-4)
[2018-05-14 15:43] LABS: Basophils % 1.8 %; Eosinophils # 0.2 K/mcL (0.0-0.6); Eosinophils % 15.9 %; Hematocrit 21.7 % (35.3-44.9); Lymphocytes # 0.4 K/mcL (0.6-4.6); Lymphocytes % 34.5 %; Mean Corpuscular HGB Conc 32.3 g/dL (31.6-35.5); Mean Corpuscular Hemoglobin 28.3 pg (28.0-33.3); Mean Corpuscular Volume 87.9 fL (83.0-100.0); Mean Platelet Volume 10.4 fL (9.4-12.4); Monocytes % 2.7 %; Neutrophils # 0.5 K/mcL (1.6-8.9); Red Blood Count 2.47 M/mcL (3.82-4.97); Red Cell Distribution Width 14.8 % (11.5-14.5); Segmented Neutrophils % 44.2 %
--- NOTE | 2018-05-14 15:59 | Emergency Department Note ---
Disposition Clinical Impression: Pancytopenia Disposition: Admitted As Inpatient Condition: Fair Referrals: Elza Jesus MD [Primary Care Provider] - Forms: ED Satisfaction Letter Time of Disposition: 17:12 General Adult HPI - General Chief complaint: ED Recheck/Abnormal Lab/Rx Stated complaint: low hemoglobin Time Seen by Provider: 05/14/18 15:10 Source: patient, EMS Mode of arrival: EMS Limitations: no limitations Nursing Notes Reviewed: Yes Vital Signs Reviewed: Yes - History of Present Illness HPI Narrative: 62-year-old female with complex past medical history including previous CVA and chronic kidney disease presenting to the emergency department with chief complaint of anemia. According to the patient for the past few months she has been battling with anemia. Has been seen multiple times for this as an outpa tient but was admitted in December and had a stool occult negative at that time. Patient denies any symptoms at this time. Denies any chest pain, shortness of breath, dizziness or abdominal pain. Patient had repeat labs completed today by the [facility] where she came from and was noted to have a hemoglobin of 6.2. She was transferred here for further evaluation. Pain Scale: 0 - Related Data Home Medications Medication Instructions Recorded Confirmed Gabapentin [Neurontin] 300 mg PO HS 08/18/15 12/12/17 Insulin LISPRO [Humalog] 14 unit SQ BID 08/18/15 12/12/17 Pravastatin Sodium [Pravachol] 20 mg PO HS 08/18/15 12/12/17 Linagliptin/Metformin HCl 1 tab PO BID 05/03/16 12/12/17 [Jentadueto Xr 2.5 mg-1,000 mg] Insulin Glargine,Hum.rec.anlog 14 units SQ QAM 03/10/17 12/12/17 [Toujeo Solostar] Benzocaine/Menthol [Chloraseptic 1 each MM Q2H PRN 11/12/17 12/12/17 Max Lozenge] Ferrous Sulfate [Iron] 325 mg PO DAILY 11/12/17 12/12/17 Folic Acid 1 mg PO DAILY 11/12/17 12/12/17 Methotrexate [Otrexup] 15 mg PO SA 11/12/17 12/12/17 Multivitamin [One Daily Essential] 1 tab PO DAILY 11/12/17 12/12/17 hydrOXYzine HCl [Hydroxyzine HCl] 25 mg PO QID PRN 11/12/17 12/12/17 Ondansetron HCl 8 mg PO Q8H PRN 12/12/17 12/12/17 Promethazine [Phenergan] 25 mg IV Q8HR 12/12/17 12/12/17 Previous Rx's Medication Instructions Recorded Carvedilol [Coreg] 6.25 mg PO BIDWM #60 tablet 05/11/16 amLODIPine [Norvasc] 5 mg PO DAILY #30 tablet 05/11/16 Lactobacillus [Culturelle] 1 each PO BID #30 cap.sprink 04/04/17 Nystatin POWDER [Nystop] 1 appl TP BID #1 bottle 04/04/17 Aspirin Enteric Coated [Aspirin EC] 81 mg PO DAILY tablet. 11/15/17 Buspirone HCl [Buspar] 5 mg PO BID tablet 11/15/17 ALPRAZolam [Xanax 0.25 MG Tablet] 0.25 mg PO TID PRN 10 Days #30 12/18/17 tablet Cefepime HCl/Dextrose, Iso-Osm 2 gm IV BID 2 Days #4 unit 12/18/17 [Cefepime 2 gm Injection] OxyCODONE/APAP 5/325 [Percocet 1 tab PO Q6H PRN 5 Days #20 tablet 12/18/17 5/325 MG] Polyethylene Glycol 3350 [MiraLAX] 17 gm PO BID powd.pack 12/18/17 Sennosides/Docusate Sodium [Senna 2 each PO BID tablet 12/18/17 Plus] Allergies Allergy/AdvReac Type Severity Reaction Status Date / Time No Known Allergies Allergy Verified 11/12/17 16:06 All systems ED: reviewed and negative except as stated. Constitutional: Denies: fever, chills Eyes: Reports: as per HPI ENT ED: Reports: as per HPI Cardiovascular: Denies: chest pain, palpitations Respiratory: Denies: cough, dyspnea, wheezes Gastrointestinal: Denies: abdominal pain, nausea, vomiting Genitourinary: Reports: as per HPI Musculoskeletal: Reports: as per HPI Integumentary: Reports: as per HPI Neurological: Denies: weakness, numbness, paresthesias Psychiatric: Reports: as per HPI Endocrine: Reports: as per HPI Hematological/Lymphatic: Reports: as per HPI Allergic/Immunologic: Reports: as per HPI Past Medical History - Past Medical History Attestation: Yes The following information was validated with the patient. Medical history: Reports: arthritis, CHF, COPD, CVA, diabetes, glaucoma, hyperlipidemia, hypertension, pulmonary embolus, renal disease, other Surgical history: Reports: cataract, other Psychiatric history: Reports: anxiety - Social History Smoking Status: Never smoker Smokeless Tobacco Status: No Alcohol use: Reports: none Drug use: Reports: none Physical Exam - General Limitations: no limitations General appearance: alert, in no apparent distress - Head Head exam: atraumatic, normocephalic, normal inspection - Eye Eye exam: Present: normal appearance. Absent: scleral icterus, conjunctival injection - ENT ENT exam: normal exam, mucous membranes moist - Neck Neck exam: Present: normal inspection, full ROM. Absent: tenderness, meningismus - Chest Chest inspection: Present: normal inspection, symmetric chest wall rise. A bsent: tenderness, rash - Respiratory Respiratory exam: Present: normal lung sounds bilaterally. Absent: respiratory distress, wheezes - Cardiovascular Cardiovascular exam: Present: regular rate, normal rhythm, normal heart sounds - Abdominal Exam Abdominal exam: Present: soft, Non-Tender. Absent: distention, guarding, rebound - Extremities Exam Extremities exam: Present: normal inspection, full ROM - Neurological Exam Neurological exam: Present: alert, oriented X3 - Psychiatric Psychiatric exam: Present: normal affect, normal mood - Skin Skin exam: Present: pallor Course Course Narrative: 62-year-old female presenting for abnormal labs. In the room patient is alert and oriented 3 and hemodynamically stable. Physical exam shows pallor to the skin but otherwise benign. At this time will plan to repeat basic laboratory analysis including CBC, BMP and type and screen. We will order 2 units of packed red blood cells for transfusion. Disposition most likely admission but pending results. Patient agrees with this plan. - Reevaluation(s) Reevaluation #1: Patient's laboratory analysis shows a hemoglobin of 7. Concerned because the CBC is pancytopenic with white blood cell count 1.1 and platelets 62. Due to patient's pancytopenia and profound anemia we will plan to admit her for blood transfusion and hematology consultation. Patient remains alert and oriented 3 and hemodynamically stable. Patient agrees with this plan. Vital Signs Temperature 98.9 F 05/14/18 15:22 Pulse Rate 88 12/10/18 15:22 Respiratory Rate 16 05/14/18 15:22 Blood Pressure 132/64 05/14/18 15:22 O2 Sat by Pulse Oximetry 100 05/14/18 15:22 Temperature 98.9 F 05/14/18 15:22 Pulse Rate 88 05/14/18 15:22 Respiratory Rate 16 05/14/18 15:22 Blood Pressure 132/64 05/14/18 15:22 O2 Sat by Pulse Oximetry 100 05/14/18 15:22 Oxygen Delivery Oxygen Delivery Room Air Medical Decision Making - Lab Data Result diagrams: 05/14/18 15:27 05/14/18 15:27 Lab Results 05/14/18 05/14/18 05/14/18 Range/Units 15:21 15:27 15:27 WBC 1.1 L (4.3-11.1) K/mcL RBC 2.47 L (3.82-4.97) M/mcL Hgb 7.0 L (11.5-15.4) g/dL Hct 21.7 L (35.3-44.9) % MCV 87.9 (83.0-100.0) fL MCH 28.3 (28.0-33.3) pg MCHC 32.3 (31.6-35.5) g/dL RDW 14.8 H (11.5-14.5) % Plt Count 62 L (140-400) K/mcL MPV 10.4 (9.4-12.4) fL Immature Gran % 0.9 (0-4) % Seg Neutrophils % 44.2 % Lymphocytes % 34.5 % Monocytes % 2.7 % Eosinophils % 15.9 % Basophils % 1.8 % Neutrophils # 0.5 L (1.6-8.9) K/mcL Lymphocytes # 0.4 L (0.6-4.6) K/mcL Monocytes # 0.0 (0.0-1.3) K/mcL Eosinophils # 0.2 (0.0-0.6) K/mcL Basophils # 0.0 (0.0-0.2) K/mcL Platelet Estimate Marked Decrease L (Normal) Sodium 136 (136-145) mEq/L Potassium 4.3 (3.5-5.1) mEq/L Chloride 109 H (98-107) mEq/L Carbon Dioxide 20 L (23-29) mEq/L BUN 22 (8-23) mg/dL Creatinine 1.17 (0.60-1.20) mg/dL Est GFR ( Amer) 57 L (> 60) Est GFR (Non-Af Amer) 47 L (> 60) BUN/Creatinine Ratio 19 (6-26) Glucose 177 H (70-105) mg/dL Calculated Osmolality 290 (280-300) Calcium 8.5 L (8.6-10.3) mg/dL Blood Type A NEGATIVE Antibody Screen NEGATIVE MTS Gel Crossmatch See Detail
[2018-05-14 16:00] LABS: Platelet Count 62 K/mcL (140-400)
[2018-05-14 16:01] LABS: Calcium 8.5 mg/dL (8.6-10.3); Potassium 4.3 mEq/L (3.5-5.1)
--- NOTE | 2018-05-14 16:29 | Emergency Department Note ---
Disposition Clinical Impression: Leukopenia, Anemia, chronic disease Disposition: Still a Patient Referrals: Elza Jesus MD [Primary Care Provider] - Forms: ED Satisfaction Letter General Adult HPI - General Chief complaint: ED Recheck/Abnormal Lab/Rx Stated complaint: low hemoglobin Time Seen by Provider: 05/14/18 15:10 Source: patient, EMS Mode of arrival: EMS Limitations: no limitations - History of Present Illness Pain Scale: 0 - Related Data Home Medications Medication Instructions Recorded Confirmed Gabapentin [Neurontin] 300 mg PO HS 08/18/15 12/12/17 Insulin LISPRO [Humalog] 14 unit SQ BID 08/18/15 12/12/17 Pravastatin Sodium [Pravachol] 20 mg PO HS 08/18/15 12/12/17 Linagliptin/Metformin HCl 1 tab PO BID 05/03/16 12/12/17 [Jentadueto Xr 2.5 mg-1,000 mg] Insulin Glargine,Hum.rec.anlog 14 units SQ QAM 03/10/17 12/12/17 [[place] Solostar] Benzocaine/Menthol [Chloraseptic 1 each MM Q2H PRN 11/12/17 12/12/17 Max Lozenge] Ferrous Sulfate [Iron] 325 mg PO DAILY 11/12/17 12/12/17 Folic Acid 1 mg PO DAILY 11/12/17 12/12/17 Methotrexate [Otrexup] 15 mg PO SA 11/12/17 12/12/17 Multivitamin [One Daily Essential] 1 tab PO DAILY 11/12/17 12/12/17 hydrOXYzine HCl [Hydroxyzine HCl] 25 mg PO QID PRN 11/12/17 12/12/17 Ondansetron HCl 8 mg PO Q8H PRN 12/12/17 12/12/17 Promethazine [Phenergan] 25 mg IV Q8HR 12/12/17 12/12/17 Previous Rx's Medication Instructions Recorded Carvedilol [Coreg] 6.25 mg PO BIDWM #60 tablet 05/11/16 amLODIPine [Norvasc] 5 mg PO DAILY #30 tablet 05/11/16 Lactobacillus [Culturelle] 1 each PO BID #30 cap.sprink 04/04/17 Nystatin POWDER [Nystop] 1 appl TP BID #1 bottle 04/04/17 Aspirin Enteric Coated [Aspirin EC] 81 mg PO DAILY tablet. 11/15/17 Buspirone HCl [Buspar] 5 mg PO BID tablet 11/15/17 ALPRAZolam [Xanax 0.25 MG Tablet] 0.25 mg PO TID PRN 10 Days #30 12/18/17 tablet Cefepime HCl/Dextrose, Iso-Osm 2 gm IV BID 2 Days #4 unit 12/18/17 [Cefepime 2 gm Injection] OxyCODONE/APAP 5/325 [Percocet 1 tab PO Q6H PRN 5 Days #20 tablet 12/18/17 5/325 MG] Polyethylene Glycol 3350 [MiraLAX] 17 gm PO BID powd.pack 12/18/17 Sennosides/Docusate Sodium [Senna 2 each PO BID tablet 12/18/17 Plus] Allergies Allergy/AdvReac Type Severity Reaction Status Date / Time No Known Allergies Allergy Verified 11/12/17 16:06 Past Medical History - Past Medical History Medical history: Reports: arthritis, CHF, COPD, CVA, diabetes, glaucoma, hyperlipidemia, hypertension, pulmonary embolus, renal disease, other Surgical history: Reports: cataract, other Psychiatric history: Reports: anxiety - Social History Smoking Status: Never smoker Smokeless Tobacco Status: No Alcohol use: Reports: none Drug use: Reports: none Physical Exam - General Limitations: no limitations General appearance: alert, in no apparent distress Course Vital Signs Temperature 98.9 F 05/14/18 15:22 Pulse Rate 88 05/14/18 15:22 Respiratory Rate 16 05/14/18 15:22 Blood Pressure 132/64 05/14/18 15:22 O2 Sat by Pulse Oximetry 100 05/14/18 15:22 Temperature 98.9 F 05/14/18 15:22 Pulse Rate 88 05/14/18 15:22 Respiratory Rate 16 05/14/18 15:22 Blood Pressure 132/64 05/14/18 15:22 O2 Sat by Pulse Oximetry 100 05/14/18 15:22 Oxygen Delivery Oxygen Delivery Room Air Medical Decision Making - Medical Records Medical records reviewed: Yes I reviewed the patient's medical records. - Lab Data Lab results reviewed: Yes I reviewed the patient's lab results. Result diagrams: 05/14/18 15:27 05/14/18 15:27 Lab Results 05/14/18 05/14/18 05/14/18 Range/Units 15:21 15:27 15:27 WBC 1.1 L (4.3-11.1) K/mcL RBC 2.47 L (3.82-4.97) M/mcL Hgb 7.0 L (11.5-15.4) g/dL Hct 21.7 L (35.3-44.9) % MCV 87.9 (83.0-100.0) fL MCH 28.3 (28.0-33.3) pg MCHC 32.3 (31.6-35.5) g/dL RDW 14.8 H (11.5-14.5) % Plt Count 62 L (140-400) K/mcL MPV 10.4 (9.4-12.4) fL Sodium 136 (136-145) mEq/L Potassium 4.3 (3.5-5.1) mEq/L Chloride 109 H (98-107) mEq/L Carbon Dioxide 20 L (23-29) mEq/L BUN 22 (8-23) mg/dL Creatinine 1.17 (0.60-1.20) mg/dL Est GFR ( Amer) 57 L (> 60) Est GFR (Non-Af Amer) 47 L (> 60) BUN/Creatinine Ratio 19 (6-26) Glucose 177 H (70-105) mg/dL Calculated Osmolality 290 (280-300) Calcium 8.5 L (8.6-10.3) mg/dL Blood Type A NEGATIVE Antibody Screen NEGATIVE MTS Gel Crossmatch See Detail Critical Care Time Critical Care Time: No Attestation Statement - Attestation Attestation: I examined this patient and my medical decision-making was reviewed with the Resident Physician. I agree with the documented findings, disposition and treatment plan as described except to the extent set forth below. 62-year-old female presents to the emergency room for anemia. Patient was found to have a hemoglobin of 6.2 checked as an outpatient today. She is a long history of chronic anemia. She states they have never given a figure out why. She has not seen a investment specialist or product manufacturing professional. She denies any blood in her stool. She said multiple transfusions before. She has no focal complaints. She denies any blackness to her stool. Her recheck of her hemoglobin is 7 however her white count is 1.1. I feel she needs to be admitted for hematology consultation and for transfusion.
[2018-05-14 16:30] LABS: Platelet Estimate Marked Decrease (Normal)
[2018-05-14] MEDS ORDERED: 0.9 % Sodium Chloride 500 ML ONE (17:54)
--- NOTE | 2018-05-14 18:36 | Internal Med History&Physical ---
Date of Encounter: 05/14/18 Time of Encounter: 17:00 Internal Medicine - H&P: HPI Chief complaint: Abnormal labs History of present illness: Patient is a 62-year-old female with past medical history significant for bullous pemphigoid on methotrexate, diastolic CHF, hypertension, diabetes mellitus type 2, CVA with no residual deficits, CKD stage 3 and deconditioning who [facility] due to pancytopenia detected on routine lab work at the senior care. She denies any symptoms of shortness of breath, chest pain or dizziness but does report of having blood transfusions and anemia the last several months after being started on methotrexate for bullous pemphigoid. In the ER, patient was found to have a blood cell count of 1.1, hemoglobin 7.0 and platelet count of 62. Patient will be admitted to the medical surgical floor for pancytopenia and blood transfusions. Past Med Surg Social Fam HX - Past Medical History Medical history: arthritis, CHF, COPD, CVA, diabetes, glaucoma, hyperlipidemia, hypertension, pulmonary embolus, renal disease, other Additional medical history: Anemia Psychiatric history: anxiety - Past Surgical History Surgical History: cataract, other Additional surgical history: tubal ligation - Social History Smoking Status: Never smoker Smokeless Tobacco Status: No Alcohol use: none Drug use: none - Family History Mother Adopted: No Family Member Ethnicity: Unknown Living Status: Still Living Hx Family Cardiac Disorders: No Hx Family Respiratory Disorders: Yes (COPD) Hx Family Cancer: Yes (Colon) Hx Family GI Disorders: No Hx Family Endocrine Disorder: No Hx Family Neuromuscular Disorders: No Hx Family Neurologic Disorders: No Hx Family HEENT Disorders: No Hx Family Autoimmune Disorders: No Father Family Member Ethnicity: Non- Living Status: Hx Family Cardiac Disorders: Yes (Maternal grandmother - heart failure) Hx Family Respiratory Disorders: Yes (Mother - COPD) Hx Family Cancer: Yes (Aunt & mother) Hx Family GI Disorders: Yes (Diverticulitis) Hx Family Endocrine Disorder: Yes Hx Family Neuromuscular Disorders: No Hx Family Neurologic Disorders: Yes (father - aneurysm) Hx Family HEENT Disorders: No Hx Family Autoimmune Disorders: No Internal Medicine - H&P: Meds Gabapentin [Neurontin] 300 mg PO HS 08/18/15 [History] Insulin LISPRO [Humalog] 14 unit SQ BID 08/18/15 [History] Pravastatin Sodium [Pravachol] 20 mg PO HS 08/18/15 [History] Linagliptin/Metformin HCl [Jentadueto Xr 2.5 mg-1,000 mg] 1 tab PO BID 05/03/16 [History] Carvedilol [Coreg] 6.25 mg PO BIDWM #60 tablet 05/11/16 [Rx] amLODIPine [Norvasc] 5 mg PO DAILY #30 tablet 05/11/16 [Rx] Insulin Glargine,Hum.rec.anlog [[place] Solostar] 14 units SQ QAM 03/10/17 [History] Lactobacillus [Culturelle] 1 each PO BID #30 cap.sprink 04/04/17 [Rx] Benzocaine/Menthol [Chloraseptic Max Lozenge] 1 each MM Q2H PRN 11/12/17 [History] Ferrous Sulfate [Iron] 325 mg PO DAILY 11/12/17 [History] Folic Acid 1 mg PO DAILY 11/12/17 [History] Methotrexate [Otrexup] 15 mg PO SA 11/12/17 [History] Multivitamin [One Daily Essential] 1 tab PO DAILY 11/12/17 [History] hydrOXYzine HCl [Hydroxyzine HCl] 25 mg PO QID PRN 11/12/17 [History] Aspirin Enteric Coated [Aspirin EC] 81 mg PO DAILY tablet. 11/15/17 [Rx] Buspirone HCl [Buspar] 5 mg PO BID tablet 11/15/17 [Rx] Ondansetron HCl 8 mg PO Q8H PRN 12/12/17 [History] OxyCODONE/APAP 5/325 [Percocet 5/325 MG] 1 tab PO Q6H PRN 5 Days #20 tablet 12/18/17 [Rx] Polyethylene Glycol 3350 [MiraLAX] 17 gm PO BID powd.pack 12/18/17 [Rx] Sennosides/Docusate Sodium [Senna Plus] 2 each PO BID tablet 12/18/17 [Rx] Famotidine [Pepcid] 20 mg PO BID 05/14/18 [History] Promethazine [Phenergan] 25 mg PO Q8HR PRN 05/14/18 [History] Zinc Oxide [Boudreauxs] 1 appl TP BID 05/14/18 [History] Allergy/AdvReac Type Severity Reaction Status Date / Time No Known Allergies Allergy Verified 11/12/17 16:06 All Systems PM: A 10-system review of systems was performed and is negative for pertinent findings except as documented above in the HPI. - Constitutional Vitals: Temp Pulse Resp BP Pulse Ox 98.5 F 87 16 131/66 100 05/14/18 18:23 05/14/18 18:23 05/14/18 18:23 05/14/18 18:23 05/14/18 15:22 General appearance: Present: A&O X 3 Exam: As above - Eye Eye exam: Present: normal appearance - ENT ENT exam: Present: mucous membranes moist - Respiratory Respiratory exam: Present: CTAB. Absent: accessory muscle use, rales, rhonchi, wheezes - Cardiovascular Cardiovascular exam: Present: RRR, +S1, +S2. Absent: diastolic murmur, gallop, rubs, systolic murmur - GI/Abdominal GI/Abdominal exam: Present: normal bowel sounds, soft, no peritoneal signs. Absent: distended, tenderness - Extremities Exam Extremities exam: Absent: pedal edema - Neurological Exam Neurological exam: Present: alert. Absent: altered - Psychiatric Psychiatric exam: Present: normal mood - Skin Skin exam: Present: pallor Internal Med - H&P Results - Labs CBC & Chem 7: 05/14/18 15:27 05/14/18 15:27 Labs: Short CBC 05/14/18 Range/Units 15:27 WBC 1.1 L (4.3-11.1) K/mcL Hgb 7.0 L (11.5-15.4) g/dL Hct 21.7 L (35.3-44.9) % Plt Count 62 L (140-400) K/mcL Neutrophils # 0.5 L (1.6-8.9) K/mcL BMP 05/14/18 15:27 Sodium 136 Potassium 4.3 Chloride 109 H Carbon Dioxide 20 L BUN 22 Creatinine 1.17 Glucose 177 H Calcium 8.5 L - Assessment and plan (1) Pancytopenia Current Visit: Yes Status: Acute Assessment and plan: In the ER, patient was found to have a blood cell count of 1.1, hemoglobin 7.0 and platelet count of 62. Suspect secondary to methotrexate use for management of bullous pemphigoid Hematology has been consulted with recommendations to check folate, B12 and TSH. Appreciate any additional recommendations (2) Anemia Current Visit: No Status: Acute Assessment and plan: Patient with a hemoglobin of 7.0 Will transfuse 2 units of packed red blood cells and monitor hemoglobin. Qualifiers: Anemia type: due to chronic kidney disease Chronic kidney disease stage: stage 3 (moderate) Qualified Code(s): N18.3 - Chronic kidney disease, stage 3 (moderate); D63.1 - Anemia in chronic kidney disease (3) Bullous pemphigoid Current Visit: No Status: Chronic Assessment and plan: Patient has been managed on methotrexate for suspect cause of pancytopenia Consideration for discontinuing methotrexate Hematology oncology consult as above and appreciate recommendations (4) CKD (chronic kidney disease) stage 3, GFR 30-59 ml/min Current Visit: No Status: Chronic Assessment and plan: Creatinine 1.17 on admission Continue to monitor (5) DM2 (diabetes mellitus, type 2) Current Visit: No Status: Chronic Assessment and plan: Continue home medications Qualifiers: 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: with skilled nursing use Diabetes mellitus complication status: with kidney complications Diabetes mellitus complication detail: with chronic kidney disease Chronic kidney disease stage: stage 3 (moderate) Qualified Code(s): E11.22 - Type 2 diabetes mellitus with diabetic chronic kidney disease; N18.3 - Chronic kidney disease, stage 3 (moderate); 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
[2018-05-14] MEDS ORDERED: BENZOCAINE/MENTHOL 1 LOZENGE (BAG OF 6) MM PRN (18:45)
[2018-05-14] MEDS ORDERED: Ondansetron ODT 4 MG TAB.RAPDIS PO PRN (18:45)
[2018-05-14] MEDS ORDERED: Naloxone 0.4 MG/ML INJ IVP PRN (18:47)
[2018-05-14] MEDS: LINAGLIPTIN PO SCH (20:39)
[2018-05-14] MEDS: METFORMIN HCL PO SCH (20:39)
[2018-05-14] MEDS: Sennosides/Docusate Sodium TABLET PO SCH (20:39)
[2018-05-14] MEDS: Famotidine 20 MG TABLET PO SCH (20:40)
[2018-05-14] MEDS: Gabapentin 300 MG CAPSULE PO SCH (20:40)
[2018-05-14] MEDS: Lactobacillus 1 EACH CAP.SPRINK PO SCH (20:41)
[2018-05-14] MEDS: Insulin LISPRO 300 UNITS/3 ML VIAL SQ SCH (21:18)
[2018-05-14 21:29] LABS: Folate 11.2 ng/mL (3.0-16.0)
[2018-05-15] MEDS: Zinc Oxide 454 GM EACH TP SCH ×3 (00:44→22:39)
[2018-05-15 05:01] LABS: Monocytes % 1.9 %
[2018-05-15 05:03] LABS: Basophils % 0.6 %; Eosinophils # 0.3 K/mcL (0.0-0.6); Eosinophils % 17.5 %; Hematocrit 22.6 % (35.3-44.9); Hemoglobin 7.3 g/dL (11.5-15.4); Immature Granulocytes % 1.3 % (0-4); Lymphocytes # 0.6 K/mcL (0.6-4.6); Lymphocytes % 40.3 %; Mean Corpuscular HGB Conc 32.3 g/dL (31.6-35.5); Mean Corpuscular Hemoglobin 28.4 pg (28.0-33.3); Mean Corpuscular Volume 87.9 fL (83.0-100.0); Mean Platelet Volume 10.8 fL (9.4-12.4); Neutrophils # 0.6 K/mcL (1.6-8.9); Red Blood Count 2.57 M/mcL (3.82-4.97); Red Cell Distribution Width 14.7 % (11.5-14.5); Segmented Neutrophils % 38.4 %
[2018-05-15 05:09] LABS: Platelet Count 48 K/mcL (140-400)
[2018-05-15 05:17] LABS: Calcium 8.3 mg/dL (8.6-10.3); Potassium 3.8 mEq/L (3.5-5.1)
[2018-05-15 05:31] LABS: Platelet Estimate Decreased (Normal)
[2018-05-15] MEDS: Insulin LISPRO 300 UNITS/3 ML VIAL SQ SCH ×2 (08:48→17:57)
[2018-05-15] MEDS: Insulin DETEMIR 100 UNIT/ML X5UNITS SQ SCH (08:49)
[2018-05-15] MEDS: Famotidine 20 MG TABLET PO SCH ×2 (08:52→22:37)
[2018-05-15] MEDS: Aspirin Enteric Coated 81 MG Tablet PO SCH (08:52)
[2018-05-15] MEDS: Folic Acid 1 MG TABLET PO SCH (08:52)
[2018-05-15] MEDS: Lactobacillus 1 EACH CAP.SPRINK PO SCH ×2 (08:52→22:36)
[2018-05-15] MEDS: Multivit/Ca/Min/Fe/FA 1 TAB TABLET PO SCH (08:52)
[2018-05-15] MEDS: amLODIPine 5 MG TABLET PO SCH (08:52)
[2018-05-15] MEDS: METFORMIN HCL PO SCH (08:53)
[2018-05-15] MEDS: LINAGLIPTIN PO SCH (08:53)
[2018-05-15] MEDS: Sennosides/Docusate Sodium TABLET PO SCH ×2 (08:53→22:36)
[2018-05-15] MEDS: hydrOXYzine pamoate 25 MG CAPSULE PO PRN (10:12)
--- NOTE | 2018-05-15 12:01 | Internal Med Progress Note ---
Hospitalist Progress Note - Encounter Date of Encounter: 05/15/18 Time of Encounter: 12:01 - Subjective Interval History: 62 F admitted and beng maanged fro pancytopenia She has a PMH of bullous pemphigoid on methotrexate Awaiting Oncology eval Has no new complains s/p 1 units RBCs No source of bleeding identified at this time - Exam Vitals: Temp Pulse Resp BP Pulse Ox 98.0 F 94 15 113/72 99 05/15/18 11:41 05/15/18 11:41 05/15/18 11:41 05/15/18 11:41 05/15/18 11:41 Exam: VSS Gen: Laying flat, morbidy obese, not in any form of distress HEENT: Moist oral mucosa, anicteric, normal neck inspection Chest: CTAB heart: S1, S2only, no m/g/r Abdomen: Not tender, soft, Extremities: No pedal edema Neuro: AAOX3, no gross focal deficits Psych: Appropriate affect Skin: Multiple healed rashes in different healing stages al over the body - Assessment and Plan (1) Anemia Current Visit: Yes Status: Acute Assessment and Plan: Patient with a hemoglobin of 7.0 Has hx of anemia of chronic disease s/p 1 unit RBCs Hb this a.m 7.8 Vitamin B12, folate WNL Iron studies not done prior to transfusion MCV is WNL Will send FOBT Oncology eval is pending (2) DM2 (diabetes mellitus, type 2) Current Visit: Yes Status: Chronic Assessment and Plan: Continue home medications (3) CKD (chronic kidney disease) stage 3, GFR 30-59 ml/min Current Visit: Yes Status: Chronic Assessment and Plan: Creatinine 1.17 on admission Continue to monitor (4) DVT prophylaxis Current Visit: Yes Status: Acute Assessment and Plan: SCDs (5) Bullous pemphigoid Current Visit: Yes Status: Chronic Assessment and Plan: Patient has been managed on methotrexate for suspect cause of pancytopenia Consideration for discontinuing methotrexate Hematology oncology consult as above and appreciate recommendations (6) Pancytopenia Current Visit: Yes Status: Acute Assessment and Plan: Awaiting further recs by Oncology Continue to monitor - Time Spent with Patient Total time spent is greater than 50% in coordination of care (as documented) at patient's floor/unit and/or counseling patient: Plan of Care Discussed with: patient Internal Medicine: Result - Labs CBC & Chem 7: 05/15/18 04:17 05/15/18 04:17 Labs: Short CBC 05/14/18 05/15/18 Range/Units 15:27 04:17 WBC 1.1 L 1.5 L (4.3-11.1) K/mcL Hgb 7.0 L 7.3 L (11.5-15.4) g/dL Hct 21.7 L 22.6 L (35.3-44.9) % Plt Count 62 L 48 L (140-400) K/mcL Neutrophils # 0.5 L 0.6 L (1.6-8.9) K/mcL BMP 05/14/18 05/15/18 15:27 04:17 Sodium 136 137 Potassium 4.3 3.8 Chloride 109 H 109 H Carbon Dioxide 20 L 20 L BUN 22 24 H Creatinine 1.17 1.31 H Glucose 177 H 197 H Calcium 8.5 L 8.3 L Consult Discharge Plan - Plan Referrals: Elza Jesus MD [Primary Care Provider] - (1) Anemia Qualifiers: Anemia type: due to chronic kidney disease Chronic kidney disease stage: stage 3 (moderate) Qualified Code(s): N18.3 - Chronic kidney disease, stage 3 (moderate); D63.1 - Anemia in chronic kidney disease (2) DM2 (diabetes mellitus, type 2) Qualifiers: 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
--- NOTE | 2018-05-15 14:07 | Oncology Inp Consult Note ---
<Kaitlynn Montenegro L - Last Filed: 05/16/18 07:53> Date of Encounter: 05/15/18 Time of Encounter: 15:00 Assessment and Plan (1) Pancytopenia Status: Acute Assessment and plan: Pancytopenia Chronically anemic on labs dating back to 2013 in presence of chronic disease (CKD) and inflammatory state Leukopenia is new since around 04/13/2018, ANC noted at 600 (neutropenia new since 05/11) Thrombocytopenia new since around 05/04/18 Diagnosed with bullous pemphigoid about 4-5 months ago per patient and she has been on methotrexate since that time., takes methotraxate 10 mg once weekly Recently diagnosed with early osteomyelitis to left calcaneal suface per MRI 05/01/2018, started on doxycycline per pharmacy record 05/09/2018 So far, anemia workup revealed: B12 and folate are replete Elevated ferritin 409 with low iron saturation in presence of chronic inflammation Plan: Etiology TBD but likely multifactorial in the setting of MTX use in CKD and osteomyelitis on Doxy Perform complete workup including coags, fibrinogen, iron, LDH, retic, blood smear, serum protein electrophoresis and serum free light chains Recommend holding methotrexate, may need to discuss with dermatology Further recommendations pending above labs May consider bone marrow biopsy to rule out malignant etiology, this will be an ongoing evaluation and performed inpatient versus outpatient pending further evaluation - Data of Consult Patient: new to practice Consult date: 05/15/18 Requesting Physician: Shaun Carias MD Primary Care Provider: Elza Jesus MD - Consult Narrative Reason for consult: Pancytopenia History of present illness: Patient is a 62-year-old female with past medical history significant for bullous pemphigoid on methotrexate, diastolic CHF, hypertension, diabetes mellitus type 2, CVA with no residual deficits, CKD stage 3 and deconditioning who presents from a longterm facility due to [facility]top[facility]. She denies any symptoms of fevers, chills, night sweats, shortness of breath, chest pain, s/s bleeding or dizziness but does report of having blood transfusions and anemia the last several months after being started on methotrexate for bullous pemphigoid. Patient is non-ambulatory, she has a history of multiple MRSA skin infections and ulcer to left heel. MRI on 05/01/2018 revealed large posterior heel soft tissue defect. Suspected early osteomyelitis of the posterosuperior calcaneal surface. She started doxycycline 05/09/2018. She reports decreased appetite and 50# weight loss over the past several months. Denies personal history of cancer. Past Med Surg Social Fam HX - Past Medical History Medical history: arthritis, CHF, COPD, CVA, diabetes, glaucoma, hyperlipidemia, hypertension, pulmonary embolus, renal disease, other Additional medical history: Anemia Psychiatric history: anxiety - Past Surgical History Surgical History: cataract, other Additional surgical history: tubal ligation - Social History Smoking Status: Never smoker Smokeless Tobacco Status: No Alcohol use: none Drug use: none - Family History Father Family Member Ethnicity: Non- Living Status: Hx Family Cardiac Disorders: Yes (Maternal grandmother - heart failure) Hx Family Respiratory Disorders: Yes (Mother - COPD) Hx Family Cancer: Yes (Aunt & mother) Hx Family GI Disorders: Yes (Diverticulitis) Hx Family Endocrine Disorder: Yes Hx Family Neuromuscular Disorders: No Hx Family Neurologic Disorders: Yes (father - aneurysm) Hx Family HEENT Disorders: No Hx Family Autoimmune Disorders: No Mother Adopted: No Family Member Ethnicity: Unknown Living Status: Still Living Hx Family Cardiac Disorders: No Hx Family Respiratory Disorders: Yes (COPD) Hx Family Cancer: Yes (Colon) Hx Family GI Disorders: No Hx Family Endocrine Disorder: No Hx Family Neuromuscular Disorders: No Hx Family Neurologic Disorders: No Hx Family HEENT Disorders: No Hx Family Autoimmune Disorders: No Medications and Allergies RX: Gabapentin [Neurontin] 300 mg PO HS 08/18/15 [History] RX: Insulin LISPRO [Humalog] 14 unit SQ BID 08/18/15 [History] RX: Pravastatin Sodium [Pravachol] 20 mg PO HS 08/18/15 [History] RX: Linagliptin/Metformin HCl [Jentadueto Xr 2.5 mg-1,000 mg] 1 tab PO BID 05/03/16 [History] RX: Carvedilol [Coreg] 6.25 mg PO BIDWM #60 tablet 05/11/16 [Rx] RX: amLODIPine [Norvasc] 5 mg PO DAILY #30 tablet 05/11/16 [Rx] RX: Insulin Glargine,Hum.rec.anlog [José Miguel Manuel] 14 units SQ QAM 03/10/17 [History] RX: Lactobacillus [Culturelle] 1 each PO BID #30 cap.sprink 04/04/17 [Rx] RX: Benzocaine/Menthol [Chloraseptic Max Lozenge] 1 each MM Q2H PRN 11/12/17 [History] RX: Ferrous Sulfate [Iron] 325 mg PO DAILY 11/12/17 [History] RX: Folic Acid 1 mg PO DAILY 11/12/17 [History] RX: Methotrexate [Otrexup] 15 mg PO SA 11/12/17 [History] RX: Multivitamin [One Daily Essential] 1 tab PO DAILY 11/12/17 [History] RX: hydrOXYzine HCl [Hydroxyzine HCl] 25 mg PO QID PRN 11/12/17 [History] RX: Aspirin Enteric Coated [Aspirin EC] 81 mg PO DAILY tablet. 11/15/17 [Rx] RX: Buspirone HCl [Buspar] 5 mg PO BID tablet 11/15/17 [Rx] RX: Ondansetron HCl 8 mg PO Q8H PRN 12/12/17 [History] RX: OxyCODONE/APAP 5/325 [Percocet 5/325 MG] 1 tab PO Q6H PRN 5 Days #20 tablet 12/18/17 [Rx] RX: Polyethylene Glycol 3350 [MiraLAX] 17 gm PO BID powd.pack 12/18/17 [Rx] RX: Sennosides/Docusate Sodium [Senna Plus] 2 each PO BID tablet 12/18/17 [Rx] Famotidine [Pepcid] 20 mg PO BID 05/14/18 [History] Promethazine [Phenergan] 25 mg PO Q8HR PRN 05/14/18 [History] RX: Zinc Oxide [Boudreauxs] 1 appl TP BID 05/14/18 [History] Doxycycline 100 mg PO BID 05/15/18 [History] Allergy/AdvReac Type Severity Reaction Status Date / Time No Known Allergies Allergy Verified 11/12/17 16:06 Constitutional: Present: anorexia, fatigue, weakness, weight loss. Absent: chills, fever(s), headache(s), night sweats Eyes: Absent: change in vision Nose, mouth and throat: Absent: dysphagia, odynophagia Cardiovascular: Absent: chest pain, palpitations Respiratory: Absent: cough, dyspnea, hemoptysis Gastrointestinal: Absent: abdominal pain, change in bowel habits, hematemesis, hematochezia, melena, nausea, vomiting Genitourinary: Absent: dysuria, hematuria Musculoskeletal: Present: muscle weakness Integumentary: Present: as per HPI Additional comments: left heel ulcer with allevyn intact, multiple scattered blistered ulcerations to abdomen and BLE Neurological: Absent: focal weakness, frequent falls Psychiatric: Present: change in appetite Hematologic/Lymphatic: Absent: easy bleeding, lymphadenopathy Oncology - Exam - Constitutional General appearance: cooperative, no acute distress, no febrile Exam: chronically ill appearing - Head Head exam: Present: atraumatic - ENT ENT exam: Present: mucous membranes moist, normal oropharynx - Neck Neck exam: Absent: lymphadenopathy - Respiratory Respiratory exam: Present: CTAB. Absent: respiratory distress - Cardiovascular Cardiovascular exam: Present: RRR, +S1, +S2 - GI/Abdominal GI/Abdominal exam: Present: normal bowel sounds, soft. Absent: tenderness - Extremities Exam Extremities exam: Absent: calf tenderness Additional comments: skin assessment as below. generalized weakness with muscle weakness noted to BLE, patients states she has been non ambulatory for multiple months - Neurological Exam Neurological exam: Present: alert, oriented X3, no focal deficits, strengths equal and symetr throughout - Psychiatric Psychiatric exam: Present: normal affect, normal mood - Skin Skin exam: Present: dry, pallor, warm Consult Discharge Plan - Plan Referrals: Elza Jesus MD [Primary Care Provider] - Inpatient Charges Provider: Dr. Brittany Turner <Maddison Turner S - Last Filed: 05/16/18 16:16> Date of Encounter: 05/15/18 - Data of Consult Requesting Physician: Shaun Carias MD Primary Care Provider: Elza Jesus MD Inpatient Charges Provider: Dr. Brittany Turner Consult - Inpatient: [id number] - Attending Attestation I examined this patient and my medical decision-making was reviewed with the Advanced Practice Nurse. I agree with the documented findings, disposition and treatment plan as described except to the extent set forth below. 1. Admitted with pancytopenia. She was started on methotrexate 15 mg by mouth weekly for bullous pemphigoid. She does have baseline anemia hemoglobin between 7-9 dating back to October 2017. Dropped to 7 on 05/14/2018 Her neutrophils were normal in the past dropped to 0.8 on 05/11/2018. Platelets also normal in the past dropped to 94 on 05/11/2018 currently 48 She also has chronic kidney disease stage III with creatinine around 1.3. Chronic kidney disease could be contributing to methotrexate toxicity as methotrexate is cleared renally So far anemia workup showed normal B12 folate TSH. Ferritin high at 409 saturation low indicating anemia of chronic disease/inflammation YING negative. LDH mildly reduced. We will do a complete workup including hemolysis workup serum protein electrophoresis light chain So far she received 1 unit of packed RBC transfusion Recommend holding methotrexate to see if her pancytopenia improves if not may consider a bone marrow biopsy Her peripheral smear was negative December 2017 2. Possible osteomyelitis. MRI showed large posterior heel soft tissue defect in the calcaneal surface 05/01/2018
--- NOTE | 2018-05-15 14:44 | Event Note ---
Date of Encounter: 05/15/18 Time of Encounter: 14:43
[2018-05-15 14:48] LABS: Immature Reticulocyte % 17.4 % (11.0-38.0); Retculocyte # 0.03 M/mcL (0.05-0.10); Reticulocyte % 1.1 % (1.6-2.8)
[2018-05-15 14:55] LABS: % Iron Saturation 20 % (15-50); Iron 35 mcg/dL (50-170); Lactate Dehydrogenase 128 Units/L (140-271); Prothrombin Time 11.7 Seconds (9.4-12.1); Transferrin 127 mg/dL (203-362)
[2018-05-15 14:58] LABS: Activated Partial Thrombo Time 30.6 Seconds (26.0-36.0)
[2018-05-15 16:15] LABS: Ferritin 475 ng/mL (10-120)
[2018-05-15] MEDS: Gabapentin 300 MG CAPSULE PO SCH (22:36)
[2018-05-16 06:55] LABS: Calcium 8.1 mg/dL (8.6-10.3); Potassium 3.8 mEq/L (3.5-5.1)
[2018-05-16 07:04] LABS: Eosinophils % 21.5 %; Hematocrit 21.9 % (35.3-44.9); Lymphocytes # 0.6 K/mcL (0.6-4.6); Lymphocytes % 29.3 %; Mean Corpuscular Hemoglobin 28.2 pg (28.0-33.3); Mean Corpuscular Volume 88.3 fL (83.0-100.0); Mean Platelet Volume 11.5 fL (9.4-12.4); Monocytes # 0.1 K/mcL (0.0-1.3); Monocytes % 4.4 %; Neutrophils # 0.9 K/mcL (1.6-8.9); Red Blood Count 2.48 M/mcL (3.82-4.97); Red Cell Distribution Width 14.8 % (11.5-14.5); Segmented Neutrophils % 42.8 %
[2018-05-16 07:17] LABS: Eosinophils # 0.5 K/mcL (0.0-0.6); Platelet Count 39 K/mcL (140-400)
[2018-05-16 07:41] LABS: Platelet Estimate Decreased (Normal)
--- NOTE | 2018-05-16 08:39 | Infectious Disease Consult ---
Date of Encounter: 05/16/18 Time of Encounter: 09:53 Assessment and Plan (1) Osteomyelitis Status: Acute Assessment and plan: Location: Left heel. Causative organism: Unclear, but previous wound culture positive for MRSA. Likely secondary to non-healing ulcer. Previously on doxycycline at the [facility]. MRI of the left foot 05/01/18 showed early osteomyelitis of the posterosuperior calcaneal surface. WBC low, but no other SIRS criteria. Clinically, the wound does not appear infected at this point. Currently on IV Vancomycin. Recommendations: Check ESR and CRP. Consult Podiatry for possible surgical recommendations and wound care orders. Continue Vancomycin IV. Pharmacy to dose. Goal trough ~15. Duration of treatment depends on the clinical picture, but likely 6 weeks of IV antibiotics. Monitor renal function closely given the patient's history of CKD 3. Dose-adjust antibiotics. Qualifiers: Osteomyelitis type: other acute Osteomyelitis location: foot Laterality: left Qualified Code(s): M86.172 - Other acute osteomyelitis, left ankle and foot (2) Pancytopenia Status: Acute Assessment and plan: WBC 1.1 with ANC 484, Hgb 6.2, platelets 62 on admission. Etiology unclear: methotrexate vs. infection vs. other vs. combination of previous. WBC improved, but Hgb and platelets remain low. Hematology consulted and following. (3) Decubitus ulcer of left heel Status: Chronic Assessment and plan: Location: Left heel. Clinically, the wound does not appear infected and is nearly healed. Podiatry to assist with wound care recommendations. Qualifiers: Pressure injury stage: stage 2 Qualified Code(s): L89.622 - Pressure ulcer of left heel, stage 2 (4) CKD (chronic kidney disease) stage 3, GFR 30-59 ml/min Status: Chronic (5) Bullous pemphigoid Status: Chronic Assessment and plan: Follows with Dr. Phillips with [facility]. Take methotrexate 10mg PO weekly --> currently on hold. Dressing changes per Podiatry/wound care recommendations. (6) Obesity (BMI 30.0-34.9) Status: Chronic (7) HTN (hypertension) Status: Chronic Qualifiers: Hypertension type: essential hypertension Qualified Code(s): I10 - Essential (primary) hypertension (8) CVA (cerebral vascular accident) Status: Chronic Assessment and plan: Reports CVA 3 years ago with residual LLE weakness. Qualifiers: CVA mechanism: unspecified Qualified Code(s): I63.9 - Cerebral infarction, unspecified (9) DM2 (diabetes mellitus, type 2) Status: Chronic Assessment and plan: Strict glucose control. Qualifiers: Diabetes mellitus oil heaterman insulin use: with penitentiary use Diabetes mellitus complication status: with kidney complications Diabetes mellitus complication detail: with chronic kidney disease Chronic kidney disease stage: stage 3 (moderate) Qualified Code(s): E11.22 - Type 2 diabetes mellitus with diabetic chronic kidney disease; N18.3 - Chronic kidney disease, stage 3 (m oderate); Z79.4 - intermediate teacher (current) use of insulin Infectious Disease HPI - Data of Consult Patient: new to practice Consult date: 05/16/18 Requesting Physician: Shaun Carias MD Primary Care Provider: Elza Jesus MD - Consult Narrative Reason for consult: Left calcaneus OM History of present illness: Ms. Mejia is a 62 year old female a past medical history of CVA with residual LLE weakness, chronic kidney disease, CHF, COPD, diabetes, hyperlipidemia, hypertension, pulmonary embolism, and bullous pemphigoid currently on weekly 10mg oral methotrexate and following with the [facility]. The patient was admitted to the hospital 05/14/18 for anemia, leukopenia, and chronic kidney disease. We are consulted 05/16/18 for recommendations regarding left foot o steomyelitis. Briefly, the patient is a 62-year-old female with past medical history as stated above. The patient presented to the emergency department after she had lab work done at the [facility] where she resides that revealed that her hemoglobin was down to 6.2. Upon arrival to the ER, the patient was afebrile and hemodynamically stable. Laboratory studies revealed leukopenia with an ANC of 444 with 15% eosinophils, hemoglobin of 7, platelet level of 62. Her serum creatinine was normal in the setting of her chronic kidney disease. She was ordered to receive 2 units of packed red cells and was admitted to the hospital for further evaluation. Since admission, the patient has remained afebrile and hemodynamically stable. Her white blood cell count has improved. Today, it is 2.1 with ANC of 882. She continues to have eosinophilia with 21% eosinophils. Her serum creatinine is elevated at 1.36 today. Oncology was consulted to assist with workup of her pancytopenia. Currently, she is not on any antibiotics. We have been asked to evaluate and make further recommendations. Review of the medical record indicates that back on 05/01/18 the patient had an MRI of her left foot that showed early ostium myelitis of the posterior superior calcaneal surface. Apparently, [facility] after a wound culture came back positive for MRSA. She typically follows with [facility], and was last evaluated back on 04/09/[address] Olivarez. It is unclear the events that led to the wound culture and MRI of the left foot. Patient does have bullous pemphigoid which was diagnosed earlier this year and receives weekly methotrexate. During my exam today, the patient endorses a history as stated above. She states that for the past several months she has felt generally cold, but denies any fevers or rigors. She denies any weakness or dizziness. Denies chest pain, shortness of breath, or cough. Reports some nausea with intermittent vomiting for the last month and overall poor appetite since going to the prison about a year ago. She denies any abdominal pain or urinary complaints. She denies any oral thrush. She reports multiple skin lesions that are in various stages of healing to the bilateral lower extremities secondary to the bullous pemphigoid. She does report a chronic nonhealing ulcer to the left heel that has been there since she had her stroke about 3 years ago. She states that it has been waxing and waning over the course since it started and she has been on multiple courses of antibiotics for multiple infections in the wound. She denies any oral thrush or other skin lesions. The patient resides at a local extended care facility where she has been living for the past year. She denies any tobacco, alcohol, or illicit drug use. She is no longer employed. She denies any chronic infectious diseases. She denies any pet or animal exposures. She denies any recent travel outside the [facility]. CC: Shaun Carias MD Past Med Surg Social Fam HX - Past Medical History Attestation: Yes The following information was validated with the patient. Source: patient, old records reviewed, nursing notes reviewed Medical history: arthritis, CHF, COPD, CVA, diabetes, glaucoma, hyperlipidemia, hypertension, pulmonary embolus, renal disease, other Additional medical history: Anemia Psychiatric history: anxiety - Past Surgical History Surgical History: cataract, other Additional surgical history: tubal ligation - Social History Smoking Status: Never smoker Smokeless Tobacco Status: No Alcohol use: none Drug use: none Occupational status: disabled Current living situation: [facility] Activity Level: Bed bound Recent Out of Country Travel Within the Last 8 Weeks: No Exposure or Possible Exposure to Illness During Travel: No - Family History Father Family Member Ethnicity: Non- Living Status: Hx Family Cardiac Disorders: Yes (Maternal grandmother - heart failure) Hx Family Respiratory Disorders: Yes (Mother - COPD) Hx Family Cancer: Yes (Aunt & mother) Hx Family GI Disorders: Yes (Diverticulitis) Hx Family Endocrine Disorder: Yes Hx Family Neuromuscular Disorders: No Hx Family Neurologic Disorders: Yes (father - aneurysm) Hx Family HEENT Disorders: No Hx Family Autoimmune Disorders: No Mother Adopted: No Family Member Ethnicity: Unknown Living Status: Still Living Hx Family Cardiac Disorders: No Hx Family Respiratory Disorders: Yes (COPD) Hx Family Cancer: Yes (Colon) Hx Family GI Disorders: No Hx Family Endocrine Disorder: No Hx Family Neuromuscular Disorders: No Hx Family Neurologic Disorders: No Hx Family HEENT Disorders: No Hx Family Autoimmune Disorders: No Infectious Disease-CN:Meds RX: Gabapentin [Neurontin] 300 mg PO HS 08/18/15 [History] RX: Insulin LISPRO [Humalog] 14 unit SQ BID 08/18/15 [History] RX: Pravastatin Sodium [Pravachol] 20 mg PO HS 08/18/15 [History] RX: Linagliptin/Metformin HCl [Jentadueto Xr 2.5 mg-1,000 mg] 1 tab PO BID 05/03/16 [History] RX: Carvedilol [Coreg] 6.25 mg PO BIDWM #60 tablet 05/11/16 [Rx] RX: amLODIPine [Norvasc] 5 mg PO DAILY #30 tablet 05/11/16 [Rx] RX: Insulin Glargine,Hum.rec.anlog [Toujeo Solostar] 14 units SQ QAM 03/10/17 [History] RX: Lactobacillus [Culturelle] 1 each PO BID #30 cap.sprink 04/04/17 [Rx] RX: Benzocaine/Menthol [Chloraseptic Max Lozenge] 1 each MM Q2H PRN 11/12/17 [ History] RX: Ferrous Sulfate [Iron] 325 mg PO DAILY 11/12/17 [History] RX: Folic Acid 1 mg PO DAILY 11/12/17 [History] RX: Methotrexate [Otrexup] 15 mg PO SA 11/12/17 [History] RX: Multivitamin [One Daily Essential] 1 tab PO DAILY 11/12/17 [History] RX: hydrOXYzine HCl [Hydroxyzine HCl] 25 mg PO QID PRN 11/12/17 [History] RX: Aspirin Enteric Coated [Aspirin EC] 81 mg PO DAILY tablet. 11/15/17 [Rx] RX: Buspirone HCl [Buspar] 5 mg PO BID tablet 11/15/17 [Rx] RX: Ondansetron HCl 8 mg PO Q8H PRN 12/12/17 [History] RX: OxyCODONE/APAP 5/325 [Percocet 5/325 MG] 1 tab PO Q6H PRN 5 Days #20 tablet 12/18/17 [Rx] RX: Polyethylene Glycol 3350 [MiraLAX] 17 gm PO BID powd.pack 12/18/17 [Rx] RX: Sennosides/Docusate Sodium [Senna Plus] 2 each PO BID tablet 12/18/17 [Rx] Famotidine [Pepcid] 20 mg PO BID 05/14/18 [History] Promethazine [Phenergan] 25 mg PO Q8HR PRN 05/14/18 [History] RX: Zinc Oxide [Boudreauxs] 1 appl TP BID 05/14/18 [History] Doxycycline 100 mg PO BID 05/15/18 [History] Allergy/AdvReac Type Severity Reaction Status Date / Time No Known Allergies Allergy Verified 11/12/17 16:06 All systems: reviewed and no additional remarkable complaints except as stated Exam - Constitutional Vitals: Temp Pulse Resp BP Pulse Ox 98.9 F 83 18 133/76 97 05/16/18 07:04 05/16/18 07:04 05/16/18 07:04 05/16/18 07:04 05/16/18 07:04 General appearance: cooperative, no acute distress, obese - Head Head exam: Present: atraumatic, normal inspection, normocephalic - Eye Eye exam: Present: EOMI, normal appearance, PERRL Pupils: Present: normal accommodation - ENT ENT exam: Present: mucous membranes moist - Neck Neck exam: Present: normal inspection - Respiratory Respiratory exam: Present: CTAB. Absent: rales, respiratory distress, rhonchi, wheezes - Cardiovascular Cardiovascular exam: Present: RRR, +S1, +S2 - GI/Abdominal GI/Abdominal exam: Present: distended, normal bowel sounds, soft. Absent: tenderness - Extremities Exam Extremities exam: Absent: normal inspection (Multiple scabbed lesions noted to the BLE. Blister-like lesions noted x 2 to the anterior RLE. Left hhel with unstageable ulceration oozing bright red blood. No tenderness, fluctuance, or warmth noted. ), pedal edema - Neurological Exam Neurological exam: Present: alert, oriented X3. Absent: no focal deficits (Paralysis noted to the LLE.) - Psychiatric Psychiatric exam: Present: normal affect, normal mood - Skin Skin exam: Present: dry, intact, normal color, warm Infectious Disease CN: Results - Labs CBC & Chem 7: 05/16/18 06:24 05/16/18 06:24 Consult Discharge Plan - Plan Referrals: Elza Jesus MD [Primary Care Provider] - - Attending Attestation I examined this patient and my medical decision-making was reviewed with the Resident Physician. I agree with the documented findings, disposition and treatment plan as described except to the extent set forth below. This is an addendum to original report dictated by La Knox CNP. Please refer to La's note for full details. Patient is a 62-year-old woman with past medical history mentioned below including pancytopenia and chronic anemia with unknown etiology apparently had a wound on her left heel. [facility] and showed early osteomyelitis of the posterior superior calcaneal surface. Patient also had a wound culture done at that time which was positive for MRSA. Patient was started on doxycycline. Patient is currently here for noninfectious etiology only due to severe anemia with a hemoglobin of 6.1. Patient also had neutropenia with ANC 0f 484 on admission. Patient was started on empiric vancomycin and we were asked to evaluate the patient and make further recommendations 05/01/2018: MRI of the left footLarge posterior heel soft tissue defect. Suspected early osteomyelitis of the posterosuperior calcaneal surface. Patient's wound does not appear overtly infected there is no open ulcerated draining wound or anything. Labs noted inflammatory markers pending. Patient was started on empiric vancomycin were asked to evaluate the patient's make further recommendations. Check ESR and CRP. Patient has 1 SIRS criteria which is leukopenia. I would consider stopping all antibiotics and see if they can do a bone biopsy sent for path and for cultures. Also weight for the inflammatory markers, and oriented based on that will make further recommendations if to treat IV and for how long. We will discuss with the podiatry team.
[2018-05-16] MEDS: Insulin LISPRO 300 UNITS/3 ML VIAL SQ SCH ×2 (08:47→17:24)
[2018-05-16] MEDS: Lactobacillus 1 EACH CAP.SPRINK PO SCH ×2 (08:49→20:09)
[2018-05-16] MEDS: amLODIPine 5 MG TABLET PO SCH (08:50)
[2018-05-16] MEDS: Aspirin Enteric Coated 81 MG Tablet PO SCH (08:50)
[2018-05-16] MEDS: Multivit/Ca/Min/Fe/FA 1 TAB TABLET PO SCH (08:50)
[2018-05-16] MEDS: Famotidine 20 MG TABLET PO SCH ×2 (08:50→20:09)
[2018-05-16] MEDS: Folic Acid 1 MG TABLET PO SCH (08:51)
[2018-05-16] MEDS: Zinc Oxide 454 GM EACH TP SCH ×2 (08:51→20:25)
[2018-05-16] MEDS: Insulin DETEMIR 100 UNIT/ML X5UNITS SQ SCH (08:51)
[2018-05-16] MEDS: Sennosides/Docusate Sodium TABLET PO SCH ×2 (09:16→20:25)
--- NOTE | 2018-05-16 11:06 | Internal Med Progress Note ---
Hospitalist Progress Note - Encounter Date of Encounter: 05/16/18 Time of Encounter: 11:06 - Subjective Interval History: 62 F admitted and beng maanged fro pancytopenia She has a PMH of bullous pemphigoid on methotrexate, bed-bound status, resident of SNF, decubitus ulcer on the left heel, CKD III Has no new complains s/p 1 units RBCs 05/14 HB today 7.0 FOBT is pending No source of bleeding identified at this time - Exam Vitals: Temp Pulse Resp BP Pulse Ox 98.9 F 83 18 133/76 97 05/16/18 07:04 05/16/18 07:04 05/16/18 07:04 05/16/18 07:04 05/16/18 07:04 Exam: VSS Gen: Laying flat, morbidy obese, not in any form of distress HEENT: Moist oral mucosa, anicteric, normal neck inspection Chest: CTAB heart: S1, S2only, no m/g/r Abdomen: Not tender, soft, Extremities: No pedal edema, Left heel and calcaneal reguon with beefy red granulation tissue, foul smelling, no discharge noted Neuro: AAOX3, no gross focal deficits Psych: Appropriate affect Skin: Multiple healed rashes in different healing stages al over the body - Assessment and Plan (1) Anemia Current Visit: Yes Status: Acute Assessment and Plan: Patient with a hemoglobin of 7.0 Has hx of anemia of chronic disease s/p 1 unit RBCs 05/14 Hb 05/15 7.8 Vitamin B12, folate WNL, TSH WNL, YING negative Peripheral smear pending FOBT pending Oncology is following Will transfuse one more unit of RBCs today 05/16 Patient is hemodynamically stable (2) DM2 (diabetes mellitus, type 2) Current Visit: Yes Status: Chronic Assessment and Plan: Continue home medications FS ACHS Sliding scale insulin (3) CKD (chronic kidney disease) stage 3, GFR 30-59 ml/min Current Visit: Yes Status: Chronic Assessment and Plan: Creatinine 1.17 on admission Renal function is at baseline Continue to monitor (4) DVT prophylaxis Current Visit: Yes Status: Acute Assessment and Plan: SCDs PLT count is <50,000 (5) Bullous pemphigoid Current Visit: Yes Status: Chronic Assessment and Plan: Patient has been managed on methotrexate for suspect cause of pancytopenia Consideration for discontinuing methotrexate, held at this time Hematology oncology consult noted, appreciate inpout PLT count today 39, no current indication for transfusion (6) Pancytopenia Current Visit: Yes Status: Acute Assessment and Plan: Oncology evaluation noted, work up is pending, transfusinr RBC for Hb <7, and PLT <30K with bleeding, or <10K Continue to monitor (7) Osteomyelitis Current Visit: Yes Status: Acute Assessment and Plan: Patient with left calcaneal OM, per MRI from 05/01. Started on IV Vancomycin 05/15 Continue vancomycin, pharmacy to dose Will consult podiatry per ID recommendations (8) Decubitus ulcer of left heel Current Visit: Yes Status: Chronic Assessment and Plan: Wound care and podiatry consulted DVT Prophylaxis: SCDs - Time Spent with Patient Total time spent is greater than 50% in coordination of care (as documented) at patient's floor/unit and/or counseling patient: Plan of Care Discussed with: patient Internal Medicine: Result - Labs CBC & Chem 7: 05/16/18 06:24 05/16/18 06:24 Labs: Short CBC 05/16/18 Range/Units 06:24 WBC 2.1 L (4.3-11.1) K/mcL Hgb 7.0 L (11.5-15.4) g/dL Hct 21.9 L (35.3-44.9) % Plt Count 39 L (140-400) K/mcL Neutrophils # 0.9 L (1.6-8.9) K/mcL BMP 05/16/18 06:24 Sodium 136 Potassium 3.8 Chloride 111 H Carbon Dioxide 20 L BUN 21 Creatinine 1.36 H Glucose 165 H Calcium 8.1 L - ABG Interpretation ABG results: PT/INR, D-dimer PT 11.7 Seconds (9.4-12.1) 05/15/18 14:27 Consult Discharge Plan - Plan Referrals: Elza Jesus MD [Primary Care Provider] - (1) Anemia Qualifiers: Anemia type: due to chronic kidney disease Chronic kidney disease stage: stage 3 (moderate) Qualified Code(s): N18.3 - Chronic kidney disease, stage 3 (moderate); D63.1 - Anemia in chronic kidney disease (2) DM2 (diabetes mellitus, type 2) Qualifiers: Diabetes mellitus senior living insulin use: with termite technician use Diabetes mellitus complication status: with kidney complications Diabetes mellitus complication detail: with chronic kidney disease Chronic kidney disease stage: stage 3 (moderate) Qualified Code(s): E11.22 - Type 2 diabetes mellitus with diabetic chronic kidney disease; N18.3 - Chronic kidney disease, stage 3 (moderate); 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
[2018-05-16] MEDS ORDERED: 0.9 % Sodium Chloride 250 ML ONE (12:06)
--- NOTE | 2018-05-16 16:30 | Oncology Inp Progress Note ---
Date of Encounter: 05/17/18 Time of Encounter: 16:27 (1) Pancytopenia Current Visit: Yes Status: Acute Assessment and plan: Pancytopenia. Neutropenia and thrombocytopenia are relatively new and anemia is chronic for at least a year or more Some of this could be related to methotrexate toxicity. Methotrexate accumulates more in the setting of chronic kidney disease. Current creatinine 1.39 which is increased from her baseline of 1.1 We will stopped further methotrexate. She was prescribed 15 mg weekly but currently she is taking 10 mg weekly she took a dose on last Monday. B12 folate normal TSH normal. Ferritin mildly elevated with a low iron binding capacity consistent with anemia of chronic disease No evidence of hemolysis. Ligia test negative LDH mildly low at 128 Liver enzymes are normal. Viral hepatitis panel negative E YING negative 2. Progressive thrombocytopenia platelet count 39,000. Platelet drops to below 20,000 or if there is clinical evidence of bleeding may consider platelet transfusion Also packed RBC transfusion for hemoglobin less than 7. Overall her neutrophils are mildly improved to 900 today. Hemoglobin is stable. If her counts continue to get worse may proceed with bone marrow biopsy sooner. Had a long discussion with her. It may take up to 4 weeks before counts recover if it is secondary to methotrexate We will do serum protein electrophoresis and light chains. Oncology: Subj Interval history: Deconditioning. Medically significant obesity. Bullous pemphigoid. She had initially good response to methotrexate currently response is weaning down. She has some erythematous skin patches from pemphigoid. Shortness of breath with exertion. Denied headaches. No major chest pain - Constitutional Exam: GENERAL: Alert and oriented, well appearing. Mental Status: Affect appropriate for circumstances HEENT: Sclerae anicteric. No mucositis or thrush. No other oral or pharyngeal lesions or erythema. Skin: No rashes or petechiae. No evidence of skin malignancy Lymph nodes: No cervical, supraclavicular, axillary, or inguinal adenopathy. Lungs: Air entry normal with normal breath sounds. No rhonchi or wheezing Cardiovascular: Regular rate and rhythm. No skipped beats Abdomen: Soft, nontender; no organomegaly or masses palpable. Extremities: No edema. No calf swelling or tenderness. No joint deformity. Neurologic: Alert, cranial nerves II-XII intact; normal gait; no focal weakness or sensory abnormalities Oncology: Obj Data - Labs CBC & Chem 7: 05/17/18 06:12 05/17/18 06:12 Consult Discharge Plan - Plan Referrals: Elza Jesus MD [Primary Care Provider] - Inpatient Charges Provider: Dr. Brittany Turner Follow up - Inpatient: [id number]
--- NOTE | 2018-05-16 17:20 | Podiatry Consult Note ---
Date of Encounter: 05/16/18 Time of Encounter: 17:00 Assessment and Plan (1) Osteomyelitis Current visit: Yes Status: Acute Qualifiers: Osteomyelitis type: other acute Osteomyelitis location: foot Laterality: left Qualified Code(s): M86.172 - Other acute osteomyelitis, left ankle and foot (2) Non-healing ulcer of lower extremity Current visit: No Status: Chronic Chronic ulceration of left heel Clinically wound does not appear infected at this time Wound is raw and friable A dry dressing was noted to be placed on wound and has likely increased irritation and bleeding Cleansed with saline Applied adaptic, 4x4 and bulk dressing Has heelmedix boots on bilaterally- to have on at all times Patient states wound has been chronic x3 years States she has been told in the past there was bone infection which was treated with IV antibiotics States she at one time followed with but is now followed by [facility] Patient states there is mild pain to the heel Patient is s/p cva and has minimal movement of the LLE Dressing change daily with adaptic, 4.4 and bulk dressing Elevate at all times MRI shows signs of early osteomyelitis May consider bone biopsy if continued infection is suspected Qualifiers: Laterality: right Non-pressure ulcer stage: with fat layer exposed Qualified Code(s): L97.912 - Non-pressure chronic ulcer of unspecified part of right lower leg with fat layer exposed History of Present Illness HPI: Ms. Mejia is a 62 year old female a past medical history of CVA with LLE weakness, chronic kidney disease, CHF, COPD, diabetes, hyperlipidemia, hypertension, pulmonary embolism- states she previous followed with in [facility] for lle chronic wound however is now followed by wound care at her [facility]. T he patient was admitted to the hospital 05/14/18 for anemia, leukopenia, and chronic kidney disease. We are consulted 05/16/18 for recommendations regarding left foot osteomyelitis. Spoke with nurse prior to entering room- stated that until today he thought the wound to the left heel looked fine but he was told it was now "draining" states he does not know what kind of drainage or what the wound looks like. Per patient wound has been ongoing x3 years. States it heals and opens back up. States she has been told in the past it has bone infection and it was treated with IV antibiotics. Patient is a poor historian and unable to provide exact details. on 05/01/18 the patient had an MRI of her left foot that showed early osteomyelitis of the posterior superior calcaneal surface- she was started on doxycycline at the custodial after a wound culture came back positive for MRSA. Patiente denies any known fevers, chills, n/v or fls. Patient denies any calf pain or sob Resting comfortably on arrival with dry dressing intact and heelmedix boots to heels bilaterally. Patient denies any pain at this time Patient states she does ambulate at times when she is able to gain her strength back, states that once she starts ambulating the ulcer of her left heel typically opens back up. Past Med Surg Social Fam HX - Past Medical History Medical history: arthritis, CHF, COPD, CVA, diabetes, glaucoma, hyperlipidemia, hypertension, pulmonary embolus, renal disease, other Additional medical history: Anemia Psychiatric history: anxiety - Past Surgical History Surgical History: cataract, other Additional surgical history: tubal ligation - Social History Smoking Status: Never smoker Smokeless Tobacco Status: No Alcohol use: none Drug use: none - Family History Mother Adopted: No Family Member Ethnicity: Unknown Living Status: Still Living Hx Family Cardiac Disorders: No Hx Family Respiratory Disorders: Yes (COPD) Hx Family Cancer: Yes (Colon) Hx Family GI Disorders: No Hx Family Endocrine Disorder: No Hx Family Neuromuscular Disorders: No Hx Family Neurologic Disorders: No Hx Family HEENT Disorders: No Hx Family Autoimmune Disorders: No Father Family Member Ethnicity: Non- Living Status: Hx Family Cardiac Disorders: Yes (Maternal grandmother - heart failure) Hx Family Respiratory Disorders: Yes (Mother - COPD) Hx Family Cancer: Yes (Aunt & mother) Hx Family GI Disorders: Yes (Diverticulitis) Hx Family Endocrine Disorder: Yes Hx Family Neuromuscular Disorders: No Hx Family Neurologic Disorders: Yes (father - aneurysm) Hx Family HEENT Disorders: No Hx Family Autoimmune Disorders: No Medications and Allergies Gabapentin [Neurontin] 300 mg PO HS 08/18/15 [History] Insulin LISPRO [Humalog] 14 unit SQ BID 08/18/15 [History] Pravastatin Sodium [Pravachol] 20 mg PO HS 08/18/15 [History] Linagliptin/Metformin HCl [Jentadueto Xr 2.5 mg-1,000 mg] 1 tab PO BID 05/03/16 [History] Carvedilol [Coreg] 6.25 mg PO BIDWM #60 tablet 05/11/16 [Rx] amLODIPine [Norvasc] 5 mg PO DAILY #30 tablet 05/11/16 [Rx] Insulin Glargine,Hum.rec.anlog [Touaustinmehdi Solostar] 14 units SQ QAM 03/10/17 [History] Lactobacillus [Culturelle] 1 each PO BID #30 cap.sprink 04/04/17 [Rx] Benzocaine/Menthol [Chloraseptic Max Lozenge] 1 each MM Q2H PRN 11/12/17 [History] Ferrous Sulfate [Iron] 325 mg PO DAILY 11/12/17 [History] Folic Acid 1 mg PO DAILY 11/12/17 [History] Methotrexate [Otrexup] 15 mg PO SA 11/12/17 [History] Multivitamin [One Daily Essential] 1 tab PO DAILY 11/12/17 [History] hydrOXYzine HCl [Hydroxyzine HCl] 25 mg PO QID PRN 11/12/17 [History] Aspirin Enteric Coated [Aspirin EC] 81 mg PO DAILY tablet. 11/15/17 [Rx] Buspirone HCl [Buspar] 5 mg PO BID tablet 11/15/17 [Rx] Ondansetron HCl 8 mg PO Q8H PRN 12/12/17 [History] OxyCODONE/APAP 5/325 [Percocet 5/325 MG] 1 tab PO Q6H PRN 5 Days #20 tablet 12/18/17 [Rx] Polyethylene Glycol 3350 [MiraLAX] 17 gm PO BID powd.pack 12/18/17 [Rx] Sennosides/Docusate Sodium [Senna Plus] 2 each PO BID tablet 12/18/17 [Rx] Famotidine [Pepcid] 20 mg PO BID 05/14/18 [History] Promethazine [Phenergan] 25 mg PO Q8HR PRN 05/14/18 [History] Zinc Oxide [Boudreauxs] 1 appl TP BID 05/14/18 [History] Doxycycline 100 mg PO BID 05/15/18 [History] Allergy/AdvReac Type Severity Reaction Status Date / Time No Known Allergies Allergy Verified 11/12/17 16:06 All Systems Reviewed: as per hpi Physical Exam - Constitutional Vitals: Temp Pulse Resp BP Pulse Ox 97.4 F L 51 14 128/75 96 05/16/18 14:06 05/16/18 14:06 05/16/18 14:06 05/16/18 14:06 05/16/18 14:06 General appearance: cooperative, no acute distress, obese Exam: awake alert and oriented VASCULAR: pulses palpable- dp/pt Warm toes to tibia Cap refill <3seconds Pedal edema- mild generalized edema Neurological: Sensation intact with moderate touch- diminished to light touch Musculoskeletal: RLE 3/5 and LLE 0/5 at thsi time. Patient does not assist in picking up foot or ROM. States she is unable to at this time. No pain with PROM to the foot and ankle joint. No edema noted surrounding joint spaces of ankle, foot, or toes. No erythema or fluctuance noted to joints. Skin- There is a large unstageable ulceration noted to the left heel- friable and oozing blood- no noted probe to bone on inspection. 100% healthy granulation tissue noted. [id number] with minimal depth- there is purple discoloration of the wound at the proximal borders indicating likely DTI. There is no surrounding edema, erythema or warth to ulceration. There is no clinical indication of infection. No purulent drainage. No odor. There are also multiple scabbed lesions noted to the BLE. There are small blister lesions noted x 2 to the anterior RLE. These are also without clinical signs of infection Results - Labs Result Diagrams: 05/17/18 06:12 05/17/18 06:12 Labs: Abnormal lab results WBC 2.1 K/mcL (4.3-11.1) L 05/16/18 06:24 RBC 2.48 M/mcL (3.82-4.97) L 05/16/18 06:24 Hgb 7.0 g/dL (11.5-15.4) L 05/16/18 06:24 Hct 21.9 % (35.3-44.9) L 05/16/18 06:24 RDW 14.8 % (11.5-14.5) H 05/16/18 06:24 Plt Count 39 K/mcL (140-400) L 05/16/18 06:24 Reticulocyte # 0.03 M/mcL (0.05-0.10) L 05/15/18 14:27 Neutrophils # 0.9 K/mcL (1.6-8.9) L 05/16/18 06:24 Platelet Estimate Decreased (Normal) L 05/16/18 06:24 Percent Retic 1.1 % (1.6-2.8) L 05/15/18 14:27 Chloride 111 mEq/L (98-107) H 05/16/18 06:24 Carbon Dioxide 20 mEq/L (23-29) L 05/16/18 06:24 Creatinine 1.36 mg/dL (0.60-1.20) H 05/16/18 06:24 Est GFR ( Amer) 48 (> 60) L 05/16/18 06:24 Est GFR (Non-Af Amer) 40 (> 60) L 05/16/18 06:24 Glucose 165 mg/dL (70-105) H 05/16/18 06:24 POC Glucose 167 mg/dL (70-99) H 05/16/18 07:14 Calcium 8.1 mg/dL (8.6-10.3) L 05/16/18 06:24 Iron 35 mcg/dL (50-170) L 05/15/18 14:27 Transferrin 127 mg/dL (203-362) L 05/15/18 14:27 Ferritin 475 ng/mL (10-120) H 05/15/18 14:27 Lactate Dehydrogenase 128 Units/L (140-271) L 05/15/18 14:27 H & H 05/16/18 Range/Units 06:24 Hgb 7.0 L (11.5-15.4) g/dL Hct 21.9 L (35.3-44.9) % All other labs normal. Consult Discharge Plan - Plan Referrals: Elza Jesus MD [Primary Care Provider] -
[2018-05-16] MEDS: Gabapentin 300 MG CAPSULE PO SCH (20:09)
[2018-05-17 06:59] LABS: Basophils % 0.8 %; Eosinophils # 0.5 K/mcL (0.0-0.6); Eosinophils % 18.8 %; Hematocrit 26.9 % (35.3-44.9); Hemoglobin 8.5 g/dL (11.5-15.4); Lymphocytes # 0.8 K/mcL (0.6-4.6); Lymphocytes % 33.5 %; Mean Corpuscular HGB Conc 31.6 g/dL (31.6-35.5); Mean Corpuscular Volume 91.8 fL (83.0-100.0); Mean Platelet Volume 11.9 fL (9.4-12.4); Monocytes # 0.2 K/mcL (0.0-1.3); Monocytes % 7.3 %; Neutrophils # 0.9 K/mcL (1.6-8.9); Red Blood Count 2.93 M/mcL (3.82-4.97); Red Cell Distribution Width 15.5 % (11.5-14.5); Segmented Neutrophils % 37.6 %
[2018-05-17 07:14] LABS: BUN/Creatinine Ratio 22 (6-26); Blood Urea Nitrogen 21 mg/dL (8-23); Calcium 8.3 mg/dL (8.6-10.3); Carbon Dioxide 18 mEq/L (23-29); Chloride 115 mEq/L (98-107); Glucose 180 mg/dL (70-105); Osmolality,Calculated 296 (280-300); Potassium 3.9 mEq/L (3.5-5.1); Sodium 139 mEq/L (136-145); eGFR For Non-African Americans 59 (> 60)
[2018-05-17 07:32] LABS: Platelet Count 36 K/mcL (140-400)
[2018-05-17] MEDS: Insulin LISPRO 300 UNITS/3 ML VIAL SQ SCH ×2 (08:34→17:46)
[2018-05-17] MEDS: Folic Acid 1 MG TABLET PO SCH (09:28)
[2018-05-17] MEDS: Aspirin Enteric Coated 81 MG Tablet PO SCH (09:29)
[2018-05-17] MEDS: hydrOXYzine pamoate 25 MG CAPSULE PO PRN (09:29)
[2018-05-17] MEDS: Lactobacillus 1 EACH CAP.SPRINK PO SCH ×2 (09:29→22:16)
[2018-05-17] MEDS: amLODIPine 5 MG TABLET PO SCH (09:29)
[2018-05-17] MEDS: Multivit/Ca/Min/Fe/FA 1 TAB TABLET PO SCH (09:29)
[2018-05-17] MEDS: Famotidine 20 MG TABLET PO SCH ×2 (09:29→22:13)
[2018-05-17] MEDS: Sennosides/Docusate Sodium TABLET PO SCH ×2 (09:30→22:13)
[2018-05-17] MEDS: Insulin DETEMIR 100 UNIT/ML X5UNITS SQ SCH (09:34)
[2018-05-17] MEDS: Zinc Oxide 454 GM EACH TP SCH ×2 (09:35→22:16)
--- NOTE | 2018-05-17 10:50 | Infectious Disease Progress No ---
Date of Encounter: 05/17/18 Time of Encounter: 10:46 - Assessment and Plan (1) Osteomyelitis Current Visit: Yes Status: Acute Location: Left heel. Causative organism: Unclear, but previous wound culture positive for MRSA. Likely secondary to non-healing ulcer. Previously on doxycycline at the [facility]. MRI of the left foot 05/01/18 showed early osteomyelitis of the posterosuperior calcaneal surface. WBC low, but no other SIRS criteria. Clinically, the wound does not appear infected at this point. Currently on IV Vancomycin. Recommendations: Check ESR and CRP. --> pending. Wound care per podiatry recommendations. Recommend needle biopsy of the bone per Podiatry. Send specimen for pathology and culture (aerobic, anaerobic, AFB, and fungal). Hold Vancomycin for now until bone biopsy. Duration of treatment depends on the clinical picture, but likely 6 weeks of IV antibiotics. Monitor renal function closely given the patient's history of CKD 3. Dose-adjust antibiotics. Qualifiers: Osteomyelitis type: other acute Osteomyelitis location: foot Laterality: left Qualified Code(s): M86.172 - Other acute osteomyelitis, left ankle and foot (2) Pancytopenia Current Visit: Yes Status: Acute WBC 1.1 with ANC 484, Hgb 6.2, platelets 62 on admission. Etiology unclear: methotrexate vs. infection vs. other vs. combination of previous. WBC improved, but Hgb and platelets remain low. ANC 925 today. Hematology consulted and following. (3) Decubitus ulcer of left heel Current Visit: Yes Status: Chronic Location: Left heel. Clinically, the wound does not appear infected and is nearly healed. Podiatry to assist with wound care recommendations. Qualifiers: Pressure injury stage: stage 2 Qualified Code(s): L89.622 - Pressure ulcer of left heel, stage 2 (4) CKD (chronic kidney disease) stage 3, GFR 30-59 ml/min Current Visit: Yes Status: Chronic (5) Bullous pemphigoid Current Visit: Yes Status: Chronic Follows with Dr. Phillips with [facility]. Take methotrexate 10mg PO weekly --> currently on hold. Dressing changes per Podiatry/wound care recommendations. (6) Obesity (BMI 30.0-34.9) Current Visit: No Status: Chronic (7) HTN (hypertension) Current Visit: No Status: Chronic Qualifiers: Hypertension type: essential hypertension Qualified Code(s): I10 - Essential (primary) hypertension (8) CVA (cerebral vascular accident) Current Visit: No Status: Chronic Reports CVA 3 years ago with residual LLE weakness. Qualifiers: CVA mechanism: unspecified Qualified Code(s): I63.9 - Cerebral infarction, unspecified (9) DM2 (diabetes mellitus, type 2) Current Visit: Yes Status: Chronic Strict glucose control. 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 No acute events noted overnight. Patient states overall she feels well. Denies any fevers, chills, rigors. Denies chest pain, shortness of breath, or cough. Denies nausea, vomiting, diarrhea, constipation. Denies abdominal pain or urinary complaints. Denies any oral thrush or new skin lesions. Denies any pain in her joints or extremities. Infect Dis PN-Objective Data - Labs CBC & Chem 7: 05/17/18 06:12 05/17/18 06:12 Labs: Laboratory Results - last 24 hr 05/14/18 05/15/18 05/16/18 15:21 17:14 07:14 WBC RBC Hgb Hct MCV MCH MCHC RDW Plt Count MPV Immature Gran % Seg Neutrophils % Lymphocytes % Monocytes % Eosinophils % Basophils % Neutrophils # Lymphocytes # Monocytes # Eosinophils # Basophils # Immature Plt Fraction Sodium Potassium Chloride Carbon Dioxide BUN Creatinine Est GFR ( Amer) Est GFR (Non-Af Amer) BUN/Creatinine Ratio Glucose POC Glucose 167 H Calculated Osmolality Calcium Random Vancomycin Blood Type A NEGATIVE Antibody Screen NEGATIVE MTS Gel Crossmatch See Detail See Detail 05/16/18 05/17/18 05/17/18 17:12 06:12 06:12 WBC 2.5 L RBC 2.93 L Hgb 8.5 L D Hct 26.9 L MCV 91.8 MCH 29.0 MCHC 31.6 RDW 15.5 H Plt Count 36 L MPV 11.9 Immature Gran % 2.0 Seg Neutrophils % 37.6 Lymphocytes % 33.5 Monocytes % 7.3 Eosinophils % 18.8 Basophils % 0.8 Neutrophils # 0.9 L Lymphocytes # 0.8 Monocytes # 0.2 Eosinophils # 0.5 Basophils # 0.0 Immature Plt Fraction 3.0 Sodium 139 Potassium 3.9 Chloride 115 H Carbon Dioxide 18 L BUN 21 Creatinine 0.96 Est GFR ( Amer) > 60 Est GFR (Non-Af Amer) 59 L BUN/Creatinine Ratio 22 Glucose 180 H POC Glucose Calculated Osmolality 296 Calcium 8.3 L Random Vancomycin 11 Blood Type Antibody Screen MTS Gel Crossmatch 05/17/18 07:38 WBC RBC Hgb Hct MCV MCH MCHC RDW Plt Count MPV Immature Gran % Seg Neutrophils % Lymphocytes % Monocytes % Eosinophils % Basophils % Neutrophils # Lymphocytes # Monocytes # Eosinophils # Basophils # Immature Plt Fraction Sodium Potassium Chloride Carbon Dioxide BUN Creatinine Est GFR ( Amer) Est GFR (Non-Af Amer) BUN/Creatinine Ratio Glucose POC Glucose 180 H Calculated Osmolality Calcium Random Vancomycin Blood Type Antibody Screen MTS Gel Crossmatch Exam - Constitutional Vitals: Temp Pulse Resp BP Pulse Ox 98.3 F 77 15 127/77 97 05/17/18 07:38 05/17/18 07:38 05/17/18 07:38 05/17/18 07:38 05/17/18 07:38 General appearance: cooperative, no acute distress, obese - Head Head exam: Present: atraumatic, normal inspection, normocephalic - Eye Eye exam: Present: EOMI, normal appearance, PERRL Pupils: Present: normal accommodation - ENT ENT exam: Present: mucous membranes moist - Neck Neck exam: Present: normal inspection - Respiratory Respiratory exam: Present: CTAB. Absent: rales, respiratory distress, rhonchi, wheezes - Cardiovascular Cardiovascular exam: Present: RRR, +S1, +S2 - GI/Abdominal GI/Abdominal exam: Present: distended (obese), normal bowel sounds, soft. Absent: tenderness - Extremities Exam Extremities exam: Absent: normal inspection (Multiple scabbed lesions noted to the BLE.) Additional comments: Left foot dressing C/D/I. - Neurological Exam Neurological exam: Present: alert, oriented X3. Absent: no focal deficits (Extreme weakness noted to the LLE.) - Psychiatric Psychiatric exam: Present: normal affect, normal mood - Skin Skin exam: Present: dry, intact, normal color, warm Consult Discharge Plan - Plan Referrals: Elza Jesus MD [Primary Care Provider] - - Attending Attestation I examined this patient and my medical decision-making was reviewed with the Resident Physician. I agree with the documented findings, disposition and treatment plan as described except to the extent set forth below.
[2018-05-17 11:09] LABS: C-Reactive Protein < 5 mg/L (Less than 10)
--- NOTE | 2018-05-17 11:36 | Internal Med Progress Note ---
Hospitalist Progress Note - Encounter Date of Encounter: 05/17/18 Time of Encounter: 11:34 - Subjective Interval History: 62 F admitted and beng maanged fro pancytopenia She has a PMH of bullous pemphigoid on methotrexate, bed-bound status, resident of SNF, decubitus ulcer on the left heel, CKD III Has no new complains s/p 1 units RBCs 05/14 and 05/16 FOBT is pending HB is improving, PLt down to 36,000, WBC and neutrophils improving Dredge Runner was consulted 05/16 for bone biopsy and wound care eval, input appreciated Infectious disease input appreciated No source of bleeding identified at this time - Exam Vitals: Temp Pulse Resp BP Pulse Ox 98.3 F 77 15 127/77 97 05/17/18 07:38 05/17/18 07:38 05/17/18 07:38 05/17/18 07:38 05/17/18 07:38 Exam: VSS Gen: Laying flat, morbidy obese, not in any form of distress HEENT: Moist oral mucosa, anicteric, normal neck inspection Chest: CTAB heart: S1, S2only, no m/g/r Abdomen: Not tender, soft, Extremities: No pedal edema, Left heel and calcaneal reguon with beefy red granulation tissue, foul smelling, no discharge noted Neuro: AAOX3, no gross focal deficits Psych: Appropriate affect Skin: Multiple healed rashes in different healing stages al over the body - Assessment and Plan (1) Anemia Current Visit: Yes Status: Acute Assessment and Plan: Likely due to medications vs bone marrow disease Patient with a hemoglobin of 7.0 Has hx of anemia of chronic disease s/p 1 unit RBCs 05/14 and 05/16 Hb now 8.5 Vitamin B12, folate WNL, TSH WNL, YING negative Peripheral smear noted-likely bone marrow disorder FOBT pending Oncology is following Patient is hemodynamically stable (2) DM2 (diabetes mellitus, type 2) Current Visit: Yes Status: Chronic Assessment and Plan: Continue home medications FS ACHS Sliding scale insulin (3) CKD (chronic kidney disease) stage 3, GFR 30-59 ml/min Current Visit: Yes Status: Chronic Assessment and Plan: At baseline Continue to monitor (4) DVT prophylaxis Current Visit: Yes Status: Acute Assessment and Plan: SCDs PLT count is <50,000 (5) Bullous pemphigoid Current Visit: Yes Status: Chronic Assessment and Plan: Patient has been managed on methotrexate for suspect cause of pancytopenia Discontinue methotrexate Hematology oncology consult noted, appreciate inpout PLT count today 36, no current indication for transfusion (6) Pancytopenia Current Visit: Yes Status: Acute Assessment and Plan: Oncology evaluation noted, work up is pending, transfusinr RBC for Hb <7, and PLT <30K with bleeding, or <10K Continue to monitor (7) Osteomyelitis Current Visit: Yes Status: Acute Assessment and Plan: Patient with left calcaneal OM, per MRI from 05/01. Started on IV Vancomycin 05/15 Infectious disease input appreciated vancomycin held today, for bone biopsy Podiatry evaluation requested and appreciated (8) Decubitus ulcer of left heel Current Visit: Yes Status: Chronic Assessment and Plan: Wound care and podiatry consulted DVT Prophylaxis: SCDs - Time Spent with Patient Total time spent is greater than 50% in coordination of care (as documented) at patient's floor/unit and/or counseling patient: Plan of Care Discussed with: patient Internal Medicine: Result - Labs CBC & Chem 7: 05/17/18 06:12 05/17/18 06:12 Labs: Short CBC 05/17/18 Range/Units 06:12 WBC 2.5 L (4.3-11.1) K/mcL Hgb 8.5 L D (11.5-15.4) g/dL Hct 26.9 L (35.3-44.9) % Plt Count 36 L (140-400) K/mcL Neutrophils # 0.9 L (1.6-8.9) K/mcL BMP 05/17/18 06:12 Sodium 139 Potassium 3.9 Chloride 115 H Carbon Dioxide 18 L BUN 21 Creatinine 0.96 Glucose 180 H Calcium 8.3 L - ABG Interpretation ABG results: PT/INR, D-dimer PT 11.7 Seconds (9.4-12.1) 05/15/18 14:27 Consult Discharge Plan - Plan Referrals: Elza Jesus MD [Primary Care Provider] - (1) Anemia Qualifiers: Anemia type: due to chronic kidney disease Chronic kidney disease stage: stage 3 (moderate) Qualified Code(s): N18.3 - Chronic kidney disease, stage 3 (moderate); D63.1 - Anemia in chronic kidney disease (2) DM2 (diabetes mellitus, type 2) Qualifiers: Diabetes mellitus usp insulin use: with usp use Diabetes mellitus complication status: with kidney complications Diabetes mellitus complication detail: with chronic kidney disease Chronic kidney disease stage: stage 3 (moderate) Qualified Code(s): E11.22 - Type 2 diabetes mellitus with diabetic chronic kidney disease; N18.3 - Chronic kidney disease, stage 3 (moderate); Z79.4 - prison (current) use of insulin (7) Osteomyelitis Qualifiers: Osteomyelitis type: other acute Osteomyelitis location: foot Laterality: left Qualified Code(s): M86.172 - Other acute osteomyelitis, left ankle and foot (8) Decubitus ulcer of left heel Qualifiers: Pressure injury stage: stage 2 Qualified Code(s): L89.622 - Pressure ulcer of left heel, stage 2
--- NOTE | 2018-05-17 18:19 | Oncology Inp Progress Note ---
<Kaitlynn Montenegro L - Last Filed: 05/17/18 18:35> Date of Encounter: 05/17/18 Time of Encounter: 16:30 (1) Pancytopenia Current Visit: Yes Status: Acute Assessment and plan: Pancytopenia Chronically anemic on labs dating back to 2013 in presence of chronic disease (CKD) and inflammatory state Leukopenia is new since around 04/13/2018, neutropenia new since 05/11 Thrombocytopenia new since around 05/04/18 Diagnosed with bullous pemphigoid about 4-5 months ago per patient and she has been on methotrexate since that time., takes methotraxate 10 mg once weekly Recently diagnosed with early osteomyelitis to left calcaneal suface per MRI 05/01/2018, started on doxycycline per pharmacy record 05/09/2018 ID now following with further recommendations B12 and folate are replete Elevated ferritin 409 with low iron saturation in presence of chronic inflammation No laboratory signs of hemolysis Retic low, this may be due to MTX or malignant bone marrow etiology Plan: Etiology TBD but likely multifactorial in the setting of MTX use in CKD and osteomyelitis serum protein electrophoresis and serum free light chains-pending Recommend holding methotrexate, may need to discuss with dermatology Discussed bone marrow biopsy to rule out malignant etiology, this will be an ongoing evaluation, at this time patient prefers to hold off on BMB to continue to monitor counts Transfuse for Hgb <7, platelet count <10, or for platelet count <50 with any clinical s/s active bleeding Oncology: Subj Interval history: Ms. Mejia is resting in bed. Daughter at bedside. Denies pain, nausea, vomiting, fevers or chills, SOB, chest pain. States she is overall feeling ok and at b aseline - Constitutional General appearance: cooperative, no acute distress, no febrile - Head Head exam: Present: atraumatic - ENT ENT exam: Present: mucous membranes moist, normal oropharynx - Respiratory Respiratory exam: Present: CTAB. Absent: respiratory distress - Cardiovascular Cardiovascular exam: Present: RRR, +S1, +S2 - GI/Abdominal GI/Abdominal exam: Present: normal bowel sounds, soft. Absent: guarding, rebound, tenderness - Extremities Exam Extremities exam: Absent: calf tenderness Additional comments: skin assessment as below - Neurological Exam Neurological exam: Present: alert, oriented X3, no focal deficits, strengths equal and symetr throughout - Psychiatric Psychiatric exam: Present: normal affect, normal mood - Skin Skin exam: Present: dry, pallor, warm Additional comments: multiple scattered blistered ulcers to abdomen and BLE's in various stages of healing Oncology: Obj Data - Labs CBC & Chem 7: 05/17/18 06:12 05/17/18 06:12 Consult Discharge Plan - Plan Referrals: Elza Jseus MD [Primary Care Provider] - Inpatient Charges Provider: Dr. Brittany Turner <Maddison Turner S - Last Filed: 05/21/18 20:10> Date of Encounter: 05/17/18 (1) Pancytopenia Current Visit: Yes Status: Acute Oncology: Obj Data - Labs CBC & Chem 7: 05/21/18 05:08 05/21/18 05:08 Inpatient Charges Provider: Dr. Brittany Turner Follow up - Inpatient: [id number] - Attending Attestation I examined this patient and my medical decision-making was reviewed with the Advanced Practice Nurse. I agree with the documented findings, disposition and treatment plan as described except to the extent set forth below. 1. Pancytopenia relatively stable since yesterday. Neutrophils 900. Platelet count dropped mildly to 36. Clinically she is stable. Discussed with the patient. We will try to hold off bone marrow biopsy for a while. She does have medically significant obesity and and osteomyelitis of the foot. This may make bone marrow biopsy challenging. If counts does not recover may have to do that in the near future
[2018-05-17] MEDS: Gabapentin 300 MG CAPSULE PO SCH (22:15)
[2018-05-18 04:31] LABS: Kappa Qnt Free Light Chains 4.52 mg/dL (0.33-1.94); Lambda Qnt Free Light Chains 1.7 mg/dL (0.57-2.63)
[2018-05-18 05:17] LABS: Hematocrit 25.5 % (35.3-44.9); Immature Granulocytes % 1.6 % (0-4); Red Cell Distribution Width 15.9 % (11.5-14.5)
[2018-05-18 05:19] LABS: Basophils % 0.8 %; Eosinophils # 0.4 K/mcL (0.0-0.6); Eosinophils % 16.3 %; Hemoglobin 8.1 g/dL (11.5-15.4); Immature Platelets 3.1 % (1.1-6.1); Lymphocytes # 0.8 K/mcL (0.6-4.6); Lymphocytes % 31.3 %; Mean Corpuscular HGB Conc 31.8 g/dL (31.6-35.5); Mean Corpuscular Hemoglobin 28.5 pg (28.0-33.3); Mean Corpuscular Volume 89.8 fL (83.0-100.0); Mean Platelet Volume 10.1 fL (9.4-12.4); Monocytes # 0.3 K/mcL (0.0-1.3); Monocytes % 9.9 %; Red Blood Count 2.84 M/mcL (3.82-4.97); Segmented Neutrophils % 40.1 %
[2018-05-18 05:34] LABS: Platelet Count 56 K/mcL (140-400)
[2018-05-18 05:36] LABS: Calcium 7.9 mg/dL (8.6-10.3); Potassium 4.2 mEq/L (3.5-5.1)
[2018-05-18 06:00] LABS: Platelet Estimate Decreased (Normal)
[2018-05-18] MEDS: Insulin LISPRO 300 UNITS/3 ML VIAL SQ SCH ×2 (10:02→17:04)
[2018-05-18] MEDS: Insulin DETEMIR 100 UNIT/ML X5UNITS SQ SCH (10:03)
[2018-05-18] MEDS: Famotidine 20 MG TABLET PO SCH ×2 (10:04→22:29)
[2018-05-18] MEDS: Lactobacillus 1 EACH CAP.SPRINK PO SCH ×2 (10:05→22:28)
[2018-05-18] MEDS: Sennosides/Docusate Sodium TABLET PO SCH ×2 (10:05→22:27)
[2018-05-18] MEDS: Multivit/Ca/Min/Fe/FA 1 TAB TABLET PO SCH (10:05)
[2018-05-18] MEDS: Aspirin Enteric Coated 81 MG Tablet PO SCH (10:05)
--- NOTE | 2018-05-18 10:05 | Internal Med Progress Note ---
Hospitalist Progress Note - Encounter Date of Encounter: 05/18/18 Time of Encounter: 10:05 - Subjective Interval History: 62 F admitted and being managed for pancytopenia She has a PMH of bullous pemphigoid on methotrexate, bed-bound status, resident of SNF, decubitus ulcer on the left heel, CKD III s/p 1 units RBCs 05/14 and 05/16 FOBT is pending, patient is yet to have a BM HB is improving, PLT, WBC and neutrophils improving Game Developer was consulted 05/16 for bone biopsy and wound care eval, input appreciated Awaiting podiatry eval today Patient is having worsening skin lesions on her R upper arm and abdominal wall I will call her can washer today Dr. Jones Infectious disease input appreciated, tyrel goldstein 05/17 in anticipation for a bone biopsy Dr. Ford plans a bedside bone biopsy today - Exam Vitals: Temp Pulse Resp BP Pulse Ox 98.1 F 80 16 128/84 98 05/18/18 09:40 05/18/18 09:40 05/18/18 09:40 05/18/18 09:40 05/18/18 09:40 Exam: VSS Gen: Laying flat, morbidy obese, not in any form of distress HEENT: Moist oral mucosa, anicteric, normal neck inspection Chest: CTAB heart: S1, S2only, no m/g/r Abdomen: Not tender, soft, Extremities: No pedal edema, Right upper arm with open blister, raw, abdominal wall with one open lesion, Left heel and calcaneal reguon with beefy red granulation tissue, foul smelling, no discharge noted Neuro: AAOX3, no gross focal deficits Psych: Appropriate affect Skin: Multiple healed rashes in different healing stages al over the body - Assessment and Plan (1) Anemia Current Visit: Yes Status: Acute Assessment and Plan: Likely due to medications vs bone marrow disease Patient with presenting hemoglobin of 7.0 Has hx of anemia of chronic disease s/p 1 unit RBCs 05/14 and 05/16 Hb stable at 8 Vitamin B12, folate WNL, TSH WNL, YING negative Peripheral smear noted-likely bone marrow disorder Abdomen and Pelvis CT unremarkable FOBT pending-patient has not had a BM Oncology is following Patient is hemodynamically stable (2) DM2 (diabetes mellitus, type 2) Current Visit: Yes Status: Chronic Assessment and Plan: Controlled Continue home medications FS ACHS Sliding scale insulin (3) CKD (chronic kidney disease) stage 3, GFR 30-59 ml/min Current Visit: Yes Status: Chronic Assessment and Plan: At baseline Continue to monitor (4) DVT prophylaxis Current Visit: Yes Status: Acute Assessment and Plan: SCDs PLT count is <50,000 (5) Bullous pemphigoid Current Visit: Yes Status: Chronic Assessment and Plan: Patient has been managed on methotrexate for suspect cause of pancytopenia Discontinued methotrexate Hematology oncology consult noted, appreciate inpout Discussed with can washer, patient's can washer is not in the office today, however Dr. Khan recommended topical steroids at this time , clobestasol ordered, she also recommends the patient might need low-dose prednisone until evaluation in the office if lesions do not improve. Continue to monitor (6) Pancytopenia Current Visit: Yes Status: Acute Assessment and Plan: Improving, transfuse for Hb <7 and PLT <50K with bleeding, or <10K Continue to monitor (7) Osteomyelitis Current Visit: Yes Status: Acute Assessment and Plan: Patient with left calcaneal OM, per MRI from 05/01. Started on IV Vancomycin 05/15 Infectious disease input appreciated vancomycin held 05/17 bedside pulmonary biopsy by stain applicator today, will resume vancomycin afterwards (8) Decubitus ulcer of left heel Current Visit: Yes Status: Chronic Assessment and Plan: Wound care and podiatry consulted DVT Prophylaxis: SCDs - Time Spent with Patient Total time spent is greater than 50% in coordination of care (as documented) at patient's floor/unit and/or counseling patient: Plan of Care Discussed with: patient Internal Medicine: Result - Labs CBC & Chem 7: 05/18/18 04:28 05/18/18 04:28 Labs: Short CBC 05/18/18 Range/Units 04:28 WBC 2.5 L (4.3-11.1) K/mcL Hgb 8.1 L (11.5-15.4) g/dL Hct 25.5 L (35.3-44.9) % Plt Count 56 L D (140-400) K/mcL Neutrophils # 1.0 L (1.6-8.9) K/mcL BMP 05/17/18 05/18/18 06:12 04:28 Sodium 139 139 Potassium 3.9 4.2 Chloride 115 H 114 H Carbon Dioxide 18 L 21 L BUN 21 22 Creatinine 0.96 1.19 Glucose 180 H 214 H Calcium 8.3 L 7.9 L - ABG Interpretation ABG results: PT/INR, D-dimer PT 11.7 Seconds (9.4-12.1) 05/15/18 14:27 - Impressions Impressions Abdomen/Pelvis CT 05/17/18 21:00 IMPRESSION: No acute or suspicious abnormality identified. Parenchymal bands of opacity within the lower lungs bilaterally, greater on the left, most compatible scarring and/or atelectasis. Redemonstration of cholelithiasis. Moderate colonic diverticulosis without CT evidence of diverticulitis. D/ / Nikos Guillen MD / Nikos Guillen MD Interpreting Provider: Nikos Guillen MD Consult Discharge Plan - Plan Referrals: Elza Jesus MD [Primary Care Provider] - (1) Anemia Qualifiers: Anemia type: due to chronic kidney disease Chronic kidney disease stage: stage 3 (moderate) Qualified Code(s): N18.3 - Chronic kidney disease, stage 3 (moderate); D63.1 - Anemia in chronic kidney disease (2) DM2 (diabetes mellitus, type 2) Qualifiers: Diabetes mellitus retirement insulin use: with retirement use Diabetes mellitus complication status: with kidney complications Diabetes mellitus complication detail: with chronic kidney disease Chronic kidney disease stage: stage 3 (moderate) Qualified Code(s): E11.22 - Type 2 diabetes mellitus with diabetic chronic kidney disease; N18.3 - Chronic kidney disease, stage 3 (moderate); Z79.4 - checker (current) use of insulin (7) Osteomyelitis Qualifiers: Osteomyelitis type: other acute Osteomyelitis location: foot Laterality: left Qualified Code(s): M86.172 - Other acute osteomyelitis, left ankle and foot (8) Decubitus ulcer of left heel Qualifiers: Pressure injury stage: stage 2 Qualified Code(s): L89.622 - Pressure ulcer of left heel, stage 2
[2018-05-18] MEDS: amLODIPine 5 MG TABLET PO SCH (10:06)
[2018-05-18] MEDS: Zinc Oxide 454 GM EACH TP SCH ×2 (10:06→22:31)
[2018-05-18] MEDS: Folic Acid 1 MG TABLET PO SCH (10:06)
[2018-05-18] MEDS: hydrOXYzine pamoate 25 MG CAPSULE PO PRN (10:09)
--- NOTE | 2018-05-18 10:48 | Infectious Disease Progress No ---
Date of Encounter: 05/18/18 Time of Encounter: 10:46 - Assessment and Plan (1) Osteomyelitis Current Visit: Yes Status: Acute Location: Left heel. Causative organism: Unclear, but previous wound culture positive for MRSA. Likely secondary to non-healing ulcer. Previously on doxycycline at the [facility]. MRI of the left foot 05/01/18 showed early osteomyelitis of the posterosuperior calcaneal surface. WBC low, but no other SIRS criteria. Clinically, the wound does not appear infected at this point. ESR mildly elevated at 17 and CRP of less than 5. Currently on IV Vancomycin. Recommendations: Wound care per podiatry recommendations. Recommend needle biopsy of the bone per Podiatry. Send specimen for pathology and culture (aerobic, anaerobic, AFB, and fungal). Will discuss with the podiatry team today. Hold Vancomycin for now until bone biopsy. Duration of treatment depends on the clinical picture, but likely 6 weeks of IV antibiotics. Monitor renal function closely given the patient's history of CKD 3. Dose-adjust antibiotics. Qualifiers: Osteomyelitis type: other acute Osteomyelitis location: foot Laterality: left Qualified Code(s): M86.172 - Other acute osteomyelitis, left ankle and foot (2) Pancytopenia Current Visit: Yes Status: Acute WBC 1.1 with ANC 484, Hgb 6.2, platelets 62 on admission. Etiology unclear: methotrexate vs. infection vs. other vs. combination of previous. WBC improved, but Hgb and platelets remain low, but improved. ANC 1000today. Hematology consulted and following. (3) Decubitus ulcer of left heel Current Visit: Yes Status: Chronic Location: Left heel. Clinically, the wound does not appear infected and is nearly healed. Podiatry to assist with wound care recommendations. Qualifiers: Pressure injury stage: stage 2 Qualified Code(s): L89.622 - Pressure ulcer of left heel, stage 2 (4) CKD (chronic kidney disease) stage 3, GFR 30-59 ml/min Current Visit: Yes Status: Chronic (5) Bullous pemphigoid Current Visit: Yes Status: Chronic Follows with Dr. Phillips with [facility]. Take methotrexate 10mg PO weekly --> discontinued. Dressing changes per Podiatry/wound care recommendations. (6) Obesity (BMI 30.0-34.9) Current Visit: No Status: Chronic (7) HTN (hypertension) Current Visit: No Status: Chronic Qualifiers: Hypertension type: essential hypertension Qualified Code(s): I10 - Essential (primary) hypertension (8) CVA (cerebral vascular accident) Current Visit: No Status: Chronic Reports CVA 3 years ago with residual LLE weakness. Qualifiers: CVA mechanism: unspecified Qualified Code(s): I63.9 - Cerebral infarction, unspecified (9) DM2 (diabetes mellitus, type 2) Current Visit: Yes Status: Chronic Strict glucose control. Qualifiers: Diabetes mellitus care home insulin use: with care home use Diabetes mellitus complication status: with kidney complications Diabetes mellitus complication detail: with chronic kidney disease Chronic kidney disease stage: stage 3 (moderate) Qualified Code(s): E11.22 - Type 2 diabetes mellitus with diabetic chronic kidney disease; N18.3 - Chronic kidney disease, stage 3 (mod erate); Z79.4 - long term (current) use of insulin - Subjective Interval history: Patient seen and examined. No acute events noted overnight. Patient states overall she feels well. Denies any fevers, chills, rigors. Denies chest pain, shortness of breath, or cough. Denies nausea, vomiting, diarrhea, constipation. Denies abdominal pain or urinary complaints. Denies any oral thrush or new skin lesions. Denies any pain in her joints or extremities. States she has had some new lesions pop up on her RUE and abdomen. Infect Dis PN-Objective Data - Labs CBC & Chem 7: 05/18/18 04:28 05/18/18 04:28 Labs: Laboratory Results - last 24 hr 05/16/18 05/16/18 05/16/18 11:17 16:22 20:05 WBC RBC Hgb Hct MCV MCH MCHC RDW Plt Count MPV Immature Gran % Seg Neutrophils % Lymphocytes % Monocytes % Eosinophils % Basophils % Neutrophils # Lymphocytes # Monocytes # Eosinophils # Basophils # Platelet Estimate Immature Plt Fraction ESR Sodium Potassium Chloride Carbon Dioxide BUN Creatinine Est GFR ( Amer) Est GFR (Non-Af Amer) BUN/Creatinine Ratio Glucose POC Glucose 313 H 255 H 153 H Calculated Osmolality Calcium C-Reactive Protein Random Vancomycin Specimen Rejected 05/17/18 05/17/18 05/17/18 06:12 06:12 15:14 WBC RBC Hgb Hct MCV MCH MCHC RDW Plt Count MPV Immature Gran % Seg Neutrophils % Lymphocytes % Monocytes % Eosinophils % Basophils % Neutrophils # Lymphocytes # Monocytes # Eosinophils # Basophils # Platelet Estimate Immature Plt Fraction ESR 17 H Sodium 139 Potassium 3.9 Chloride 115 H Carbon Dioxide 18 L BUN 21 Creatinine 0.96 Est GFR ( Amer) > 60 Est GFR (Non-Af Amer) 59 L BUN/Creatinine Ratio 22 Glucose 180 H POC Glucose Calculated Osmolality 296 Calcium 8.3 L C-Reactive Protein < 5 Random Vancomycin Specimen Rejected Volume 05/17/18 05/18/18 05/18/18 17:54 04:28 04:28 WBC 2.5 L RBC 2.84 L Hgb 8.1 L Hct 25.5 L MCV 89.8 MCH 28.5 MCHC 31.8 RDW 15.9 H Plt Count 56 L D MPV 10.1 Immature Gran % 1.6 Seg Neutrophils % 40.1 Lymphocytes % 31.3 Monocytes % 9.9 Eosinophils % 16.3 Basophils % 0.8 Neutrophils # 1.0 L Lymphocytes # 0.8 Monocytes # 0.3 Eosinophils # 0.4 Basophils # 0.0 Platelet Estimate Decreased L Immature Plt Fraction 3.1 ESR Sodium 139 Potassium 4.2 Chloride 114 H Carbon Dioxide 21 L BUN 22 Creatinine 1.19 Est GFR ( Amer) 56 L Est GFR (Non-Af Amer) 46 L BUN/Creatinine Ratio 18 Glucose 214 H POC Glucose Calculated Osmolality 298 Calcium 7.9 L C-Reactive Protein Random Vancomycin 23 Specimen Rejected 05/18/18 04:28 WBC RBC Hgb Hct MCV MCH MCHC RDW Plt Count MPV Immature Gran % Seg Neutrophils % Lymphocytes % Monocytes % Eosinophils % Basophils % Neutrophils # Lymphocytes # Monocytes # Eosinophils # Basophils # Platelet Estimate Immature Plt Fraction ESR Sodium Potassium Chloride Carbon Dioxide BUN Creatinine Est GFR ( Amer) Est GFR (Non-Af Amer) BUN/Creatinine Ratio Glucose POC Glucose Calculated Osmolality Calcium C-Reactive Protein Random Vancomycin 19 Specimen Rejected - Impressions Impressions Abdomen/Pelvis CT 05/17/18 21:00 IMPRESSION: No acute or suspicious abnormality identified. Parenchymal bands of opacity within the lower lungs bilaterally, greater on the left, most compatible scarring and/or atelectasis. Redemonstration of cholelithiasis. Moderate colonic diverticulosis without CT evidence of diverticulitis. D/ / Nikos Guillen MD / Nikos Guillen MD Interpreting Provider: Nikos Guillen MD Exam - Constitutional Vitals: Temp Pulse Resp BP Pulse Ox 98.1 F 80 16 128/84 98 05/18/18 09:40 05/18/18 09:40 05/18/18 09:40 05/18/18 09:40 05/18/18 09:40 General appearance: cooperative, no acute distress, obese - Head Head exam: Present: atraumatic, normal inspection, normocephalic - Eye Eye exam: Present: EOMI, normal appearance, PERRL Pupils: Present: normal accommodation - ENT ENT exam: Present: mucous membranes moist - Neck Neck exam: Present: normal inspection - Respiratory Respiratory exam: Present: CTAB. Absent: rales, respiratory distress, rhonchi, wheezes - Cardiovascular Cardiovascular exam: Present: RRR, +S1, +S2 - GI/Abdominal GI/Abdominal exam: Present: distended (obese), normal bowel sounds, soft. Absent: tenderness - Extremities Exam Extremities exam: Absent: normal inspection (Multiple wounds noted to the b ilateral lower extremities in various stages of healing, mostly scabbed over. Left foot dressing is clean, dry, and intact.) - Neurological Exam Neurological exam: Present: alert, oriented X3. Absent: no focal deficits (Weakness noted to the left lower extremity.) - Psychiatric Psychiatric exam: Present: normal affect, normal mood - Skin Skin exam: Present: dry, intact, normal color, warm Consult Discharge Plan - Plan Referrals: Elza Jesus MD [Primary Care Provider] - - Attending Attestation I examined this patient and my medical decision-making was reviewed with the Resident Physician. I agree with the documented findings, disposition and treatment plan as described except to the extent set forth below.
--- NOTE | 2018-05-18 21:53 | Podiatry Progress Note ---
Date of Encounter: 05/18/18 Time of Encounter: 12:30 - Assessment and Plan (1) Decubitus ulcer of left heel Current Visit: Yes Status: Chronic Assessment: Stage IV pressure ulcer left heel Bone exposed Moderate amount of sanginous drainage noted Plan: Bone biopsy with Dr. Ford today. Pathology and culture orders placed. Continue local wound care. Place adaptic, 4x4 dry gauze, and kerlex. Nursing to change daily. Qualifiers: Pressure injury stage: stage 2 Qualified Code(s): L89.622 - Pressure ulcer of left heel, stage 2 Subjective Interval history: Patient awake in bed. Family at bedside. Denies any chest pain, calf pain, or shortness of breath. Denies any fever, chills, nausea, vomiting, or diarrhea. Objective - Vital Signs Vital Signs: Vital Signs Temp Pulse Resp BP Pulse Ox 05/18/18 19:26 98.4 F 89 16 116/73 99 05/18/18 13:54 99.2 F 82 18 108/73 98 05/18/18 10:39 98 05/18/18 09:40 98.1 F 80 16 128/84 98 05/18/18 06:26 98.2 F 81 16 125/80 97 05/18/18 04:04 99.0 F 85 14 125/81 99 05/17/18 22:15 98.7 F 79 14 132/79 97 Intake and Output 05/18/18 05/18/18 05/18/18 07:59 15:59 23:59 Intake Total 400 / 400 240 / 240 340 / 340 Output Total 0 / 0 0 / 0 Balance 400 / 400 240 / 240 340 / 340 Intake: Oral 400 / 400 240 / 240 340 / 340 Output: Urine 0 / 0 0 / 0 Other: Meal Lunch Dinner Percent of Meal Consumed 100% 20% # Voids 1 # Urine Diapers 2 1 Weight 91.6 kg Blood Glucose* 201 236 Patient Weight 05/18/18 23:59 Weight 91.6 kg - Lab Result Diagrams: 05/18/18 04:28 05/18/18 04:28 Labs: Abnormal lab results WBC 2.5 K/mcL (4.3-11.1) L 05/18/18 04:28 RBC 2.84 M/mcL (3.82-4.97) L 05/18/18 04:28 Hgb 8.1 g/dL (11.5-15.4) L 05/18/18 04:28 Hct 25.5 % (35.3-44.9) L 05/18/18 04:28 RDW 15.9 % (11.5-14.5) H 05/18/18 04:28 Plt Count 56 K/mcL (140-400) L D 05/18/18 04:28 Reticulocyte # 0.03 M/mcL (0.05-0.10) L 05/15/18 14:27 Neutrophils # 1.0 K/mcL (1.6-8.9) L 05/18/18 04:28 Platelet Estimate Decreased (Normal) L 05/18/18 04:28 ESR 17 mm/hr (0-15) H 05/17/18 15:14 Percent Retic 1.1 % (1.6-2.8) L 05/15/18 14:27 Chloride 114 mEq/L (98-107) H 05/18/18 04:28 Carbon Dioxide 21 mEq/L (23-29) L 05/18/18 04:28 Est GFR ( Amer) 56 (> 60) L 05/18/18 04:28 Est GFR (Non-Af Amer) 46 (> 60) L 05/18/18 04:28 Glucose 214 mg/dL (70-105) H 05/18/18 04:28 POC Glucose 143 mg/dL (70-99) H 05/17/18 21:59 Calcium 7.9 mg/dL (8.6-10.3) L 05/18/18 04:28 Iron 35 mcg/dL (50-170) L 05/15/18 14:27 Transferrin 127 mg/dL (203-362) L 05/15/18 14:27 Ferritin 475 ng/mL (10-120) H 05/15/18 14:27 Lactate Dehydrogenase 128 Units/L (140-271) L 05/15/18 14:27 Free Eagar LC, Quant 4.52 mg/dL (0.33-1.94) H 05/15/18 17:14 Free Eagar/Lambda Ratio 2.66 (0.26-1.65) H 05/15/18 17:14 Microbiology, Last 48 Hours 05/18/18 14:40 Surgical Biopsy Culture - Preliminary Left Foot Consult Discharge Plan - Plan Referrals: Elza Jesus MD [Primary Care Provider] -
--- NOTE | 2018-05-18 22:24 | Podiatry Progress Note ---
Date of Encounter: 05/19/18 Time of Encounter: 13:00 - Assessment and Plan (1) Chronic ulcer of left foot with fat layer exposed Current Visit: Yes Status: Acute Continue with her current wound care. Infectious disease make antibiotic determination for pathology and microbiology bone obtained and sent. (2) Osteomyelitis of ankle and foot Current Visit: Yes Status: Acute discussed condition with patient and imaging results. discussed nature of the below procedure, risks vs benefits potential complications and consequences of bone biopsy including but not limited to infection, bleeding, swelling numbness, tingling, fracture of bone, need for further surgery, etc. informed consent obtained by BUNDLING MACHINE OPERATOR and verbally by me and the below procedure was performed. 1% lidocaine with epinephrine x 1 cc injected into the lateral foot. He was used to prep the area. Skin incision was made with a #15 blade through the skin and the trocar from the Smeetshidi needle was inserted into the calcaneal bone and specimens of bone x 3 were obtained from the heel in the area of concern on imaging. These specimens were sent to microbiology and pathology. 3-0 nylon was used in a simple suture fashion to close the stab incision site. Adequate hemostasis was present during the procedure. Patient tolerated the procedure well sterile bandage was reapplied. Subjective Interval history: chronic left heel ulcer with recurrence on/off over the last 3 years according to the patient. seen by infectious disease considering possibility of underlying osteomyelitis. patient had MRI which suggested possible early osteomylitis/osteitis. Objective - Vital Signs Vital Signs: Vital Signs Temp Pulse Resp BP Pulse Ox 05/18/18 19:26 98.4 F 89 16 116/73 99 05/18/18 13:54 99.2 F 82 18 108/73 98 05/18/18 10:39 98 05/18/18 09:40 98.1 F 80 16 128/84 98 05/18/18 06:26 98.2 F 81 16 125/80 97 05/18/18 04:04 99.0 F 85 14 125/81 99 Intake and Output 05/18/18 05/18/18 05/18/18 07:59 15:59 23:59 Intake Total 400 / 400 240 / 240 340 / 340 Output Total 0 / 0 0 / 0 Balance 400 / 400 240 / 240 340 / 340 Intake: Oral 400 / 400 240 / 240 340 / 340 Output: Urine 0 / 0 0 / 0 Other: Meal Lunch Dinner Percent of Meal Consumed 100% 20% # Voids 1 # Urine Diapers 2 1 1 Weight 91.6 kg Blood Glucose* 201 236 Patient Weight 05/18/18 23:59 Weight 91.6 kg - Exam Exam: well developed nourished female in no acute distress left foot is warm to touch. skin is thin and shiny. posterior heel ulceration. diminished protective sensation. - Lab Result Diagrams: 05/19/18 03:50 05/19/18 03:50 Labs: Abnormal lab results WBC 2.5 K/mcL (4.3-11.1) L 05/18/18 04:28 RBC 2.84 M/mcL (3.82-4.97) L 05/18/18 04:28 Hgb 8.1 g/dL (11.5-15.4) L 05/18/18 04:28 Hct 25.5 % (35.3-44.9) L 05/18/18 04:28 RDW 15.9 % (11.5-14.5) H 05/18/18 04:28 Plt Count 56 K/mcL (140-400) L D 05/18/18 04:28 Reticulocyte # 0.03 M/mcL (0.05-0.10) L 05/15/18 14:27 Neutrophils # 1.0 K/mcL (1.6-8.9) L 05/18/18 04:28 Platelet Estimate Decreased (Normal) L 05/18/18 04:28 ESR 17 mm/hr (0-15) H 05/17/18 15:14 Percent Retic 1.1 % (1.6-2.8) L 05/15/18 14:27 Chloride 114 mEq/L (98-107) H 05/18/18 04:28 Carbon Dioxide 21 mEq/L (23-29) L 05/18/18 04:28 Est GFR ( Amer) 56 (> 60) L 05/18/18 04:28 Est GFR (Non-Af Amer) 46 (> 60) L 05/18/18 04:28 Glucose 214 mg/dL (70-105) H 05/18/18 04:28 POC Glucose 143 mg/dL (70-99) H 05/17/18 21:59 Calcium 7.9 mg/dL (8.6-10.3) L 05/18/18 04:28 Iron 35 mcg/dL (50-170) L 05/15/18 14:27 Transferrin 127 mg/dL (203-362) L 05/15/18 14:27 Ferritin 475 ng/mL (10-120) H 05/15/18 14:27 Lactate Dehydrogenase 128 Units/L (140-271) L 05/15/18 14:27 Free Rains LC, Quant 4.52 mg/dL (0.33-1.94) H 05/15/18 17:14 Free Rains/Lambda Ratio 2.66 (0.26-1.65) H 05/15/18 17:14 Microbiology, Last 48 Hours 05/18/18 14:40 Surgical Biopsy Culture - Preliminary Left Foot Consult Discharge Plan - Plan Referrals: Elza Jesus MD [Primary Care Provider] -
[2018-05-18] MEDS: Gabapentin 300 MG CAPSULE PO SCH (22:30)
[2018-05-18] MEDS: *HR* OxyCODONE/APAP 5/325 TABLET PO PRN (22:30)
[2018-05-18] MEDS: CLOBETASOL PROPIONATE 15 GM TUBE TP SCH (22:31)
[2018-05-18 23:05] LABS: Alpha 2 Globulin (PEP) 0.94 g/dL (0.48-1.05); Beta Globulin (PEP) 0.67 g/dL (0.48-1.10)
[2018-05-19 04:25] LABS: Basophils % 1.1 %; Eosinophils # 0.4 K/mcL (0.0-0.6); Eosinophils % 12.9 %; Hematocrit 24.7 % (35.3-44.9); Hemoglobin 7.7 g/dL (11.5-15.4); Immature Granulocytes % 1.8 % (0-4); Immature Platelets 1.7 % (1.1-6.1); Lymphocytes # 0.9 K/mcL (0.6-4.6); Lymphocytes % 32.7 %; Mean Corpuscular HGB Conc 31.2 g/dL (31.6-35.5); Mean Corpuscular Hemoglobin 28.7 pg (28.0-33.3); Mean Corpuscular Volume 92.2 fL (83.0-100.0); Mean Platelet Volume 9.6 fL (9.4-12.4); Monocytes # 0.4 K/mcL (0.0-1.3); Monocytes % 12.9 %; Nucleated Red Blood Cells 0.7 /100 WBC (0); Red Blood Count 2.68 M/mcL (3.82-4.97); Red Cell Distribution Width 16.5 % (11.5-14.5); Segmented Neutrophils % 38.6 %
[2018-05-19 04:26] LABS: Platelet Count 81 K/mcL (140-400)
[2018-05-19 04:30] LABS: BUN/Creatinine Ratio 26 (6-26); Blood Urea Nitrogen 25 mg/dL (8-23); Calcium 7.7 mg/dL (8.6-10.3); Carbon Dioxide 20 mEq/L (23-29); Chloride 112 mEq/L (98-107); Glucose 202 mg/dL (70-105); Osmolality,Calculated 296 (280-300); Potassium 4.3 mEq/L (3.5-5.1); Sodium 138 mEq/L (136-145); eGFR For Non-African Americans 58 (> 60)
[2018-05-19] MEDS: Insulin LISPRO 300 UNITS/3 ML VIAL SQ SCH ×3 (08:00→22:37)
[2018-05-19 08:15] LABS: IFE Reflexed IFE Done
[2018-05-19 08:16] LABS: Immunoglobulin A 197 mg/dL (68-408); Immunoglobulin G 949 mg/dL (768-1632); Immunoglobulin M 28 mg/dL (35-263)
--- NOTE | 2018-05-19 09:20 | Internal Med Progress Note ---
Hospitalist Progress Note - Encounter Date of Encounter: 05/19/18 Time of Encounter: 09:17 - Subjective Interval History: 62 F admitted and being managed for pancytopenia and calcaneal OM She has a PMH of bullous pemphigoid on methotrexate, bed-bound status, resident of SNF, decubitus ulcer on the left heel, CKD III s/p total 2 units RBCs s/p bedside Left heel bone biopsy 05/18 She also had new and worsening skin lesions 05/18, discussed with wet process head miller dr. green who recommended topical steroid as well as low dose prednisone Patient is seen and examined at the bedside She complained of having a restless night due to pain, she thinks the skin lesions improved after topical steroids were started Infectious disease and podiatry are following - Exam Vitals: Temp Pulse Resp BP Pulse Ox 97.4 F L 73 16 131/61 99 05/19/18 08:01 05/19/18 08:01 05/19/18 08:01 05/19/18 08:01 05/19/18 08:01 Exam: VSS Gen: Laying flat, morbidy obese, not in any form of distress HEENT: Moist oral mucosa, anicteric, normal neck inspection Chest: CTAB heart: S1, S2only, no m/g/r Abdomen: Not tender, soft, Extremities: No pedal edema, Right upper arm with open blister, raw, abdominal wall with one open lesion, Left heel and calcaneal reguon in wound dressing, not removed Neuro: AAOX3, no gross focal deficits Psych: Appropriate affect Skin: Multiple healed rashes in different healing stages all over the body, worse on RU arm and LLE as well as abdominal wall - Assessment and Plan (1) Anemia Current Visit: Yes Status: Acute Assessment and Plan: Likely due to medications vs bone marrow disease Patient with presenting hemoglobin of 7.0 Has hx of anemia of chronic disease s/p 2 unit RBCs 05/14 and 05/16 Hb today 7.7 Vitamin B12, folate WNL, TSH WNL, YING negative Peripheral smear noted-likely bone marrow disorder Abdomen and Pelvis CT unremarkable FOBT pending-patient has not had a BM Oncology is following Patient is hemodynamically stable Will transfuse for HB <7 (2) DM2 (diabetes mellitus, type 2) Current Visit: Yes Status: Chronic Assessment and Plan: Controlled Continue home medications FS ACHS Sliding scale insulin (3) CKD (chronic kidney disease) stage 3, GFR 30-59 ml/min Current Visit: Yes Status: Chronic Assessment and Plan: At baseline Continue to monitor (4) DVT prophylaxis Current Visit: Yes Status: Acute Assessment and Plan: SCDs Patient with thrombocytopenia (5) Bullous pemphigoid Current Visit: Yes Status: Chronic Assessment and Plan: Patient has been managed on methotrexate for suspect cause of pancytopenia Discontinued methotrexate Hematology oncology consult noted, appreciate input Discussed with wet process head miller, patient's wet process head miller is not in the office on 05/18, however Dr. Kaiser recommended topical steroids at this time , clobe stasol ordered, she also recommends the patient might need low-dose prednisone until evaluation in the office if lesions do not improve. We have started on prednisone 15mg po daily today 05/19 Continue to monitor (6) Pancytopenia Current Visit: Yes Status: Acute Assessment and Plan: Improving, transfuse for Hb <7 and PLT <50K with bleeding, or <10K Continue to monitor (7) Osteomyelitis Current Visit: Yes Status: Acute Assessment and Plan: Patient with left calcaneal OM, per MRI from 05/01. Started on IV Vancomycin 05/15 Infectious disease input appreciated vancomycin held 05/17 bedside pulmonary biopsy by air hose coupler today, will resume vancomycin afterwards Bone biopsy done at the bedside 05/18 vancomycin resumed, pharmacy dosing Will await pathology and culture reports of bone biopsy Podiatry and Infectious disease inputs appreciated (8) Decubitus ulcer of left heel Current Visit: Yes Status: Chronic Assessment and Plan: Wound care and podiatry consulted DVT Prophylaxis: SCDs - Time Spent with Patient Total time spent is greater than 50% in coordination of care (as documented) at patient's floor/unit and/or counseling patient: Plan of Care Discussed with: patient Internal Medicine: Result - Labs CBC & Chem 7: 05/19/18 03:50 05/19/18 03:50 Labs: Short CBC 05/19/18 Range/Units 03:50 WBC 2.7 L (4.3-11.1) K/mcL Hgb 7.7 L (11.5-15.4) g/dL Hct 24.7 L (35.3-44.9) % Plt Count 81 L (140-400) K/mcL Neutrophils # 1.0 L (1.6-8.9) K/mcL BMP 05/19/18 03:50 Sodium 138 Potassium 4.3 Chloride 112 H Carbon Dioxide 20 L BUN 25 H Creatinine 0.98 Glucose 202 H Calcium 7.7 L - ABG Interpretation ABG results: PT/INR, D-dimer PT 11.7 Seconds (9.4-12.1) 05/15/18 14:27 Consult Discharge Plan - Plan Referrals: Elza Jesus MD [Primary Care Provider] - _ (1) Anemia Qualifiers: Anemia type: due to chronic kidney disease Chronic kidney disease stage: stage 3 (moderate) Qualified Code(s): N18.3 - Chronic kidney disease, stage 3 (moderate); D63.1 - Anemia in chronic kidney disease (2) DM2 (diabetes mellitus, type 2) Qualifiers: Diabetes mellitus fpc insulin use: with long term care pharmacist use Diabetes mellitus complication status: with kidney complications Diabetes mellitus complication detail: with chronic kidney disease Chronic kidney disease stage: stage 3 (moderate) Qualified Code(s): E11.22 - Type 2 diabetes mellitus with diabetic chronic kidney disease; N18.3 - Chronic kidney disease, stage 3 (moderate); Z79.4 - residential (current) use of insulin (7) Osteomyelitis Qualifiers: Osteomyelitis type: other acute Osteomyelitis location: foot Laterality: left Qualified Code(s): M86.172 - Other acute osteomyelitis, left ankle and foot (8) Decubitus ulcer of left heel Qualifiers: Pressure injury stage: stage 2 Qualified Code(s): L89.622 - Pressure ulcer of left heel, stage 2
[2018-05-19] MEDS: Aspirin Enteric Coated 81 MG Tablet PO SCH (10:17)
[2018-05-19] MEDS: Famotidine 20 MG TABLET PO SCH ×2 (10:17→21:31)
[2018-05-19] MEDS: Lactobacillus 1 EACH CAP.SPRINK PO SCH ×2 (10:17→21:31)
[2018-05-19] MEDS: Sennosides/Docusate Sodium TABLET PO SCH ×2 (10:17→21:32)
[2018-05-19] MEDS: Folic Acid 1 MG TABLET PO SCH (10:17)
[2018-05-19] MEDS: amLODIPine 5 MG TABLET PO SCH (10:17)
--- NOTE | 2018-05-19 10:17 | Oncology Inp Progress Note ---
Date of Encounter: 05/19/18 Time of Encounter: 09:00 (1) Pancytopenia Current Visit: Yes Status: Acute Assessment and plan: Hemoglobin slightly changed, platelets is improving. Multifactorial had episode of infection, antibiotics, methotrexate is off, history of bullous pemphigoid with skin lesions as noted. She continues with folate supplements lab works reviewed. Protein electrophoresis faint band unclear significance. She has had chronic anemia. No new recommendations continue monitoring lab works. Plan of care discussed with patient bedside today. Oncology: Subj Interval history: Denies any specific complaints today. She has sore in the back from which she is not bleeding. abdominal and lower ext sores not hurting. She is off methotrexate. - Constitutional General appearance: no acute distress - Head Head exam: Present: atraumatic, normal inspection - Eye Eye exam: Present: sclera anicteric - Neck Additional comments: no adenopathy - Respiratory Respiratory exam: Present: CTAB - Cardiovascular Cardiovascular exam: Present: +S1, +S2 - GI/Abdominal GI/Abdominal exam: Present: soft Additional comments: non tender - Neurological Exam Neurological exam: Present: alert, oriented X3, no focal deficits - Psychiatric Psychiatric exam: Present: normal mood - Skin Additional comments: skin lesions abdomen, extremities Oncology: Obj Data - Labs CBC & Chem 7: 05/19/18 03:50 05/19/18 03:50 Consult Discharge Plan - Plan Referrals: Elza Jesus MD [Primary Care Provider] - Inpatient Charges Provider: Dr. Roger Chavarria Follow up - Inpatient: [id number]
[2018-05-19] MEDS: Multivit/Ca/Min/Fe/FA 1 TAB TABLET PO SCH (10:18)
[2018-05-19] MEDS: Insulin DETEMIR 100 UNIT/ML X5UNITS SQ SCH (10:18)
[2018-05-19] MEDS: predniSONE 10 MG TABLET PO SCH (10:23)
[2018-05-19] MEDS: Zinc Oxide 454 GM EACH TP SCH ×2 (10:29→21:33)
[2018-05-19] MEDS: CLOBETASOL PROPIONATE 15 GM TUBE TP SCH ×2 (10:29→21:33)
[2018-05-19] MEDS: *HR* OxyCODONE/APAP 5/325 TABLET PO PRN (17:22)
[2018-05-19] MEDS ORDERED: *HR* Methotrexate 2.5 MG TABLET PO SCH (18:00)
[2018-05-19] MEDS: Gabapentin 300 MG CAPSULE PO SCH (21:31)
[2018-05-19] MEDS ORDERED: Dextrose Gel 15 GM/37.5 ML TUBE PO PRN ×2 (21:50)
[2018-05-19] MEDS ORDERED: *HR* Dextrose 50 % in Water (Syg) 50 ML SYRINGE IVP PRN (21:50)
[2018-05-19] MEDS ORDERED: D5% in Water 1,000 ML IVC PRN (21:50)
[2018-05-20 09:02] LABS: Eosinophils # 0.1 K/mcL (0.0-0.6); Eosinophils % 3.7 %; Hematocrit 27.9 % (35.3-44.9); Hemoglobin 8.8 g/dL (11.5-15.4); Lymphocytes # 0.8 K/mcL (0.6-4.6); Lymphocytes % 25.3 %; Mean Corpuscular HGB Conc 31.5 g/dL (31.6-35.5); Mean Corpuscular Hemoglobin 28.9 pg (28.0-33.3); Mean Corpuscular Volume 91.5 fL (83.0-100.0); Mean Platelet Volume 9.5 fL (9.4-12.4); Monocytes # 0.4 K/mcL (0.0-1.3); Monocytes % 13.9 %; Neutrophils # 1.6 K/mcL (1.6-8.9); Platelet Count 141 K/mcL (140-400); Red Blood Count 3.05 M/mcL (3.82-4.97); Red Cell Distribution Width 16.6 % (11.5-14.5); Segmented Neutrophils % 55.1 %
[2018-05-20 09:19] LABS: BUN/Creatinine Ratio 25 (6-26); Blood Urea Nitrogen 24 mg/dL (8-23); Calcium 8.4 mg/dL (8.6-10.3); Carbon Dioxide 20 mEq/L (23-29); Chloride 112 mEq/L (98-107); Glucose 254 mg/dL (70-105); Osmolality,Calculated 299 (280-300); Potassium 4.5 mEq/L (3.5-5.1); Sodium 138 mEq/L (136-145); eGFR For Non-African Americans 59 (> 60)
[2018-05-20] MEDS: Insulin LISPRO 300 UNITS/3 ML VIAL SQ SCH ×3 (09:27→20:55)
[2018-05-20] MEDS: Aspirin Enteric Coated 81 MG Tablet PO SCH (09:28)
[2018-05-20] MEDS: *HR* OxyCODONE/APAP 5/325 TABLET PO PRN (09:29)
[2018-05-20] MEDS: amLODIPine 5 MG TABLET PO SCH (09:29)
[2018-05-20] MEDS: Multivit/Ca/Min/Fe/FA 1 TAB TABLET PO SCH (09:29)
[2018-05-20] MEDS: Lactobacillus 1 EACH CAP.SPRINK PO SCH ×2 (09:29→20:55)
[2018-05-20] MEDS: predniSONE 10 MG TABLET PO SCH (09:30)
[2018-05-20] MEDS: Folic Acid 1 MG TABLET PO SCH (09:30)
[2018-05-20] MEDS: Famotidine 20 MG TABLET PO SCH ×2 (09:30→20:54)
[2018-05-20] MEDS: Insulin DETEMIR 100 UNIT/ML X5UNITS SQ SCH (09:30)
[2018-05-20] MEDS: Sennosides/Docusate Sodium TABLET PO SCH ×2 (09:31→20:55)
[2018-05-20] MEDS: Zinc Oxide 454 GM EACH TP SCH ×2 (09:31→20:56)
[2018-05-20] MEDS: CLOBETASOL PROPIONATE 15 GM TUBE TP SCH ×2 (09:31→20:56)
[2018-05-20 09:42] LABS: Vancomycin,Random 9 mcg/mL
--- NOTE | 2018-05-20 11:17 | Internal Med Progress Note ---
Hospitalist Progress Note - Encounter Date of Encounter: 05/20/18 Time of Encounter: 11:17 - Subjective Interval History: 62 F admitted and being managed for pancytopenia and calcaneal OM She has a PMH of bullous pemphigoid on methotrexate, bed-bound status, resident of SNF, decubitus ulcer on the left heel, CKD III s/p total 2 units RBCs s/p bedside Left heel bone biopsy 05/18 She also had new and worsening skin lesions 05/18, discussed with pot holder binder dr. green who recommended topical steroid as well as low dose prednisone Patient is seen and examined at the bedside No new complains - Exam Vitals: Temp Pulse Resp BP Pulse Ox 97.9 F 74 16 171/90 100 05/20/18 07:52 05/20/18 07:52 05/20/18 07:52 05/20/18 07:52 05/20/18 07:52 Exam: VSS Gen: Laying flat, morbidy obese, not in any form of distress HEENT: Moist oral mucosa, anicteric, normal neck inspection Chest: CTAB heart: S1, S2only, no m/g/r Abdomen: Not tender, soft, Extremities: No pedal edema, Right upper arm with open blister, raw, abdominal wall with one open lesion, Left heel and calcaneal reguon in wound dressing, not removed Neuro: AAOX3, no gross focal deficits Psych: Appropriate affect Skin: Multiple healed rashes in different healing stages all over the body, worse on RU arm and LLE as well as abdominal wall - Assessment and Plan (1) Anemia Current Visit: Yes Status: Acute Assessment and Plan: Likely due to medications vs bone marrow disease Patient with presenting hemoglobin of 7.0 Has hx of anemia of chronic disease s/p 2 unit RBCs 05/14 and 05/16 Hb today 8.8 Vitamin B12, folate WNL, TSH WNL, YING negative Peripheral smear noted-likely bone marrow disorder Abdomen and Pelvis CT unremarkable FOBT pending-patient has not had a BM Oncology is following Patient is hemodynamically stable Will transfuse for HB <7 (2) DM2 (diabetes mellitus, type 2) Current Visit: Yes Status: Chronic Assessment and Plan: Controlled Continue home medications FS ACHS Sliding scale insulin (3) CKD (chronic kidney disease) stage 3, GFR 30-59 ml/min Current Visit: Yes Status: Chronic Assessment and Plan: At baseline Continue to monitor (4) DVT prophylaxis Current Visit: Yes Status: Acute Assessment and Plan: SCDs Patient with thrombocytopenia (5) Bullous pemphigoid Current Visit: Yes Status: Chronic Assessment and Plan: Patient has been managed on methotrexate for suspect cause of pancytopenia Discontinued methotrexate Hematology oncology consult noted, appreciate input Discussed with pot holder binder, patient's pot holder binder is not in the office on 05/18, however Dr. Kaiser recommended topical steroids at this time , clobestasol ordered, she also recommends the patient might need low-dose prednisone until evaluation in the office if lesions do not improve. We have started on prednisone 15mg po daily from 05/19 Continue to monitor (6) Pancytopenia Current Visit: Yes Status: Acute Assessment and Plan: Improving, transfuse for Hb <7 and PLT <50K with bleeding, or <10K Continue to monitor (7) Osteomyelitis Current Visit: Yes Status: Acute Assessment and Plan: Patient with left calcaneal OM, per MRI from 05/01. Started on IV Vancomycin 05/15 Infectious disease input appreciated vancomycin held 05/17 bedside pulmonary biopsy by shoe repair supervisor today, will resume vancomycin afterwards Bone biopsy done at the bedside 05/18 vancomycin resumed, pharmacy dosing Will await pathology and culture reports of bone biopsy Podiatry and Infectious disease inputs appreciated (8) Decubitus ulcer of left heel Current Visit: Yes Status: Chronic Assessment and Plan: Wound care and podiatry consulted DVT Prophylaxis: SCDs - Time Spent with Patient Total time spent is greater than 50% in coordination of care (as documented) at patient's floor/unit and/or counseling patient: Plan of Care Discussed with: patient Internal Medicine: Result - Labs CBC & Chem 7: 05/20/18 08:11 05/20/18 08:11 Labs: Short CBC 05/20/18 Range/Units 08:11 WBC 3.0 L (4.3-11.1) K/mcL Hgb 8.8 L (11.5-15.4) g/dL Hct 27.9 L (35.3-44.9) % Plt Count 141 D (140-400) K/mcL Neutrophils # 1.6 (1.6-8.9) K/mcL BMP 05/20/18 08:11 Sodium 138 Potassium 4.5 Chloride 112 H Carbon Dioxide 20 L BUN 24 H Creatinine 0.96 Glucose 254 H Calcium 8.4 L - ABG Interpretation ABG results: PT/INR, D-dimer PT 11.7 Seconds (9.4-12.1) 05/15/18 14:27 Consult Discharge Plan - Plan Referrals: Elza Jesus MD [Primary Care Provider] - (1) Anemia Qualifiers: Anemia type: due to chronic kidney disease Chronic kidney disease stage: stage 3 (moderate) Qualified Code(s): N18.3 - Chronic kidney disease, stage 3 (moderate); D63.1 - Anemia in chronic kidney disease (2) DM2 (diabetes mellitus, type 2) Qualifiers: Diabetes mellitus plate cutter insulin use: with plate cutter use Diabetes mellitus complication status: with kidney complications Diabetes mellitus complication detail: with chronic kidney disease Chronic kidney disease stage: stage 3 (moderate) Qualified Code(s): E11.22 - Type 2 diabetes mellitus with diabetic chronic kidney disease; N18.3 - Chronic kidney disease, stage 3 (moderate); Z7 9.4 - retirement (current) use of insulin (7) Osteomyelitis Qualifiers: Osteomyelitis type: other acute Osteomyelitis location: foot Laterality: left Qualified Code(s): M86.172 - Other acute osteomyelitis, left ankle and foot (8) Decubitus ulcer of left heel Qualifiers: Pressure injury stage: stage 2 Qualified Code(s): L89.622 - Pressure ulcer of left heel, stage 2
[2018-05-20] MEDS: Gabapentin 300 MG CAPSULE PO SCH (20:54)
[2018-05-20] MEDS: hydrOXYzine pamoate 25 MG CAPSULE PO PRN (21:10)
[2018-05-21] MEDS: *HR* OxyCODONE/APAP 5/325 TABLET PO PRN ×2 (00:03→06:29)
[2018-05-21 05:33] LABS: Basophils % 0.7 %; Eosinophils # 0.1 K/mcL (0.0-0.6); Eosinophils % 2.5 %; Hematocrit 26.9 % (35.3-44.9); Hemoglobin 8.6 g/dL (11.5-15.4); Immature Granulocytes % 1.8 % (0-4); Lymphocytes # 0.8 K/mcL (0.6-4.6); Lymphocytes % 27.5 %; Mean Corpuscular Hemoglobin 29.5 pg (28.0-33.3); Mean Corpuscular Volume 92.1 fL (83.0-100.0); Mean Platelet Volume 9.2 fL (9.4-12.4); Monocytes # 0.5 K/mcL (0.0-1.3); Monocytes % 19.3 %; Neutrophils # 1.4 K/mcL (1.6-8.9); Platelet Count 201 K/mcL (140-400); Red Blood Count 2.92 M/mcL (3.82-4.97); Red Cell Distribution Width 16.8 % (11.5-14.5); Segmented Neutrophils % 48.2 %
[2018-05-21 05:57] LABS: Calcium 8.1 mg/dL (8.6-10.3); Potassium 4.7 mEq/L (3.5-5.1)
[2018-05-21 06:18] LABS: Platelet Estimate Normal (Normal)
[2018-05-21] MEDS ORDERED: Insulin DETEMIR 100 UNIT/ML X5UNITS SQ SCH (09:00)
[2018-05-21] MEDS: Multivit/Ca/Min/Fe/FA 1 TAB TABLET PO SCH (09:43)
[2018-05-21] MEDS: Folic Acid 1 MG TABLET PO SCH (09:43)
[2018-05-21] MEDS: Lactobacillus 1 EACH CAP.SPRINK PO SCH ×2 (09:43→21:31)
[2018-05-21] MEDS: amLODIPine 5 MG TABLET PO SCH (09:43)
[2018-05-21] MEDS: Famotidine 20 MG TABLET PO SCH ×2 (09:43→21:31)
[2018-05-21] MEDS: predniSONE 10 MG TABLET PO SCH (09:43)
[2018-05-21] MEDS: Aspirin Enteric Coated 81 MG Tablet PO SCH (09:43)
[2018-05-21] MEDS: Sennosides/Docusate Sodium TABLET PO SCH ×2 (09:45→21:49)
[2018-05-21] MEDS: Insulin LISPRO 300 UNITS/3 ML VIAL SQ SCH ×5 (09:46→21:31)
[2018-05-21] MEDS: Zinc Oxide 454 GM EACH TP SCH ×2 (09:46→21:48)
[2018-05-21] MEDS: CLOBETASOL PROPIONATE 15 GM TUBE TP SCH ×2 (09:47→21:49)
[2018-05-21] MEDS: hydrOXYzine pamoate 25 MG CAPSULE PO PRN (10:28)
--- NOTE | 2018-05-21 10:41 | Infectious Disease Progress No ---
Date of Encounter: 05/21/18 Time of Encounter: 10:39 - Assessment and Plan (1) Osteomyelitis Current Visit: Yes Status: Acute Location: Left heel. Causative organism: Unclear, but previous wound culture positive for MRSA. Likely secondary to non-healing ulcer. Previously on doxycycline at the [facility]. MRI of the left foot 05/01/18 showed early osteomyelitis of the posterosuperior calcaneal surface. WBC low, but no other SIRS criteria. Clinically, the wound does not appear infected at this point. ESR mildly elevated at 17 and CRP of less than 5. Status post bone biopsy 05/18/[address] Ford. Cultures are no growth. Pathology pending. Currently on IV Vancomycin. Recommendations: Wound care per podiatry recommendations. Await pathology and culture results. Continue Vancomycin IV. Pharmacy to dose. Goal trough ~15. Duration of treatment depends on the clinical picture, but likely 6 weeks of IV antibiotics. Monitor renal function closely given the patient's history of CKD 3. Dose-adjust antibiotics. Qualifiers: Osteomyelitis type: other acute Osteomyelitis location: foot Laterality: left Qualified Code(s): M86.172 - Other acute osteomyelitis, left ankle and foot (2) Pancytopenia Current Visit: Yes Status: Acute WBC 1.1 with ANC 484, Hgb 6.2, platelets 62 on admission. Etiology unclear: methotrexate vs. infection vs. other vs. combination of previous. Improved. ANC 1344 today. Hematology consulted and following. (3) Decubitus ulcer of left heel Current Visit: Yes Status: Chronic Location: Left heel. Clinically, the wound does not appear infected and is nearly healed. Podiatry to assist with wound care recommendations. Qualifiers: Pressure injury stage: stage 2 Qualified Code(s): L89.622 - Pressure ulcer of left heel, stage 2 (4) CKD (chronic kidney disease) stage 3, GFR 30-59 ml/min Current Visit: Yes Status: Chronic (5) Bullous pemphigoid Current Visit: Yes Status: Chronic Follows with Dr. Phillips with [facility]. Take methotrexate 10mg PO weekly --> discontinued. Dressing changes per Podiatry/wound care recommendations. (6) Obesity (BMI 30.0-34.9) Current Visit: No Status: Chronic (7) HTN (hypertension) Current Visit: No Status: Chronic Qualifiers: Hypertension type: essential hypertension Qualified Code(s): I10 - Essential (primary) hypertension (8) CVA (cerebral vascular accident) Current Visit: No Status: Chronic Reports CVA 3 years ago with residual LLE weakness. Qualifiers: CVA mechanism: unspecified Qualified Code(s): I63.9 - Cerebral infarction, unspecified (9) DM2 (diabetes mellitus, type 2) Current Visit: Yes Status: Chronic Strict glucose control. 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 No acute events noted overnight. Patient states overall she feels well. Denies any fevers, chills, rigors. Denies chest pain, shortness of breath, or cough. Denies nausea, vomiting, diarrhea, constipation. Denies abdominal pain or urinary complaints. Denies any oral thrush or new skin lesions. Denies any pain in her joints or extremities. States her skin lesions seem to be improved/stable. Complains of aching pain to the left foot. Infect Dis PN-Objective Data - Labs CBC & Chem 7: 05/21/18 05:08 05/21/18 05:08 Labs: Laboratory Results - last 24 hr 05/19/18 05/19/18 05/19/18 07:54 11:42 17:11 WBC RBC Hgb Hct MCV MCH MCHC RDW Plt Count MPV Immature Gran % Seg Neutrophils % Lymphocytes % Monocytes % Eosinophils % Basophils % Neutrophils # Lymphocytes # Monocytes # Eosinophils # Basophils # Platelet Estimate Sodium Potassium Chloride Carbon Dioxide BUN Creatinine Est GFR ( Amer) Est GFR (Non-Af Amer) BUN/Creatinine Ratio Glucose POC Glucose 185 H 143 H 274 H Calculated Osmolality Calcium 05/19/18 05/19/18 05/20/18 20:30 22:36 11:42 WBC RBC Hgb Hct MCV MCH MCHC RDW Plt Count MPV Immature Gran % Seg Neutrophils % Lymphocytes % Monocytes % Eosinophils % Basophils % Neutrophils # Lymphocytes # Monocytes # Eosinophils # Basophils # Platelet Estimate Sodium Potassium Chloride Carbon Dioxide BUN Creatinine Est GFR ( Amer) Est GFR (Non-Af Amer) BUN/Creatinine Ratio Glucose POC Glucose 306 H 293 H 289 H Calculated Osmolality Calcium 05/21/18 05/21/18 05:08 05:08 WBC 2.8 L RBC 2.92 L Hgb 8.6 L Hct 26.9 L MCV 92.1 MCH 29.5 MCHC 32.0 RDW 16.8 H Plt Count 201 MPV 9.2 L Immature Gran % 1.8 Seg Neutrophils % 48.2 Lymphocytes % 27.5 Monocytes % 19.3 Eosinophils % 2.5 Basophils % 0.7 Neutrophils # 1.4 L Lymphocytes # 0.8 Monocytes # 0.5 Eosinophils # 0.1 Basophils # 0.0 Platelet Estimate Normal Sodium 136 Potassium 4.7 Chloride 109 H Carbon Dioxide 24 BUN 31 H Creatinine 1.31 H Est GFR ( Amer) 50 L Est GFR (Non-Af Amer) 41 L BUN/Creatinine Ratio 24 Glucose 417 H POC Glucose Calculated Osmolality 306 H Calcium 8.1 L Cultures: Cultures 05/18/18 15:35 Surgical Biopsy Culture - Preliminary Left Foot 05/18/18 14:40 Surgical Biopsy Culture - Preliminary Left Foot 05/18/18 15:35 Acid Fast Stain - Final Left Foot Exam - Constitutional Vitals: Temp Pulse Resp BP Pulse Ox 97.9 F 78 18 172/67 98 05/21/18 07:24 05/21/18 07:24 05/21/18 07:24 05/21/18 07:24 05/21/18 07:24 General appearance: cooperative, no acute distress, obese - Head Head exam: Present: atraumatic, normal inspection, normocephalic - Eye Eye exam: Present: EOMI, normal appearance, PERRL Pupils: Present: normal accommodation - ENT ENT exam: Present: mucous membranes moist - Neck Neck exam: Present: normal inspection - Respiratory Respiratory exam: Present: CTAB. Absent: rales, respiratory distress, rhonchi, wheezes - Cardiovascular Cardiovascular exam: Present: RRR, +S1, +S2 - GI/Abdominal GI/Abdominal exam: Present: distended (obese), normal bowel sounds, soft. Absent: tenderness - Extremities Exam Extremities exam: Absent: normal inspection (Left heel ulcer without surrounding erythema, warmth, or fluctuance. No drainage noted. Bone biopsy sites with sutures intact.) - Neurological Exam Neurological exam: Present: alert, oriented X3. Absent: no focal deficits (Weakness noted to the LLE.) - Psychiatric Psychiatric exam: Present: normal affect, normal mood - Skin Skin exam: Present: dry, intact, normal color, warm Consult Discharge Plan - Plan Referrals: Elza Jesus MD [Primary Care Provider] - - Attending Attestation I examined this patient and my medical decision-making was reviewed with the Resident Physician. I agree with the documented findings, disposition and treatment plan as described except to the extent set forth below.
[2018-05-21] MEDS ORDERED: Vancomycin 500 MG in 0.9 % Sodium Chloride Mini Bag 100 ML IVPB ONE (12:00)
--- NOTE | 2018-05-21 14:03 | Internal Med Progress Note ---
Hospitalist Progress Note - Encounter Date of Encounter: 05/21/18 Time of Encounter: 14:03 - Subjective Interval History: 62 F admitted and being managed for pancytopenia and calcaneal OM She has a PMH of bullous pemphigoid on methotrexate, bed-bound status, resident of SNF, decubitus ulcer on the left heel, CKD III s/p total 2 units RBCs s/p bedside Left heel bone biopsy 05/18 She also had new and worsening skin lesions 05/18, discussed with security operations center analyst dr. green who recommended topical steroid as well as low dose prednisone Patient is seen and examined at the bedside No new complains FS uncontrolled, will increase insulin, BP uncontrolled, will increase amlodipine Awaiting culture reports - Exam Vitals: Temp Pulse Resp BP Pulse Ox 97.5 F L 76 18 159/84 97 05/21/18 11:07 05/21/18 11:07 05/21/18 11:07 05/21/18 11:07 05/21/18 11:07 Exam: VSS Gen: Laying flat, morbidy obese, not in any form of distress HEENT: Moist oral mucosa, anicteric, normal neck inspection Chest: CTAB heart: S1, S2only, no m/g/r Abdomen: Not tender, soft, Extremities: No pedal edema, Right upper arm with open blister, raw, abdominal wall with one open lesion, Left heel and calcaneal reguon in wound dressing, not removed Neuro: AAOX3, no gross focal deficits Psych: Appropriate affect Skin: Multiple healed rashes in different healing stages all over the body, wors e on RU arm and LLE as well as abdominal wall - Assessment and Plan (1) Anemia Current Visit: Yes Status: Acute Assessment and Plan: Likely due to medications vs bone marrow disease Patient with presenting hemoglobin of 7.0 Has hx of anemia of chronic disease s/p 2 unit RBCs 05/14 and 05/16 Hb today 8.6 Vitamin B12, folate WNL, TSH WNL, YING negative Peripheral smear noted-likely bone marrow disorder Abdomen and Pelvis CT unremarkable FOBT pending Oncology is following Patient is hemodynamically stable Will transfuse for HB <7 (2) DM2 (diabetes mellitus, type 2) Current Visit: Yes Status: Chronic Assessment and Plan: Controlled Continue home medications FS ACHS Sliding scale insulin (3) CKD (chronic kidney disease) stage 3, GFR 30-59 ml/min Current Visit: Yes Status: Chronic Assessment and Plan: Renal function till at baseline Continue to monitor (4) DVT prophylaxis Current Visit: Yes Status: Acute Assessment and Plan: SQ heparin started today , PLT count is now WNL (5) Bullous pemphigoid Current Visit: Yes Status: Chronic Assessment and Plan: Patient has been managed on methotrexate for suspect cause of pancytopenia Discontinued methotrexate Hematology oncology consult noted, appreciate input Discussed with security operations center analyst, patient's security operations center analyst is not in the office on 05/18, however Dr. Kaiser recommended topical steroids at this time , clobestasol ordered, she also recommends the patient might need low-dose prednisone until evaluation in the office if lesions do not improve. We have started on prednisone 15mg po daily from 05/19 Continue to monitor (6) Pancytopenia Current Visit: Yes Status: Acute Assessment and Plan: Improving, transfuse for Hb <7 and PLT <50K with bleeding, or <10K Continue to monitor (7) Osteomyelitis Current Visit: Yes Status: Acute Assessment and Plan: Patient with left calcaneal OM, per MRI from 05/01. Started on IV Vancomycin 05/15 Infectious disease input appreciated vancomycin held 05/17 bedside pulmonary biopsy by engine room operator today, will resume vancomycin afterwards Bone biopsy done at the bedside 05/18 vancomycin resumed, pharmacy dosing Will await pathology and culture reports of bone biopsy Podiatry and Infectious disease inputs appreciated (8) Decubitus ulcer of left heel Current Visit: Yes Status: Chronic Assessment and Plan: Wound care and podiatry consulted DVT Prophylaxis: SQ heparin - Time Spent with Patient Total time spent is greater than 50% in coordination of care (as documented) at patient's floor/unit and/or counseling patient: Plan of Care Discussed with: patient Internal Medicine: Result - Labs CBC & Chem 7: 05/21/18 05:08 05/21/18 05:08 Labs: Short CBC 05/21/18 Range/Units 05:08 WBC 2.8 L (4.3-11.1) K/mcL Hgb 8.6 L (11.5-15.4) g/dL Hct 26.9 L (35.3-44.9) % Plt Count 201 (140-400) K/mcL Neutrophils # 1.4 L (1.6-8.9) K/mcL BMP 12/17/18 05:08 Sodium 136 Potassium 4.7 Chloride 109 H Carbon Dioxide 24 BUN 31 H Creatinine 1.31 H Glucose 417 H Calcium 8.1 L - ABG Interpretation ABG results: PT/INR, D-dimer PT 11.7 Seconds (9.4-12.1) 05/15/18 14:27 Consult Discharge Plan - Plan Referrals: Elza Jesus MD [Primary Care Provider] - (1) Anemia Qualifiers: Anemia type: due to chronic kidney disease Chronic kidney disease stage: stage 3 (moderate) Qualified Code(s): N18.3 - Chronic kidney disease, stage 3 (moderate); D63.1 - Anemia in chronic kidney disease (2) DM2 (diabetes mellitus, type 2) Qualifiers: Diabetes mellitus retirement insulin use: with superintendent marine oil terminal use Diabetes mellitus complication status: with kidney complications Diabetes mellitus complication detail: with chronic kidney disease Chronic kidney disease stage: stage 3 (moderate) Qualified Code(s): E11.22 - Type 2 diabetes mellitus with diabetic chronic kidney disease; N18.3 - Chronic kidney disease, stage 3 (moderate); Z79.4 - terminal make up operator (current) use of insulin (7) Osteomyelitis Qualifiers: Osteomyelitis type: other acute Osteomyelitis location: foot Laterality: left Qualified Code(s): M86.172 - Other acute osteomyelitis, left ankle and foot (8) Decubitus ulcer of left heel Qualifiers: Pressure injury stage: stage 2 Qualified Code(s): L89.622 - Pressure ulcer of left heel, stage 2
--- NOTE | 2018-05-21 15:26 | Oncology Inp Progress Note ---
<MontenegroKaitlynn L - Last Filed: 05/21/18 17:40> Date of Encounter: 05/21/18 Time of Encounter: 13:30 (1) Pancytopenia Current Visit: Yes Status: Acute Assessment and plan: Pancytopenia Chronically anemic on labs dating back to 2013 in presence of chronic disease (CKD) and inflammatory state Leukopenia is new since around 04/13/2018, neutropenia new since 05/11 Thrombocytopenia new since around 05/04/18 Diagnosed with bullous pemphigoid about 4-5 months ago per patient and she has been on methotrexate since that time., takes methotraxate 10 mg once weekly Recently diagnosed with early osteomyelitis to left calcaneal suface per MRI 05/01/2018, started on doxycycline per pharmacy record 05/09/2018 ID now following with further recommendations B12 and folate are replete Elevated ferritin 409 with low iron saturation in presence of chronic inflammation No laboratory signs of hemolysis Retic low, this may be due to MTX or malignant bone marrow etiology Plan: Blood counts improving Etiology TBD but likely multifactorial in the setting of MTX use in CKD, ATB treatments, bullous pemphigoid and osteomyelitis Serum protein electrophoresis and serum free light chains-faint band unclear significance Recommend holding methotrexate, Dermatology aware, started on clobestasol and low dose prednisone Discussed bone marrow biopsy to rule out malignant etiology, this will be an ongoing evaluation, at this time will continue to hold, no interventions needed at this time. Transfuse for Hgb <7, platelet count <10, or for platelet count <50 with any clinical s/s active bleeding Hematology will otherwise plan to follow from afar as we continue to trend counts. Follow up as outpatient will be arranged. Please feel free to contact for any further questions or concerns. Oncology: Subj Interval history: Ms. Mejia is resting comfortably. Staff currently working with patient to insert new IV line. She denies pain, SOB, chest pain, s/s bleeding, fevers, chills night sweats, nausea, vomiting, bowel or urinary changes. No acute events overnight. - Constitutional General appearance: cooperative, no acute distress, no febrile - Head Head exam: Present: atraumatic - ENT ENT exam: Present: mucous membranes moist, normal oropharynx - Respiratory Respiratory exam: Present: CTAB. Absent: respiratory distress - Cardiovascular Cardiovascular exam: Present: RRR, +S1, +S2 - GI/Abdominal GI/Abdominal exam: Present: normal bowel sounds, soft. Absent: tenderness - Extremities Exam Extremities exam: Absent: calf tenderness Additional comments: bilateral heel pads, left calcaneal wound not observed at todays assessment - Neurological Exam Neurological exam: Present: alert, oriented X3, no focal deficits, strengths equal and symetr throughout - Psychiatric Psychiatric exam: Present: normal affect, normal mood - Skin Additional comments: multiple scattered blistered ulcers to abdomen/BLE Oncology: Obj Data - Labs CBC & Chem 7: 05/21/18 05:08 05/21/18 05:08 Consult Discharge Plan - Plan Instructions: Diabetes Mellitus Type 2 in Adults (DC), Anemia (GEN) Additional Instructions: Methotrexate was switched to oral and topical steroids. Follow with dermatology as an outpatient Follow up in wound clinic Referrals: Elza Jesus MD [Primary Care Provider] - Prescriptions: RX: Clobetasol Propionate [Temovate 0.05%] 1 appl TP BID #1 tube RX: predniSONE [PredniSONE] 15 mg PO DAILY 30 Days #45 tablet Inpatient Charges Provider: Dr. Roger Chavarria <Kevin Chavarria - Last Filed: 05/22/18 17:06> Date of Encounter: 05/22/18 (1) Pancytopenia Current Visit: Yes Status: Acute Oncology: Subj Interval history: I examined this patient and my medical decision-making was reviewed with the Advanced Practice Nurse, Kaitlynn Montenegro. I agree with the documented findings, disposition and treatment plan as described except to the extent set forth below. Oncology: Obj Data - Labs CBC & Chem 7: 05/22/18 04:00 05/22/18 04:00 Inpatient Charges Provider: Dr. Roger Chavarria Follow up - Inpatient: [id number]
--- NOTE | 2018-05-21 16:48 | Podiatry Progress Note ---
Date of Encounter: 05/21/18 Time of Encounter: 12:00 - Assessment and Plan (1) Osteomyelitis Status: Ruled-out bone biopsy obtained and pending ID on board and following Clinically the wound to the left heel does not appear infected Await results Qualifiers: Osteomyelitis type: other acute Osteomyelitis location: foot Laterality: left Qualified Code(s): M86.172 - Other acute osteomyelitis, left ankle and foot (2) Non-healing ulcer of lower extremity Status: Chronic Chronic ulceration of left heel Clinically wound does not appear infected at this time Improvement in size and appearance since last assessed Cleansed with saline Applied adaptic, 4x4 and bulk dressing Has heelmedix boots on bilaterally- to have on at all times Patient is s/p cva and has minimal movement of the LLE Elevate at all times MRI shows signs of early osteomyelitis - bone path pending Qualifiers: Laterality: right Non-pressure ulcer stage: with fat layer exposed Qu alified Code(s): L97.912 - Non-pressure chronic ulcer of unspecified part of right lower leg with fat layer exposed Subjective Interval history: Patient s/p bone biopsy per Liliana on 05/18/18. Patient resting comfortably in bed. Denies any needs or pain at this time. Patient states she feels better at this time. States the nurse did change her dressing earlier today. Wearing prevalon boots bilaterally and dressing CDI. Patient denies any fevers, chills, n/v or fls. Objective - Vital Signs Vital Signs: Vital Signs Temp Pulse Resp BP Pulse Ox 05/21/18 14:36 98.1 F 74 16 146/82 97 05/21/18 11:07 97.5 F L 76 18 159/84 97 05/21/18 07:24 97.9 F 78 18 172/67 98 05/21/18 04:46 97.9 F 75 16 150/82 97 05/20/18 18:52 98.5 F 72 16 155/83 97 Intake and Output 05/21/18 05/21/18 05/21/18 07:59 15:59 23:59 Intake Total 0 / 0 240 / 240 Output Total 0 / 0 0 / 0 Balance 0 / 0 240 / 240 Intake: Oral 0 / 0 240 / 240 Output: Urine 0 / 0 0 / 0 Other: Meal Breakfast Percent of Meal Consumed 70% # Voids 1 # Urine Diapers 1 Blood Glucose* 415 365 288 - Exam Exam: awake alert and oriented VASCULAR: pulses palpable- dp/pt Warm toes to tibia Cap refill <3seconds Pedal edema- mild generalized edema Neurological: Sensation intact with moderate touch- diminished to light touch Musculoskeletal: RLE 3/5 and LLE 0/5 at this time. Patient does not assist in picking up foot or ROM. States she is unable to at this time. No pain with PROM to the foot and ankle joint. No edema noted surrounding joint spaces of ankle, foot, or toes. No erythema or fluctuance noted to joints. Skin- There is a large unstageable ulceration noted to the left heel- friable and oozing blood- no noted probe to bone on inspection. 100% healthy granulation tissue noted. 4cmx3.5cm with minimal depth- there is improved purple discoloration of the wound at the proximal borders indicating likely DTI. There is no surrounding edema, erythema or warth to ulceration. There is no clinical indication of infection. No purulent drainage. No odor. There are also multiple scabbed lesions noted to the BLE. There are small blister lesions noted x 2 to the anterior RLE. These are also without clinical signs of infection Improvement in appearance 1 suture noted to lateral calc where bone biopsy was obtained Healing without complication - Lab Result Diagrams: 05/22/18 04:00 05/22/18 04:00 Labs: Abnormal lab results WBC 2.8 K/mcL (4.3-11.1) L 05/21/18 05:08 RBC 2.92 M/mcL (3.82-4.97) L 05/21/18 05:08 Hgb 8.6 g/dL (11.5-15.4) L 05/21/18 05:08 Hct 26.9 % (35.3-44.9) L 05/21/18 05:08 RDW 16.8 % (11.5-14.5) H 05/21/18 05:08 MPV 9.2 fL (9.4-12.4) L 05/21/18 05:08 Reticulocyte # 0.03 M/mcL (0.05-0.10) L 05/15/18 14:27 Neutrophils # 1.4 K/mcL (1.6-8.9) L 05/21/18 05:08 Nucleated RBCs/100 WBC 0.7 /100 WBC (0) H 05/19/18 03:50 ESR 17 mm/hr (0-15) H 05/17/18 15:14 Percent Retic 1.1 % (1.6-2.8) L 05/15/18 14:27 Chloride 109 mEq/L (98-107) H 05/21/18 05:08 BUN 31 mg/dL (8-23) H 05/21/18 05:08 Creatinine 1.31 mg/dL (0.60-1.20) H 05/21/18 05:08 Est GFR ( Amer) 50 (> 60) L 05/21/18 05:08 Est GFR (Non-Af Amer) 41 (> 60) L 05/21/18 05:08 Glucose 417 mg/dL (70-105) H 05/21/18 05:08 POC Glucose 218 mg/dL (70-99) H 05/20/18 19:54 Calculated Osmolality 306 (280-300) H 05/21/18 05:08 Calcium 8.1 mg/dL (8.6-10.3) L 05/21/18 05:08 Iron 35 mcg/dL (50-170) L 05/15/18 14:27 Transferrin 127 mg/dL (203-362) L 05/15/18 14:27 Ferritin 475 ng/mL (10-120) H 05/15/18 14:27 Lactate Dehydrogenase 128 Units/L (140-271) L 05/15/18 14:27 Total Protein (PEP) 5.60 g/dL (6.00-8.30) L 05/15/18 17:14 Albumin (PEP) 2.61 g/dL (3.75-5.01) L 05/15/18 17:14 IgM 28 mg/dL (35-263) L 05/15/18 17:14 Free Lannon LC, Quant 4.52 mg/dL (0.33-1.94) H 05/15/18 17:14 Free Lannon/Lambda Ratio 2.66 (0.26-1.65) H 05/15/18 17:14 Microbiology, Last 48 Hours 05/18/18 14:40 Surgical Biopsy Culture - Final Left Foot 05/18/18 15:35 Surgical Biopsy Culture - Preliminary Left Foot 05/18/18 15:35 Acid Fast Stain - Final Left Foot Consult Discharge Plan - Plan Instructions: Diabetes Mellitus Type 2 in Adults (DC), Anemia (GEN) Additional Instructions: Methotrexate was switched to oral and topical steroids. Follow with dermatology as an outpatient Follow up in wound clinic Referrals: Elza Jesus MD [Primary Care Provider] - Prescriptions: RX: Clobetasol Propionate [Temovate 0.05%] 1 appl TP BID #1 tube RX: predniSONE [PredniSONE] 15 mg PO DAILY 30 Days #45 tablet
[2018-05-21] MEDS: Gabapentin 300 MG CAPSULE PO SCH (21:31)
[2018-05-21] MEDS: *HR* Heparin 5,000 UNIT/ML VIAL SQ SCH (21:32)
[2018-05-22 04:33] LABS: Eosinophils # 0.1 K/mcL (0.0-0.6); Hematocrit 26.4 % (35.3-44.9); Hemoglobin 8.3 g/dL (11.5-15.4); Lymphocytes # 0.8 K/mcL (0.6-4.6); Mean Corpuscular HGB Conc 31.4 g/dL (31.6-35.5); Mean Corpuscular Hemoglobin 29.4 pg (28.0-33.3); Mean Corpuscular Volume 93.6 fL (83.0-100.0); Mean Platelet Volume 8.6 fL (9.4-12.4); Platelet Count 265 K/mcL (140-400); Red Blood Count 2.82 M/mcL (3.82-4.97); Red Cell Distribution Width 16.7 % (11.5-14.5)
[2018-05-22 04:43] LABS: BUN/Creatinine Ratio 32 (6-26); Blood Urea Nitrogen 34 mg/dL (8-23); Carbon Dioxide 23 mEq/L (23-29); Chloride 110 mEq/L (98-107); Potassium 4.5 mEq/L (3.5-5.1); Sodium 138 mEq/L (136-145)
[2018-05-22 04:44] LABS: Glucose 333 mg/dL (70-105); Osmolality,Calculated 307 (280-300); eGFR For Non-African Americans 53 (> 60)
[2018-05-22] MEDS: *HR* Heparin 5,000 UNIT/ML VIAL SQ SCH ×2 (05:13→13:48)
[2018-05-22 06:19] LABS: Basophils # 0.1 K/mcL (0.0-0.2); Monocytes # 0.4 K/mcL (0.0-1.3); Neutrophils # 1.6 K/mcL (1.6-8.9); Platelet Estimate Normal (Normal)
[2018-05-22] MEDS ORDERED: Insulin DETEMIR 100 UNIT/ML X5UNITS SQ SCH (09:00)
[2018-05-22] MEDS: Insulin LISPRO 300 UNITS/3 ML VIAL SQ SCH ×4 (09:26→17:26)
[2018-05-22] MEDS: Multivit/Ca/Min/Fe/FA 1 TAB TABLET PO SCH (09:27)
[2018-05-22] MEDS: Lactobacillus 1 EACH CAP.SPRINK PO SCH (09:27)
[2018-05-22] MEDS: amLODIPine 5 MG TABLET PO SCH (09:27)
[2018-05-22] MEDS: Famotidine 20 MG TABLET PO SCH (09:27)
[2018-05-22] MEDS: Folic Acid 1 MG TABLET PO SCH (09:27)
[2018-05-22] MEDS: Aspirin Enteric Coated 81 MG Tablet PO SCH (09:27)
[2018-05-22] MEDS: CLOBETASOL PROPIONATE 15 GM TUBE TP SCH (09:28)
[2018-05-22] MEDS: Sennosides/Docusate Sodium TABLET PO SCH (09:28)
[2018-05-22] MEDS: predniSONE 10 MG TABLET PO SCH (09:28)
[2018-05-22] MEDS: Zinc Oxide 454 GM EACH TP SCH (09:29)
[2018-05-22] MEDS: hydrOXYzine pamoate 25 MG CAPSULE PO PRN (09:32)
--- NOTE | 2018-05-22 11:11 | Infectious Disease Progress No ---
Date of Encounter: 05/22/18 Time of Encounter: 10:30 - Assessment and Plan (1) Osteomyelitis Status: Ruled-out Location: Left heel. Causative organism: Unclear, but previous wound culture positive for MRSA. Likely secondary to non-healing ulcer. Previously on doxycycline at the [facility]. MRI of the left foot 05/01/18 showed early osteomyelitis of the posterosuperior calcaneal surface. WBC low, but no other SIRS criteria. Clinically, the wound does not appear infected at this point. ESR mildly elevated at 17 and CRP of less than 5. Status post bone biopsy 05/18/[address] Ford. Cultures are no growth. Pathology pending. Currently on IV Vancomycin. Recommendations: Wound care per podiatry recommendations. Path negative for osteomyelitis cultures negative ESR not high doubt this is osteo stop antibiotics and observe d/w podiatry Qualifiers: Osteomyelitis type: other acute Osteomyelitis location: foot Laterality: left Qualified Code(s): M86.172 - Other acute osteomyelitis, left ankle and foot (2) Pancytopenia Status: Acute WBC 1.1 with ANC 484, Hgb 6.2, platelets 62 on admission. Etiology unclear: methotrexate vs. infection vs. other vs. combination of previous. Improved. ANC 1620 today. Hematology consulted and following. (3) Decubitus ulcer of left heel Status: Chronic Location: Left heel. Clinically, the wound does not appear infected and is nearly healed. Podiatry to assist with wound care recommendations. Qualifiers: Pressure injury stage: stage 2 Qualified Code(s): L89.622 - Pressure ulcer of left heel, stage 2 (4) CKD (chronic kidney disease) stage 3, GFR 30-59 ml/min Status: Chronic (5) Bullous pemphigoid Status: Chronic Follows with Dr. Phillips with [facility]. Take methotrexate 10mg PO weekly --> discontinued. Dressing changes per Podiatry/wound care recommendations. (6) Obesity (BMI 30.0-34.9) Status: Chronic (7) HTN (hypertension) Status: Chronic Qualifiers: Hypertension type: essential hypertension Qualified Code(s): I10 - Essential (primary) hypertension (8) CVA (cerebral vascular accident) Status: Chronic Reports CVA 3 years ago with residual LLE weakness. Qualifiers: CVA mechanism: unspecified Qualified Code(s): I63.9 - Cerebral infarction, unspecified (9) DM2 (diabetes mellitus, type 2) Status: Chronic Strict glucose control. 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 No acute events noted overnight. Patient states overall she feels well. Denies any fevers, chills, rigors. Denies chest pain, shortness of breath, or cough. Denies nausea, vomiting, diarrhea, constipation. Denies abdominal pain or urinary complaints. Denies any oral thrush or new ski [place] lesions. Denies any pain in her joints or extremities. States her skin lesions seem to be improved/stable. Denies pain at this time. Infect Dis PN-Objective Data - Labs CBC & Chem 7: 05/22/18 04:00 05/22/18 04:00 Labs: Laboratory Results - last 24 hr 05/20/18 05/20/18 05/21/18 16:32 19:54 21:21 WBC RBC Hgb Hct MCV MCH MCHC RDW Plt Count MPV Seg Neutrophils % Lymphocytes % Monocytes % Eosinophils % Basophils % Neutrophils # Lymphocytes # Monocytes # Eosinophils # Basophils # Platelet Estimate Sodium Potassium Chloride Carbon Dioxide BUN Creatinine Est GFR ( Amer) Est GFR (Non-Af Amer) BUN/Creatinine Ratio Glucose POC Glucose 266 H 218 H 418 H* Calculated Osmolality Calcium Random Vancomycin 05/21/18 05/22/18 05/22/18 21:22 03:50 04:00 WBC 3.0 L RBC 2.82 L Hgb 8.3 L Hct 26.4 L MCV 93.6 MCH 29.4 MCHC 31.4 L RDW 16.7 H Plt Count 265 MPV 8.6 L Seg Neutrophils % 54.0 Lymphocytes % 26.0 Monocytes % 14.0 Eosinophils % 4.0 Basophils % 2.0 Neutrophils # 1.6 Lymphocytes # 0.8 Monocytes # 0.4 Eosinophils # 0.1 Basophils # 0.1 Platelet Estimate Normal Sodium Potassium Chloride Carbon Dioxide BUN Creatinine Est GFR ( Amer) Est GFR (Non-Af Amer) BUN/Creatinine Ratio Glucose POC Glucose 391 H Calculated Osmolality Calcium Random Vancomycin 13 05/22/18 04:00 WBC RBC Hgb Hct MCV MCH MCHC RDW Plt Count MPV Seg Neutrophils % Lymphocytes % Monocytes % Eosinophils % Basophils % Neutrophils # Lymphocytes # Monocytes # Eosinophils # Basophils # Platelet Estimate Sodium 138 Potassium 4.5 Chloride 110 H Carbon Dioxide 23 BUN 34 H Creatinine 1.06 Est GFR ( Amer) > 60 Est GFR (Non-Af Amer) 53 L BUN/Creatinine Ratio 32 H Glucose 333 H POC Glucose Calculated Osmolality 307 H Calcium 8.0 L Random Vancomycin Cultures: Cultures 05/18/18 15:35 Anaerobic Culture - Preliminary Left Foot At this time, no anaerobic growth is present. The culture will be finalized after 5 days of incubation. 05/18/18 15:35 Surgical Biopsy Culture - Final Left Foot 05/18/18 14:40 Surgical Biopsy Culture - Final Left Foot 05/18/18 15:35 Acid Fast Stain - Final Left Foot Exam - Constitutional Vitals: Temp Pulse Resp BP Pulse Ox 97.5 F L 73 16 140/73 98 05/22/18 07:29 05/22/18 07:29 05/22/18 07:29 05/22/18 07:29 05/22/18 07:29 General appearance: cooperative, no acute distress, obese - Head Head exam: Present: atraumatic, normal inspection, normocephalic - Eye Eye exam: Present: EOMI, normal appearance, PERRL Pupils: Present: normal accommodation - ENT ENT exam: Present: mucous membranes moist - Neck Neck exam: Present: normal inspection - Respiratory Respiratory exam: Present: CTAB. Absent: rales, respiratory distress, rhonchi, wheezes - Cardiovascular Cardiovascular exam: Present: RRR, +S1, +S2 - GI/Abdominal GI/Abdominal exam: Present: distended (obese), normal bowel sounds, soft. Absent: tenderness - Extremities Exam Extremities exam: Absent: normal inspection (Left foot dressing C/D/I. Scabbed lesions noted to the BLE and BUE in various stages of healing without surrounding erythema, warmth, tenderness, or drainage.) - Neurological Exam Neurological exam: Present: alert, oriented X3. Absent: no focal deficits (Weakness noted to the LLE.) - Psychiatric Psychiatric exam: Present: normal affect, normal mood - Skin Skin exam: Present: dry, intact, normal color, warm Consult Discharge Plan - Plan Instructions: Diabetes Mellitus Type 2 in Adults (DC), Anemia (GEN) Additional Instructions: Methotrexate was switched to oral and topical steroids. Follow with dermatology as an outpatient Follow up in wound clinic Referrals: Elza Jesus MD [Primary Care Provider] - Prescriptions: RX: Clobetasol Propionate [Temovate 0.05%] 1 appl TP BID #1 tube RX: predniSONE [PredniSONE] 15 mg PO DAILY 30 Days #45 tablet - Attending Attestation I examined this patient and my medical decision-making was reviewed with the Resident Physician. I agree with the documented findings, disposition and treatment plan as described except to the extent set forth below.
[2018-05-22] MEDS ORDERED: Vancomycin 500 MG in 0.9 % Sodium Chloride Mini Bag 100 ML IVPB ONE (12:00)
--- NOTE | 2018-05-22 14:28 | Discharge Summary ---
- NOTES TO OUTPATIENT PROVIDER Notes to Outpatient Provider: Patient with history of bullous pemphigoid on methotrexate was admitted for pancytopenia and concern for left heel OM. Methotrexate was held and medication was switched to topical and systemic steroids after consulting with dermatology over the phone. Despite concerning MRI finding on L heel, bone bx done on 05/18 did not show any evidence of osteomyelitis. She will be discharged without abx with close follow up with podiatry. Orders not resulted at time of discharge: Pending orders 05/15/18 13:11 Occult Blood,Stool [BF] Stat 05/18/18 15:35 AFB Culture, Tissue [TB] Routine AFB Smear [TB] Routine Culture,Anaerobic [RM] Routine Fungal Culture [MYC] Routine 05/23/18 04:00 Vancomycin,Random Timed Date of Encounter: 05/22/18 Time of Encounter: 11:30 - Discharge Diagnosis (1) Anemia Priority: Secondary Status: Acute Qualifiers: Anemia type: due to chronic kidney disease Chronic kidney disease stage: stage 3 (moderate) Qualified Code(s): N18.3 - Chronic kidney disease, stage 3 (moderate); D63.1 - Anemia in chronic kidney disease (2) DM2 (diabetes mellitus, type 2) Priority: Secondary Status: Chronic Qualifiers: Diabetes mellitus alf insulin use: with alf use Diabetes mellitus complication status: with kidney complications Diabetes mellitus complication detail: with chronic kidney disease Chronic kidney disease stage: stage 3 (moderate) Qualified Code(s): E11.22 - Type 2 diabetes mellitus with diabetic chronic kidney disease; N18.3 - Chronic kidney disease, stage 3 (moderate); Z79.4 - senior care (current) use of insulin (3) CKD (chronic kidney disease) stage 3, GFR 30-59 ml/min Priority: Secondary Status: Chronic (4) DVT prophylaxis Priority: Secondary Status: Acute (5) Osteomyelitis Priority: Secondary Status: Ruled-out Qualifiers: Osteomyelitis type: other acute Osteomyelitis location: foot Laterality: left Qualified Code(s): M86.172 - Other acute osteomyelitis, left ankle and foot (6) Bullous pemphigoid Priority: Secondary Status: Chronic (7) Decubitus ulcer of left heel Priority: Secondary Status: Chronic Qualifiers: Pressure injury stage: stage 2 Qualified Code(s): L89.622 - Pressure ulcer of left heel, stage 2 (8) Pancytopenia Priority: Secondary Status: Acute Hospital course: Ms. Mejia is a 62 year old female with PMHx of bullous pemphigoid on methotrexate who was admitted for pancytopenia and concern for left heel OM. Methotrexate was held and she required 2U of pRBC during her stay. Her medication for bullous pemphigoid was switched to topical and systemic steroids after consulting with dermatology over the phone. Despite concerning MRI finding on L heel, bone bx done on 05/18 did not show any evidence of osteomyelitis. After discussing with ID and podiatry, it was decided to discharge her without abx with close follow up with podiatry as outpatient. 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 - Time Spent with Patient Total time spent providing and/or coordinating discharge services: 35 mins - Discharge Medications Prescriptions: RX: Clobetasol Propionate [Temovate 0.05%] 1 appl TP BID #1 tube RX: predniSONE [PredniSONE] 15 mg PO DAILY 30 Days #45 tablet Home Medications: RX: Gabapentin [Neurontin] 300 mg PO HS 08/18/15 [History] RX: Insulin LISPRO [Humalog] 14 unit SQ BID 08/18/15 [History] RX: Pravastatin Sodium [Pravachol] 20 mg PO HS 08/18/15 [History] RX: Linagliptin/Metformin HCl [Jentadueto Xr 2.5 mg-1,000 mg] 1 tab PO BID 05/03/16 [History] RX: Carvedilol [Coreg] 6.25 mg PO BIDWM #60 tablet 05/11/16 [Rx] RX: amLODIPine [Norvasc] 5 mg PO DAILY #30 tablet 05/11/16 [Rx] RX: Insulin Glargine,Hum.rec.anlog [Touaustino Solostar] 14 units SQ QAM 03/10/17 [History] RX: Lactobacillus [Culturelle] 1 each PO BID #30 cap.sprink 04/04/17 [Rx] RX: Benzocaine/Menthol [Chloraseptic Max Lozenge] 1 each MM Q2H PRN 11/12/17 [History] RX: Ferrous Sulfate [Iron] 325 mg PO DAILY 11/12/17 [History] RX: Folic Acid 1 mg PO DAILY 11/12/17 [History] RX: Multivitamin [One Daily Essential] 1 tab PO DAILY 11/12/17 [History] RX: hydrOXYzine HCl [Hydroxyzine HCl] 25 mg PO QID PRN 11/12/17 [History] RX: Aspirin Enteric Coated [Aspirin EC] 81 mg PO DAILY tablet. 11/15/17 [Rx] RX: Buspirone HCl [Buspar] 5 mg PO BID tablet 11/15/17 [Rx] RX: Ondansetron HCl 8 mg PO Q8H PRN 12/12/17 [History] RX: OxyCODONE/APAP 5/325 [Percocet 5/325 MG] 1 tab PO Q6H PRN 5 Days #20 tablet 12/18/17 [Rx] RX: Polyethylene Glycol 3350 [MiraLAX] 17 gm PO BID powd.pack 12/18/17 [Rx] RX: Sennosides/Docusate Sodium [Senna Plus] 2 each PO BID tablet 12/18/17 [Rx] RX: Famotidine [Pepcid] 20 mg PO BID 05/14/18 [History] RX: Promethazine [Phenergan] 25 mg PO Q8HR PRN 05/14/18 [History] RX: Zinc Oxide [Boudreauxs] 1 appl TP BID 05/14/18 [History] RX: Clobetasol Propionate [Temovate 0.05%] 1 appl TP BID #1 tube 05/22/18 [Rx] RX: predniSONE [PredniSONE] 15 mg PO DAILY 30 Days #45 tablet 05/22/18 [Rx] Allergies/Adverse Reactions: Allergy/AdvReac Type Severity Reaction Status Date / Time No Known Allergies Allergy Verified 11/12/17 16:06 Date of admission: 05/18/18 15:16 Primary care physician: Elza Jesus MD Consults: 05/14/18 18:49 Consult to Oncology Hematology [CONS] Routine Consulting Provider: Maddison Turner Reason for Consult: Pancytopenia on methotrexate Call Completed: Yes 05/15/18 04:46 Consult to Wound Care [CONS] Routine Reason for Consult: diabetic foot ulcers Time Notified: 04:51 Call Completed: No 05/15/18 04:54 Consult to Meeting Coordinator [CONS] Routine Reason for SW Consult: Follow up care 05/15/18 15:23 Consult to Infectious Diseases [CONS] Routine Consulting Provider: [facility] [place] Reason for Consult: LEft calcameal OM, likley due to MRSA, kindly evaluate for antibiotic recommendations. Call Completed: No 05/16/18 16:02 Consult to Podiatry [CONS] Routine Consulting Provider: Podiatry [facility] Reason for Consult: Left heel decubitus ulcdr with OM, pls evaluate for wound care Call Completed: Yes - Constitutional Vitals: Temp Pulse Resp BP Pulse Ox 97.7 F 72 16 112/68 99 05/22/18 12:12 05/22/18 12:12 05/22/18 12:12 05/22/18 12:12 05/22/18 12:12 General appearance: Present: A&O X 3 Exam: VS reviewed Gen: morbidly obese, not in any form of distress Chest: CTAB heart: S1, S2only, no m/g/r Abdomen: Not tender, soft, Extremities: No pedal edema, Right upper arm with open blister, raw, abdominal wall with one open lesion, Left heel and calcaneal region in wound dressing which is clean and dry - Patient Status Disposition: Transfer SNF Condition: Fair Overall status at discharge: patient is progressing back to baseline - Discharge Instructions Instructions: Diabetes Mellitus Type 2 in Adults (DC), Anemia (GEN) Follow Up With: Elza Jesus MD [Primary Care Provider] - Additional Instructions: Methotrexate was switched to oral and topical steroids. Follow with dermatology as an outpatient Follow up in wound clinic - Diet and Activity Activity: as per physical therapy Diet: diabetic diet
--- NOTE | 2018-05-22 15:28 | Physician Discharge Referral ---
ExtendedCare Referral Info Institutional Level of Care: Skilled - Diagnosis (1) Anemia Priority: Secondary Status: Acute (2) DM2 (diabetes mellitus, type 2) Priority: Secondary Status: Chronic (3) CKD (chronic kidney disease) stage 3, GFR 30-59 ml/min Priority: Secondary Status: Chronic (4) DVT prophylaxis Priority: Secondary Status: Acute (5) Osteomyelitis Priority: Secondary Status: Ruled-out (6) Bullous pemphigoid Priority: Secondary Status: Chronic (7) Decubitus ulcer of left heel Priority: Secondary Status: Chronic (8) Pancytopenia Priority: Primary Status: Acute - Transfer Medications Prescriptions: RX: Clobetasol Propionate [Temovate 0.05%] 1 appl TP BID #1 tube RX: predniSONE [PredniSONE] 15 mg PO DAILY 30 Days #45 tablet Home Medications: RX: Gabapentin [Neurontin] 300 mg PO HS 08/18/15 [History] RX: Insulin LISPRO [Humalog] 14 unit SQ BID 08/18/15 [History] RX: Pravastatin Sodium [Pravachol] 20 mg PO HS 08/18/15 [History] RX: Linagliptin/Metformin HCl [Jentadueto Xr 2.5 mg-1,000 mg] 1 tab PO BID 05/03/16 [History] RX: Carvedilol [Coreg] 6.25 mg PO BIDWM #60 tablet 05/11/16 [Rx] RX: amLODIPine [Norvasc] 5 mg PO DAILY #30 tablet 05/11/16 [Rx] RX: Insulin Glargine,Hum.rec.anlog [José Miguel Manuel] 14 units SQ QAM 03/10/17 [History] RX: Lactobacillus [Culturelle] 1 each PO BID #30 cap.sprink 04/04/17 [Rx] RX: Benzocaine/Menthol [Chloraseptic Max Lozenge] 1 each MM Q2H PRN 11/12/17 [History] RX: Ferrous Sulfate [Iron] 325 mg PO DAILY 11/12/17 [History] RX: Folic Acid 1 mg PO DAILY 11/12/17 [History] RX: Multivitamin [One Daily Essential] 1 tab PO DAILY 11/12/17 [History] RX: hydrOXYzine HCl [Hydroxyzine HCl] 25 mg PO QID PRN 11/12/17 [History] RX: Aspirin Enteric Coated [Aspirin EC] 81 mg PO DAILY tablet. 11/15/17 [Rx] RX: Buspirone HCl [Buspar] 5 mg PO BID tablet 11/15/17 [Rx] RX: Ondansetron HCl 8 mg PO Q8H PRN 12/12/17 [History] RX: OxyCODONE/APAP 5/325 [Percocet 5/325 MG] 1 tab PO Q6H PRN 5 Days #20 tablet 12/18/17 [Rx] RX: Polyethylene Glycol 3350 [MiraLAX] 17 gm PO BID powd.pack 12/18/17 [Rx] RX: Sennosides/Docusate Sodium [Senna Plus] 2 each PO BID tablet 12/18/17 [Rx] RX: Famotidine [Pepcid] 20 mg PO BID 05/14/18 [History] RX: Promethazine [Phenergan] 25 mg PO Q8HR PRN 05/14/18 [History] RX: Zinc Oxide [Boudreauxs] 1 appl TP BID 05/14/18 [History] RX: Clobetasol Propionate [Temovate 0.05%] 1 appl TP BID #1 tube 05/22/18 [Rx] RX: predniSONE [PredniSONE] 15 mg PO DAILY 30 Days #45 tablet 05/22/18 [Rx] Allergies/Adverse Reactions: Allergy/AdvReac Type Severity Reaction Status Date / Time No Known Allergies Allergy Verified 11/12/17 16:06 - Respiratory Orders Smoking Cessation: Smoking cessation has been advised. For more information, call the [place] Tobacco Quit Line at 9-873-ZVTG-NOW. - Rehabiliation Orders Rehab Orders: Evaluation for Physical Therapy, Evaluation for Occupational Therapy - Treatments List/Other: MTX switched to PO and topical steroids. FOllow with dermatology Follow up in wound clinic for L heel ulcer, discharged without abx after discussing with podiatry and ID. CERTIFICATION: I certify that the transfer of the above named patient to an Extended Care Facility is necessary for the continuing treatment of the diagnosis listed. The above information is true and accurate reflection of patient's current condition. Confidential - Redisclosure prohibited without a patient's written consent.
[2018-05-22 19:17] VITALS: BP 143/82
[2018-05-22] MEDS ORDERED: Aminoglycoside Consult 1 EACH MC ONE (20:16)
== END 2018-05-22 20:17 | DRG 988 ==
LOC: 3ANU 15:03 → EMEROOARM 15:03 → SUATTDRO 17:23 → 3ANU 20:08 → SUATTDRO 05-18 15:16
PROVIDERS: ADMIT Internal Medicine; ATTEND Internal Medicine